=== PATIENT | female | born 1935 | race Caucasian/White ===

== ENCOUNTER 2016-10-07 13:38 | Inpatient (IN) ==
[2016-10-07] MEDS ORDERED: MORPHINE 2 MG/1 ML SYRINGE IV PRN (15:17)
[2016-10-07] MEDS ORDERED: ACETAMINOPHEN 325 MG TABLET PO PRN (15:17)
[2016-10-07 15:52] LABS: Basophils % 0.3 % (0.0-0.8); Eosinophils % 0.5 % (0.00-10.9); Immature Granulocytes % 0.5 %; Immature Granulocytes Absolute 0.04 #; Lymphocytes % 10.9 % (21.3-54.2); Mean Corpuscular HGB Conc 31.3 GM/DL (32-36); Mean Corpuscular Hemoglobin 26 PG (27-34); Mean Platelet Volume 10.9 FL (9.6-12.0); Monocytes # 0.8 10*3/uL (0.11-0.8); Monocytes % 9.2 % (1.7-12.7); Neutrophils # 6.9 10*3/uL (1.4-7.4); Neutrophils % 78.6 % (38.7-73.9); Platelet Count 417 T/CUMM (130-400); Red Blood Count 3.81 MC/CUMM (3.8-5.5); Red Cell Distribution Width 14.8 % (9.3-17.3); White Blood Count 8.7 T/CUMM (4-12)
[2016-10-07] MEDS: DEXTROSE 5% LACTATED RINGERS 1,000 ML IV SCH ×2 (15:53→22:45)
[2016-10-07] MEDS: ONDANSETRON 4 MG/2 ML VIAL IV PRN ×2 (15:57→20:28)
[2016-10-07 16:06] LABS: INR 1.2; PT Patient Result 12.9 SECS; Partial Thromboplastin Time 25.8 SECS (0-40)
[2016-10-07 16:19] LABS: Albumin 2.9 G/DL (3.4-5.0); Bilirubin,Total 0.9 MG/DL (0.2-1.0); Calcium 9.4 MG/DL (8.5-10.1); Osmolality,Calculated 280.8 MOS/KG (273-304); Potassium 4.7 MMOL/L (3.5-5.1); Total Protein 6.8 G/DL (6.4-8.3)
[2016-10-08 00:21] LABS: Apearance,Urine CLOUDY (Clear); Bacteria,Urine Occasional /HPF (Few); Bilirubin,Urine Negative (Negative); Blood, Urine Negative (Negative); Glucose,Urine (UA) Negative (Negative); Hyaline Casts,Urine 23 /LPF (0-3); Ketones,Urine Negative (Negative); Mucus,Urine Occasional /LPF (Occasional); Nitrite,Urine Negative (Negative); Protein,Urine 30 MG/DL; RBC,Urine 2 /HPF (0-4); Squamous Epithelial Cell,Urine Occasional /HPF (0-10); Urine Color Amber (Yellow); Urine Specific Gravity 1.017 (1.001-1.035); WBC,Urine 4 /HPF (0-6)
[2016-10-08] MEDS: ONDANSETRON 4 MG/2 ML VIAL IV PRN ×4 (04:00→20:16)
[2016-10-08] MEDS: DEXTROSE 5% LACTATED RINGERS 1,000 ML IV SCH ×5 (06:24→21:37)
[2016-10-08 06:54] LABS: Calcium 8.4 MG/DL (8.5-10.1); Osmolality,Calculated 286.5 MOS/KG (273-304); Potassium 3.8 MMOL/L (3.5-5.1)
[2016-10-08] MEDS: PANTOPRAZOLE 40 MG TABLET PO SCH (08:43)
--- NOTE | 2016-10-08 12:46 | General Surgery Progress Note ---
Assessment and Plan - Time spent with patient Time spent with patient: Less than 30 minutes (1) Intractable nausea and vomiting Status: Acute Assessment and plan: This is improved since admission with IV fluids and IV Zofran Current Visit: Yes (2) Dehydration Status: Acute Assessment and plan: This is likely secondary to volume depletion due to decreased intake and nausea and vomiting. We are correcting this with normal saline. Current Visit: Yes (3) Prerenal azotemia Status: Acute Assessment and plan: This is probably due to volume depletion. We are hydrating her. She needs an abdominal CT scan but with her prerenal azotemia we will hydrate her further today for ordering a CAT scan. Current Visit: Yes Subjective Patient reports: Present: feels better, nausea. Absent: still having pain, vomiting, fever Exam - Constitutional Vitals: Period Temp Pulse Resp BP Sys/Capellan Pulse Ox Last 24 Hr 97.6 F-98.5 F 72-85 16-20 112-144/57-66 92-96 General appearance: no acute distress - Eye Eye exam: Absent: scleral icterus - Respiratory Respiratory exam: Absent: accessory muscle use - GI/Abdominal GI/Abdominal exam: Present: soft. Absent: distended, tenderness, rebound Results - Labs CBC & BMP: 10/07/16 15:36 10/08/16 05:14 Lab Results: I have reviewed the past 24 hour labs Quality Measures - VTE Contraindication to Pharmacological VTE Prophylaxis: High Risk of Bleeding
[2016-10-08] MEDS ORDERED: PROMETHAZINE INJ 25 MG in SODIUM CHLORIDE 0.9% 50 ML IV ONE (22:20)
[2016-10-08] MEDS ORDERED: PROMETHAZINE 25 MG/1 ML VIAL IM PRN (22:22)
[2016-10-09] MEDS: ONDANSETRON 4 MG/2 ML VIAL IV PRN ×5 (01:59→21:48)
[2016-10-09] MEDS: DEXTROSE 5% LACTATED RINGERS 1,000 ML IV SCH ×5 (05:29→21:48)
[2016-10-09 05:53] LABS: Albumin 2.1 G/DL (3.4-5.0); Bilirubin,Total 1.6 MG/DL (0.2-1.0); Calcium 8.2 MG/DL (8.5-10.1); Osmolality,Calculated 280.5 MOS/KG (273-304); Potassium 3.4 MMOL/L (3.5-5.1); Total Protein 5.2 G/DL (6.4-8.3)
[2016-10-09] MEDS: LEVOTHYROXINE 75 MCG TABLET PO SCH (06:38)
--- NOTE | 2016-10-09 09:47 | Physician Query Form ---
CLICK EDIT DOCUMENT TO SELECT QUERY ANSWER --> OK --> SIGN Adriana Ivan RN, CCDS Certified Clinical Centrifugal Chiller Technician W) [phone] (f) [phone] [email or web address] PROVIDERS: Make your selection(s) from the choices in EACH section by typing an "x" and enter comments in the comment section. Please use your independent medical judgment in providing your response. This request does not imply that any particular answer is desired or expected. CLINICAL INDICATORS: (Providers should not edit this section) The patient was admitted with nausea/vomiting/dehydration and prerenal azotemia , Cr 1.90, GFR 26 on admission with return to Cr 0.9 and GFR 66 within 4 days , treated with IVF's. Clarify which of the following most accurately represents the patient's renal status: ( ) Acute kidney injury (non-traumatic) ( ) Acute renal failure ( ) Acute renal failure with underlying Chronic Kidney Disease (CKD) - please provide stage below ( ) Acute renal failure with pathological renal lesion ( ) Acute renal failure with necrosis ( ) tubular ( ) medullary ( ) cortical ( ) CKD - please provide stage below ( ) End Stage Renal Disease ( ) Acute interstitial nephritis ( ) Hepatorenal syndrome ( ) Other, please specify: ( ) Clinically unable to determine Chronic Kidney Disease Stages Source: National Kidney Disease Foundation ( ) Stage I (eGFR > or = 90) ( ) Stage II (eGFR 60 - 89) ( ) Stage III (eGFR 30 - 59) ( ) Stage IV (eGFR 15 - 29) ( ) Stage V (eGFR < 15 or dialysis) COMMENTS: PLEASE ALSO DOCUMENT RESPONSE IN PROGRESS NOTES AND/OR DISCHARGE SUMMARY Use of terms such as suspected, likely, or probable (associated with a specific diagnosis that is being evaluated, monitored, or treated as if it exists) are acceptable and can be restated in the discharge summary if not ruled out. MTDD
--- NOTE | 2016-10-09 13:04 | General Surgery Progress Note ---
Assessment and Plan (1) Intractable nausea and vomiting Status: Acute Assessment and plan: This is improved since admission with IV fluids and IV Zofran 10/09: She still has nausea and vomiting and I am treating this with IV fluids and Zofran. This should probably resulted in prerenal azotemia and dehydration which we have corrected. Current Visit: Yes (2) Dehydration Status: Acute Assessment and plan: This is likely secondary to volume depletion due to decreased intake and nausea and vomiting. We are correcting this with normal saline. Current Visit: Yes (3) Prerenal azotemia Status: Acute Assessment and plan: This is probably due to volume depletion. We are hydrating her. She needs an abdominal CT scan but with her prerenal azotemia we will hydrate her further today for ordering a CAT scan. Current Visit: Yes (4) Colon adenocarcinoma Status: Acute Assessment and plan: I have reviewed her CT scan that we obtained this morning. We do not have an official radiology reading. She has too numerous to count metastasis in her liver and elevated liver function tests and bilirubin. This appears to represent stage IV colon cancer. This does not look like obstruction on CT scan. We will consult oncology to see what course of treatment would be best to pursue at this time. I do not see an obstruction causing her nausea and vomiting and do not feel that we need immediate operative intervention. Current Visit: Yes Subjective Patient reports: Present: flatus, no bowel movement, nausea, vomiting. Absent: still having pain Exam - Constitutional Vitals: Period Temp Pulse Resp BP Sys/Capellan Pulse Ox Last 24 Hr 98.0 F-101.3 F 75-99 16-21 127-159/64-76 90-97 General appearance: no acute distress - Head Head exam: Present: normocephalic - Eye Eye exam: Absent: scleral icterus - Respiratory Respiratory exam: Absent: accessory muscle use - GI/Abdominal GI/Abdominal exam: Present: soft. Absent: distended, tenderness Results - Labs CBC & BMP: 10/07/16 15:36 10/09/16 05:00 Lab Results: I have reviewed the past 24 hour labs - Diagnostic Findings Procedure: CT Abdomen and Pelvis: image reviewed by me Quality Measures - VTE Contraindication to Pharmacological VTE Prophylaxis: High Risk of Bleeding
[2016-10-09] MEDS: NEBIVOLOL 5 MG TABLET PO SCH (13:20)
[2016-10-09] MEDS: PANTOPRAZOLE 40 MG TABLET PO SCH (13:20)
--- NOTE | 2016-10-09 13:21 | CT Report ---
CT abdomen pelvis w con Indication: Colon cancer Comparison: None Technique: Multiple axial tomographic images of the abdomen and pelvis were obtained after the administration of 100 cc Omnipaque 350 intravenous contrast. Findings: Multiple nodular densities within the lung bases suspicious for metastases. The largest is within the posterior medial right lower lobe which measures up to 2 cm. Heart base appears somewhat prominent. Innumerable hypodense liver lesions consistent with metastatic disease with peripheral enhancement. The largest is located within the right lobe and measures up to 10.3 cm. Gallbladder is nondistended. Pancreatic parenchyma grossly unremarkable. Spleen grossly unremarkable. Bilateral adrenal glands grossly unremarkable. Small hypodensities are demonstrated within the kidneys which are too small to characterize but may reflect cysts. No evidence of hydronephrosis. The urinary bladder is incompletely distended. Status post hysterectomy. No evidence of gastrointestinal obstruction. Moderate fecal material noted throughout the rectum and colon which may reflect constipation. There is thickening of the crowder of the terminal ileum, cecum, and proximal ascending colon. There is masslike density demonstrated within the right lower quadrant measuring up to 3.1 cm. There is loss of fat plane between this mass and the adjacent sigmoid colon, terminal ileum, and cecum. Prominent meseret hepatis node measuring up to 2.2 x 4.0 cm in largest axial dimensions. Multiple mildly prominent right lower quadrant mesenteric lymph nodes. Moderate atherosclerotic calcifications demonstrated. Degenerative change of the spine present. IMPRESSION: There is thickening of the crowder of the terminal ileum, cecum, and proximal ascending colon. There is masslike density demonstrated within the right lower quadrant measuring up to 3.1 cm consistent with malignancy. There is loss of fat plane between this mass and the adjacent sigmoid colon, terminal ileum, and cecum. There are multiple hepatic, pulmonary, and abdominal lymph node metastases. Questional constipation, cardiomegaly, status post hysterectomy, and other detailed findings as above. The CT exam was performed using one or more of the following dose reduction techniques: Automated exposure control, adjustment of the mA and/or kV according to patient size, or use of iterative reconstruction technique. PROCEDURE INTERPRETED AT [facility] DEPARTMENT OF RADIOLOGY Final Report Signed by: Dr Miguel Fabian
--- NOTE | 2016-10-09 15:26 | Oncology Consult Note ---
History of Present Illness History of present illness: Ms. Espinoza is a 81 year old female with Metastatic colon cancer. I discussed this patient's case with Dr. Bernadette Thacker earlier today. She was admitted with intractable nausea and vomiting and a diagnosis of colon cancer on C scope. Between the time of diagnosis by colonoscopy, which was done in [place], and this admission, the patient has had a deterioration in her condition consisting of nausea and vomiting and progressive weakness. She had a CT scan performed earlier today that demonstrates diffuse metastatic disease within the liver with an elevation of liver function tests and bilirubin. She does not have definite evidence of obstruction or impending obstruction on CT scan nor is it observed by Dr. Bernadette Thacker. It is not his opinion that she is necessarily a surgical candidate at this point. Lab work on October 07 included a CBC that was normal except for a hemoglobin of 10.0. The patient's white cell count was 8700. Her comprehensive metabolic profile on October 07 included an alkaline phosphatase of 314 and an AST of 364 but the total bilirubin was normal at 0.9 and renal function slightly impaired at that time with a creatinine of 1.9 that is now down to 1.1 as of October 09, 2016. I have personally reviewed the CT films of the patient's abdomen. She has innumerable metastases and extremely bulky disease taking up most of her liver parenchyma. I do not think she can handle Oxaliplatin or Camptosar. I will consider the addition of Avastin at some point, possibly. Also we may need additional tissue for testing for WESLEY mutation. - Medical History Cardio: History of: Hypertension HEENT: History of: Dental Problems (top) Endocrine: History of: Thyroid Disorder Gastrointestinal: History of: Gastrointestinal Cancer (colon) - Surgical History HEENT Surgeries: Surgical HX of: Eye Surgery (cataract) Orthopedic Surgeries: Surgical HX of;: Orthopedic Surgery (knee ) - Family History Family History: Reports;: Family Heart Disease (father), Family Hypertension ( Parents, sister) - Social History Smoking Status: Never smoker Frequency of Alcohol Use: None Type of Drug Use: None ROS Gen.: Until onset of present illness, her health has been fairly good. Endocrine: She has a history of hypothyroidism and has been on thyroid supplementation. Eyes: She has had bilateral cataract surgery. No history of chronic disease, infections or visual loss. ENT: No history of chronic infections, epistaxis, chronic sore throat Lungs: No history of asthma, emphysema, hemoptysis, chronic pleurisy or long- term or chronic infections Cardiovascular: She has a history of hypertension. No history of angina, coronary artery disease, congestive heart failure, cardiovascular surgery or DVT /VTE GI: She developed nausea and vomiting with onset of this present illness and has had esophageal reflux and heartburn. No prior history of upper or lower GI bleeding, melena, dysphagia, odynophagia, liver disease, gallbladder disease or pancreatic disease. : She was acutely dehydrated and had documented elevation of her urea nitrogen and creatinine on this admission but this is not a long-term issue. No history of kidney stones, chronic kidney infections or hematuria. Musculoskeletal: No history of chronic bone or joint pain or focal muscle atrophy or bone or joint deformity. Neurologic: No history of seizures, convulsions or paralysis. Psychiatric: No history of chronic psychiatric illness or psychiatric medications. Lymphatic: No history of significant or long-term lymphadenopathy Hematologic: No history of anemia, bleeding disorders or blood dyscrasias or long-term elevation or depression white cell count or petechiae. Skin: No history of chronic skin infections or rashes or significant skin lesions. Physical examination: General: The patient is both chronically and acutely ill appearing. Eyes: She has had bilateral cataract surgery. There is no conjunctival icterus. Lids are normal. ENT: She has an upper plate of dentures. Her oral mucosa is dry. Her trachea is midline. There are no neck masses. Hearing is normal. Pulmonary: Breath sounds are relatively normal without rubs, rales or rhonchi. There is symmetrical unlabored chest motion with respiration. Cardiovascular: Her heart rhythm is regular without murmur, gallop or rub. There is no jugular venous distention, clubbing, cyanosis or edema. Dorsal pedis pulses are normal. Abdomen: Her liver is palpable 5 cm below the right costal margin and is tender. She appears to have ascites or at least abdominal distention. Musculoskeletal: She has mild arthritic change in the hands without focal muscle atrophy or bone or joint deformity otherwise. Neurologic: Cranial nerves II through XII are intact. There are no focal neurologic deficits. Nodes: I palpate no cervical, supraclavicular or axillary adenopathy. Skin: Cursory examination is normal. Psychiatric: The patient is obviously very anxious and depressed at this point. However she is oriented to time, place, person and situation with what I would consider normal mood and affect. Impression: Stage IV adenocarcinoma the colon with extensive liver involvement. Acute renal failure secondary to intractable nausea and vomiting History of hypertensive cardiovascular disease History of hypothyroidism with the patient on supplemental thyroid Her renal function is improving. I am checking a CEA level and CA-19-9. I am going to give her information from Up-To-Date on metastatic adenocarcinoma colon and on treatment of it. If she decides to take chemotherapy, she will need a Mediport catheter. We also may need additional tissue for study for WESLEY mutations The extent of her cancer in her liver is more than I expected. The majority of her liver is occupied by metastatic disease. I have explained to her that this is palliative chemotherapy and she is going to think about it. Initially she said she did not want it but I do not think she fully understood her situation. This is very advanced disease and I am not certain that we can even get her through chemotherapy. Home Medications Medication Instructions Recorded Confirmed Type Levothyroxine Tab [Synthroid Tab] 75 mcg PO DAILY@0700 10/07/16 10/07/16 History Lisinopril/Hydrochlorothiazide 1 each PO DAILY 10/07/16 10/07/16 History [Lisinopril-Hctz 10-12.5 mg Tab] Nebivolol [Bystolic] 5 mg PO DAILY 10/07/16 10/07/16 History Ondansetron HCl 4 mg PO Q4H PRN 10/07/16 10/07/16 History Allergies Allergy/AdvReac Type Severity Reaction Status Date / Time No Known Allergies Allergy Verified 10/07/16 15:35 Medical,Surgical,& Family Hx - Medical History Cardio: History of: Hypertension HEENT: History of: Dental Problems (top) Endocrine: History of: Thyroid Disorder Gastrointestinal: History of: Gastrointestinal Cancer (colon) - Surgical History HEENT Surgeries: Surgical HX of: Eye Surgery (cataract) Orthopedic Surgeries: Surgical HX of;: Orthopedic Surgery (knee s) - Family History Family History: Reports;: Family Heart Disease (father), Family Hypertension ( Parents, sister) - Social History Smoking Status: Never smoker Frequency of Alcohol Use: None Type of Drug Use: None Exam - Constitutional Vitals: Period Temp Pulse Resp BP Sys/Capellan Pulse Ox Last 24 Hr 98.0 F-101.3 F 75-99 16-21 127-159/64-76 90-97 Results - Labs CBC & BMP: 10/07/16 15:36 10/09/16 05:00 Quality Measures - VTE Contraindication to Pharmacological VTE Prophylaxis: High Risk of Bleeding
[2016-10-09 19:03] LABS: Cancer Antigen 19-9 6287.6 U/ML (0-37); Carcinoembryonic Antigen 194.3 NG/ML (0.0-5.0)
[2016-10-10] MEDS: DEXTROSE 5% LACTATED RINGERS 1,000 ML IV SCH ×4 (01:35→16:24)
[2016-10-10] MEDS: ONDANSETRON 4 MG/2 ML VIAL IV PRN ×3 (04:32→16:32)
[2016-10-10] MEDS: LEVOTHYROXINE 75 MCG TABLET PO SCH (06:05)
--- NOTE | 2016-10-10 07:16 | Oncology Progress Note ---
Oncology Subjective PN Interval history: This lady, with advanced metastatic colorectal carcinoma, had lab work done yesterday, October 09, that included a CEA of 194.3 with a CA-19-9 of 6287.6. I have given her information from up-to-date on metastatic adenocarcinoma the colon as well as leucovorin and 5-FU. As mentioned by Dr. Fleming, the CA-19-9 is higher than the CEA. At this point in this patient's case, I would be treating her with leucovorin and 5-FU without additional chemotherapy drugs and this would be the combination I would be most likely use with either colon cancer or other GI cancer and it does not appear that this is pancreatic cancer from the patient's symptoms. Gemzar would be an alternative but I would want to repeat a biopsy of her liver before actually considering the use of it. Exam - Constitutional Vitals: Period Temp Pulse Resp BP Sys/Capellan Pulse Ox Last 24 Hr 98.1 F-100.2 F 81-96 16-21 127-150/62-71 93-96 Results - Labs CBC & BMP: 10/07/16 15:36 10/09/16 05:00 Quality Measures - VTE Contraindication to Pharmacological VTE Prophylaxis: High Risk of Bleeding
[2016-10-10] MEDS: NEBIVOLOL 5 MG TABLET PO SCH (08:37)
--- NOTE | 2016-10-10 08:37 | General Surgery Progress Note ---
Assessment and Plan (1) Intractable nausea and vomiting Status: Acute Assessment and plan: This is improved since admission with IV fluids and IV Zofran 10/09: She still has nausea and vomiting and I am treating this with IV fluids and Zofran. This should probably resulted in prerenal azotemia and dehydration which we have corrected. Current Visit: Yes (2) Dehydration Status: Acute Assessment and plan: This is likely secondary to volume depletion due to decreased intake and nausea and vomiting. We are correcting this with normal saline. Current Visit: Yes (3) Prerenal azotemia Status: Acute Assessment and plan: This is probably due to volume depletion. We are hydrating her. She needs an abdominal CT scan but with her prerenal azotemia we will hydrate her further today for ordering a CAT scan. Current Visit: Yes (4) Colon adenocarcinoma Status: Acute Assessment and plan: I have reviewed her CT scan that we obtained this morning. We do not have an official radiology reading. She has too numerous to count metastasis in her liver and elevated liver function tests and bilirubin. This appears to represent stage IV colon cancer. This does not look like obstruction on CT scan. We will consult oncology to see what course of treatment would be best to pursue at this time. I do not see an obstruction causing her nausea and vomiting and do not feel that we need immediate operative intervention. 10/10: I discussed her case with Dr. Ochoa. I do not feel that surgical intervention at this time would be beneficial for her considering the amount of metastatic disease that she has. I do not see evidence of obstruction. The remarkable thing is her very high CA-19-9 level. It is unclear to me if this is all a colon primary. She may benefit from a liver biopsy. I am going to transfer her care primarily to Dr. Ochoa. I do not think that there is a role for surgery at this point other than maybe placing a Mediport. This was discussed in detail with the patient and her family and they agree Current Visit: Yes Subjective Patient reports: Present: feels better, nausea. Absent: still having pain, vomiting Exam - Constitutional Vitals: Period Temp Pulse Resp BP Sys/Capellan Pulse Ox Last 24 Hr 98.1 F-102.2 F 81-96 16-21 127-150/62-71 92-96 General appearance: no acute distress - GI/Abdominal GI/Abdominal exam: Present: soft. Absent: distended, guarding, tenderness Results - Labs CBC & BMP: 10/07/16 15:36 10/09/16 05:00 Quality Measures - VTE Contraindication to Pharmacological VTE Prophylaxis: High Risk of Bleeding
[2016-10-10] MEDS: PANTOPRAZOLE 40 MG TABLET PO SCH (08:38)
[2016-10-10] MEDS ORDERED: LACTULOSE 20 GM/30 ML UDCUP PO PRN (12:07)
[2016-10-10] MEDS ORDERED: diphenhydrAMINE CAP 25 MG CAPSULE PO PRN (12:07)
[2016-10-10] MEDS ORDERED: ALPRAZolam 0.25 MG TABLET PO PRN (12:07)
[2016-10-10] MEDS ORDERED: ACETAMINOPHEN 325 MG TABLET PO PRN (12:07)
[2016-10-10] MEDS ORDERED: chlorproMAZINE INJ 50 MG in SODIUM CHLORIDE 0.9% 100 ML IV PRN (12:07)
[2016-10-10] MEDS ORDERED: ALUMINUM/MAGNES/SIMETH MAX STR 30 ML UDCUP PO PRN (12:07)
[2016-10-10] MEDS ORDERED: BENZTROPINE 2 MG/2 ML AMP IV PRN (12:07)
[2016-10-10] MEDS ORDERED: traMADol 50 MG TABLET PO PRN (12:07)
[2016-10-10] MEDS ORDERED: chlorproMAZINE 25 MG TABLET PO PRN (12:07)
[2016-10-10] MEDS ORDERED: MYLANTA/LIDO VISC 2:1 300 ML BOTTLE SWISH/SWAL PRN (12:07)
[2016-10-10] MEDS ORDERED: LOPERAMIDE 2 MG CAPSULE PO PRN ×2 (12:07)
[2016-10-10] MEDS ORDERED: chlorproMAZINE INJ 25 MG in SODIUM CHLORIDE 0.9% 100 ML IV PRN (12:07)
[2016-10-10] MEDS ORDERED: TEMAZEPAM 7.5 MG CAPSULE PO PRN (12:07)
[2016-10-10] MEDS ORDERED: guaiFENesin 200 MG/10 ML UDCUP PO PRN (12:07)
[2016-10-10] MEDS ORDERED: MYLANTA/LIDO VISC 2:1 300 ML BOTTLE SWISH/SPIT PRN (12:07)
--- NOTE | 2016-10-10 15:58 | Post Interventional Procedure ---
Pre-op diagnosis: stage IV colon CA Post-op diagnosis: same Procedure: PICC placement Contrast: none Flouroscopy: 1.3 min Radiologist: Valerio Olmos Anesthesia: local Specimens: none sent Estimated blood loss: none Complications: none Condition: stable Description/Findings: 5 Fr dual lumen picc placement done and ready to use Assessment and Plan - Time spent with patient Time spent with patient: Less than 30 minutes
--- NOTE | 2016-10-10 16:08 | Interventional Radiology Rpt ---
IR PICC line insertion, US guide vascular access IR PICC Placement Peripherally-inserted central catheter (PICC) placement using ultrasound and fluoroscopic guidance Ultrasound of the left upper extremity Clinical Information: Stage IV colon cancer. PICC line is requested for chemotherapy and rehydration Physician: Dr. Olmos Procedure: The patient was advised of the benefits, risks, and alternatives of the procedure and informed consent was obtained. A time out was performed with verification of the patient's name, MRN, site of procedure, and type of procedure to be performed. The patient was positioned in the supine position on the angiographic table. The site was prepped and draped in the usual sterile fashion. Additionally, maximal sterile barrier technique was employed for the procedure. A curing pickling packer radiograph reveals no relevant abnormality. Ultrasound examination of the left arm demonstrates patent and compressible brachial and basilic veins. The left arm was prepped and draped in the usual sterile fashion. The left basilic vein was again identified. Using ultrasound guidance, a 21 gauge needle was used to access the vein. A permanent ultrasound recording of vascular access was obtained for the patient's record. A 0.018" cope wire was then advanced into the vein. The needle was exchanged for a 5 Gabonese peel-away sheath. A 5 Gabonese double lumen Bard Solo PICC catheter was measured and trimmed to the 40 to cm claudia. The PICC line was advanced through the sheath and into the central circulation. The catheter tip was positioned at the cavo-atrial junction. The peel-away sheath was then removed. At the conclusion of the procedure, the catheter was secured in place using a Stat-Lock device. A sterile dressing was applied. The lumens aspirate and flush freely. The catheter is ready for immediate use. The patient tolerated the procedure well and was returned to the PRU in stable condition. EBL: < 5 mL. Complications: None. Fluoroscopy time: 1.3 Total number of images for this study: 4 Conclusion: Successful placement of a 5 Gabonese double lumen Bard Solo power injectable PICC via the left basilic vein. The catheter is ready for immediate use. PROCEDURE INTERPRETED AT [facility] DEPARTMENT OF RADIOLOGY Final Report Signed by: Valerio Olmos
[2016-10-10] MEDS: DEXAMETHASONE 10 MG/1 ML VIAL IV SCH (16:24)
[2016-10-11] MEDS: DEXTROSE 5% LACTATED RINGERS 1,000 ML IV SCH ×3 (00:20→18:17)
[2016-10-11] MEDS: ONDANSETRON 4 MG/2 ML VIAL IV PRN ×3 (01:16→17:38)
[2016-10-11 05:33] LABS: Basophils % 0.2 % (0.0-0.8); Hematocrit 26.5 VOL% (35.7-47.0); Hemoglobin 8.4 GM/DL (12.0-16.0); Immature Granulocytes % 0.6 %; Immature Granulocytes Absolute 0.04 #; Lymphocytes # 0.5 10*3/uL (1.4-4.0); Mean Corpuscular HGB Conc 31.7 GM/DL (32-36); Mean Corpuscular Hemoglobin 27 PG (27-34); Mean Corpuscular Volume 85.2 FL (87-102); Mean Platelet Volume 11.3 FL (9.6-12.0); Monocytes # 0.2 10*3/uL (0.11-0.8); Monocytes % 3.6 % (1.7-12.7); Neutrophils # 5.7 10*3/uL (1.4-7.4); Neutrophils % 88.6 % (38.7-73.9); Platelet Count 270 T/CUMM (130-400); Red Blood Count 3.11 MC/CUMM (3.8-5.5); Red Cell Distribution Width 14.9 % (9.3-17.3); White Blood Count 6.4 T/CUMM (4-12)
[2016-10-11] MEDS: LEVOTHYROXINE 75 MCG TABLET PO SCH (07:08)
[2016-10-11 07:17] LABS: Bilirubin,Total 1.1 MG/DL (0.2-1.0); Calcium 8.4 MG/DL (8.5-10.1); Osmolality,Calculated 284.3 MOS/KG (273-304); Potassium 3.3 MMOL/L (3.5-5.1)
[2016-10-11] MEDS: NEBIVOLOL 5 MG TABLET PO SCH (08:20)
[2016-10-11] MEDS: PANTOPRAZOLE 40 MG TABLET PO SCH (08:20)
[2016-10-11] MEDS: DEXAMETHASONE 10 MG/1 ML VIAL IV SCH (08:21)
--- NOTE | 2016-10-11 10:41 | Oncology Progress Note ---
Assessment and Plan (1) Intractable nausea and vomiting Status: Acute Assessment and plan: Improved with current regimen - continue with IVF, decadron, and zofran - CT abdomen with no signs of obstruction and positive for constipation - advised patient to take laxatives and if able to have a bowel movement will advance diet as tolerated to clears - per patient had a colonoscopy at OSH with a significant colonic mass with possible obstruction. will have to obtain records Current Visit: Yes (2) Colon adenocarcinoma Status: Acute Assessment and plan: - per patient documented by OSH via colonoscopy with significant liver burden - plan for initiation of chemotherapy in near future once patient more stable Current Visit: Yes (3) Prerenal azotemia Status: Acute Assessment and plan: - improved with IVF. continue with fluids as patient with continued nausea and no PO intake Current Visit: Yes Oncology Subjective PN Interval history: 81 year old female with PMHx of HTN, and hypothyroidism admitted for intractable nausea, vomiting, and abdominal pain. Patient found to have extensive liver metastasis and per patient with a colonoscopy at OSH with an obstructive colon mass. Per patient her nausea is starting to become better controlled. She states she has had poor PO intake for the last 2 weeks as well as constipation. She denies abdominal distention. She has had intermittent fevers since admit with no source and afebrile in last 24 hours. No SOB. Exam - Constitutional Vitals: Period Temp Pulse Resp BP Sys/Capellan Pulse Ox Last 24 Hr 96 F-99.2 F 66-97 18-18 115-167/54-72 92-96 General appearance: no acute distress - Eye Eye Exam: Present: EOMI Pupils: Present: PERRL - Respiratory Respiratory exam: Present: CTAB - Cardiovascular Cardiovascular exam: Present: RRR - GI/Abdominal GI/Abdominal exam: Present: firm, mass, tenderness, soft. Absent: ascites, distended - Extremities Exam Extremities exam: Absent: edema - Neurological Exam Neurological exam: Present: alert, oriented X3 - Psychiatric Psychiatric exam: Present: normal affect - Skin Skin exam: Present: warm Results - Labs CBC & BMP: 10/11/16 04:00 10/11/16 04:00 Quality Measures - VTE Contraindication to Pharmacological VTE Prophylaxis: High Risk of Bleeding
[2016-10-11] MEDS: PROMETHAZINE INJ 25 MG in SODIUM CHLORIDE 0.9% 50 ML IV PRN ×2 (10:45→20:30)
[2016-10-11] MEDS: MAGNESIUM HYDROXIDE SUSP 30 ML UDCUP PO PRN (17:38)
[2016-10-12] MEDS: DEXTROSE 5% LACTATED RINGERS 1,000 ML IV SCH ×3 (02:52→22:55)
[2016-10-12] MEDS: PROMETHAZINE INJ 25 MG in SODIUM CHLORIDE 0.9% 50 ML IV PRN ×3 (02:55→22:56)
[2016-10-12 04:56] LABS: Hematocrit 27.3 VOL% (35.7-47.0); Hemoglobin 8.7 GM/DL (12.0-16.0); Immature Granulocytes % 0.7 %; Immature Granulocytes Absolute 0.08 #; Lymphocytes # 0.7 10*3/uL (1.4-4.0); Lymphocytes % 5.8 % (21.3-54.2); Mean Corpuscular HGB Conc 31.9 GM/DL (32-36); Mean Corpuscular Hemoglobin 27 PG (27-34); Mean Corpuscular Volume 84.3 FL (87-102); Monocytes # 0.8 10*3/uL (0.11-0.8); Monocytes % 6.8 % (1.7-12.7); Neutrophils # 10.1 10*3/uL (1.4-7.4); Neutrophils % 86.7 % (38.7-73.9); Platelet Count 324 T/CUMM (130-400); Red Blood Count 3.24 MC/CUMM (3.8-5.5); White Blood Count 11.7 T/CUMM (4-12)
[2016-10-12 05:35] LABS: Albumin 1.9 G/DL (3.4-5.0); Bilirubin,Total 0.9 MG/DL (0.2-1.0); Calcium 8.2 MG/DL (8.5-10.1); Total Protein 4.9 G/DL (6.4-8.3)
[2016-10-12 05:36] LABS: Osmolality,Calculated 285.1 MOS/KG (273-304); Potassium 3.6 MMOL/L (3.5-5.1)
[2016-10-12] MEDS: DEXAMETHASONE 10 MG/1 ML VIAL IV SCH (08:53)
[2016-10-12] MEDS: PANTOPRAZOLE 40 MG TABLET PO SCH (08:53)
[2016-10-12] MEDS: NEBIVOLOL 5 MG TABLET PO SCH (08:53)
[2016-10-12] MEDS: LEVOTHYROXINE 75 MCG TABLET PO SCH (08:53)
[2016-10-12] MEDS: MAGNESIUM HYDROXIDE SUSP 30 ML UDCUP PO PRN (08:54)
--- NOTE | 2016-10-12 09:44 | Oncology Progress Note ---
Assessment and Plan (1) Intractable nausea and vomiting Status: Acute Assessment and plan: Improved with current regimen - continue with IVF, decadron, and zofran - CT abdomen with no signs of obstruction but positive for constipation and large tumor burden in liver - 3 BMs yesterday with MoM and feels better today - will attempt advance diet to clears today as tolerated - per patient had a colonoscopy at OSH with a significant colonic mass. Current Visit: Yes (2) Colon adenocarcinoma Status: Acute Assessment and plan: - per patient documented by OSH via colonoscopy with significant liver burden - plan for initiation of chemotherapy in near future once patient more stable Current Visit: Yes (3) Prerenal azotemia Status: Acute Assessment and plan: resolved with IVF. continue with fluids as patient with continued nausea and poor PO intake Current Visit: Yes Oncology Subjective PN Interval history: 81 year old female admitted with intractable nausea and vomiting found to have large metastatic disease burden in her liver and per patient with a colonic mass seen at OSH on colonoscopy. Yesterday patient had 3 bowel movements with MoM and feels better today. Nausea improved. Patient states feels up to trying a diet. No fevers. No new pains. No SOB. No blood in stool. Exam - Constitutional Vitals: Period Temp Pulse Resp BP Sys/Capellan Pulse Ox Last 24 Hr 96.1 F-97.8 F 68-83 18-18 114-152/58-67 92-96 General appearance: no acute distress - Eye Eye Exam: Present: EOMI Pupils: Present: PERRL - Respiratory Respiratory exam: Present: CTAB - Cardiovascular Cardiovascular exam: Present: RRR - GI/Abdominal GI/Abdominal exam: Present: ascites, distended, tenderness (mild epigastric and RUQ pain), soft - Extremities Exam Extremities exam: Absent: edema - Neurological Exam Neurological exam: Present: alert, oriented X3 - Psychiatric Psychiatric exam: Present: normal affect - Skin Skin exam: Present: warm Results - Labs CBC & BMP: 10/12/16 04:00 10/12/16 04:00 Quality Measures - VTE Contraindication to Pharmacological VTE Prophylaxis: High Risk of Bleeding
[2016-10-13 06:32] LABS: Basophils % 0.2 % (0.0-0.8); Eosinophils # 0.1 10*3/uL (0.0-0.87); Eosinophils % 0.6 % (0.00-10.9); Hemoglobin 9.8 GM/DL (12.0-16.0); Immature Granulocytes % 0.9 %; Immature Granulocytes Absolute 0.09 #; Lymphocytes # 0.8 10*3/uL (1.4-4.0); Lymphocytes % 7.8 % (21.3-54.2); Mean Corpuscular HGB Conc 31.6 GM/DL (32-36); Mean Corpuscular Hemoglobin 26 PG (27-34); Mean Corpuscular Volume 83.3 FL (87-102); Mean Platelet Volume 11.1 FL (9.6-12.0); Monocytes # 0.9 10*3/uL (0.11-0.8); Monocytes % 8.5 % (1.7-12.7); Neutrophils # 8.3 10*3/uL (1.4-7.4); Platelet Count 242 T/CUMM (130-400); Red Blood Count 3.72 MC/CUMM (3.8-5.5); Red Cell Distribution Width 15.3 % (9.3-17.3); White Blood Count 10.1 T/CUMM (4-12)
[2016-10-13] MEDS ORDERED: DEXAMETHASONE INJ 20 MG in SODIUM CHLORIDE 0.9% 50 ML IV ONE (06:55)
[2016-10-13] MEDS: LEVOTHYROXINE 75 MCG TABLET PO SCH (07:03)
[2016-10-13 07:05] LABS: Bilirubin,Total 1.1 MG/DL (0.2-1.0); Calcium 8.3 MG/DL (8.5-10.1); Osmolality,Calculated 283.3 MOS/KG (273-304); Total Protein 5.5 G/DL (6.4-8.3)
[2016-10-13 07:57] LABS: Band Neutrophils 1 % (0-10); Lymphocytes 14 % (20-55); Segmented Neutrophils 77 % (50-85); Total Cells Counted 100
[2016-10-13 07:58] LABS: Hypochromasia 1+; Ovalocytes Slight; Platelet Estimate Adequate
[2016-10-13] MEDS: DEXTROSE 5% LACTATED RINGERS 1,000 ML IV SCH (08:12)
--- NOTE | 2016-10-13 08:15 | Oncology Progress Note ---
Oncology Subjective PN Interval history: (1) Intractable nausea and vomiting Status: Acute Assessment and plan: Improved with current regimen - continue with IVF, decadron, and zofran - CT abdomen with no signs of obstruction but positive for constipation and large tumor burden in liver - 3 BMs yesterday with MoM and feels better today - will attempt advance diet to clears today as tolerated -Her nausea and vomiting has improved. However, she is developing ascites and she has significant hepatomegaly due to metastatic disease to her liver which is impressive. Current Visit: Yes (2) Colon adenocarcinoma Status: Acute Assessment and plan: -I am proceeding with chemotherapy today. I plan to use leucovorin and 5-FU. The patient was having severe nausea and vomiting when I initially plan to her this chemotherapy. I made copies of information on colon cancer and chemotherapy from up-to-date and 1 of her relatives to get home with them. Obviously this is disruptive of care and irritating to me because the patient had a lot of questions that I explained again but I did not have time to do it to the extent that I would like to. We are going to copy off information from up-to-date again but we are proceeding with leucovorin and 5-FU. Current Visit: Yes (3) Prerenal azotemia Status: Acute Assessment and plan: Lab work today includes a serum creatinine of 1.1. Have actually been down to 0.9 yesterday. Her electrolytes are satisfactory. Her total bilirubin is 1.0 which is surprising with the extent of tumor that she has in her liver. Her hemoglobin is 9.8 today with a white cell count 10,100 and a platelet count of 242,000. Exam - Constitutional Vitals: Period Temp Pulse Resp BP Sys/Capellan Pulse Ox Last 24 Hr 97.5 F-99.2 F 72-108 18-20 141-152/65-71 92-95 Results - Labs CBC & BMP: 10/13/16 06:19 10/13/16 06:19 Quality Measures - VTE Contraindication to Pharmacological VTE Prophylaxis: High Risk of Bleeding
[2016-10-13] MEDS ORDERED: FLUOROURACIL IV ONE (09:00)
[2016-10-13] MEDS ORDERED: DEXTROSE 5% IV ONE (09:00)
[2016-10-13] MEDS ORDERED: LEUCOVORIN IV ONE (09:00)
[2016-10-13] MEDS: PROMETHAZINE INJ 25 MG in SODIUM CHLORIDE 0.9% 50 ML IV PRN (09:18)
[2016-10-13] MEDS: NEBIVOLOL 5 MG TABLET PO SCH (09:19)
[2016-10-13] MEDS: PANTOPRAZOLE 40 MG TABLET PO SCH (09:19)
[2016-10-13] MEDS: DEXAMETHASONE 10 MG/1 ML VIAL IV SCH (09:23)
[2016-10-13] MEDS: GRANISETRON 1 MG/1 ML VIAL IV SCH (10:31)
[2016-10-13] MEDS: FLUOROURACIL 2,000 MG in SODIUM CHLORIDE 0.9% 1,000 ML IV SCH (16:25)
[2016-10-14 05:29] LABS: Basophils % 0.1 % (0.0-0.8); Hematocrit 27.4 VOL% (35.7-47.0); Hemoglobin 8.7 GM/DL (12.0-16.0); Immature Granulocytes % 0.7 %; Immature Granulocytes Absolute 0.06 #; Lymphocytes # 0.7 10*3/uL (1.4-4.0); Lymphocytes % 8.8 % (21.3-54.2); Mean Corpuscular HGB Conc 31.8 GM/DL (32-36); Mean Corpuscular Hemoglobin 27 PG (27-34); Mean Corpuscular Volume 83.8 FL (87-102); Mean Platelet Volume 10.4 FL (9.6-12.0); Monocytes # 0.5 10*3/uL (0.11-0.8); Monocytes % 5.8 % (1.7-12.7); Neutrophils # 7.1 10*3/uL (1.4-7.4); Neutrophils % 84.6 % (38.7-73.9); Platelet Count 236 T/CUMM (130-400); Red Blood Count 3.27 MC/CUMM (3.8-5.5); Red Cell Distribution Width 15.5 % (9.3-17.3); White Blood Count 8.4 T/CUMM (4-12)
[2016-10-14 06:03] LABS: Albumin 1.9 G/DL (3.4-5.0); Bilirubin,Total 0.8 MG/DL (0.2-1.0); Osmolality,Calculated 284.3 MOS/KG (273-304); Potassium 3.9 MMOL/L (3.5-5.1); Total Protein 4.9 G/DL (6.4-8.3)
[2016-10-14] MEDS: LEVOTHYROXINE 75 MCG TABLET PO SCH (06:42)
--- NOTE | 2016-10-14 07:51 | Oncology Progress Note ---
Oncology Subjective PN Interval history: This lady will be starting day #2 of 5-FU infusion today. This is her first course of palliative chemotherapy for metastatic colorectal carcinoma to the liver. She has tolerated the chemotherapy well so far. In fact she tells me she feels better today than yesterday. I doubt that this is actually tumor response to chemotherapy this point but it is encouraging. We are advancing her diet slowly. She is oriented and alert. Her respirations are unlabored. Her lungs are clear. Her abdomen is protuberant and distended with evidence of ascites but she is not particularly tender. Her liver is massively enlarged. Her hemoglobin today is 8.7. Her white cell count is 8400 with a platelet count of 236,000. Her serum creatinine is normal at 0.8. Her alkaline phosphatase is 413 with an AST of 214. Her electrolytes are satisfactory. She is on parenteral narcotics for pain as needed. We are continuing chemotherapy and monitoring for toxicity. Exam - Constitutional Vitals: Period Temp Pulse Resp BP Sys/Capellan Pulse Ox Last 24 Hr 96.2 F-100.4 F 61-93 18-24 115-153/52-76 92-96 Results - Labs CBC & BMP: 10/14/16 05:01 10/14/16 05:01 Quality Measures - VTE Contraindication to Pharmacological VTE Prophylaxis: High Risk of Bleeding
[2016-10-14] MEDS ORDERED: MORPHINE 2 MG/1 ML SYRINGE IV PRN (08:52)
[2016-10-14] MEDS: PANTOPRAZOLE 40 MG TABLET PO SCH (09:21)
[2016-10-14] MEDS: NEBIVOLOL 5 MG TABLET PO SCH (09:21)
[2016-10-14] MEDS: GRANISETRON 1 MG/1 ML VIAL IV SCH (09:22)
[2016-10-14] MEDS: DEXAMETHASONE 10 MG/1 ML VIAL IV SCH (09:25)
[2016-10-14] MEDS: FLUOROURACIL 2,000 MG in SODIUM CHLORIDE 0.9% 1,000 ML IV SCH (16:33)
[2016-10-15 05:44] LABS: Hematocrit 28.3 VOL% (35.7-47.0); Hemoglobin 8.9 GM/DL (12.0-16.0); Immature Granulocytes % 0.7 %; Immature Granulocytes Absolute 0.07 #; Lymphocytes # 0.7 10*3/uL (1.4-4.0); Lymphocytes % 7.3 % (21.3-54.2); Mean Corpuscular HGB Conc 31.4 GM/DL (32-36); Mean Corpuscular Hemoglobin 26 PG (27-34); Mean Corpuscular Volume 83.5 FL (87-102); Mean Platelet Volume 10.9 FL (9.6-12.0); Monocytes # 0.2 10*3/uL (0.11-0.8); Monocytes % 2.3 % (1.7-12.7); Neutrophils % 89.7 % (38.7-73.9); Platelet Count 265 T/CUMM (130-400); Red Blood Count 3.39 MC/CUMM (3.8-5.5); Red Cell Distribution Width 15.5 % (9.3-17.3)
[2016-10-15 06:31] LABS: Albumin 1.9 G/DL (3.4-5.0); Bilirubin,Total 0.6 MG/DL (0.2-1.0); Calcium 7.7 MG/DL (8.5-10.1); Potassium 3.7 MMOL/L (3.5-5.1); Total Protein 4.8 G/DL (6.4-8.3)
[2016-10-15] MEDS: LEVOTHYROXINE 75 MCG TABLET PO SCH (06:47)
--- NOTE | 2016-10-15 07:10 | Oncology Progress Note ---
Oncology Subjective PN Interval history: Ms. Espinoza completes her first course of palliative chemotherapy today for metastatic colon cancer. Her condition is improving. She is no longer having abdominal pain or nausea. I plan to discharge her tomorrow and arrange further chemotherapy depending on how well she responds. However, she is doing well presently. She has had no nausea or vomiting today and no pain. Physical examination: General: She remains chronically ill-appearing ENT: Normal oral mucosa. Hearing normal. Neck: Trachea is midline. No masses. Lungs: Normal breath sounds without rubs, rales or rhonchi. Chest motion is symmetrical. Cardiovascular: Her heart rhythm is regular without murmur, gallop or rub. There is no jugular venous distention. Abdomen: Her abdomen remains protuberant and distended and she has a palpable mass in the upper abdomen. She has significant hepatomegaly. Neurologic: Cranial nerves II through XII are intact. The no focal neurologic deficits. Psychiatric: She is fully oriented and alert. She will finish chemotherapy later today and I plan to let her go home tomorrow if she remains stable. We will need to set up a Mediport catheter placement as an outpatient. Exam - Constitutional Vitals: Period Temp Pulse Resp BP Sys/Capellan Pulse Ox Last 24 Hr 96.7 F-97.8 F 66-77 18-24 127-161/60-84 93-96 Results - Labs CBC & BMP: 10/15/16 04:05 10/15/16 04:05 Quality Measures - VTE Contraindication to Pharmacological VTE Prophylaxis: High Risk of Bleeding
[2016-10-15] MEDS: DEXAMETHASONE 10 MG/1 ML VIAL IV SCH (09:22)
[2016-10-15] MEDS: GRANISETRON 1 MG/1 ML VIAL IV SCH (09:22)
[2016-10-15] MEDS: NEBIVOLOL 5 MG TABLET PO SCH (09:23)
[2016-10-15] MEDS: MAGNESIUM HYDROXIDE SUSP 30 ML UDCUP PO PRN (09:23)
[2016-10-15] MEDS: PANTOPRAZOLE 40 MG TABLET PO SCH (09:23)
[2016-10-16 05:44] LABS: Eosinophils % 0.1 % (0.00-10.9); Hematocrit 28.5 VOL% (35.7-47.0); Immature Granulocytes % 0.7 %; Immature Granulocytes Absolute 0.07 #; Lymphocytes # 0.8 10*3/uL (1.4-4.0); Lymphocytes % 8.2 % (21.3-54.2); Mean Corpuscular HGB Conc 31.6 GM/DL (32-36); Mean Corpuscular Hemoglobin 26 PG (27-34); Mean Corpuscular Volume 82.4 FL (87-102); Mean Platelet Volume 10.4 FL (9.6-12.0); Monocytes # 0.1 10*3/uL (0.11-0.8); Monocytes % 0.7 % (1.7-12.7); Neutrophils # 9.3 10*3/uL (1.4-7.4); Neutrophils % 90.3 % (38.7-73.9); Platelet Count 285 T/CUMM (130-400); Red Blood Count 3.46 MC/CUMM (3.8-5.5); Red Cell Distribution Width 15.7 % (9.3-17.3); White Blood Count 10.3 T/CUMM (4-12)
[2016-10-16 06:21] LABS: Albumin 1.9 G/DL (3.4-5.0); Bilirubin,Total 0.8 MG/DL (0.2-1.0); Potassium 3.4 MMOL/L (3.5-5.1); Total Protein 4.7 G/DL (6.4-8.3)
[2016-10-16] MEDS: LEVOTHYROXINE 75 MCG TABLET PO SCH (06:35)
[2016-10-16] MEDS: GRANISETRON 1 MG/1 ML VIAL IV SCH (08:36)
[2016-10-16] MEDS: DEXAMETHASONE 10 MG/1 ML VIAL IV SCH (08:36)
[2016-10-16] MEDS: NEBIVOLOL 5 MG TABLET PO SCH (08:37)
[2016-10-16] MEDS: PANTOPRAZOLE 40 MG TABLET PO SCH (08:37)
--- NOTE | 2016-10-16 08:51 | Oncology Progress Note ---
Oncology Subjective PN Interval history: Diagnoses: Metastatic adenocarcinoma of the colon with liver metastases Exam - Constitutional Vitals: Period Temp Pulse Resp BP Sys/Capellan Pulse Ox Last 24 Hr 97.1 F-97.8 F 71-77 18-18 138-180/60-74 91-96 Results - Labs CBC & BMP: 10/16/16 04:38 10/16/16 04:38 Quality Measures - VTE Contraindication to Pharmacological VTE Prophylaxis: High Risk of Bleeding
--- NOTE | 2016-10-16 09:01 | Discharge Summary ---
Hospital Course - Hospital Course Hospital Course: Diagnoses: Metastatic adenocarcinoma of the colon with liver metastases Anemia secondary to malignancy intractable nausea and vomiting with acute dehydration acute renal failure secondary to nausea and vomiting hypertensive cardiovascular disease hypothyroidism This patient was referred from [facility] with previously diagnosed colon cancer on fiberoptic colonoscopy performed by Dr. Marvel Arreola. On arrival here, the patient was acutely ill with intractable nausea and vomiting. A CT of her abdomen demonstrated extensive tumor involvement of the liver and she had a CEA level of 194.3 with a CA 19-9 6287.6 She received chemotherapy during this hospital stay, starting October 13, 2016 that included: Leucovorin 750 mg IV on day 1 5-FU 800 mg IV day 1 5-FU 2000 mg IV over 22 hours daily for 2 days. Her lab work today includes a white cell count 10,300 with a hemoglobin of 9.0 and a platelet count of 285,000. Her comprehensive metabolic profile is normal except for a serum potassium of 3.4. Her serum creatinine is normal at 0.7 today. Her LDH today is 2198 and she has an alkaline phosphatase of 476 with an ALT of 78 and an AST of 192. She is having surprisingly little nausea on and surprisingly little pain today. Her abdomen is distended and protuberant and I can easily palpate her significantly enlarged liver. We are going to try to set up a Mediport catheter placement for next week. I am going to schedule her for readmission on October 27, 2016 for her next course of chemotherapy and I will consider whether or not to add additional medications to the leucovorin and 5-FU at that time. She is given a prescription for Compazine 10 mg tablets with 30 tablets dispensed and 5 refills to take 1 every 6 hours as needed for nausea. Discharge Plan - Discharge Data Disposition: Disch To Home/Self Care Condition at Discharge: Guarded Discharge Diet: advance to your usual diet Activity: resume usual activities as tolerated Hygiene: no restrictions Weight Bearing at Discharge: weight bear as tolerated Driving: other Contact your physician if you experience:: fever over 101, Difficulty voiding, Redness or swelling, Nausea/Vomiting, Shortness of breath, Bleeding, pain uncontrolled by pain medications - Discharge Medications Continue Levothyroxine Tab [Synthroid Tab] 75 mcg PO DAILY@0700 Ondansetron HCl 4 mg PO Q4H PRN PRN Reason: Nausea Lisinopril/Hydrochlorothiazide [Lisinopril-Hctz 10-12.5 mg Tab] 1 each PO DAILY No Action Nebivolol [Bystolic] 5 mg PO DAILY - Follow Up or Referral - Forms/Instructions Additional Discharge Instructions: Return for readmission early on the morning of October 27, 2016. Use routine admission orders. Obtain the doses of the last chemotherapy that she received, which was the leucovorin and 5-FU and asked me about resuming them. Copy of this discharge summary to Dr. Fleming [address] Marvel Arreola. Exam - Constitutional Vitals: Period Temp Pulse Resp BP Sys/Capellan Pulse Ox Last 24 Hr 97.1 F-97.8 F 71-77 18-18 138-180/60-74 91-96 Discharge Results Procedures and tests throughout hospitalization: Pending Orders 10/17/16 04:00 Comp Blood Count Auto Diff IN AM Comprehensive Metabolic Panel IN AM LDH [Lactate Dehydrogenase] IN AM 10/18/16 04:00 Comp Blood Count Auto Diff IN AM Comprehensive Metabolic Panel IN AM LDH [Lactate Dehydrogenase] IN AM 10/19/16 04:00 Comp Blood Count Auto Diff IN AM Comprehensive Metabolic Panel IN AM LDH [Lactate Dehydrogenase] IN AM 10/20/16 04:00 Comp Blood Count Auto Diff IN AM Comprehensive Metabolic Panel IN AM LDH [Lactate Dehydrogenase] IN AM 10/21/16 04:00 Comp Blood Count Auto Diff IN AM Comprehensive Metabolic Panel IN AM Labs on day of discharge: Labs from last 24 hours 10/16/16 10/16/16 10/16/16 04:38 04:38 04:38 WBC 10.3 RBC 3.46 L Hgb 9.0 L Hct 28.5 L MCV 82.4 L MCH 26 L MCHC 31.6 L RDW 15.7 Plt Count 285 MPV 10.4 Neut % (Auto) 90.3 H Lymph % (Auto) 8.2 L Bullitt % (Auto) 0.7 L Eos % (Auto) 0.1 Baso % (Auto) 0.0 Neut # (Auto) 9.3 H Lymph # (Auto) 0.8 L Bullitt # (Auto) 0.1 L Eos # (Auto) 0.0 Baso # (Auto) 0.0 Immature Gran % 0.7 Nucleated RBC % 0.0 Immature Gran # 0.07 Nucleated RBCs # 0.00 Sodium 143 Potassium 3.4 L Chloride 107 Carbon Dioxide 23 Anion Gap 16.4 H BUN 22 H Creatinine 0.70 GFR Calculation 94 BUN/Creatinine Ratio 31.00 H Glucose 109 H Calculated Osmolality 288.0 Calcium 8.0 L Total Bilirubin 0.80 AST 192 H ALT 78 H Alkaline Phosphatase 476 H Lactate Dehydrogenase 2198 H Total Protein 4.7 L Albumin 1.9 L Globulin 2.8 Albumin/Globulin Ratio 0.6 L DS: Provider Date of admission: 10/07/16 13:53 Primary care physician: Valerio Wise Attending physician on admission: Yevgeniy Ochoa MD Consults: 10/07/16 15:47 Consult to Dietitian [CONS] Routine Reason for Dietitian: Dietary Consult 10/09/16 13:04 Consult to Physician [CONS] Routine Comment: Metastatic colon cancer Consulting Provider: Yevgeniy Ochoa When should Consulting Provider be notified: Now Discharging clinician: Yevgeniy Ochoa MD
[2016-10-16 12:22] VITALS: BP 142/66
== END 2016-10-16 14:30 | disposition home or self-care (01) | DRG 375 ==
LOC: N.3E 13:53 → N.4E 10-10 12:01
PROVIDERS: ADMIT Specialist; ATTEND Specialist

== ENCOUNTER 2016-10-27 07:04 | Inpatient (IN) ==
--- NOTE | 2016-10-27 08:07 | Oncology History&Physical ---
History of Present Illness Chief complaint: Metastatic adenocarcinoma of the colon History of present illness: Ms. Espinoza is a 81 year old female extensive liver metastases from adenocarcinoma colon. Diagnoses: Metastatic adenocarcinoma colon Neutropenia Anemia secondary to malignancy Hypokalemia intractable nausea and vomiting with acute dehydration acute renal failure secondary to nausea and vomiting hypertensive cardiovascular disease hypothyroidism Ms. Espinoza was supposed to come in today to begin chemotherapy for metastatic adenocarcinoma colon but she is going to need to be transfused and started on Neupogen and we may have to delay chemotherapy a week. We will give her information on Avastin and on oxalic saxman however. This patient was referred from [facility] with previously diagnosed colon cancer on fiberoptic colonoscopy performed by Dr. Marvel Arreola. On arrival here, the patient was acutely ill with intractable nausea and vomiting. A CT of her abdomen demonstrated extensive tumor involvement of the liver and she had a CEA level of 194.3 with a CA 19-9 6287.6 She received chemotherapy during this hospital stay, starting October 13, 2016 that included: Leucovorin 750 mg IV on day 1 5-FU 800 mg IV day 1 5-FU 2000 mg IV over 22 hours daily for 2 days. She was supposed to be admitted for chemotherapy but her white cell count is 1400 with an absolute neutrophil count of 200. I am starting her on Neupogen. She is also anemic with a hemoglobin of 7.9 and I will transfuse packed red cells. Her platelet count is normal. She has a low serum potassium of 3.2 and I am starting IV fluids containing potassium as an additive. Her liver enzymes including AST is elevated at 64 with a normal ALT of 21 and an alkaline phosphatase is elevated at 178. Her LDH is 780. Her serum albumin is 2.1 with a correspondingly low calcium of 7.9. - Medical History Cardio: History of: Hypertension HEENT: History of: Dental Problems (top) Endocrine: History of: Thyroid Disorder Gastrointestinal: History of: Gastrointestinal Cancer (colon) - Surgical History HEENT Surgeries: Surgical HX of: Eye Surgery (cataract) Orthopedic Surgeries: Surgical HX of;: Orthopedic Surgery (knee ) - Family History Family History: Reports;: Family Heart Disease (father), Family Hypertension ( Parents, sister) - Social History Smoking Status: Never smoker Frequency of Alcohol Use: None Type of Drug Use: None ROS Gen.: Until onset of present illness, her health has been fairly good. Endocrine: She has a history of hypothyroidism and has been on thyroid supplementation. Eyes: She has had bilateral cataract surgery. No history of chronic disease, infections or visual loss. ENT: No history of chronic infections, epistaxis, chronic sore throat Lungs: No history of asthma, emphysema, hemoptysis, chronic pleurisy or long- term or chronic infections Cardiovascular: She has a history of hypertension. No history of angina, coronary artery disease, congestive heart failure, cardiovascular surgery or DVT /VTE GI: She developed nausea and vomiting with onset of this present illness and has had esophageal reflux and heartburn. No prior history of upper or lower GI bleeding, melena, dysphagia, odynophagia, liver disease, gallbladder disease or pancreatic disease. : She was acutely dehydrated and had documented elevation of her urea nitrogen and creatinine on this admission but this is not a long-term issue. No history of kidney stones, chronic kidney infections or hematuria. Musculoskeletal: No history of chronic bone or joint pain or focal muscle atrophy or bone or joint deformity. Neurologic: No history of seizures, convulsions or paralysis. Psychiatric: No history of chronic psychiatric illness or psychiatric medications. Lymphatic: No history of significant or long-term lymphadenopathy Hematologic: No history of anemia, bleeding disorders or blood dyscrasias or long-term elevation or depression white cell count or petechiae. Skin: No history of chronic skin infections or rashes or significant skin lesions. Physical examination: General: The patient is chronically ill-appearing but does not appear any more critically ill than when she was discharged. Eyes: Normal lids and conjunctivae. ENT: Oral mucosa and pharynx are normal. Her hearing is normal. She has no neck masses and her trachea is midline. Pulmonary: Breath sounds are normal without rubs, rales or rhonchi. There is symmetrical unlabored chest motion with respiration. Cardiovascular: Her heart rhythm is regular without murmur, gallop or rub. There is no jugular venous distention, clubbing or cyanosis and only trace pedal edema. Dorsal pedis pulses are normal. No evidence of DVT. Abdomen: Her abdomen is protuberant and she does have ascites but there is less abdominal distention and there was only discharged. There is only mild to modest tenderness. Musculoskeletal: There is no focal muscle atrophy or bone or joint deformity. Neurologic: Cranial nerves II through XII are intact. There are no focal neurologic deficits. Psychiatric: She is oriented to time, place, person and situation. Nodes: There is no cervical, supraclavicular or axillary adenopathy. Skin: I find no significant skin rashes or lesions. Impression: The patient is currently anemic and neutropenic and I do not anticipate chemotherapy this week unless she improved markedly. Metastatic adenocarcinoma colon Neutropenia Anemia secondary to malignancy Hypokalemia intractable nausea and vomiting with acute dehydration acute renal failure secondary to nausea and vomiting hypertensive cardiovascular disease hypothyroidism Home Medications Medication Instructions Recorded Confirmed Type Levothyroxine Tab [Synthroid Tab] 75 mcg PO DAILY@0700 10/07/16 10/27/16 History Lisinopril/Hydrochlorothiazide 1 each PO DAILY 10/07/16 10/27/16 History [Lisinopril-Hctz 10-12.5 mg Tab] Nebivolol [Bystolic] 5 mg PO DAILY 10/07/16 10/27/16 History Prochlorperazine Tab [Compazine 10 mg PO Q6H PRN 10/24/16 10/27/16 History Tab] Allergies Allergy/AdvReac Type Severity Reaction Status Date / Time No Known Allergies Allergy Verified 10/24/16 08:09 Medical,Surgical,& Family Hx - Medical History Cardio: History of: Hypertension Neurology: History of: Migraine (PAST HX.) No history of: Seizures HEENT: History of: Eye Problem (READING GLASSES), Dental Problems (top) Endocrine: History of: Thyroid Disorder Respiratory: No history of: Respiratory Problems (FLU VAC-NO; PNEU VAC- NO.) Genitourinary: History of: Bladder Problem (URINARY INCONTINENCE.) Gastrointestinal: History of: GERD, Liver Problems (LIVER CA. DR LOPEZ.), Gastrointestinal Cancer (colon CA) Other: History of: Cancer (LIVER COLON CA) - Surgical History HEENT Surgeries: Surgical HX of: Eye Surgery (MICHAEL cataract), Tonsilectomy & Adenoidectomy Abdominal Surgeries: Surgical HX of: Colonoscopy, EGD Reproductive Surgeries: Surgical HX of;: Hysterectomy Orthopedic Surgeries: Surgical HX of;: Orthopedic Surgery (knee ) - Family History Family History: Reports;: Family Heart Disease (father), Family Hypertension ( Parents, sister) - Social History Smoking Status: Never smoker Results - Labs CBC & BMP: 10/27/16 07:50 10/27/16 07:50
[2016-10-27 08:11] LABS: Eosinophils # 0.1 10*3/uL (0.0-0.87); Eosinophils % 4.3 % (0.00-10.9); Hematocrit 25.1 VOL% (35.7-47.0); Hemoglobin 7.9 GM/DL (12.0-16.0); Immature Granulocytes % 1.4 %; Immature Granulocytes Absolute 0.02 #; Lymphocytes # 0.7 10*3/uL (1.4-4.0); Lymphocytes % 47.5 % (21.3-54.2); Mean Corpuscular HGB Conc 31.5 GM/DL (32-36); Mean Corpuscular Hemoglobin 27 PG (27-34); Mean Corpuscular Volume 85.1 FL (87-102); Mean Platelet Volume 9.6 FL (9.6-12.0); Monocytes # 0.4 10*3/uL (0.11-0.8); Monocytes % 30.9 % (1.7-12.7); NRBC # 0.02 10*3/uL; Neutrophils # 0.2 10*3/uL (1.4-7.4); Neutrophils % 15.9 % (38.7-73.9); Platelet Count 399 T/CUMM (130-400); Red Blood Count 2.95 MC/CUMM (3.8-5.5); Red Cell Distribution Width 18.3 % (9.3-17.3); White Blood Count 1.4 T/CUMM (4-12)
[2016-10-27 08:36] LABS: Band Neutrophils 2 % (0-10); Eosinophils 3 % (0-10); Hypochromasia 1+; Lymphocytes 48 % (20-55); Microcytosis Slight; Nucleated Red Blood Cells 1 (0-5); Ovalocytes Slight; Platelet Estimate Adequate; Segmented Neutrophils 13 % (50-85); Total Cells Counted 100
[2016-10-27] MEDS ORDERED: ONDANSETRON 4 MG/2 ML VIAL IV PRN (08:40)
[2016-10-27] MEDS ORDERED: MYLANTA/LIDO VISC 2:1 300 ML BOTTLE SWISH/SPIT PRN (08:40)
[2016-10-27] MEDS ORDERED: traMADol 50 MG TABLET PO PRN (08:40)
[2016-10-27] MEDS ORDERED: chlorproMAZINE 25 MG TABLET PO PRN (08:40)
[2016-10-27] MEDS ORDERED: LOPERAMIDE 2 MG CAPSULE PO PRN ×2 (08:40)
[2016-10-27] MEDS ORDERED: LACTULOSE 20 GM/30 ML UDCUP PO PRN (08:40)
[2016-10-27] MEDS ORDERED: MAGNESIUM HYDROXIDE SUSP 30 ML UDCUP PO PRN (08:40)
[2016-10-27] MEDS ORDERED: chlorproMAZINE INJ 25 MG in SODIUM CHLORIDE 0.9% 100 ML IV PRN (08:40)
[2016-10-27] MEDS ORDERED: TEMAZEPAM 7.5 MG CAPSULE PO PRN (08:40)
[2016-10-27] MEDS ORDERED: ACETAMINOPHEN 325 MG TABLET PO PRN (08:40)
[2016-10-27] MEDS ORDERED: ALUMINUM/MAGNES/SIMETH MAX STR 30 ML UDCUP PO PRN (08:40)
[2016-10-27] MEDS ORDERED: BENZTROPINE 2 MG/2 ML AMP IV PRN (08:40)
[2016-10-27] MEDS ORDERED: diphenhydrAMINE CAP 25 MG CAPSULE PO PRN (08:40)
[2016-10-27] MEDS ORDERED: guaiFENesin 200 MG/10 ML UDCUP PO PRN (08:40)
[2016-10-27] MEDS ORDERED: chlorproMAZINE INJ 50 MG in SODIUM CHLORIDE 0.9% 100 ML IV PRN (08:40)
[2016-10-27] MEDS ORDERED: MYLANTA/LIDO VISC 2:1 300 ML BOTTLE SWISH/SWAL PRN (08:40)
[2016-10-27 08:42] LABS: Magnesium 1.9 MG/DL (1.8-2.4); Uric Acid 2.9 MG/DL (2.6-6.0)
[2016-10-27] MEDS ORDERED: SODIUM CHLORIDE 0.9% 250 ML IV PRN (08:44)
[2016-10-27 08:46] LABS: Albumin 2.1 G/DL (3.4-5.0); Bilirubin,Total 1.4 MG/DL (0.2-1.0); Calcium 7.9 MG/DL (8.5-10.1); Osmolality,Calculated 275.7 MOS/KG (273-304); Potassium 3.2 MMOL/L (3.5-5.1); Total Protein 5.3 G/DL (6.4-8.3)
[2016-10-27] MEDS ORDERED: SODIUM CHLORIDE 0.9% 1,000 ML IV SCH (09:00)
[2016-10-27] MEDS: GRANISETRON 1 MG/1 ML VIAL IV SCH (10:33)
[2016-10-27] MEDS: FILGRASTIM-SNDZ 300 MCG/0.5 ML SYRINGE SUBCUT SCH (10:33)
[2016-10-27] MEDS: DEXT 5% NACL 0.45% KCL 20 MEQ 20 MEQ/1,000 ML BAG IV SCH (10:34)
[2016-10-27 11:08] LABS: Cancer Antigen 19-9 5887.8 U/ML (0-37); Carcinoembryonic Antigen 164.1 NG/ML (0.0-5.0)
[2016-10-27] MEDS: MEROPENEM 1,000 MG in SODIUM CHLORIDE 0.9% 100 ML IV SCH (21:15)
[2016-10-27] MEDS: PROMETHAZINE INJ 25 MG in SODIUM CHLORIDE 0.9% 50 ML IV PRN (23:26)
[2016-10-28 00:06] LABS: Apearance,Urine CLEAR (Clear); Bilirubin,Urine Negative (Negative); Blood, Urine Negative (Negative); Glucose,Urine (UA) Negative (Negative); Ketones,Urine Negative (Negative); Mucus,Urine Few /LPF (Occasional); Nitrite,Urine Negative (Negative); Protein,Urine 100 MG/DL; RBC,Urine 2 /HPF (0-4); Squamous Epithelial Cell,Urine Occasional /HPF (0-10); Urine Color Amber (Yellow); Urine Specific Gravity 1.021 (1.001-1.035); WBC,Urine 2 /HPF (0-6)
[2016-10-28] MEDS: DEXT 5% NACL 0.45% KCL 20 MEQ 20 MEQ/1,000 ML BAG IV SCH ×3 (02:28→20:41)
[2016-10-28] MEDS: ALPRAZolam 0.25 MG TABLET PO PRN ×2 (04:54→09:41)
[2016-10-28] MEDS: MEROPENEM 1,000 MG in SODIUM CHLORIDE 0.9% 100 ML IV SCH ×3 (04:54→20:43)
[2016-10-28 05:51] LABS: Basophils % 0.3 % (0.0-0.8); Eosinophils # 0.2 10*3/uL (0.0-0.87); Eosinophils % 5.4 % (0.00-10.9); Hematocrit 28.3 VOL% (35.7-47.0); Hemoglobin 9.1 GM/DL (12.0-16.0); Immature Granulocytes % 1.8 %; Immature Granulocytes Absolute 0.06 #; Lymphocytes # 1.3 10*3/uL (1.4-4.0); Lymphocytes % 38.6 % (21.3-54.2); Mean Corpuscular HGB Conc 32.2 GM/DL (32-36); Mean Corpuscular Hemoglobin 27 PG (27-34); Mean Platelet Volume 9.7 FL (9.6-12.0); Monocytes # 0.8 10*3/uL (0.11-0.8); Monocytes % 23.8 % (1.7-12.7); NRBC # 0.02 10*3/uL; Neutrophils % 30.1 % (38.7-73.9); Platelet Count 409 T/CUMM (130-400); Red Blood Count 3.41 MC/CUMM (3.8-5.5); Red Cell Distribution Width 19.2 % (9.3-17.3); White Blood Count 3.3 T/CUMM (4-12)
[2016-10-28 06:18] LABS: Band Neutrophils 10 % (0-10); Eosinophils 7 % (0-10); Lymphocytes 39 % (20-55); Nucleated Red Blood Cells 1 (0-5); Segmented Neutrophils 26 % (50-85); Total Cells Counted 100
[2016-10-28 06:19] LABS: Hypochromasia 1+; Microcytosis Slight; Ovalocytes Slight; Platelet Estimate Adequate
[2016-10-28 06:25] LABS: Albumin 1.8 G/DL (3.4-5.0); Bilirubin,Total 2.5 MG/DL (0.2-1.0); Calcium 7.8 MG/DL (8.5-10.1); Osmolality,Calculated 276.5 MOS/KG (273-304); Potassium 3.4 MMOL/L (3.5-5.1); Total Protein 4.8 G/DL (6.4-8.3)
[2016-10-28] MEDS: LEVOTHYROXINE 75 MCG TABLET PO SCH (06:43)
--- NOTE | 2016-10-28 08:34 | Oncology Progress Note ---
Oncology Subjective PN Interval history: Metastatic adenocarcinoma colon Ms. Espinoza was supposed to be admitted for chemotherapy but on admission she was found to be severely neutropenic as well as anemic. Tumor markers on this admission included a a CEA level of 164.1 with a CA-19-9 of 5887.8. At the time of her first admission, she had a CEA level 194.3 with a CA-19-9 of 6287.6. Total bilirubin has risen to 2.5 which surprises me. We will checking this sequentially. Neutropenia She is on Neupogen now and her white cell count is 3300 with an absolute neutrophil count of 1000. We will continue Neupogen. Anemia secondary to malignancy Her hemoglobin is up to 9.1 after transfusion. Hypokalemia Potassium 3.4 today. intractable nausea and vomiting with acute dehydration that has actually improved since her first admission. acute renal failure secondary to nausea and vomiting Serum creatinine 0.6. hypertensive cardiovascular disease Blood pressure 144/73 hypothyroidism Exam - Constitutional Vitals: Period Temp Pulse Resp BP Sys/Capellan Pulse Ox Last 24 Hr 96.2 F-101.1 F 59-101 16-24 123-161/55-73 89-95 Results - Labs CBC & BMP: 10/28/16 04:00 10/28/16 04:00
[2016-10-28] MEDS: NEBIVOLOL 5 MG TABLET PO SCH (09:41)
[2016-10-28] MEDS: GRANISETRON 1 MG/1 ML VIAL IV SCH (09:41)
[2016-10-28] MEDS: FILGRASTIM-SNDZ 300 MCG/0.5 ML SYRINGE SUBCUT SCH (09:44)
[2016-10-28] MEDS ORDERED: DOXEPIN 50 MG CAPSULE PO SCH (21:00)
[2016-10-28] MEDS: DOXEPIN 25 MG CAPSULE PO SCH (21:07)
[2016-10-29] MEDS: ALPRAZolam 0.25 MG TABLET PO PRN ×2 (02:05→06:42)
[2016-10-29] MEDS: MEROPENEM 1,000 MG in SODIUM CHLORIDE 0.9% 100 ML IV SCH ×3 (04:33→20:02)
[2016-10-29 05:36] LABS: Basophils % 0.3 % (0.0-0.8); Eosinophils # 0.5 10*3/uL (0.0-0.87); Eosinophils % 5.3 % (0.00-10.9); Hematocrit 28.9 VOL% (35.7-47.0); Hemoglobin 9.3 GM/DL (12.0-16.0); Immature Granulocytes % 6.3 %; Immature Granulocytes Absolute 0.55 #; Lymphocytes # 1.6 10*3/uL (1.4-4.0); Lymphocytes % 17.8 % (21.3-54.2); Mean Corpuscular HGB Conc 32.2 GM/DL (32-36); Mean Corpuscular Hemoglobin 27 PG (27-34); Mean Corpuscular Volume 84.3 FL (87-102); Mean Platelet Volume 9.9 FL (9.6-12.0); Monocytes # 0.9 10*3/uL (0.11-0.8); Monocytes % 10.2 % (1.7-12.7); NRBC # 0.03 10*3/uL; Neutrophils # 5.3 10*3/uL (1.4-7.4); Neutrophils % 60.1 % (38.7-73.9); Platelet Count 486 T/CUMM (130-400); Red Blood Count 3.43 MC/CUMM (3.8-5.5); Red Cell Distribution Width 19.8 % (9.3-17.3); White Blood Count 8.8 T/CUMM (4-12)
[2016-10-29 06:05] LABS: Band Neutrophils 15 % (0-10); Eosinophils 8 % (0-10); Lymphocytes 18 % (20-55); Metamyelocytes 1 %; Platelet Estimate Adequate; Segmented Neutrophils 50 % (50-85); Total Cells Counted 100
[2016-10-29 06:06] LABS: Giant Platelets Few; Hypochromasia 1+; Microcytosis Slight
[2016-10-29 06:14] LABS: Albumin 1.8 G/DL (3.4-5.0); Bilirubin,Total 1.4 MG/DL (0.2-1.0); Calcium 7.5 MG/DL (8.5-10.1); Osmolality,Calculated 273.7 MOS/KG (273-304); Potassium 3.6 MMOL/L (3.5-5.1); Total Protein 4.7 G/DL (6.4-8.3)
[2016-10-29] MEDS: LEVOTHYROXINE 75 MCG TABLET PO SCH (06:42)
[2016-10-29] MEDS: DEXT 5% NACL 0.45% KCL 20 MEQ 20 MEQ/1,000 ML BAG IV SCH ×3 (06:45→15:28)
--- NOTE | 2016-10-29 07:45 | Oncology Progress Note ---
Oncology Subjective PN Interval history: Metastatic adenocarcinoma colon Ms. Espinoza was supposed to be admitted for chemotherapy but on admission she was found to be severely neutropenic as well as anemic. Tumor markers on this admission included a a CEA level of 164.1 with a CA-19-9 of 5887.8. At the time of her first admission, she had a CEA level 194.3 with a CA-19-9 of 6287.6. Total bilirubin is back down to 1.4 today. My plan will be to proceed with abbreviated and reduced dose of leucovorin and 5 -FU tomorrow if all goes well. Neutropenia She is on Neupogen now and her white cell count is 8800 today. Discontinuing Neupogen and will consider chemotherapy tomorrow and possibly discharge soon. Anemia secondary to malignancy Her hemoglobin is up to 9.3. Platelet count 486, 000 Hypokalemia Potassium 3.4 today. intractable nausea and vomiting with acute dehydration that has actually improved since her first admission. She is currently having no nausea or vomiting. acute renal failure secondary to nausea and vomiting Serum creatinine 0.6 today. hypertensive cardiovascular disease Blood pressure 144/73. hypothyroidism Appears to be stable Exam - Constitutional Vitals: Period Temp Pulse Resp BP Sys/Capellan Pulse Ox Last 24 Hr 97.9 F-99.3 F 84-88 16-24 123-153/54-73 88-98 Results - Labs CBC & BMP: 10/29/16 04:39 10/29/16 04:39
[2016-10-29] MEDS: GRANISETRON 1 MG/1 ML VIAL IV SCH (09:36)
[2016-10-29] MEDS: NEBIVOLOL 5 MG TABLET PO SCH (09:38)
[2016-10-29] MEDS: MEGESTROL 400 MG/10 ML UDCUP PO SCH ×2 (09:38→20:05)
[2016-10-29] MEDS ORDERED: FUROSEMIDE 40 MG/4 ML VIAL IV ONE (14:40)
[2016-10-29] MEDS: DOXEPIN 25 MG CAPSULE PO SCH (20:05)
[2016-10-30 05:47] LABS: Basophils % 0.2 % (0.0-0.8); Eosinophils # 0.4 10*3/uL (0.0-0.87); Eosinophils % 3.2 % (0.00-10.9); Hematocrit 30.3 VOL% (35.7-47.0); Hemoglobin 9.6 GM/DL (12.0-16.0); Immature Granulocytes % 9.9 %; Immature Granulocytes Absolute 1.33 #; Lymphocytes # 1.9 10*3/uL (1.4-4.0); Lymphocytes % 14.4 % (21.3-54.2); Mean Corpuscular HGB Conc 31.7 GM/DL (32-36); Mean Corpuscular Hemoglobin 27 PG (27-34); Mean Corpuscular Volume 84.2 FL (87-102); Mean Platelet Volume 10.1 FL (9.6-12.0); Monocytes # 1.2 10*3/uL (0.11-0.8); Monocytes % 9.1 % (1.7-12.7); NRBC # 0.04 10*3/uL; Neutrophils # 8.5 10*3/uL (1.4-7.4); Neutrophils % 63.2 % (38.7-73.9); Platelet Count 527 T/CUMM (130-400); Red Cell Distribution Width 20.3 % (9.3-17.3); White Blood Count 13.5 T/CUMM (4-12)
[2016-10-30 06:18] LABS: Albumin 1.6 G/DL (3.4-5.0); Bilirubin,Total 1.5 MG/DL (0.2-1.0); Calcium 7.9 MG/DL (8.5-10.1); Osmolality,Calculated 273.7 MOS/KG (273-304); Potassium 3.7 MMOL/L (3.5-5.1); Total Protein 4.7 G/DL (6.4-8.3)
[2016-10-30 06:26] LABS: Band Neutrophils 9 % (0-10); Eosinophils 2 % (0-10); Hypochromasia 1+; Lymphocytes 12 % (20-55); Myelocytes 1 %; Nucleated Red Blood Cells 1 (0-5); Platelet Estimate Increased; Segmented Neutrophils 67 % (50-85); Total Cells Counted 100
[2016-10-30 06:27] LABS: Microcytosis Slight; Ovalocytes Slight
[2016-10-30] MEDS: MEROPENEM 1,000 MG in SODIUM CHLORIDE 0.9% 100 ML IV SCH ×3 (06:42→20:32)
[2016-10-30] MEDS: LEVOTHYROXINE 75 MCG TABLET PO SCH (06:48)
--- NOTE | 2016-10-30 08:10 | Oncology Progress Note ---
Oncology Subjective PN Interval history: Metastatic adenocarcinoma colon Ms. Espinoza was supposed to be admitted for chemotherapy but on admission she was found to be severely neutropenic as well as anemic. Tumor markers on this admission included a a CEA level of 164.1 with a CA-19-9 of 5887.8. At the time of her first admission, she had a CEA level 194.3 with a CA-19-9 of 6287.6. Total bilirubin is back down to 1.5 today. My plan will be to proceed chemotherapy today using leucovorin 750 mg and 5-FU 800 mg IV bolus without an infusion of 5-FU. Neutropenia Her white cell count is 13,500 today. Discontinuing Neupogen and will consider chemotherapy tomorrow and possibly discharge soon. Anemia secondary to malignancy Her hemoglobin is up to 9.6. Platelet count 527, 000 Hypokalemia Potassium 3.4 today. intractable nausea and vomiting with acute dehydration that has actually improved since her first admission. She is currently having no nausea or vomiting. acute renal failure secondary to nausea and vomiting Serum creatinine 0.6 today. hypertensive cardiovascular disease Blood pressure 144/73. hypothyroidism Appears to be stable If all goes well, we will plan to discharge her tomorrow and arrange for follow- up in approximately 2 weeks. Exam - Constitutional Vitals: Period Temp Pulse Resp BP Sys/Capellan Pulse Ox Last 24 Hr 97.1 F-98.4 F 88-105 18-26 108-146/60-69 92-96 Results - Labs CBC & BMP: 10/30/16 04:10 10/30/16 04:10
[2016-10-30] MEDS ORDERED: LEUCOVORIN IV ONE (08:31)
[2016-10-30] MEDS ORDERED: DEXTROSE 5% IV ONE (08:31)
[2016-10-30] MEDS ORDERED: FLUOROURACIL 800 MG in SYRINGE 1 EACH IV ONE (08:31)
[2016-10-30] MEDS: GRANISETRON 1 MG/1 ML VIAL IV SCH ×2 (09:41→11:18)
[2016-10-30] MEDS ORDERED: ALBUTEROL/IPRATROPIUM 3 ML NEB RESP TX PRN (10:52)
[2016-10-30] MEDS: MEGESTROL 400 MG/10 ML UDCUP PO SCH ×2 (11:19→20:31)
[2016-10-30] MEDS: NEBIVOLOL 5 MG TABLET PO SCH (11:19)
[2016-10-30] MEDS: PROMETHAZINE INJ 25 MG in SODIUM CHLORIDE 0.9% 50 ML IV PRN (14:18)
--- NOTE | 2016-10-30 14:53 | XRay Report ---
Portable chest Date: 10/30/2016 Clinical history: Congestion Comparison: None Technique: Portable AP sitting chest Findings: The heart is minimally enlarged with calcification in the aortic knob. Diffuse parenchymal findings especially at the lung bases with small pleural effusions and cardiac fat pads. Right subclavian venous access catheter with tip in SVC. Osteopenia with degenerative changes. Impression: Minimal cardiomegaly with findings which can be seen with mild CHF/pneumonitis with atelectasis at the lung bases and small pleural effusions. Small densities are noted and continued follow-up chest x-ray is recommended. Right subclavian venous access catheter. PROCEDURE INTERPRETED AT [facility] DEPARTMENT OF RADIOLOGY Final Report Signed by: Dr. Nancy Guidry
[2016-10-30] MEDS ORDERED: FUROSEMIDE 40 MG/4 ML VIAL IV ONE (16:36)
[2016-10-30] MEDS: DOXEPIN 25 MG CAPSULE PO SCH (20:31)
[2016-10-30] MEDS: DEXT 5% NACL 0.45% KCL 20 MEQ 20 MEQ/1,000 ML BAG IV SCH (20:36)
[2016-10-31] MEDS: MEROPENEM 1,000 MG in SODIUM CHLORIDE 0.9% 100 ML IV SCH (04:16)
[2016-10-31 04:36] LABS: Basophils # 0.1 10*3/uL (0.0-0.2); Basophils % 0.5 % (0.0-0.8); Eosinophils # 0.3 10*3/uL (0.0-0.87); Eosinophils % 2.5 % (0.00-10.9); Immature Granulocytes % 9.2 %; Immature Granulocytes Absolute 1.04 #; Lymphocytes # 1.5 10*3/uL (1.4-4.0); Lymphocytes % 13.6 % (21.3-54.2); Mean Corpuscular HGB Conc 32.1 GM/DL (32-36); Mean Corpuscular Hemoglobin 27 PG (27-34); Mean Corpuscular Volume 83.3 FL (87-102); Mean Platelet Volume 9.8 FL (9.6-12.0); Monocytes % 8.6 % (1.7-12.7); Neutrophils # 7.4 10*3/uL (1.4-7.4); Neutrophils % 65.6 % (38.7-73.9); Platelet Count 454 T/CUMM (130-400); Red Blood Count 3.36 MC/CUMM (3.8-5.5); Red Cell Distribution Width 20.5 % (9.3-17.3); White Blood Count 11.3 T/CUMM (4-12)
[2016-10-31 04:57] LABS: Albumin 1.6 G/DL (3.4-5.0); Bilirubin,Total 0.6 MG/DL (0.2-1.0); Calcium 7.8 MG/DL (8.5-10.1); Osmolality,Calculated 272.8 MOS/KG (273-304); Potassium 3.4 MMOL/L (3.5-5.1); Total Protein 4.3 G/DL (6.4-8.3)
[2016-10-31 05:16] LABS: Band Neutrophils 4 % (0-10); Hypochromasia 1+; Lymphocytes 12 % (20-55); Metamyelocytes 1 %; Promyelocytes 1 %; Segmented Neutrophils 75 % (50-85); Total Cells Counted 100
[2016-10-31 05:17] LABS: Microcytosis 1+; Ovalocytes Slight; Polychromasia Slight
[2016-10-31 05:18] LABS: Platelet Estimate Increased
[2016-10-31] MEDS: LEVOTHYROXINE 75 MCG TABLET PO SCH (06:50)
--- NOTE | 2016-10-31 06:53 | XRay Report ---
Exam: XR chest 1V portable Date: 10/31/2016 4:00 AM Indication: History of colon cancer follow-up Comparison: 10/30/2016 Technical: AP portable Findings: Cardiomegaly is present. Platelike atelectatic change in the right base. A right-sided subclavian port catheter is present with distal tip superior vena cava. No pneumothorax present. No significant effusions present. Mediastinum appears otherwise intact Impression: 1. Cardiomegaly with atelectatic change in the right base 2. Stable right subclavian port catheter PROCEDURE INTERPRETED AT [facility] DEPARTMENT OF RADIOLOGY Final Report Signed by: Dr. Enrique Fishman
[2016-10-31 07:47] VITALS: BP 161/72
--- NOTE | 2016-10-31 07:54 | Oncology Progress Note ---
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 Espinoza was supposed to be admitted for chemotherapy but on admission she was found to be severely neutropenic as well as anemic. Tumor markers on this admission included a a CEA level of 164.1 with a CA-19-9 of 5887.8. At the time of her first admission, she had a CEA level 194.3 with a CA-19-9 of 6287.6. Abnormalities on comprehensive metabolic profile on the day of discharge included a normal total bilirubin of 0.6 serum calcium of 7.5 with a correspondingly low serum albumin of 1.8. The bilirubin is 1.4. The LDH is 650 and alkaline phosphatase is 175 today. My plan was to proceed with course #2 of chemotherapy using the same doses as course #1. However, I reduced chemotherapy and gave it all on October 30 using leucovorin 750 mg and 5-FU 800 mg IV bolus without an infusion of 5-FU. Neutropenia White cell count was 1400 on admission with an absolute neutrophil count of 200. Her white cell count is 11,300 today. Discontinuing Neupogen and will consider chemotherapy tomorrow and possibly discharge soon. Anemia secondary to malignancy Admission hemoglobin was 7.9 and she was transfused. Her hemoglobin is up to 9.0. Platelet count 154,000 today. Platelet count was normal on admission and remains in normal Hypokalemia Potassium 3.4 today. intractable nausea and vomiting with acute dehydration that has actually improved since her first admission. She is currently having no nausea or vomiting. acute renal failure secondary to nausea and vomiting Serum creatinine 0.6 today. hypertensive cardiovascular disease Blood pressure 161/72. hypothyroidism Appears to be stable Chest x-ray today demonstrates cardiomegaly with multiple fibronodular changes throughout the lung alexis but the right costophrenic angle is sharp and the left one appears sharp as well. There is minimal atelectatic change in the right lung base. Her condition is stable today. I am going to discharge her today and have her return for readmission on November 11, 2016. 3 new medications that I am sending her home on include doxepin 50 mg at bedtime nightly, Megace 200 mg of suspension twice daily and Zofran 8 mg every 8 hours as needed for nausea. Exam - Constitutional Vitals: Period Temp Pulse Resp BP Sys/Capellan Pulse Ox Last 24 Hr 96.6 F-100.2 F 71-99 18-24 114-161/56-72 90-99 Results - Labs CBC & BMP: 10/31/16 04:00 10/31/16 04:00 Specialty Discharge - Follow Up or Referrals Follow up with: Yevgeniy Ochoa MD [Physician] - (Return to [facility] for admission on November 11, 2016 at 730AM.)
[2016-10-31] MEDS: NEBIVOLOL 5 MG TABLET PO SCH (08:20)
[2016-10-31] MEDS: MEGESTROL 400 MG/10 ML UDCUP PO SCH (08:20)
[2016-10-31] MEDS: GRANISETRON 1 MG/1 ML VIAL IV SCH ×2 (08:21)
--- NOTE | 2016-10-31 09:30 | Discharge Summary ---
Hospital Course - Hospital Course Hospital Course: Discharge diagnoses: Metastatic adenocarcinoma the colon with extensive liver involvement Neutropenia probably chemotherapy related Anemia secondary to malignancy Hypokalemia with serum potassium of 3.2 on admission Intractable nausea and vomiting, improved Severe anorexia secondary to malignancy and extensive liver involvement Acute renal failure resolved Hypertensive cardiovascular disease, controlled hypothyroidism, treated Metastatic adenocarcinoma colon Ms. Espinoza was supposed to be admitted for chemotherapy but on admission she was found to be severely neutropenic as well as anemic. Tumor markers on this admission included a a CEA level of 164.1 with a CA-19-9 of 5887.8. At the time of her first admission, she had a CEA level 194.3 with a CA-19-9 of 6287.6. Abnormalities on comprehensive metabolic profile on the day of discharge included a normal total bilirubin of 0.6 serum calcium of 7.5 with a correspondingly low serum albumin of 1.8. The bilirubin is 1.4. The LDH is 650 and alkaline phosphatase is 175 today. My plan was to proceed with course #2 of chemotherapy using the same doses as course #1. However, I reduced chemotherapy and gave it all on October 30 using leucovorin 750 mg and 5-FU 800 mg IV bolus without an infusion of 5-FU. Neutropenia White cell count was 1400 on admission with an absolute neutrophil count of 200. Her white cell count is 11,300 today. Discontinuing Neupogen and will consider chemotherapy tomorrow and possibly discharge soon. Anemia secondary to malignancy Admission hemoglobin was 7.9 and she was transfused. Her hemoglobin is up to 9.0. Platelet count 154,000 today. Platelet count was normal on admission and remains in normal Hypokalemia Potassium 3.4 today. intractable nausea and vomiting with acute dehydration that has actually improved since her first admission. She is currently having no nausea or vomiting. acute renal failure secondary to nausea and vomiting Serum creatinine 0.6 today. hypertensive cardiovascular disease Blood pressure 161/72. hypothyroidism Appears to be stable Chest x-ray today demonstrates cardiomegaly with multiple fibronodular changes throughout the lung alexis but the right costophrenic angle is sharp and the left one appears sharp as well. There is minimal atelectatic change in the right lung base. Her condition is stable today. I am going to discharge her today and have her return for readmission on November 11, 2016. 3 new medications that I am sending her home on include doxepin 50 mg at bedtime nightly, Megace 200 mg of suspension twice daily and Zofran 8 mg every 8 hours as needed for nausea. Specialty Discharge - Follow Up or Referrals Follow up with: Yevgeniy Ochoa MD [Physician] - (Return to [facility] for admission on November 11, 2016 at 730AM.) Discharge Plan - Discharge Data Disposition: Disch To Home/Self Care Condition at Discharge: Guarded Discharge Diet: advance to your usual diet Activity: resume usual activities as tolerated Hygiene: no restrictions Weight Bearing at Discharge: weight bear as tolerated Driving: other Contact your physician if you experience:: fever over 101, Difficulty voiding, Redness or swelling, Nausea/Vomiting, Shortness of breath, Bleeding, pain uncontrolled by pain medications - Discharge Medications New Megestrol Liquid [Megace Liquid] 200 mg PO BID #300 ml Doxepin [SINEquan] 50 mg PO BEDTIME #60 capsule Continue Nebivolol [Bystolic] 5 mg PO DAILY Levothyroxine Tab [Synthroid Tab] 75 mcg PO DAILY@0700 Prochlorperazine Tab [Compazine Tab] 10 mg PO Q6H PRN PRN Reason: Nausea Discontinued Lisinopril/Hydrochlorothiazide [Lisinopril-Hctz 10-12.5 mg Tab] 1 each PO DAILY - Follow Up or Referral Follow Up: Yevgeniy Ochoa MD [Physician] - (Return to [facility] for admission on November 11, 2016 at 730AM.) - Forms/Instructions Additional Discharge Instructions: Discharge today. Return November 11 with routine admission orders plus CA-19-9 and CEA level and chest x-ray PA and lateral. Asked me about chemotherapy at that time. Exam - Constitutional Vitals: Period Temp Pulse Resp BP Sys/Capellan Pulse Ox Last 24 Hr 96.6 F-100.2 F 71-99 18-24 114-161/56-72 90-99 Discharge Results Procedures and tests throughout hospitalization: Pending Orders 10/27/16 20:15 Blood Culture Stat 11/01/16 04:00 Comp Blood Count Auto Diff IN AM Comprehensive Metabolic Panel IN AM Lactate Dehydrogenase IN AM 11/02/16 04:00 Comp Blood Count Auto Diff IN AM Comprehensive Metabolic Panel IN AM Lactate Dehydrogenase IN AM Labs on day of discharge: Labs from last 24 hours 10/31/16 10/31/16 10/27/16 04:00 04:00 07:50 WBC 11.3 RBC 3.36 L Hgb 9.0 L Hct 28.0 L MCV 83.3 L MCH 27 MCHC 32.1 RDW 20.5 H Plt Count 454 H MPV 9.8 Neut % (Auto) 65.6 Lymph % (Auto) 13.6 L [place] % (Auto) 8.6 Eos % (Auto) 2.5 Baso % (Auto) 0.5 Neut # (Auto) 7.4 Lymph # (Auto) 1.5 [place] # (Auto) 1.0 H Eos # (Auto) 0.3 Baso # (Auto) 0.1 Total Counted 100 Immature Gran % 9.2 Nucleated RBC % 0.0 Immature Gran # 1.04 Segmented Neutrophils 75 Band Neutrophils 4 Lymphocytes 12 L Monocytes 6 Basophils 1.0 H Metamyelocytes 1 Promyelocytes 1 Nucleated RBCs # 0.00 Platelet Estimate Increased Polychromasia Slight Hypochromasia 1+ Microcytosis 1+ Ovalocytes Slight Morphology Comment Sodium 137 Potassium 3.4 L Chloride 98 Carbon Dioxide 33 H Anion Gap 9.4 BUN 12 Creatinine 0.60 GFR Calculation 94 BUN/Creatinine Ratio 20.00 Glucose 94 Calculated Osmolality 272.8 L Calcium 7.8 L Total Bilirubin 0.60 AST 58 H ALT 17 Alkaline Phosphatase 175 H Lactate Dehydrogenase 650 H Total Protein 4.3 L Albumin 1.6 L Globulin 2.7 Albumin/Globulin Ratio 0.5 L Crossmatch See Detail Preliminary micro results at discharge 10/27/16 20:15 Blood Culture - Preliminary Blood No growth at 3 days 10/27/16 20:15 Blood Culture - Preliminary Blood No growth at 3 days DS: Provider Date of admission: 10/27/16 07:04 Primary care physician: Valerio Wise Attending physician on admission: Yevgeniy Ochoa MD Consults: 10/27/16 08:33 Consult to Dietitian [CONS] Routine Reason for Dietitian: Diet Instruction Discharging clinician: Yevgeniy Ochoa MD
[2016-10-31] MEDS ORDERED: HEPARIN LOCK FLUSH 500 UNIT/5 ML SYRINGE IV PRN (10:30)
== END 2016-10-31 11:00 | disposition home health service, planned readmission (86) | DRG 809 ==
LOC: N.4E 07:04
PROVIDERS: ADMIT Specialist; ATTEND Specialist

== ENCOUNTER 2016-11-11 07:00 | Inpatient (IN) ==
--- NOTE | 2016-11-11 08:02 | Oncology History&Physical ---
History of Present Illness Chief complaint: Admission for chemotherapy, possibly outpatient History of present illness: Ms. Espinoza is a 81 year old female with adenocarcinoma the colon with very extensive liver metastases. Current active diagnoses: Metastatic adenocarcinoma colon Neutropenia Anemia secondary to malignancy Hypokalemia intractable nausea and vomiting with acute dehydration acute renal failure secondary to nausea and vomiting hypertensive cardiovascular disease hypothyroidism This patient was referred from [facility] with previously diagnosed colon cancer on fiberoptic colonoscopy performed by Dr. Marvel Arreola. On arrival here, the patient was acutely ill with intractable nausea and vomiting. A CT of her abdomen demonstrated extensive tumor involvement of the liver and she had a CEA level of 194.3 with a CA 19-9 6287.6 She received chemotherapy during her first hospital stay, starting October 13, 2016 that included: Leucovorin 750 mg IV on day 1 5-FU 800 mg IV day 1 5-FU 2000 mg IV over 22 hours daily for 2 days. She received course #2 of chemotherapy on October 30 and it only consisted of leucovorin 750 mg and 5-FU 800 mg IV bolus. The chemotherapy was shortened because of the patient's leukopenia and neutropenia on admission. She was treated with Neupogen while here but she only stayed overnight. Since her last admission, her nausea and vomiting have completely resolved. She has had no abdominal pains. She has had some GI bleeding per rectum. Her appetite is improved. She has remained weak but not dyspneic. - Medical History Cardio: History of: Hypertension HEENT: History of: Dental Problems (top) Endocrine: History of: Thyroid Disorder Gastrointestinal: History of: Gastrointestinal Cancer (colon) - Surgical History HEENT Surgeries: Surgical HX of: Eye Surgery (cataract) Orthopedic Surgeries: Surgical HX of;: Orthopedic Surgery (knee ) - Family History Family History: Reports;: Family Heart Disease (father), Family Hypertension ( Parents, sister) - Social History Smoking Status: Never smoker Frequency of Alcohol Use: None Type of Drug Use: None ROS Gen.: Until onset of present illness, her health has been fairly good. Endocrine: She has a history of hypothyroidism and has been on thyroid supplementation. Eyes: She has had bilateral cataract surgery. No history of chronic disease, infections or visual loss. ENT: No history of chronic infections, epistaxis, chronic sore throat Lungs: No history of asthma, emphysema, hemoptysis, chronic pleurisy or long- term or chronic infections Cardiovascular: She has a history of hypertension. No history of angina, coronary artery disease, congestive heart failure, cardiovascular surgery or DVT /VTE GI: She developed nausea and vomiting with onset of this present illness and has had esophageal reflux and heartburn. No prior history of upper or lower GI bleeding, melena, dysphagia, odynophagia, liver disease, gallbladder disease or pancreatic disease. : She was acutely dehydrated and had documented elevation of her urea nitrogen and creatinine on this admission but this is not a long-term issue. No history of kidney stones, chronic kidney infections or hematuria. Musculoskeletal: No history of chronic bone or joint pain or focal muscle atrophy or bone or joint deformity. Neurologic: No history of seizures, convulsions or paralysis. Psychiatric: No history of chronic psychiatric illness or psychiatric medications. Lymphatic: No history of significant or long-term lymphadenopathy Hematologic: No history of anemia, bleeding disorders or blood dyscrasias or long-term elevation or depression white cell count or petechiae. Skin: No history of chronic skin infections or rashes or significant skin lesions. Physical examination: General: The patient is chronically ill-appearing but does not appear any more critically ill than when she was discharged. In fact, her overall condition appears better. Eyes: Normal lids and conjunctivae. ENT: Oral mucosa and pharynx are normal. Her hearing is normal. She has no neck masses and her trachea is midline. Pulmonary: Breath sounds are normal without rubs, rales or rhonchi. There is symmetrical unlabored chest motion with respiration. Cardiovascular: Her heart rhythm is regular without murmur, gallop or rub. There is no jugular venous distention, clubbing or cyanosis and only trace pedal edema. Dorsal pedis pulses are normal. No evidence of DVT. Dorsal pedis pulses are normal bilaterally. Abdomen: Her abdomen is protuberant and she does have ascites but there is less abdominal distention and there was only discharged. She has no abdominal tenderness. His ascites has significantly improved since her last hospital stay. Musculoskeletal: She has generalized muscle weakness but there is no focal muscle atrophy or bone or joint deformity. Neurologic: Cranial nerves II through XII are intact. There are no focal neurologic deficits. Psychiatric: She is oriented to time, place, person and situation. Nodes: There is no cervical, supraclavicular or axillary adenopathy. Skin: I find no significant skin rashes or lesions. I am frankly surprised at the degree of improvement she has had with such low doses of palliative chemotherapy. I am hoping that this means we have a good prognosis in this very advanced colon cancer. Impression: Metastatic adenocarcinoma colon with liver metastases as the primary site of metastatic disease Neutropenia by history. Lab work pending today. Anemia secondary to malignancy Hypokalemia by history intractable nausea and vomiting with acute dehydration, now resolved. acute renal failure secondary to nausea and vomiting now resolved. hypertensive cardiovascular disease hypothyroidism Home Medications Medication Instructions Recorded Confirmed Type Levothyroxine Tab [Synthroid Tab] 75 mcg PO DAILY@0700 10/07/16 10/27/16 History Nebivolol [Bystolic] 5 mg PO DAILY 10/07/16 10/27/16 History Prochlorperazine Tab [Compazine 10 mg PO Q6H PRN 10/24/16 10/27/16 History Tab] Doxepin [SINEquan] 50 mg PO BEDTIME #60 capsule 10/31/16 Rx Megestrol Liquid [Megace Liquid] 200 mg PO BID #300 ml 10/31/16 Rx Ondansetron Tab [Zofran Tab] 4 mg PO Q6HR PRN 10/31/16 10/31/16 History Allergies Allergy/AdvReac Type Severity Reaction Status Date / Time No Known Allergies Allergy Verified 10/24/16 08:09 Medical,Surgical,& Family Hx - Medical History Cardio: History of: Hypertension Neurology: History of: Migraine (PAST HX.) No history of: Seizures HEENT: History of: Eye Problem (READING GLASSES), Dental Problems (top) Endocrine: History of: Thyroid Disorder Respiratory: No history of: Respiratory Problems (FLU VAC-NO; PNEU VAC- NO.) Genitourinary: History of: Bladder Problem (URINARY INCONTINENCE.) Gastrointestinal: History of: GERD, Liver Problems (LIVER CA. DR LOPEZ.), Gastrointestinal Cancer (colon CA) Other: History of: Cancer (LIVER COLON CA) - Surgical History HEENT Surgeries: Surgical HX of: Eye Surgery (MICHAEL cataract), Tonsilectomy & Adenoidectomy Abdominal Surgeries: Surgical HX of: Colonoscopy, EGD Reproductive Surgeries: Surgical HX of;: Hysterectomy Orthopedic Surgeries: Surgical HX of;: Orthopedic Surgery (knee ) - Family History Family History: Reports;: Family Heart Disease (father), Family Hypertension ( Parents, sister) - Social History Smoking Status: Never smoker
[2016-11-11 09:41] LABS: Magnesium 2.1 MG/DL (1.8-2.4); Uric Acid 4.3 MG/DL (2.6-6.0)
[2016-11-11 09:42] LABS: Basophils # 0.1 10*3/uL (0.0-0.2); Basophils % 0.6 % (0.0-0.8); Eosinophils % 0.1 % (0.00-10.9); Hematocrit 29.9 VOL% (35.7-47.0); Hemoglobin 9.9 GM/DL (12.0-16.0); Immature Granulocytes % 0.8 %; Immature Granulocytes Absolute 0.11 #; Lymphocytes # 1.8 10*3/uL (1.4-4.0); Lymphocytes % 13.2 % (21.3-54.2); Mean Corpuscular HGB Conc 33.1 GM/DL (32-36); Mean Corpuscular Hemoglobin 28 PG (27-34); Mean Corpuscular Volume 83.5 FL (87-102); Mean Platelet Volume 9.5 FL (9.6-12.0); Monocytes # 1.3 10*3/uL (0.11-0.8); Monocytes % 9.4 % (1.7-12.7); Neutrophils # 10.6 10*3/uL (1.4-7.4); Neutrophils % 75.9 % (38.7-73.9); Platelet Count 568 T/CUMM (130-400); Red Blood Count 3.58 MC/CUMM (3.8-5.5); Red Cell Distribution Width 22.9 % (9.3-17.3); White Blood Count 13.9 T/CUMM (4-12)
[2016-11-11 09:46] LABS: Albumin 2.3 G/DL (3.4-5.0); Bilirubin,Total 1.3 MG/DL (0.2-1.0); Calcium 8.6 MG/DL (8.5-10.1); Osmolality,Calculated 275.7 MOS/KG (273-304); Potassium 3.8 MMOL/L (3.5-5.1); Total Protein 6.3 G/DL (6.4-8.3)
--- NOTE | 2016-11-11 10:05 | XRay Report ---
Exam: XR chest 2V Indication: History of colon cancer Comparison study: 10/31/2016 Findings: Cardiac silhouette is mildly enlarged, similar to prior. Right chest Mediport is in similar position. Otherwise, the heart, mediastinum and bony structures are stable from prior. 2.6 cm soft tissue density in the right hilar region appears slightly more prominent on the current study and may represent a metastatic lesion. No other focal pulmonary lesions are definitely identified. There is no focal consolidation, pneumothorax or pleural effusion identified. Impression: Improved aeration within the lung bases. Stable position of the right-sided Mediport catheter. Right hilar soft tissue nodular density measuring 2.7 cm may represent a metastatic lesion in this patient with known widespread metastatic colorectal cancer. PROCEDURE INTERPRETED AT [facility] DEPARTMENT OF RADIOLOGY Final Report Signed by: Valerio Olmos
[2016-11-11 10:23] LABS: Carcinoembryonic Antigen 58.2 NG/ML (0.0-5.0)
[2016-11-11] MEDS ORDERED: LEUCOVORIN IV ONE (10:30)
[2016-11-11] MEDS ORDERED: FLUOROURACIL 800 MG in SYRINGE 1 EACH IV ONE (10:30)
[2016-11-11] MEDS ORDERED: FLUOROURACIL 2,000 MG in SODIUM CHLORIDE 0.9% 1,000 ML IV SCH (10:30)
[2016-11-11] MEDS ORDERED: DEXTROSE 5% IV ONE (10:30)
[2016-11-11] MEDS ORDERED: DEXAMETHASONE 4 MG/1 ML VIAL IV ONE (10:30)
[2016-11-11] MEDS: GRANISETRON 1 MG/1 ML VIAL IV SCH (11:09)
[2016-11-11 11:34] LABS: Cancer Antigen 19-9 2582.1 U/ML (0-37)
[2016-11-11] MEDS ORDERED: diphenhydrAMINE CAP 25 MG CAPSULE PO PRN (13:04)
[2016-11-11] MEDS ORDERED: chlorproMAZINE INJ 50 MG in SODIUM CHLORIDE 0.9% 100 ML IV PRN (13:04)
[2016-11-11] MEDS ORDERED: ONDANSETRON 4 MG/2 ML VIAL IV PRN (13:04)
[2016-11-11] MEDS ORDERED: TEMAZEPAM 7.5 MG CAPSULE PO PRN (13:04)
[2016-11-11] MEDS ORDERED: MYLANTA/LIDO VISC 2:1 300 ML BOTTLE SWISH/SWAL PRN (13:04)
[2016-11-11] MEDS ORDERED: ACETAMINOPHEN 325 MG TABLET PO PRN (13:04)
[2016-11-11] MEDS ORDERED: ALUMINUM/MAGNES/SIMETH MAX STR 30 ML UDCUP PO PRN (13:04)
[2016-11-11] MEDS ORDERED: LOPERAMIDE 2 MG CAPSULE PO PRN ×2 (13:04)
[2016-11-11] MEDS ORDERED: MAGNESIUM HYDROXIDE SUSP 30 ML UDCUP PO PRN (13:04)
[2016-11-11] MEDS ORDERED: chlorproMAZINE 25 MG TABLET PO PRN (13:04)
[2016-11-11] MEDS ORDERED: traMADol 50 MG TABLET PO PRN (13:04)
[2016-11-11] MEDS ORDERED: ALPRAZolam 0.25 MG TABLET PO PRN (13:04)
[2016-11-11] MEDS ORDERED: PROMETHAZINE INJ 25 MG in SODIUM CHLORIDE 0.9% 50 ML IV PRN (13:04)
[2016-11-11] MEDS ORDERED: MYLANTA/LIDO VISC 2:1 300 ML BOTTLE SWISH/SPIT PRN (13:04)
[2016-11-11] MEDS ORDERED: chlorproMAZINE INJ 25 MG in SODIUM CHLORIDE 0.9% 100 ML IV PRN (13:04)
[2016-11-11] MEDS ORDERED: BENZTROPINE 2 MG/2 ML AMP IV PRN (13:04)
[2016-11-11] MEDS ORDERED: LACTULOSE 20 GM/30 ML UDCUP PO PRN (13:04)
[2016-11-11] MEDS ORDERED: guaiFENesin 200 MG/10 ML UDCUP PO PRN (13:04)
[2016-11-11] MEDS ORDERED: PROCHLORPERAZINE 10 MG TABLET PO PRN (13:09)
[2016-11-11] MEDS ORDERED: ONDANSETRON 4 MG TABLET PO PRN (13:10)
[2016-11-12 05:34] LABS: Apearance,Urine CLEAR (Clear); Bilirubin,Urine Negative (Negative); Blood, Urine Negative (Negative); Glucose,Urine (UA) 150 mg/dL (Negative); Ketones,Urine Negative (Negative); Mucus,Urine Occasional /LPF (Occasional); Nitrite,Urine Negative (Negative); Protein,Urine Negative; RBC,Urine <1 /HPF (0-4); Squamous Epithelial Cell,Urine Occasional /HPF (0-10); Urine Color Yellow (Yellow); Urine Specific Gravity 1.008 (1.001-1.035); WBC,Urine <1 /HPF (0-6)
[2016-11-12] MEDS ORDERED: LEVOTHYROXINE 75 MCG TABLET PO SCH (07:00)
--- NOTE | 2016-11-12 08:10 | Oncology Progress Note ---
Oncology Subjective PN Interval history: Diagnoses: Metastatic adenocarcinoma colon Administration of chemotherapy and monitoring for toxicity History of neutropenia Anemia secondary to malignancy History of hypokalemia intractable nausea and vomiting with acute dehydration currently resolved acute renal failure secondary to nausea and vomiting currently resolved hypertensive cardiovascular disease hypothyroidism This 81-year-old lady was admitted for her third course of palliative chemotherapy for metastatic adenocarcinoma of the colon. It was initially diagnosed by Dr. Arreola in [place] by colonoscopy and originally the patient had been considered for surgical resection. However, she was found to have extensive liver involvement and was started on chemotherapy very cautiously using leucovorin and 5-FU initially. She had intractable nausea and vomiting initially and had a markedly enlarged liver with more tumor within the liver than actual normal liver parenchyma. She has had 2 prior courses of chemotherapy with the second 1 being a very abbreviated course of bolus leucovorin and 5-FU. However, on this admission she was much improved. She no longer had any nausea or vomiting. She no longer had any abdominal pain and only minimal discomfort. Lab work on this admission included a white cell count of 13,900 with a hemoglobin of 9.9 and a platelet count of 568,000. In addition, her CEA level was 58.2 with a CA-19-9 of 2582.1 from blood drawn November 11, 2016. Her alkaline phosphatase was 189 with an LDH of 829 and her AST was 75 with a normal ALT of 18. Her lab work prior to institution of chemotherapy included a CEA level of 194.3 with a CA-19-9 of 6287.6. She received chemotherapy course #3 during this hospital stay beginning yesterday, November 11 and it consisted of: Leucovorin 750 mg IV on day 1 5-FU 800 mg IV day 1 5-FU 2000 mg IV over 22 hours. I had initially planned to give the 5-FU by infusion for 44 hours but I have changed my mind because of the patient's previous toxicity. In addition, I had initially considered the addition of oxalic menominee or Camptosar and even possibly Avastin. However, she is not a candidate for Avastin because she still having GI bleeding. Her primary tumor in her colon has not been operated and I do not think she is a candidate for Avastin as long as this is the case. She is being discharged today to return November 25 for further chemotherapy. I will also consider whether or not to perform additional x-ray evaluation, such as CT scans of her abdomen and pelvis on return. However, that will be her with course of chemotherapy and I am not sure it is time to repeat x-rays yet. She appears to be responding to treatment and I am satisfied with this improvement so far. Exam - Constitutional Vitals: Period Temp Pulse Resp BP Sys/Capellan Pulse Ox Last 24 Hr 96.7 F-97.9 F 74-99 18-22 129-161/58-79 92-95 Results - Labs CBC & BMP: 11/11/16 09:34 11/11/16 08:54
--- NOTE | 2016-11-12 08:33 | Discharge Summary ---
Hospital Course - Hospital Course Hospital Course: Diagnoses: Metastatic adenocarcinoma colon Administration of chemotherapy and monitoring for toxicity History of neutropenia Anemia secondary to malignancy History of hypokalemia intractable nausea and vomiting with acute dehydration currently resolved acute renal failure secondary to nausea and vomiting currently resolved hypertensive cardiovascular disease hypothyroidism This 81-year-old lady was admitted for her third course of palliative chemotherapy for metastatic adenocarcinoma of the colon. It was initially diagnosed by Dr. Arreola in [place] by colonoscopy and originally the patient had been considered for surgical resection. However, she was found to have extensive liver involvement and was started on chemotherapy very cautiously using leucovorin and 5-FU initially. She had intractable nausea and vomiting initially and had a markedly enlarged liver with more tumor within the liver than actual normal liver parenchyma. She has had 2 prior courses of chemotherapy with the second 1 being a very abbreviated course of bolus leucovorin and 5-FU. However, on this admission she was much improved. She no longer had any nausea or vomiting. She no longer had any abdominal pain and only minimal discomfort. Lab work on this admission included a white cell count of 13,900 with a hemoglobin of 9.9 and a platelet count of 568,000. In addition, her CEA level was 58.2 with a CA-19-9 of 2582.1 from blood drawn November 11, 2016. Her alkaline phosphatase was 189 with an LDH of 829 and her AST was 75 with a normal ALT of 18. Her lab work prior to institution of chemotherapy included a CEA level of 194.3 with a CA-19-9 of 6287.6. She received chemotherapy course #3 during this hospital stay beginning yesterday, November 11 and it consisted of: Leucovorin 750 mg IV on day 1 5-FU 800 mg IV day 1 5-FU 2000 mg IV over 22 hours. I had initially planned to give the 5-FU by infusion for 44 hours but I have changed my mind because of the patient's previous toxicity. In addition, I had initially considered the addition of oxalic curyung or Camptosar and even possibly Avastin. However, she is not a candidate for Avastin because she still having GI bleeding. Her primary tumor in her colon has not been operated and I do not think she is a candidate for Avastin as long as this is the case. She is being discharged today to return November 25 for further chemotherapy. I will also consider whether or not to perform additional x-ray evaluation, such as CT scans of her abdomen and pelvis on return. However, that will be her with course of chemotherapy and I am not sure it is time to repeat x-rays yet. She appears to be responding to treatment and I am satisfied with this improvement so far. Discharge Plan - Discharge Data Disposition: Disch To Home/Self Care Condition at Discharge: Guarded Discharge Diet: advance to your usual diet Activity: resume usual activities as tolerated Hygiene: no restrictions Weight Bearing at Discharge: weight bear as tolerated Contact your physician if you experience:: fever over 101, Difficulty voiding, Redness or swelling, Nausea/Vomiting, Shortness of breath, Bleeding, pain uncontrolled by pain medications - Discharge Medications Continue Nebivolol [Bystolic] 5 mg PO DAILY Levothyroxine Tab [Synthroid Tab] 75 mcg PO DAILY@0700 Ondansetron Tab [Zofran Tab] 4 mg PO Q6HR PRN PRN Reason: Nausea Prochlorperazine Tab [Compazine Tab] 10 mg PO Q6H PRN PRN Reason: Nausea Doxepin [SINEquan] 50 mg PO BEDTIME PRN PRN Reason: Sleep - Follow Up or Referral - Forms/Instructions Additional Discharge Instructions: Discharge today after the first day infusion of 5-FU has completed. Get it in by approximately 6 PM. Return November 25, 2016. The patient needs to be on the floor by 7:30 AM and order the admission laboratory work stat, including CBC, CMP, LDH, CEA level and CA-19-9 +1 tube of blood for type and hold. Also add a chest x-ray PA and lateral to the orders but this can be done after I have assessed the patient that morning. Exam - Constitutional Vitals: Period Temp Pulse Resp BP Sys/Capellan Pulse Ox Last 24 Hr 96.7 F-97.8 F 74-84 18-22 138-162/67-79 92-95 Discharge Results Labs on day of discharge: Labs from last 24 hours 11/11/16 11/11/16 11/11/16 09:34 08:54 08:54 WBC 13.9 H RBC 3.58 L Hgb 9.9 L Hct 29.9 L MCV 83.5 L MCH 28 MCHC 33.1 RDW 22.9 H Plt Count 568 H MPV 9.5 L Neut % (Auto) 75.9 H Lymph % (Auto) 13.2 L Gibson % (Auto) 9.4 Eos % (Auto) 0.1 Baso % (Auto) 0.6 Neut # (Auto) 10.6 H Lymph # (Auto) 1.8 Gibson # (Auto) 1.3 H Eos # (Auto) 0.0 Baso # (Auto) 0.1 Immature Gran % 0.8 Nucleated RBC % 0.0 Immature Gran # 0.11 Nucleated RBCs # 0.00 Sodium Potassium Chloride Carbon Dioxide Anion Gap BUN Creatinine GFR Calculation BUN/Creatinine Ratio Glucose Calculated Osmolality Uric Acid 4.3 Calcium Magnesium 2.1 Total Bilirubin AST ALT Alkaline Phosphatase Lactate Dehydrogenase Total Protein Albumin Globulin Albumin/Globulin Ratio Carcinoembryonic Ag 58.2 H CA 19-9 Antigen 2582.1 H Urine Color Urine Appearance Urine pH Ur Specific [place] Urine Protein Urine Glucose (UA) Urine Ketones Urine Blood Urine Nitrate Urine Bilirubin Urine Urobilinogen Urine Leukocytes Urine RBC Urine WBC Ur Squamous Epith Cells Urine Mucus Ur Culture Indicated? 11/11/16 11/11/16 08:54 00:00 WBC RBC Hgb Hct MCV MCH MCHC RDW Plt Count MPV Neut % (Auto) Lymph % (Auto) Gibson % (Auto) Eos % (Auto) Baso % (Auto) Neut # (Auto) Lymph # (Auto) Gibson # (Auto) Eos # (Auto) Baso # (Auto) Immature Gran % Nucleated RBC % Immature Gran # Nucleated RBCs # Sodium 138 Potassium 3.8 Chloride 104 Carbon Dioxide 21 Anion Gap 16.8 H BUN 16 Creatinine 0.60 GFR Calculation 92 BUN/Creatinine Ratio 26.00 H Glucose 91 Calculated Osmolality 275.7 Uric Acid Calcium 8.6 Magnesium Total Bilirubin 1.30 H AST 75 H ALT 18 Alkaline Phosphatase 189 H Lactate Dehydrogenase 829 H Total Protein 6.3 L Albumin 2.3 L Globulin 4.0 H Albumin/Globulin Ratio 0.5 L Carcinoembryonic Ag CA 19-9 Antigen Urine Color Yellow Urine Appearance Clear Urine pH 6.0 Ur Specific [place] 1.008 Urine Protein Negative Urine Glucose (UA) 150 Urine Ketones Negative Urine Blood Negative Urine Nitrate Negative Urine Bilirubin Negative Urine Urobilinogen 4.0 H Urine Leukocytes Negative Urine RBC <1 Urine WBC <1 Ur Squamous Epith Cells Occasional Urine Mucus Occasional Ur Culture Indicated? Not indicated DS: Provider Date of admission: 11/11/16 07:28 Primary care physician: Valerio Wise Attending physician on admission: Yevgeniy Ochoa MD Discharging clinician: Yevgeniy Ochoa MD
[2016-11-12] MEDS ORDERED: NEBIVOLOL 5 MG TABLET PO SCH (09:00)
[2016-11-12] MEDS: GRANISETRON 1 MG/1 ML VIAL IV SCH (09:43)
[2016-11-12 11:59] VITALS: BP 143/65
[2016-11-12] MEDS ORDERED: HEPARIN LOCK FLUSH 500 UNIT/5 ML SYRINGE IV ONE (12:06)
== END 2016-11-12 12:23 | disposition home or self-care, planned readmission (81) | DRG 847 ==
LOC: N.4E 07:28
PROVIDERS: ADMIT Specialist; ATTEND Specialist

== ENCOUNTER 2016-11-25 07:00 | Inpatient (IN) ==
--- NOTE | 2016-11-25 08:01 | Oncology History&Physical ---
History of Present Illness History of present illness: Ms. Espinoza is a 81 year old female admitted for further palliative chemotherapy for metastatic colon cancer. She had a Mediport catheter inserted October 24, 2016. This 81-year-old lady is admitted for her 4th course of palliative chemotherapy for metastatic adenocarcinoma of the colon. It was initially diagnosed by Dr. Arreola in [place] by colonoscopy and originally the patient had been considered for surgical resection. However, she was found to have extensive liver involvement and was started on chemotherapy very cautiously using leucovorin and 5-FU initially. She had intractable nausea and vomiting initially and had a markedly enlarged liver with more tumor within the liver than actual normal liver parenchyma. In addition, her CEA level was 58.2 with a CA-19-9 of 2582.1 from blood drawn November 11, 2016. Her alkaline phosphatase was 189 with an LDH of 829 and her AST was 75 with a normal ALT of 18. Her lab work prior to institution of chemotherapy included a CEA level of 194.3 with a CA-19-9 of 6287.6. Lab work today includes a white cell count of 9800 with a hemoglobin of 10.7 and a platelet count of 400,000. The CMP includes a normal serum creatinine of 0.6 with a total bilirubin of 1.2 , AST of 61 and alkaline phosphatase of 183. Also an LDH of 640. Tumor markers are pending. These include CEA and CA-19-9 She received chemotherapy course #3 during this hospital stay beginning yesterday, November 11 and it consisted of: Leucovorin 750 mg IV on day 1 5-FU 800 mg IV day 1 5-FU 2000 mg IV over 22 hours. Medical History Cardio: History of: Hypertension HEENT: History of: Dental Problems (top) Endocrine: History of: Thyroid Disorder Gastrointestinal: History of: Gastrointestinal Cancer (colon) - Surgical History HEENT Surgeries: Surgical HX of: Eye Surgery (cataract) Orthopedic Surgeries: Surgical HX of;: Orthopedic Surgery (knee s) - Family History Family History: Reports;: Family Heart Disease (father), Family Hypertension ( Parents, sister) - Social History Smoking Status: Never smoker Frequency of Alcohol Use: None Type of Drug Use: None ROS Gen.: Until onset of present illness, her health has been fairly good. Endocrine: She has a history of hypothyroidism and has been on thyroid supplementation. Eyes: She has had bilateral cataract surgery. No history of chronic disease, infections or visual loss. ENT: No history of chronic infections, epistaxis, chronic sore throat Lungs: No history of asthma, emphysema, hemoptysis, chronic pleurisy or long- term or chronic infections Cardiovascular: She has a history of hypertension. No history of angina, coronary artery disease, congestive heart failure, cardiovascular surgery or DVT /VTE GI: She developed nausea and vomiting with onset of this present illness and has had esophageal reflux and heartburn. No prior history of upper or lower GI bleeding, melena, dysphagia, odynophagia, liver disease, gallbladder disease or pancreatic disease. : She was acutely dehydrated and had documented elevation of her urea nitrogen and creatinine on this admission but this is not a long-term issue. No history of kidney stones, chronic kidney infections or hematuria. Musculoskeletal: No history of chronic bone or joint pain or focal muscle atrophy or bone or joint deformity. Neurologic: No history of seizures, convulsions or paralysis. Psychiatric: No history of chronic psychiatric illness or psychiatric medications. Lymphatic: No history of significant or long-term lymphadenopathy Hematologic: No history of anemia, bleeding disorders or blood dyscrasias or long-term elevation or depression white cell count or petechiae. Skin: No history of chronic skin infections or rashes or significant skin lesions. Physical examination: General: The patient appears acutely and chronically ill. Eyes: She has had cataract surgery. Lids and conjunctive are normal. ENT: Her oral mucosa and pharynx are somewhat dry. Her hearing is normal. Her voice is clear. Her trachea is midline. Thyroid is normal. Lungs: Her chest moves symmetrically without abnormalities. Breath sounds are relatively normal throughout without rubs, rales or rhonchi. Cardiovascular: Her heart rhythm is regular without murmur, gallop or rub. There is no jugular venous distention, clubbing or cyanosis. She has trace edema at the ankles. Abdomen: There are no abdominal masses, organomegaly, distention, tenderness or ascites. Musculoskeletal: She has generalized muscle weakness without focal muscle atrophy or bone or joint deformity. Neurologic: Cranial nerves II through XII intact. There are no focal neurologic deficits. Nodes: I find no submandibular, cervical, supraclavicular or axillary adenopathy. Skin: I find no significant skin lesions. Impression: Metastatic adenocarcinoma colon Administration of chemotherapy and monitoring for toxicity History of neutropenia Anemia secondary to malignancy History of hypokalemia intractable nausea and vomiting with acute dehydration currently resolved acute renal failure secondary to nausea and vomiting currently resolved hypertensive cardiovascular disease hypothyroidism I am going to hydrate her today and check a CT of her abdomen and pelvis before continuing chemotherapy. Home Medications Medication Instructions Recorded Confirmed Type Levothyroxine Tab [Synthroid Tab] 75 mcg PO DAILY@0700 10/07/16 11/25/16 History Nebivolol [Bystolic] 5 mg PO DAILY W/SUPPER 10/07/16 11/25/16 History Prochlorperazine Tab [Compazine 10 mg PO Q6H PRN 10/24/16 11/25/16 History Tab] Ondansetron Tab [Zofran Tab] 4 mg PO Q6HR PRN 10/31/16 11/25/16 History Doxepin [SINEquan] 50 mg PO BEDTIME PRN 11/11/16 11/25/16 History Allergies Allergy/AdvReac Type Severity Reaction Status Date / Time No Known Allergies Allergy Verified 10/24/16 08:09 Medical,Surgical,& Family Hx - Medical History Cardio: History of: Hypertension Neurology: History of: Migraine (PAST HX.) No history of: Seizures HEENT: History of: Eye Problem (READING GLASSES), Dental Problems (top) Endocrine: History of: Thyroid Disorder Respiratory: No history of: Respiratory Problems (FLU VAC-NO; PNEU VAC- NO.) Genitourinary: History of: Bladder Problem (URINARY INCONTINENCE.) Gastrointestinal: History of: GERD, Liver Problems (LIVER CA. DR LOPEZ.), Gastrointestinal Cancer (colon CA) Other: History of: Cancer (LIVER COLON CA) - Surgical History HEENT Surgeries: Surgical HX of: Eye Surgery (MICHAEL cataract), Tonsilectomy & Adenoidectomy Abdominal Surgeries: Surgical HX of: Colonoscopy, EGD Reproductive Surgeries: Surgical HX of;: Hysterectomy Orthopedic Surgeries: Surgical HX of;: Orthopedic Surgery (knee 1950's) - Family History Family History: Reports;: Family Heart Disease (father), Family Hypertension ( Parents, sister) - Social History Smoking Status: Never smoker Results - Labs CBC & BMP: 11/25/16 07:50 11/25/16 07:50
[2016-11-25 08:11] LABS: Basophils # 0.1 10*3/uL (0.0-0.2); Basophils % 0.5 % (0.0-0.8); Eosinophils # 0.5 10*3/uL (0.0-0.87); Hematocrit 32.6 VOL% (35.7-47.0); Hemoglobin 10.7 GM/DL (12.0-16.0); Immature Granulocytes % 0.6 %; Immature Granulocytes Absolute 0.06 #; Lymphocytes # 1.3 10*3/uL (1.4-4.0); Lymphocytes % 13.2 % (21.3-54.2); Mean Corpuscular HGB Conc 32.8 GM/DL (32-36); Mean Corpuscular Hemoglobin 29 PG (27-34); Mean Corpuscular Volume 86.9 FL (87-102); Mean Platelet Volume 9.7 FL (9.6-12.0); Monocytes # 1.1 10*3/uL (0.11-0.8); Monocytes % 10.7 % (1.7-12.7); Neutrophils # 6.9 10*3/uL (1.4-7.4); Platelet Count 400 T/CUMM (130-400); Red Blood Count 3.75 MC/CUMM (3.8-5.5); Red Cell Distribution Width 24.3 % (9.3-17.3); White Blood Count 9.8 T/CUMM (4-12)
[2016-11-25 08:35] LABS: Hypochromasia 1+
[2016-11-25 08:36] LABS: Microcytosis 1+; Platelet Estimate Increased
--- NOTE | 2016-11-25 08:38 | XRay Report ---
XR chest 2V Indication: Colon cancer Comparison: 11 November 2016 Findings: The heart and mediastinum are stable in size and configuration. Right hilar density is stable in appearance. Right subclavian port catheter is unchanged in position. The pulmonary vascularity is normal in caliber. No lung infiltrates, effusions, pneumothorax or other abnormality is demonstrated. Impression: No significant change. PROCEDURE INTERPRETED AT [facility] [place] DEPARTMENT OF RADIOLOGY Final Report Signed by: Dr. Tone Mc
[2016-11-25 08:41] LABS: Albumin 2.5 G/DL (3.4-5.0); Bilirubin,Total 1.2 MG/DL (0.2-1.0); Calcium 8.7 MG/DL (8.5-10.1); Magnesium 2.1 MG/DL (1.8-2.4); Osmolality,Calculated 270.1 MOS/KG (273-304); Potassium 3.6 MMOL/L (3.5-5.1); Total Protein 6.8 G/DL (6.4-8.3); Uric Acid 3.1 MG/DL (2.6-6.0)
[2016-11-25] MEDS ORDERED: PROCHLORPERAZINE 10 MG TABLET PO PRN (08:58)
[2016-11-25] MEDS ORDERED: ONDANSETRON 4 MG TABLET PO PRN (08:58)
[2016-11-25] MEDS ORDERED: DOXEPIN 25 MG CAPSULE PO PRN (08:58)
[2016-11-25] MEDS: DEXT 5% NACL 0.45% KCL 20 MEQ 20 MEQ/1,000 ML BAG IV SCH ×2 (09:08→17:23)
[2016-11-25] MEDS ORDERED: ONDANSETRON 4 MG/2 ML VIAL ONE (09:13)
[2016-11-25] MEDS ORDERED: chlorproMAZINE INJ 25 MG in SODIUM CHLORIDE 0.9% 100 ML IV PRN (09:30)
[2016-11-25] MEDS ORDERED: MAGNESIUM HYDROXIDE SUSP 30 ML UDCUP PO PRN (09:30)
[2016-11-25] MEDS ORDERED: TEMAZEPAM 7.5 MG CAPSULE PO PRN (09:30)
[2016-11-25] MEDS ORDERED: traMADol 50 MG TABLET PO PRN (09:30)
[2016-11-25] MEDS ORDERED: ALUMINUM/MAGNES/SIMETH MAX STR 30 ML UDCUP PO PRN (09:30)
[2016-11-25] MEDS ORDERED: ONDANSETRON 4 MG/2 ML VIAL IV PRN (09:30)
[2016-11-25] MEDS ORDERED: PROMETHAZINE INJ 25 MG in SODIUM CHLORIDE 0.9% 50 ML IV PRN (09:30)
[2016-11-25] MEDS ORDERED: LOPERAMIDE 2 MG CAPSULE PO PRN ×2 (09:30)
[2016-11-25] MEDS ORDERED: MYLANTA/LIDO VISC 2:1 300 ML BOTTLE SWISH/SWAL PRN (09:30)
[2016-11-25] MEDS ORDERED: chlorproMAZINE INJ 50 MG in SODIUM CHLORIDE 0.9% 100 ML IV PRN (09:30)
[2016-11-25] MEDS ORDERED: ALPRAZolam 0.25 MG TABLET PO PRN (09:30)
[2016-11-25] MEDS ORDERED: diphenhydrAMINE CAP 25 MG CAPSULE PO PRN (09:30)
[2016-11-25] MEDS ORDERED: guaiFENesin 200 MG/10 ML UDCUP PO PRN (09:30)
[2016-11-25] MEDS ORDERED: ACETAMINOPHEN 325 MG TABLET PO PRN (09:30)
[2016-11-25] MEDS ORDERED: chlorproMAZINE 25 MG TABLET PO PRN (09:30)
[2016-11-25] MEDS ORDERED: LACTULOSE 20 GM/30 ML UDCUP PO PRN (09:30)
[2016-11-25] MEDS ORDERED: BENZTROPINE 2 MG/2 ML AMP IV PRN (09:30)
[2016-11-25] MEDS ORDERED: MYLANTA/LIDO VISC 2:1 300 ML BOTTLE SWISH/SPIT PRN (09:30)
[2016-11-25] MEDS: NEBIVOLOL 5 MG TABLET PO SCH (17:21)
[2016-11-25 19:46] LABS: Apearance,Urine Slightly Hazy (Clear); Bacteria,Urine Many /HPF (Few); Bilirubin,Urine Negative (Negative); Blood, Urine Negative (Negative); Glucose,Urine (UA) Negative (Negative); Ketones,Urine Negative (Negative); Mucus,Urine Occasional /LPF (Occasional); Nitrite,Urine Positive (Negative); Protein,Urine 30 MG/DL; RBC,Urine 1 /HPF (0-4); Squamous Epithelial Cell,Urine Occasional /HPF (0-10); Urine Color Amber (Yellow); Urine Specific Gravity 1.016 (1.001-1.035); WBC,Urine 144 /HPF (0-6)
[2016-11-26] MEDS: DEXT 5% NACL 0.45% KCL 20 MEQ 20 MEQ/1,000 ML BAG IV SCH ×3 (01:20→18:00)
[2016-11-26] MEDS: LEVOTHYROXINE 75 MCG TABLET PO SCH (06:57)
--- NOTE | 2016-11-26 08:04 | Oncology Progress Note ---
Oncology Subjective PN Interval history: Ms. Espinoza was adenocarcinoma the colon with liver metastases. She has had 3 previous courses of chemotherapy using leucovorin and 5-FU but she has not had oxalic kaw or Camptosar. On this admission she has had a little bit of worsening of her condition with loss of appetite and increasing malaise and weakness. I am reassessing her condition before continuing chemotherapy because I anticipate adding additional chemotherapy drugs. I could not initially had chemotherapy drugs and actually had to reduce her leucovorin and 5 -FU dose because she had severe leukopenia. Lab work on this admission includes a normal CBC except for hemoglobin of 10.7. The CEA level on this admission is 48.5 a CA-19-9 of 2763.0 Her CEA level was 58.2 with a CA-19-9 of 2582.1 from blood drawn November 11, 2016. Her alkaline phosphatase was 189 with an LDH of 829 and her AST was 75 with a normal ALT of 18. Her lab work prior to institution of chemotherapy included a CEA level of 194.3 with a CA-19-9 of 6287.6. The comprehensive metabolic profile includes an alkaline phosphatase of 183 with an LDH of 640. I am ordering chemotherapy to start today and it will include leucovorin 800 mg and 5-FU 800 mg IV today followed by 5-FU 1500 mg IV over 22 hours daily for 2 days. She will also receive oxaliplatinum 150 mg IV today only. I have calculated the doses and actually reduced them. I have also ordered premedications including Benadryl, dexamethasone and Kytril. I have reviewed the CT scan films. She continues to have disseminated liver involvement although there has been some reduction in the Tumor bulk. Exam - Constitutional Vitals: Period Temp Pulse Resp BP Sys/Capellan Pulse Ox Last 24 Hr 96.4 F-98.4 F 80-99 18-20 135-186/70-78 93-97 Results - Labs CBC & BMP: 11/25/16 07:50 11/25/16 07:50
--- NOTE | 2016-11-26 08:32 | CT Report ---
CT chest abdomen pelvis w con Indication: Breast Cancer, metastatic disease Comparison: CT abdomen pelvis 09 October 2016 Technique: Axial CT imaging of the chest, abdomen and pelvis is performed with intravenous and oral contrast. Contrast dose is 100 cc of Omnipaque 350. Findings: CT chest: Cardiac size is enlarged. Mediastinum appears within normal limits. The pulmonary vessels appear slightly increased with increased interstitial pulmonary densities Small amount of compressive airspace density seen in the right posterior lower lobe. No distinctive pulmonary nodule or mass is identified. No other evidence of lung parenchymal abnormality is seen. No pneumothorax or effusion is present. No chest wall abnormalities are identified. There is sclerosis in the anterior margin of the T5 vertebra. No other distinct osseous lesions are identified. CT abdomen: The liver has numerous metastatic lesions, these are smaller in size when compared to previous exam with the rim of enhancement appearing slightly thicker. The largest is estimated 9 cm in size and previously measured up to 10 cm in size. There is less overall mass effect caused by the liver when compared to previous. Spleen, pancreas, adrenal glands and kidneys are normal in size and enhancement. No evidence of focal lesion is demonstrated in the solid organs. The bowel caliber is normal and no wall thickening or adjacent inflammatory change is seen. No evidence of free fluid or free air is present. Few lymph nodes are present in the right lower quadrant mesentery, smaller in size when compared to previous. The cecal mass and adjacent soft tissue density also is smaller compared to previous exam. CT pelvis: There is some wall thickening of the sigmoid colon adjacent to the cecal mass and soft tissue density similar to previous. Small amount of free pelvic fluid is seen. Few diverticula are present with some adjacent stranding in the lower pelvis. Small pocket of fluid density is seen just superior to the bladder, maximum size is estimated 1.6 cm. Bladder appear within normal limits. The pelvic organs show no evidence of abnormality. Impression: Prominent vascularity and interstitial pulmonary density with cardiomegaly could indicate cardiac decompensation. Decrease in the size of the cecal mass, adjacent lymph nodes and hepatic metastatic lesions compared to previous study. There is wall thickening with diverticula and adjacent stranding involving a segment in the sigmoid colon. There is small pocket of fluid density near the sigmoid colon that measures up to 1.6 cm in size could represent diverticular abscess although malignant process at this location cannot be excluded. Sclerotic density anterior margin of T5 vertebra could represent metastatic disease. Bone scan may be useful to further evaluate this area. PROCEDURE INTERPRETED AT [facility] DEPARTMENT OF RADIOLOGY Final Report Signed by: Dr. Tone Mc
[2016-11-26] MEDS ORDERED: diphenhydrAMINE 50 MG/1 ML VIAL IV ONE (08:45)
[2016-11-26] MEDS ORDERED: OXALIPLATIN 150 MG in DEXTROSE 5% 250 ML IV ONE (08:46)
[2016-11-26] MEDS ORDERED: LEUCOVORIN INJ 800 MG in DEXTROSE 5% 250 ML IV ONE (08:47)
[2016-11-26] MEDS ORDERED: FLUOROURACIL 800 MG in SYRINGE 1 EACH IV ONE (09:30)
[2016-11-26] MEDS: DEXAMETHASONE 4 MG/1 ML VIAL IV SCH (09:51)
[2016-11-26] MEDS: GRANISETRON 1 MG/1 ML VIAL IV SCH (09:51)
[2016-11-26] MEDS: FLUOROURACIL 1,500 MG in SODIUM CHLORIDE 0.9% 1,000 ML IV SCH (14:02)
--- NOTE | 2016-11-26 15:26 | General Surgery Consult Note ---
Assessment and Plan - Time spent with patient Time spent with patient: Greater than 30 minutes (1) Colon adenocarcinoma Status: Acute Assessment and plan: I reviewed the CT scan images and I see the findings in the sigmoid colon which have some thickening of the sigmoid colon which could represent tumor or old diverticular disease. She does not clinically appear to have active diverticulitis. She has a normal white blood cell count and no fever and no tenderness in her left lower quadrant. She has not had abdominal pain. I would manage this conservatively and do not feel that we need to do any other interventions or invasive diagnostics such as colonoscopy at this time. I will be available if needed Current Visit: No History of Present Illness Chief complaint: Metastatic cancer History of present illness: Ms. 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 She was admitted for chemotherapy and was noted to have thickening of her sigmoid colon on CT scan. The patient denies any abdominal pain at this time. She specifically denies any left lower quadrant abdominal pain and has not had any problems with bowel movements. She has not had abdominal distention. She feels that her bowel movements are normal. She is not having fever or chills. She is not having diarrhea. Home Medications Medication Instructions Recorded Confirmed Type Levothyroxine Tab [Synthroid Tab] 75 mcg PO DAILY@0700 10/07/16 11/25/16 History Nebivolol [Bystolic] 5 mg PO DAILY W/SUPPER 10/07/16 11/25/16 History Prochlorperazine Tab [Compazine 10 mg PO Q6H PRN 10/24/16 11/25/16 History Tab] Ondansetron Tab [Zofran Tab] 4 mg PO Q6HR PRN 10/31/16 11/25/16 History Doxepin [SINEquan] 50 mg PO BEDTIME PRN 11/11/16 11/25/16 History Allergies Allergy/AdvReac Type Severity Reaction Status Date / Time No Known Allergies Allergy Verified 10/24/16 08:09 Medical,Surgical,& Family Hx - Medical History Cardio: History of: Hypertension Neurology: History of: Migraine (PAST HX.) No history of: Seizures HEENT: History of: Eye Problem (READING GLASSES), Dental Problems (top) Endocrine: History of: Dyslipidemia, Thyroid Disorder Respiratory: No history of: Respiratory Problems (FLU VAC-NO; PNEU VAC- NO.) Genitourinary: History of: Bladder Problem (URINARY INCONTINENCE.) Gastrointestinal: History of: GERD, Liver Problems (LIVER CA. DR LOPEZ.), Gastrointestinal Cancer (colon CA) Other: History of: Cancer (LIVER COLON CA) - Surgical History HEENT Surgeries: Surgical HX of: Eye Surgery (MICHAEL cataract), Tonsilectomy & Adenoidectomy Abdominal Surgeries: Surgical HX of: Colonoscopy, EGD Reproductive Surgeries: Surgical HX of;: Gynecologic Surgery, Hysterectomy Orthopedic Surgeries: Surgical HX of;: Orthopedic Surgery (knee 1950's) - Family History Family History: Reports;: Family Heart Disease (father), Family Hypertension ( Parents, sister) - Social History Smoking Status: Never smoker - Constitutional Constitutional: Present: anorexia, weight loss. Absent: chills, fever(s) - Cardiovascular Cardiovascular: Absent: chest pain at rest, chest pain with activity, dyspnea, dyspnea on exertion, syncope - Respiratory Respiratory: Absent: cough, dyspnea, hemoptysis, dyspnea on exertion - Gastrointestinal Gastrointestinal: Absent: abdominal pain, bloating, cramping, hematemesis, hematochezia, nausea, vomiting, jaundice - Genitourinary Genitourinary: Absent: dysuria, hematuria - Musculoskeletal Musculoskeletal: Absent: back pain - Neurological Neurological: Absent: focal weakness, syncope - Endocrine Endocrine: Present: polyuria Hematologic/Lymphatic: Absent: easy bleeding, easy bruising Exam - Constitutional Vitals: Period Temp Pulse Resp BP Sys/Capellan Pulse Ox Last 24 Hr 96.4 F-98.4 F 72-99 20-20 135-186/66-78 93-98 General appearance: no acute distress - Head Head exam: Present: normocephalic - Eye Eye exam: Absent: scleral icterus - ENT Mouth exam: Present: normal voice - Neck Neck exam: Present: trachea midline - Respiratory Respiratory exam: Present: clear to auscultation bilaterally. Absent: accessory muscle use - Cardiovascular Cardiovascular exam: Present: RRR - GI/Abdominal GI/Abdominal exam: Present: normal bowel sounds, soft. Absent: distended, guarding, mass, Guthrie's sign, tenderness, rebound - Extremities Exam Extremities exam: Absent: edema - Neurological Exam Neurological exam: Present: alert, oriented X3. Absent: motor sensory deficit Speech: Present: normal - Skin Skin exam: Present: normal color Results - Labs CBC & BMP: 11/25/16 07:50 11/25/16 07:50 Lab Results: I have reviewed the past 24 hour labs - Diagnostic Findings Procedure: CT Abdomen and Pelvis: image reviewed by me, report reviewed by me
[2016-11-26] MEDS: NEBIVOLOL 5 MG TABLET PO SCH (18:03)
[2016-11-27] MEDS: DEXT 5% NACL 0.45% KCL 20 MEQ 20 MEQ/1,000 ML BAG IV SCH ×3 (03:28→18:52)
[2016-11-27] MEDS: LEVOTHYROXINE 75 MCG TABLET PO SCH (06:32)
--- NOTE | 2016-11-27 07:46 | Oncology Progress Note ---
Oncology Subjective PN Interval history: Ms. Espinoza is continuing palliative chemotherapy for metastatic adenocarcinoma the colon. I have discussed her case with Dr. Fleming 3. I consulted him because he seen her in the past and also consulted him because of a question of a diverticular abscess. I wanted him to be aware of this finding on CT. He expressed the feeling that this was not an abscess but that we would continue to follow it. She is continuing palliative chemotherapy. This is her first dose of oxaliplatin although it is her fourth dose of leucovorin and 5-FU. I am going to recheck lab work in the morning because she may be through with chemotherapy and may be able to go home tomorrow. She is oriented and alert and in no acute distress. She seems to be more comfortable today than yesterday. She has had no abdominal pain. She has had no fever. She has had no mouth or throat irritation. On physical examination she is oriented and alert. Her oral mucosa is normal. Her trachea is midline and she has no neck masses. Her respirations are normal and unlabored. Cranial nerves II through XII are intact and there are no focal neurologic deficits. Her abdomen is not distended. We are continuing chemotherapy and monitoring for toxicity. Exam - Constitutional Vitals: Period Temp Pulse Resp BP Sys/Capellan Pulse Ox Last 24 Hr 96.1 F-97.8 F 62-82 18-20 127-181/66-77 91-98 Results - Labs CBC & BMP: 11/25/16 07:50 11/25/16 07:50
[2016-11-27] MEDS: DEXAMETHASONE 4 MG/1 ML VIAL IV SCH (09:13)
[2016-11-27] MEDS: LEVOFLOXACIN 750 MG TABLET PO SCH (09:13)
[2016-11-27] MEDS: GRANISETRON 1 MG/1 ML VIAL IV SCH (09:13)
[2016-11-27] MEDS: FLUOROURACIL 1,500 MG in SODIUM CHLORIDE 0.9% 1,000 ML IV SCH (13:16)
[2016-11-27] MEDS: NEBIVOLOL 5 MG TABLET PO SCH (16:04)
[2016-11-28] MEDS: DEXT 5% NACL 0.45% KCL 20 MEQ 20 MEQ/1,000 ML BAG IV SCH ×2 (04:37→08:35)
[2016-11-28 05:47] LABS: Basophils % 0.1 % (0.0-0.8); Hemoglobin 8.9 GM/DL (12.0-16.0); Immature Granulocytes % 0.6 %; Immature Granulocytes Absolute 0.06 #; Lymphocytes % 10.1 % (21.3-54.2); Mean Corpuscular HGB Conc 31.8 GM/DL (32-36); Mean Corpuscular Hemoglobin 28 PG (27-34); Mean Corpuscular Volume 87.8 FL (87-102); Monocytes # 0.5 10*3/uL (0.11-0.8); Monocytes % 5.1 % (1.7-12.7); Neutrophils # 8.3 10*3/uL (1.4-7.4); Neutrophils % 84.1 % (38.7-73.9); Platelet Count 397 T/CUMM (130-400); Red Blood Count 3.19 MC/CUMM (3.8-5.5); Red Cell Distribution Width 23.9 % (9.3-17.3); White Blood Count 9.9 T/CUMM (4-12)
[2016-11-28 06:18] LABS: Hypochromasia Slight; Microcytosis Slight
[2016-11-28 06:23] LABS: Albumin 2.2 G/DL (3.4-5.0); Bilirubin,Total 0.6 MG/DL (0.2-1.0); Calcium 8.5 MG/DL (8.5-10.1); Osmolality,Calculated 279.5 MOS/KG (273-304); Potassium 3.7 MMOL/L (3.5-5.1); Total Protein 5.8 G/DL (6.4-8.3)
[2016-11-28] MEDS: LEVOTHYROXINE 75 MCG TABLET PO SCH (06:29)
[2016-11-28] MEDS: LEVOFLOXACIN 750 MG TABLET PO SCH (08:03)
[2016-11-28] MEDS: GRANISETRON 1 MG/1 ML VIAL IV SCH (08:04)
[2016-11-28] MEDS: DEXAMETHASONE 4 MG/1 ML VIAL IV SCH (08:06)
--- NOTE | 2016-11-28 08:26 | Oncology Progress Note ---
Oncology Subjective PN Interval history: Diagnoses: Metastatic adenocarcinoma colon Administration of chemotherapy and monitoring for toxicity this was course #4 and it was a first time she received oxaliplatin History of neutropenia Anemia secondary to malignancy History of hypokalemia intractable nausea and vomiting with acute dehydration currently resolved acute renal failure secondary to nausea and vomiting currently resolved hypertensive cardiovascular disease hypothyroidism Ms. Espinoza was admitted at this time for her fourth course of palliative chemotherapy for adenocarcinoma the colon with extensive liver involvement. This is the first time that she is received oxaliplatin. It had not been given up until now because the patient had had significant leukopenia and thrombocytopenia just from using leucovorin and 5-FU alone. Lab work on this admission includes a normal CBC except for hemoglobin of 10.7. The comprehensive metabolic profile includes an alkaline phosphatase of 183 with an LDH of 640. The CEA level on this admission is 48.5 a CA-19-9 of 2763.0 Her CEA level was 58.2 with a CA-19-9 of 2582.1 from blood drawn November 11, 2016. Her alkaline phosphatase was 189 with an LDH of 829 and her AST was 75 with a normal ALT of 18. Her lab work prior to institution of chemotherapy included a CEA level of 194.3 with a CA-19-9 of 6287.6. I ordered chemotherapy to start November 26 to include leucovorin 800 mg and 5-FU 800 mg IV oxaliplatinum 150 mg IV D#1 followed by 5-FU 1500 mg IV over 22 hours daily for 2 days. I calculated the doses and actually reduced them. I also ordered premedications including Benadryl, dexamethasone and Kytril. I reviewed the CT scan films. She continues to have disseminated liver involvement although there has been some reduction in the Tumor bulk. Exam Lab work today includes a white cell count of 9900 with a hemoglobin of 8.9 and a platelet count of 397,000. The comprehensive metabolic profile done today demonstrate slight improvement in liver enzymes with the alkaline phosphatase being down to 159. Tumor markers on this admission included a CEA level 48.5 with a CA-19-9 of 2763.0 on November 25. Exam - Constitutional Vitals: Period Temp Pulse Resp BP Sys/Capellan Pulse Ox Last 24 Hr 96.4 F-98 F 71-82 20-20 132-184/60-80 91-96 Results - Labs CBC & BMP: 11/28/16 04:50 11/28/16 04:50
--- NOTE | 2016-11-28 09:24 | Discharge Summary ---
Hospital Course - Hospital Course Hospital Course: Diagnoses: Metastatic adenocarcinoma colon Administration of chemotherapy and monitoring for toxicity this was course #4 and it was a first time she received oxaliplatin History of neutropenia Anemia secondary to malignancy Klebsiella oxytoca urinary tract infection. Patient discharged on Levaquin 750 mg p.o. daily for 7 more days History of hypokalemia intractable nausea and vomiting with acute dehydration currently resolved acute renal failure secondary to nausea and vomiting currently resolved hypertensive cardiovascular disease hypothyroidism Ms. Espinoza was admitted at this time for her fourth course of palliative chemotherapy for adenocarcinoma the colon with extensive liver involvement. This is the first time that she is received oxaliplatin. It had not been given up until now because the patient had had significant leukopenia and thrombocytopenia just from using leucovorin and 5-FU alone. Lab work on this admission includes a normal CBC except for hemoglobin of 10.7. The comprehensive metabolic profile includes an alkaline phosphatase of 183 with an LDH of 640. The CEA level on this admission is 48.5 a CA-19-9 of 2763.0 Her CEA level was 58.2 with a CA-19-9 of 2582.1 from blood drawn November 11, 2016. Her alkaline phosphatase was 189 with an LDH of 829 and her AST was 75 with a normal ALT of 18. Her lab work prior to institution of chemotherapy included a CEA level of 194.3 with a CA-19-9 of 6287.6. I ordered chemotherapy to start November 26 to include leucovorin 800 mg and 5-FU 800 mg IV oxaliplatinum 150 mg IV D#1 followed by 5-FU 1500 mg IV over 22 hours daily for 2 days. I calculated the doses and actually reduced them. I also ordered premedications including Benadryl, dexamethasone and Kytril. I reviewed the CT scan films. She continues to have disseminated liver involvement although there has been some reduction in the Tumor bulk. Lab work today includes a white cell count of 9900 with a hemoglobin of 8.9 and a platelet count of 397,000. The comprehensive metabolic profile done today demonstrate slight improvement in liver enzymes with the alkaline phosphatase being down to 159. Tumor markers on this admission included a CEA level 48.5 with a CA-19-9 of 2763.0 on November 25. Specialty Discharge - Follow Up or Referrals Follow up with: Yevgeniy Ochoa MD [Physician] - (Return to [facility] for admission on December 09 at 730AM.) Discharge Plan - Discharge Data Disposition: Disch To Home/Self Care Condition at Discharge: Guarded Discharge Diet: advance to your usual diet Activity: resume usual activities as tolerated Hygiene: no restrictions Weight Bearing at Discharge: weight bear as tolerated Driving: other Contact your physician if you experience:: fever over 101, Difficulty voiding, Redness or swelling, Nausea/Vomiting, Shortness of breath, Bleeding, pain uncontrolled by pain medications - Discharge Medications New Levofloxacin Tab [Levaquin Tab] 750 mg PO DAILY #7 tablet Continue Nebivolol [Bystolic] 5 mg PO DAILY W/SUPPER Levothyroxine Tab [Synthroid Tab] 75 mcg PO DAILY@0700 Ondansetron Tab [Zofran Tab] 4 mg PO Q6HR PRN PRN Reason: Nausea Prochlorperazine Tab [Compazine Tab] 10 mg PO Q6H PRN PRN Reason: Nausea Doxepin [SINEquan] 50 mg PO BEDTIME PRN PRN Reason: Sleep - Follow Up or Referral Follow Up: Yevgeniy Ochoa MD [Physician] - (Return to [facility] for admission on December 09 at 730AM.) - Forms/Instructions Instructions: Urinary Tract Infection in Women (DC) Additional Discharge Instructions: Return December 09, 2016. Draws of CBC, CMP, LDH, CEA, CA-19-9 and obtain chest x-ray PA and lateral. If the patient's CBC is satisfactory, admit her that they and we will plan to continue the same chemotherapy that she received on this admission. Exam - Constitutional Vitals: Period Temp Pulse Resp BP Sys/Capellan Pulse Ox Last 24 Hr 96.4 F-98 F 71-82 20-20 132-184/60-80 91-96 Discharge Results Labs on day of discharge: Labs from last 24 hours 11/28/16 11/28/16 04:50 04:50 WBC 9.9 RBC 3.19 L Hgb 8.9 L Hct 28.0 L MCV 87.8 MCH 28 MCHC 31.8 L RDW 23.9 H Plt Count 397 MPV 10.0 Neut % (Auto) 84.1 H Lymph % (Auto) 10.1 L Ector % (Auto) 5.1 Eos % (Auto) 0.0 Baso % (Auto) 0.1 Neut # (Auto) 8.3 H Lymph # (Auto) 1.0 L Ector # (Auto) 0.5 Eos # (Auto) 0.0 Baso # (Auto) 0.0 Immature Gran % 0.6 Nucleated RBC % 0.0 Immature Gran # 0.06 Nucleated RBCs # 0.00 Immature Plt Fraction 0.0 Hypochromasia Slight Microcytosis Slight Sodium 139 Potassium 3.7 Chloride 106 Carbon Dioxide 23 Anion Gap 13.7 BUN 17 Creatinine 0.60 GFR Calculation 90 BUN/Creatinine Ratio 28.00 H Glucose 115 H Calculated Osmolality 279.5 Calcium 8.5 Total Bilirubin 0.60 AST 45 H ALT 18 Alkaline Phosphatase 159 H Total Protein 5.8 L Albumin 2.2 L Globulin 3.6 H Albumin/Globulin Ratio 0.6 L DS: Provider Date of admission: 11/25/16 07:16 Primary care physician: Valerio Wise Attending physician on admission: Yevgeniy Ochoa MD Consults: 11/26/16 08:58 Consult to Physician [CONS] Routine Comment: Patient known to you.See at your convenience. Consulting Provider: Gerber Fleming III. Consulting Provider Notified: Yes When should Consulting Provider be notified: Now Consult to Specialist Group: Surgery When should Consulting Provider be notified: Now Person Notified: SUE Date Notified: 11/26/16 Time Notified: 09:04 Discharging clinician: Yevgeniy Ochoa MD
[2016-11-28] MEDS ORDERED: HEPARIN LOCK FLUSH 500 UNIT/5 ML SYRINGE IV PRN (11:36)
[2016-11-28 12:21] VITALS: BP 172/72
== END 2016-11-28 12:30 | disposition home health service, planned readmission (86) | DRG 847 ==
LOC: N.4E 07:16
PROVIDERS: ADMIT Specialist; ATTEND Specialist

== ENCOUNTER 2016-12-09 07:00 | Inpatient (IN) ==
--- NOTE | 2016-12-09 08:42 | Oncology History&Physical ---
History of Present Illness Chief complaint: Metastatic adenocarcinoma colon receiving chemotherapy History of present illness: This 81-year-old lady is admitted for her 5th course of palliative chemotherapy for metastatic adenocarcinoma of the colon. It was initially diagnosed by Dr. Arreola in [place] by colonoscopy and originally the patient had been considered for surgical resection. However, she was found to have extensive liver involvement and was started on chemotherapy very cautiously using leucovorin and 5-FU initially. She had intractable nausea and vomiting initially and had a markedly enlarged liver with more tumor within the liver than actual normal liver parenchyma. She tolerated course #4 of chemotherapy surprisingly well with no nausea or vomiting, constipation or diarrhea and no upper or lower GI bleeding or stomatitis. However, couple of days ago she began having lower abdominal cramping pain with no other signs or symptoms including no GI blood loss, constipation or diarrhea. In addition, her CEA level was 58.2 with a CA-19-9 of 2582.1 from blood drawn November 11, 2016. Her alkaline phosphatase was 189 with an LDH of 829 and her AST was 75 with a normal ALT of 18. Her lab work prior to institution of chemotherapy included a CEA level of 194.3 with a CA-19-9 of 6287.6. Lab work today is acceptable. We will proceed with course #5 of chemotherapy this week. The CMP includes She received chemotherapy course #4 during this hospital stay beginning yesterday, November 11 and it consisted of: leucovorin 800 mg and 5-FU 800 mg IV oxaliplatinum 150 mg IV D#1 followed by 5-FU 1500 mg IV over 22 hours daily for 2 days. I calculated the doses and actually reduced them. Medical History Cardio: History of: Hypertension HEENT: History of: Dental Problems (top) Endocrine: History of: Thyroid Disorder Gastrointestinal: History of: Gastrointestinal Cancer (colon) - Surgical History HEENT Surgeries: Surgical HX of: Eye Surgery (cataract) Orthopedic Surgeries: Surgical HX of;: Orthopedic Surgery (knee s) - Family History Family History: Reports;: Family Heart Disease (father), Family Hypertension ( Parents, sister) - Social History Smoking Status: Never smoker Frequency of Alcohol Use: None Type of Drug Use: None ROS Gen.: Until onset of present illness, her health has been fairly good. Endocrine: She has a history of hypothyroidism and has been on thyroid supplementation. Eyes: She has had bilateral cataract surgery. No history of chronic disease, infections or visual loss. ENT: No history of chronic infections, epistaxis, chronic sore throat Lungs: No history of asthma, emphysema, hemoptysis, chronic pleurisy or long- term or chronic infections Cardiovascular: She has a history of hypertension. No history of angina, coronary artery disease, congestive heart failure, cardiovascular surgery or DVT /VTE GI: She developed nausea and vomiting with onset of this present illness and has had esophageal reflux and heartburn. No prior history of upper or lower GI bleeding, melena, dysphagia, odynophagia, liver disease, gallbladder disease or pancreatic disease. : She was acutely dehydrated and had documented elevation of her urea nitrogen and creatinine on this admission but this is not a long-term issue. No history of kidney stones, chronic kidney infections or hematuria. Musculoskeletal: No history of chronic bone or joint pain or focal muscle atrophy or bone or joint deformity. Neurologic: No history of seizures, convulsions or paralysis. Psychiatric: No history of chronic psychiatric illness or psychiatric medications. Lymphatic: No history of significant or long-term lymphadenopathy Hematologic: No history of anemia, bleeding disorders or blood dyscrasias or long-term elevation or depression white cell count or petechiae. Skin: No history of chronic skin infections or rashes or significant skin lesions. Physical examination: General: The patient appears acutely and chronically ill. Eyes: She has had cataract surgery. Lids and conjunctive are normal. ENT: Her oral mucosa and pharynx are somewhat dry. Her hearing is normal. Her voice is clear. Her trachea is midline. Thyroid is normal. Lungs: Her chest moves symmetrically without abnormalities. Breath sounds are relatively normal throughout without rubs, rales or rhonchi. Cardiovascular: Her heart rhythm is regular without murmur, gallop or rub. There is no jugular venous distention, clubbing or cyanosis. She has trace edema at the ankles. Abdomen: There are no abdominal masses, organomegaly, distention, tenderness or ascites. Musculoskeletal: She has generalized muscle weakness without focal muscle atrophy or bone or joint deformity. Neurologic: Cranial nerves II through XII intact. There are no focal neurologic deficits. Nodes: I find no submandibular, cervical, supraclavicular or axillary adenopathy. Skin: I find no significant skin lesions. Impression: Metastatic adenocarcinoma colon Administration of chemotherapy and monitoring for toxicity History of neutropenia Anemia secondary to malignancy History of hypokalemia intractable nausea and vomiting with acute dehydration currently resolved acute renal failure secondary to nausea and vomiting currently resolved hypertensive cardiovascular disease hypothyroidism Home Medications Medication Instructions Recorded Confirmed Type Levothyroxine Tab [Synthroid Tab] 75 mcg PO DAILY@0700 10/07/16 12/09/16 History Nebivolol [Bystolic] 5 mg PO DAILY W/SUPPER 10/07/16 12/09/16 History Prochlorperazine Tab [Compazine 10 mg PO Q6H PRN 10/24/16 12/09/16 History Tab] Ondansetron Tab [Zofran Tab] 4 mg PO Q6HR PRN 10/31/16 12/09/16 History Doxepin [SINEquan] 50 mg PO BEDTIME PRN 11/11/16 12/09/16 History Allergies Allergy/AdvReac Type Severity Reaction Status Date / Time No Known Allergies Allergy Verified 10/24/16 08:09 Medical,Surgical,& Family Hx - Medical History Cardio: History of: Hypertension Neurology: History of: Migraine (PAST HX.) No history of: Seizures HEENT: History of: Eye Problem (READING GLASSES), Dental Problems (top) Endocrine: History of: Dyslipidemia, Thyroid Disorder Respiratory: No history of: Respiratory Problems (FLU VAC-NO; PNEU VAC- NO.) Genitourinary: History of: Bladder Problem (URINARY INCONTINENCE.) Gastrointestinal: History of: GERD, Liver Problems (LIVER CA. DR LOPEZ.), Gastrointestinal Cancer (colon CA) Other: History of: Cancer (LIVER COLON CA) - Surgical History HEENT Surgeries: Surgical HX of: Eye Surgery (MICHAEL cataract), Tonsilectomy & Adenoidectomy Abdominal Surgeries: Surgical HX of: Colonoscopy, EGD Reproductive Surgeries: Surgical HX of;: Gynecologic Surgery, Hysterectomy Orthopedic Surgeries: Surgical HX of;: Orthopedic Surgery (knee 1950's) - Family History Family History: Reports;: Family Heart Disease (father), Family Hypertension ( Parents, sister) - Social History Smoking Status: Never smoker Results - Labs CBC & BMP: 12/09/16 08:20 12/09/16 08:20
[2016-12-09] MEDS ORDERED: BENZTROPINE 2 MG/2 ML AMP IV PRN (08:49)
[2016-12-09] MEDS ORDERED: MAGNESIUM HYDROXIDE SUSP 30 ML UDCUP PO PRN (08:49)
[2016-12-09] MEDS ORDERED: ACETAMINOPHEN 325 MG TABLET PO PRN (08:49)
[2016-12-09] MEDS ORDERED: diphenhydrAMINE CAP 25 MG CAPSULE PO PRN (08:49)
[2016-12-09] MEDS ORDERED: chlorproMAZINE 25 MG TABLET PO PRN (08:49)
[2016-12-09] MEDS ORDERED: LACTULOSE 20 GM/30 ML UDCUP PO PRN (08:49)
[2016-12-09] MEDS ORDERED: TEMAZEPAM 7.5 MG CAPSULE PO PRN (08:49)
[2016-12-09] MEDS ORDERED: ALUMINUM/MAGNES/SIMETH MAX STR 30 ML UDCUP PO PRN (08:49)
[2016-12-09] MEDS ORDERED: ALPRAZolam 0.25 MG TABLET PO PRN (08:49)
[2016-12-09] MEDS ORDERED: traMADol 50 MG TABLET PO PRN (08:49)
[2016-12-09] MEDS ORDERED: LOPERAMIDE 2 MG CAPSULE PO PRN ×2 (08:49)
[2016-12-09] MEDS ORDERED: chlorproMAZINE INJ 50 MG in SODIUM CHLORIDE 0.9% 100 ML IV PRN (08:49)
[2016-12-09] MEDS ORDERED: PROMETHAZINE INJ 25 MG in SODIUM CHLORIDE 0.9% 50 ML IV PRN (08:49)
[2016-12-09] MEDS ORDERED: MYLANTA/LIDO VISC 2:1 300 ML BOTTLE SWISH/SWAL PRN (08:49)
[2016-12-09] MEDS ORDERED: ONDANSETRON 4 MG/2 ML VIAL IV PRN (08:49)
[2016-12-09] MEDS ORDERED: guaiFENesin 200 MG/10 ML UDCUP PO PRN (08:49)
[2016-12-09] MEDS ORDERED: chlorproMAZINE INJ 25 MG in SODIUM CHLORIDE 0.9% 100 ML IV PRN (08:49)
[2016-12-09] MEDS ORDERED: MYLANTA/LIDO VISC 2:1 300 ML BOTTLE SWISH/SPIT PRN (08:49)
[2016-12-09 09:01] LABS: Basophils % 0.3 % (0.0-0.8); Eosinophils # 0.1 10*3/uL (0.0-0.87); Eosinophils % 1.4 % (0.00-10.9); Hematocrit 30.7 VOL% (35.7-47.0); Hemoglobin 9.9 GM/DL (12.0-16.0); Immature Granulocytes % 0.5 %; Immature Granulocytes Absolute 0.03 #; Lymphocytes # 0.8 10*3/uL (1.4-4.0); Lymphocytes % 14.7 % (21.3-54.2); Mean Corpuscular HGB Conc 32.2 GM/DL (32-36); Mean Corpuscular Hemoglobin 29 PG (27-34); Mean Corpuscular Volume 89.5 FL (87-102); Mean Platelet Volume 9.6 FL (9.6-12.0); Monocytes # 0.8 10*3/uL (0.11-0.8); Monocytes % 13.3 % (1.7-12.7); Neutrophils % 69.8 % (38.7-73.9); Platelet Count 308 T/CUMM (130-400); Red Blood Count 3.43 MC/CUMM (3.8-5.5); Red Cell Distribution Width 23.2 % (9.3-17.3); White Blood Count 5.7 T/CUMM (4-12)
[2016-12-09 09:20] LABS: Hypochromasia 1+; Microcytosis 1+; Ovalocytes Slight
[2016-12-09 09:21] LABS: Platelet Estimate Normal
[2016-12-09 09:30] LABS: Albumin 2.6 G/DL (3.4-5.0); Bilirubin,Total 1.4 MG/DL (0.2-1.0); Calcium 9.1 MG/DL (8.5-10.1); Potassium 3.3 MMOL/L (3.5-5.1); Total Protein 6.4 G/DL (6.4-8.3); Uric Acid 3.4 MG/DL (2.6-6.0)
[2016-12-09] MEDS ORDERED: OXALIPLATIN 150 MG in DEXTROSE 5% 250 ML IV ONE (10:30)
[2016-12-09] MEDS ORDERED: FLUOROURACIL 800 MG in SYRINGE 1 EACH IV ONE (10:30)
[2016-12-09] MEDS ORDERED: LEUCOVORIN INJ 700 MG, LEUCOVORIN INJ 100 MG in DEXTROSE 5% 250 ML IV ONE (10:30)
[2016-12-09] MEDS: DEXAMETHASONE 4 MG/1 ML VIAL IV SCH (10:34)
[2016-12-09] MEDS: GRANISETRON 1 MG/1 ML VIAL IV SCH (10:34)
[2016-12-09] MEDS: FLUOROURACIL 1,500 MG in SODIUM CHLORIDE 0.9% 1,000 ML IV SCH (14:36)
--- NOTE | 2016-12-09 16:35 | General Surgery Consult Note ---
Assessment and Plan - Time spent with patient Time spent with patient: Less than 30 minutes (1) Abdominal pain Status: Acute Assessment and plan: The etiology of her pain is unclear but I feel a mass-effect in this location. This could be progression of disease or adenopathy or possibly an incarcerated hernia which I think is less likely. I think this would best be evaluated the CT scan. Current Visit: Yes Qualifiers: Abdominal location: left lower quadrant Qualified Code(s): R10.32 - Left lower quadrant pain History of Present Illness Chief complaint: Abdominal pain History of present illness: Ms. Espinoza is a 81 year old female With metastatic colon cancer who for about 3 days has had pain intermittently in her left lower quadrant and left groin. She has not had any increased nausea or vomiting and states that she had a normal bowel movement this morning. She does not know of aggravating or alleviating factors. She is currently receiving chemotherapy for metastatic colon cancer. Home Medications Medication Instructions Recorded Confirmed Type Levothyroxine Tab [Synthroid Tab] 75 mcg PO DAILY@0700 10/07/16 12/09/16 History Nebivolol [Bystolic] 5 mg PO DAILY W/SUPPER 10/07/16 12/09/16 History Prochlorperazine Tab [Compazine 10 mg PO Q6H PRN 10/24/16 12/09/16 History Tab] Ondansetron Tab [Zofran Tab] 4 mg PO Q6HR PRN 10/31/16 12/09/16 History Doxepin [SINEquan] 50 mg PO BEDTIME PRN 11/11/16 12/09/16 History Allergies Allergy/AdvReac Type Severity Reaction Status Date / Time No Known Allergies Allergy Verified 10/24/16 08:09 Medical,Surgical,& Family Hx - Medical History Cardio: History of: Hypertension Neurology: History of: Migraine (PAST HX.) No history of: Seizures HEENT: History of: Eye Problem (READING GLASSES), Dental Problems (top) Endocrine: History of: Dyslipidemia, Thyroid Disorder Respiratory: No history of: Respiratory Problems (FLU VAC-NO; PNEU VAC- NO.) Genitourinary: History of: Bladder Problem (URINARY INCONTINENCE.) Gastrointestinal: History of: GERD, Liver Problems (LIVER CA. DR LOPEZ.), Gastrointestinal Cancer (colon CA) Other: History of: Cancer (LIVER COLON CA) - Surgical History HEENT Surgeries: Surgical HX of: Eye Surgery (MICHAEL cataract), Tonsilectomy & Adenoidectomy Abdominal Surgeries: Surgical HX of: Colonoscopy, EGD Reproductive Surgeries: Surgical HX of;: Gynecologic Surgery, Hysterectomy Orthopedic Surgeries: Surgical HX of;: Orthopedic Surgery (knee 1950's) - Family History Family History: Reports;: Family Heart Disease (father), Family Hypertension ( Parents, sister) - Social History Smoking Status: Never smoker - Constitutional Constitutional: Present: anorexia. Absent: chills, fever(s) - EENT Nose, mouth and throat: Absent: dysphagia - Cardiovascular Cardiovascular: Absent: chest pain at rest - Gastrointestinal Gastrointestinal: Present: abdominal pain, nausea. Absent: bloating, change in bowel habits, hematemesis, hematochezia, vomiting, jaundice - Genitourinary Genitourinary: Absent: hematuria - Musculoskeletal Musculoskeletal: Absent: back pain - Neurological Neurological: Absent: focal weakness Hematologic/Lymphatic: Absent: easy bleeding, easy bruising Exam - Constitutional Vitals: Period Temp Pulse Resp BP Sys/Capellan Pulse Ox Last 24 Hr 96.2 F-96.8 F 70-77 18-18 119-158/59-73 94-95 General appearance: no acute distress - Head Head exam: Present: normocephalic - Eye Eye exam: Absent: scleral icterus - ENT Mouth exam: Present: normal voice - Neck Neck exam: Present: trachea midline - Respiratory Respiratory exam: Present: clear to auscultation bilaterally. Absent: accessory muscle use - Cardiovascular Cardiovascular exam: Present: RRR - GI/Abdominal GI/Abdominal exam: Present: mass (At left groin), tenderness, soft. Absent: distended, guarding, rebound - Neurological Exam Neurological exam: Present: alert, oriented X3. Absent: motor sensory deficit Speech: Present: normal - Skin Skin exam: Present: normal color Results - Labs CBC & BMP: 12/09/16 08:20 12/09/16 08:20 Lab Results: I have reviewed the past 24 hour labs
--- NOTE | 2016-12-09 18:33 | CT Report ---
CT abdomen pelvis w con Indication: Left lower quadrant abdominal mass. Comparison: CT of the abdomen and pelvis October 09, 2016. Technique: CT of the abdomen and pelvis was performed following administration of intravenous contrast. The CT examination was performed using one or more of the following dose reduction techniques: Automatic exposure control, adjustment of the mA and kV according to patient size, or iterative reconstruction techniques. Findings: Lower chest: Mild cardiomegaly is stable. Coronary artery calcifications involving the left coronary circulation appear unchanged. Mild dependent atelectatic changes are noted within the lower lobes. Liver: There has been some interval improvement in the appearance of the multiple peripherally enhancing hypoattenuating lesions of the liver since the comparison study. The largest lesion now lies within the dome of the right hepatic lobe and measures 8.1 cm oblique AP dimension and 7.3 cm in oblique transverse dimension. Lesions throughout the medial segment left hepatic lobe and lateral segment of the left hepatic lobe demonstrate the most improvement. An additional large lesion within the posterior segment of the right hepatic lobe remains image #32. This particular lesion measures 7.6 cm in oblique AP dimension and 8.4 cm oblique transverse dimension. Gallbladder: Gallbladder demonstrates no significant abnormality. Spleen: Spleen demonstrates no significant abnormality. Pancreas: Pancreas demonstrates no significant abnormality. Adrenal glands: The adrenal glands demonstrate no significant abnormalities. Kidneys: Kidneys demonstrate no significant abnormality. Aorta: Aorta is stable compared to previous study. Inferior vena cava: Inferior vena cava is normal in appearance. Lymph nodes: No adenopathy is noted within the abdomen or pelvis. Stomach and bowel: The appearance of the stomach and duodenum is unremarkable. Small bowel loops demonstrate no evidence of acute pathology. The sigmoid colon demonstrates numerous diverticula. There appears to be segmental wall thickening involving the length of the colon estimated 20 cm. Small amount of fluid additionally is present posterior to the sigmoid colon. Nodular focus of soft tissue attenuation along the right lateral margin of the distal sigmoid colon image #112 measures approximately 1.8 x 1.8 cm. This abuts the ileocecal valve. When compared to the previous study, size has somewhat decreased and the central region of hypoattenuation has decreased. Intrapelvic contents: Uterus appears surgically absent. Bladder wall thickening is present and in the region of suggested inflammatory change of the distal sigmoid colon, there is contact made with the superior bladder. Mural thickening and intramural fluid is present suggesting intramural abscess of the superior urinary bladder. This is best demonstrated image #69. Osseous structures: Osseous structures demonstrate moderately advanced facet arthropathy in the bilateral facets of the lower lumbar spine. No acute osseous pathology is present. No specific evidence of osseous metastatic disease is demonstrated. Soft tissues and musculature: Soft tissues and musculature of the body wall demonstrate no acute findings. Impression: 1. A moderate length of the sigmoid colon demonstrates presence of multiple diverticula, segmental wall thickening, periserosal fat stranding, and small amount of posterior fluid along the mid sigmoid colon. Differential considerations include acute diverticulitis, colitis, and inflammatory neoplasm. 2. Intramural abscess formation versus extension of process within the sigmoid colon with invasion of the superior bladder wall is present as detailed. Correlation with urinalysis and culture are recommended. 3. Nodular focus of soft tissue attenuation abutting the ileocecal valve and right lateral margin of the distal sigmoid colon has decreased in size as well as demonstrates decrease in the overall amount of central low attenuation. This could reflect interval improvement of periserosal abscess or response to therapy in the setting of neoplasm. 4. Not mentioned above multiple ileocolic lymph nodes previously enlarged are now decreased in size and number. 5. Interval improvement in the appearance of the liver parenchyma with decreased size of multiple peripherally enhancing centrally hypoattenuating lesions. Differential considerations include improving abscesses as well as response to therapy an improving metastatic disease. 6. No specific evidence of left lower quadrant mass. 12/09/2016 6:13 PM PROCEDURE INTERPRETED AT [facility], [place] DEPARTMENT OF RADIOLOGY Final Report Signed by: Dr. Emeka Ivan
--- NOTE | 2016-12-10 08:38 | Oncology Progress Note ---
Oncology Subjective PN Interval history: We are continuing palliative chemotherapy for metastatic adenocarcinoma colon. She received oxaliplatin and the bolus 5-FU, 800 mg IV yesterday and is now on a 44 hour infusion of 5-FU. I discussed her case with Dr. Fleming 3 yesterday and agreed with him that we should recheck the patient's CT of the abdomen and pelvis. That has been done and there is evidence of inflammation or possibly even abscess in the pelvic region, possibly due to diverticulitis or some other form of abscess and also remotely possibly due to metastatic colon cancer. The actual report reads: Impression: 1. A moderate length of the sigmoid colon demonstrates presence of multiple diverticula, segmental wall thickening, periserosal fat stranding, and small amount of posterior fluid along the mid sigmoid colon. Differential considerations include acute diverticulitis, colitis, and inflammatory neoplasm. 2. Intramural abscess formation versus extension of process within the sigmoid colon with invasion of the superior bladder wall is present as detailed. Correlation with urinalysis and culture are recommended. 3. Nodular focus of soft tissue attenuation abutting the ileocecal valve and right lateral margin of the distal sigmoid colon has decreased in size as well as demonstrates decrease in the overall amount of central low attenuation. This could reflect interval improvement of periserosal abscess or response to therapy in the setting of neoplasm. 4. Not mentioned above multiple ileocolic lymph nodes previously enlarged are now decreased in size and number. 5. Interval improvement in the appearance of the liver parenchyma with decreased size of multiple peripherally enhancing centrally hypoattenuating lesions. Differential considerations include improving abscesses as well as response to therapy an improving metastatic disease. 6. No specific evidence of left lower quadrant mass. I am ordering a urinalysis and culture today. I am starting her on Flagyl and Levaquin today. She feels better. She is having less lower abdominal pain. She is having no constipation or diarrhea, nausea or vomiting and no mouth or throat irritation. On physical examination she is fully oriented and alert and in no acute distress. We will finish up chemotherapy while starting IV antibiotics. Exam - Constitutional Vitals: Period Temp Pulse Resp BP Sys/Capellan Pulse Ox Last 24 Hr 96.2 F-97.8 F 67-87 16-20 129-158/57-73 94-96 Results - Labs CBC & BMP: 12/09/16 08:20 12/09/16 08:20
[2016-12-10] MEDS: GRANISETRON 1 MG/1 ML VIAL IV SCH (09:46)
[2016-12-10] MEDS: DEXAMETHASONE 4 MG/1 ML VIAL IV SCH (09:48)
[2016-12-10] MEDS: LEVOFLOXACIN INJ 750 MG in PREMIX 1 EACH IV SCH (11:15)
[2016-12-10] MEDS: metroNIDAZOLE INJ 500 MG in PREMIX 1 EACH IV SCH ×2 (14:09→21:10)
--- NOTE | 2016-12-10 14:41 | General Surgery Progress Note ---
Assessment and Plan (1) Abdominal pain Status: Acute Assessment and plan: The etiology of her pain is unclear but I feel a mass-effect in this location. This could be progression of disease or adenopathy or possibly an incarcerated hernia which I think is less likely. I think this would best be evaluated the CT scan. 12/10: I reviewed her CT scan and this shows some thickening around her sigmoid colon and bladder. The etiology of this is unclear. She has an normal white count but this could be affected by her chemotherapy. The patient reports that she has no pain currently and feels much better. Dr. Ochoa is started her on Levaquin and Flagyl. I think that this is a good choice. I agree with medical management at this point. Current Visit: Yes Qualifiers: Abdominal location: left lower quadrant Qualified Code(s): R10.32 - Left lower quadrant pain Subjective Patient reports: Present: feels better. Absent: still having pain, nausea, vomiting Exam - Constitutional Vitals: Period Temp Pulse Resp BP Sys/Capellan Pulse Ox Last 24 Hr 96.3 F-97.8 F 67-87 16-20 129-158/57-73 94-97 General appearance: no acute distress - Head Head exam: Present: normocephalic - ENT Mouth exam: Present: normal voice - Respiratory Respiratory exam: Absent: accessory muscle use - GI/Abdominal GI/Abdominal exam: Present: soft. Absent: distended, tenderness, rebound Results - Labs CBC & BMP: 12/09/16 08:20 12/09/16 08:20 Lab Results: I have reviewed the past 24 hour labs
[2016-12-10] MEDS: FLUOROURACIL 1,500 MG in SODIUM CHLORIDE 0.9% 1,000 ML IV SCH (14:49)
[2016-12-10 20:08] LABS: Apearance,Urine CLEAR (Clear); Bilirubin,Urine Negative (Negative); Blood, Urine Negative (Negative); Glucose,Urine (UA) 50 mg/dL (Negative); Hyaline Casts,Urine 1 /LPF (0-3); Ketones,Urine Negative (Negative); Mucus,Urine Few /LPF (Occasional); Nitrite,Urine Negative (Negative); Protein,Urine 100 MG/DL; RBC,Urine 5 /HPF (0-4); Squamous Epithelial Cell,Urine Occasional /HPF (0-10); Urine Color Amber (Yellow); Urine Specific Gravity 1.035 (1.001-1.035); WBC,Urine 4 /HPF (0-6)
[2016-12-10] MEDS ORDERED: DOXEPIN 25 MG CAPSULE PO PRN (20:20)
[2016-12-11] MEDS: metroNIDAZOLE INJ 500 MG in PREMIX 1 EACH IV SCH ×4 (02:43→20:11)
[2016-12-11] MEDS: LEVOTHYROXINE 75 MCG TABLET PO SCH (06:24)
--- NOTE | 2016-12-11 09:01 | Oncology Progress Note ---
Oncology Subjective PN Interval history: Metastatic colon cancer: We will complete his course of chemotherapy today but I plan to keep the patient overnight to continue antibiotics and I will plan to discharge her tomorrow. Diverticulitis:Her lower abdominal pain is improving. This is presumed to be diverticulitis. My plan will be to discharge her on Flagyl and Levaquin by mouth. Anemia of chronic disease: I will recheck a CBC tomorrow before discharge. She is fully oriented and alert. She says that she is having little or no abdominal pain at this point. Respirations are unlabored. She is in good spirits. She has not finished chemotherapy today and will finish it later this afternoon or early evening which is the reason why I am planning discharge for tomorrow. Findings from the patient's CAT scan done earlier in this hospital stay include: 1. A moderate length of the sigmoid colon demonstrates presence of multiple diverticula, segmental wall thickening, periserosal fat stranding, and small amount of posterior fluid along the mid sigmoid colon. Differential considerations include acute diverticulitis, colitis, and inflammatory neoplasm. 2. Intramural abscess formation versus extension of process within the sigmoid colon with invasion of the superior bladder wall is present as detailed. Correlation with urinalysis and culture are recommended. 3. Nodular focus of soft tissue attenuation abutting the ileocecal valve and right lateral margin of the distal sigmoid colon has decreased in size as well as demonstrates decrease in the overall amount of central low attenuation. This could reflect interval improvement of periserosal abscess or response to therapy in the setting of neoplasm. 4. Not mentioned above multiple ileocolic lymph nodes previously enlarged are now decreased in size and number. 5. Interval improvement in the appearance of the liver parenchyma with decreased size of multiple peripherally enhancing centrally hypoattenuating lesions. Differential considerations include improving abscesses as well as response to therapy an improving metastatic disease. 6. No specific evidence of left lower quadrant mass. I will consider the addition of Avastin to her current chemotherapy next time if she does not have new problems or complaints that make me hesitant to prescribe it. Exam - Constitutional Vitals: Period Temp Pulse Resp BP Sys/Capellan Pulse Ox Last 24 Hr 96.6 F-97.6 F 65-89 16-20 136-185/64-76 96-98 Results - Labs CBC & BMP: 12/09/16 08:20 12/09/16 08:20
[2016-12-11] MEDS: NEBIVOLOL 5 MG TABLET PO SCH (09:54)
[2016-12-11] MEDS: LEVOFLOXACIN INJ 750 MG in PREMIX 1 EACH IV SCH (11:19)
--- NOTE | 2016-12-11 17:35 | General Surgery Progress Note ---
Assessment and Plan (1) Abdominal pain Status: Acute Assessment and plan: The etiology of her pain is unclear but I feel a mass-effect in this location. This could be progression of disease or adenopathy or possibly an incarcerated hernia which I think is less likely. I think this would best be evaluated the CT scan. 12/10: I reviewed her CT scan and this shows some thickening around her sigmoid colon and bladder. The etiology of this is unclear. She has an normal white count but this could be affected by her chemotherapy. The patient reports that she has no pain currently and feels much better. Dr. Ocoha is started her on Levaquin and Flagyl. I think that this is a good choice. I agree with medical management at this point. 12/11: She feels much better and denies any pain or abdominal symptoms at this point. She is eating a regular diet and tolerating it well. I think from my standpoint it whenever you feel that she is ready she can be discharged home on p.o. antibiotics. Current Visit: Yes Qualifiers: Abdominal location: left lower quadrant Qualified Code(s): R10.32 - Left lower quadrant pain Subjective Patient reports: Present: feels better, tolerating a regular diet. Absent: still having pain, nausea, vomiting Exam - Constitutional Vitals: Period Temp Pulse Resp BP Sys/Capellan Pulse Ox Last 24 Hr 97.0 F-98.3 F 63-89 16-20 150-185/64-76 95-98 General appearance: no acute distress - Respiratory Respiratory exam: Absent: accessory muscle use - GI/Abdominal GI/Abdominal exam: Present: soft. Absent: distended, tenderness, rebound Results - Labs CBC & BMP: 12/09/16 08:20 12/09/16 08:20
[2016-12-11] MEDS: SODIUM CHLORIDE 0.9% 1,000 ML IV SCH (20:11)
[2016-12-12] MEDS: metroNIDAZOLE INJ 500 MG in PREMIX 1 EACH IV SCH ×2 (01:48→07:59)
[2016-12-12 04:03] LABS: Basophils % 0.3 % (0.0-0.8); Eosinophils # 0.1 10*3/uL (0.0-0.87); Eosinophils % 1.3 % (0.00-10.9); Hematocrit 27.5 VOL% (35.7-47.0); Hemoglobin 9.2 GM/DL (12.0-16.0); Immature Granulocytes % 0.5 %; Immature Granulocytes Absolute 0.02 #; Lymphocytes # 1.2 10*3/uL (1.4-4.0); Lymphocytes % 31.1 % (21.3-54.2); Mean Corpuscular HGB Conc 33.5 GM/DL (32-36); Mean Corpuscular Hemoglobin 30 PG (27-34); Mean Corpuscular Volume 89.6 FL (87-102); Mean Platelet Volume 9.3 FL (9.6-12.0); Monocytes # 0.1 10*3/uL (0.11-0.8); Monocytes % 2.1 % (1.7-12.7); Neutrophils # 2.4 10*3/uL (1.4-7.4); Neutrophils % 64.7 % (38.7-73.9); Platelet Count 330 T/CUMM (130-400); Red Blood Count 3.07 MC/CUMM (3.8-5.5); Red Cell Distribution Width 22.6 % (9.3-17.3); White Blood Count 3.7 T/CUMM (4-12)
[2016-12-12 04:35] LABS: Albumin 2.4 G/DL (3.4-5.0); Bilirubin,Total 1.3 MG/DL (0.2-1.0); Calcium 8.4 MG/DL (8.5-10.1); Osmolality,Calculated 278.4 MOS/KG (273-304); Total Protein 5.2 G/DL (6.4-8.3)
[2016-12-12 06:06] LABS: Hypochromasia 1+; Ovalocytes 1+; Platelet Estimate Increased
[2016-12-12] MEDS: LEVOTHYROXINE 75 MCG TABLET PO SCH (06:56)
[2016-12-12] MEDS: NEBIVOLOL 5 MG TABLET PO SCH (09:12)
[2016-12-12] MEDS: LEVOFLOXACIN INJ 750 MG in PREMIX 1 EACH IV SCH (09:17)
--- NOTE | 2016-12-12 09:24 | Oncology Progress Note ---
Exam - Constitutional Vitals: Period Temp Pulse Resp BP Sys/Capellan Pulse Ox Last 24 Hr 96.7 F-98.3 F 63-85 18-20 151-179/67-82 95-97 Results - Labs CBC & BMP: 12/12/16 03:30 12/12/16 03:30
--- NOTE | 2016-12-12 10:12 | Discharge Summary ---
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 Espinoza was admitted with the intention of continuing palliative chemotherapy for metastatic adenocarcinoma of the colon with liver metastases. On admission, she complained of left lower quadrant abdominal pain. She underwent a repeat CT scan of the abdomen and pelvis with contrast during this hospital stay and it appears that she has diverticulitis or a diverticular abscess in the left pelvis. She has been on IV Flagyl and Levaquin and the abdominal discomfort cleared overnight. My plan is to discharge her home the same doses of these medications, Flagyl 500 mg p.o. 4 times daily and Levaquin 750 mg p.o. daily and she will take both of these medication for an additional 7 days. I have also given her prescription for Diflucan 100 mg daily for 5 days and she is to get it filled if she develops any signs or symptoms of a yeast infection. She received chemotherapy course #5 during this hospital stay beginning December and it consisted of: leucovorin 800 mg and 5-FU 800 mg IV oxaliplatinum 150 mg IV D#1 followed by 5-FU 1500 mg IV over 22 hours daily for 2 days. I calculated the doses and actually reduced them. I will consider whether or not to increase the dose later. I certainly do not think you should do it presently because of her infection. Lab work on admission included a white cell count of 5700 with an absolute neutrophil count of 4000. Her absolute neutrophil count today is 2400. Her platelet count today is 330,000 and her hemoglobin is 9.2. I note that her potassium is 3.0 today. Her renal failure has resolved. Her serum creatinine today 0.5. CT of the abdomen and pelvis performed during this hospitalization was performed on December 09, 2016. The impression was as follows: Impression: 1. A moderate length of the sigmoid colon demonstrates presence of multiple diverticula, segmental wall thickening, periserosal fat stranding, and small amount of posterior fluid along the mid sigmoid colon. Differential considerations include acute diverticulitis, colitis, and inflammatory neoplasm. 2. Intramural abscess formation versus extension of process within the sigmoid colon with invasion of the superior bladder wall is present as detailed. Correlation with urinalysis and culture are recommended. 3. Nodular focus of soft tissue attenuation abutting the ileocecal valve and right lateral margin of the distal sigmoid colon has decreased in size as well as demonstrates decrease in the overall amount of central low attenuation. This could reflect interval improvement of periserosal abscess or response to therapy in the setting of neoplasm. 4. Not mentioned above multiple ileocolic lymph nodes previously enlarged are now decreased in size and number. 5. Interval improvement in the appearance of the liver parenchyma with decreased size of multiple peripherally enhancing centrally hypoattenuating lesions. Differential considerations include improving abscesses as well as response to therapy an improving metastatic disease. 6. No specific evidence of left lower quadrant mass. 12/09/2016 6:13 PM PROCEDURE INTERPRETED AT [facility] DEPARTMENT OF RADIOLOGY Final Report Signed by: Dr. Emeka Ivan I will schedule her for readmission for December 23, 2016. - Time spent with patient Time with patient DS: Greater than 30 minutes Discharge Plan - Discharge Data Disposition: Disch To Home/Self Care Condition at Discharge: Guarded Discharge Diet: advance to your usual diet Activity: resume usual activities as tolerated Hygiene: no restrictions Weight Bearing at Discharge: weight bear as tolerated Driving: other Contact your physician if you experience:: fever over 101, Difficulty voiding, Redness or swelling, Nausea/Vomiting, Shortness of breath, Bleeding, pain uncontrolled by pain medications - Discharge Medications New Levofloxacin Tab [Levaquin Tab] 750 mg PO DAILY #7 tablet metroNIDAZOLE TAB [Flagyl Cap/Tab] 500 mg PO QID #28 tablet Potassium Chloride Cap/Tab [K Dur] 20 meq PO DAILY #30 tablet Continue Nebivolol [Bystolic] 5 mg PO DAILY W/SUPPER Levothyroxine Tab [Synthroid Tab] 75 mcg PO DAILY@0700 Ondansetron Tab [Zofran Tab] 4 mg PO Q6HR PRN PRN Reason: Nausea Prochlorperazine Tab [Compazine Tab] 10 mg PO Q6H PRN PRN Reason: Nausea Doxepin [SINEquan] 50 mg PO BEDTIME PRN PRN Reason: Sleep - Follow Up or Referral - Forms/Instructions Additional Discharge Instructions: Schedule readmission for December 23, 2016 with routine admission orders. The patient needs to be in her room and the lab work needs to be completed by 0730. In addition to routine admission lab work , chest x-ray PA and lateral, CEA level and urinalysis. Exam - Constitutional Vitals: Period Temp Pulse Resp BP Sys/Capellan Pulse Ox Last 24 Hr 96.7 F-98.3 F 63-85 18-20 151-179/67-82 95-97 Discharge Results Labs on day of discharge: Labs from last 24 hours 12/12/16 12/12/16 03:30 03:30 WBC 3.7 L D RBC 3.07 L Hgb 9.2 L Hct 27.5 L MCV 89.6 MCH 30 MCHC 33.5 RDW 22.6 H Plt Count 330 MPV 9.3 L Neut % (Auto) 64.7 Lymph % (Auto) 31.1 [place] % (Auto) 2.1 Eos % (Auto) 1.3 Baso % (Auto) 0.3 Neut # (Auto) 2.4 Lymph # (Auto) 1.2 L [place] # (Auto) 0.1 L Eos # (Auto) 0.1 Baso # (Auto) 0.0 Immature Gran % 0.5 Nucleated RBC % 0.0 Immature Gran # 0.02 Nucleated RBCs # 0.00 Platelet Estimate Increased Immature Plt Fraction 0.0 Hypochromasia 1+ Ovalocytes 1+ Sodium 140 Potassium 3.0 L Chloride 107 Carbon Dioxide 25 Anion Gap 11.0 BUN 14 Creatinine 0.50 L GFR Calculation 93 BUN/Creatinine Ratio 28.00 H Glucose 85 Calculated Osmolality 278.4 Calcium 8.4 L Total Bilirubin 1.30 H AST 29 ALT 15 Alkaline Phosphatase 117 Total Protein 5.2 L Albumin 2.4 L Globulin 2.8 Albumin/Globulin Ratio 0.8 L DS: Provider Date of admission: 12/09/16 07:23 Primary care physician: Valerio Wise Attending physician on admission: Yevgeniy Ochoa MD Consults: 12/09/16 09:02 Consult to Physician [CONS] Routine Comment: known to you--lower abdominal pain. Consulting Provider: Gerber Fleming III. Consulting Provider Notified: Yes When should Consulting Provider be notified: Now Consult to Specialist Group: Surgery When should Consulting Provider be notified: Now Person Notified: SUE Date Notified: 12/09/16 Time Notified: 09:23 Discharging clinician: Yevgeniy Ochoa MD
[2016-12-12] MEDS ORDERED: HEPARIN LOCK FLUSH 500 UNIT/5 ML SYRINGE IV ONE (11:13)
[2016-12-12 11:50] VITALS: BP 186/81
[2016-12-12] MEDS: SODIUM CHLORIDE 0.9% 1,000 ML IV SCH (12:02)
== END 2016-12-12 11:40 | disposition home health service, planned readmission (86) | DRG 392 ==
LOC: N.4E 07:23
PROVIDERS: ADMIT Specialist; ATTEND Specialist

== ENCOUNTER 2016-12-23 06:00 | Inpatient (IN) ==
[2016-12-23] MEDS ORDERED: ONDANSETRON 4 MG/2 ML VIAL IV PRN (06:38)
[2016-12-23] MEDS ORDERED: traMADol 50 MG TABLET PO PRN (06:38)
[2016-12-23] MEDS ORDERED: ALPRAZolam 0.25 MG TABLET PO PRN (06:38)
[2016-12-23] MEDS ORDERED: guaiFENesin 200 MG/10 ML UDCUP PO PRN (06:38)
[2016-12-23] MEDS ORDERED: chlorproMAZINE 25 MG TABLET PO PRN (06:38)
[2016-12-23] MEDS ORDERED: MYLANTA/LIDO VISC 2:1 300 ML BOTTLE SWISH/SWAL PRN (06:38)
[2016-12-23] MEDS ORDERED: PROMETHAZINE INJ 25 MG in SODIUM CHLORIDE 0.9% 50 ML IV PRN (06:38)
[2016-12-23] MEDS ORDERED: diphenhydrAMINE CAP 25 MG CAPSULE PO PRN (06:38)
[2016-12-23] MEDS ORDERED: ACETAMINOPHEN 325 MG TABLET PO PRN (06:38)
[2016-12-23] MEDS ORDERED: LACTULOSE 20 GM/30 ML UDCUP PO PRN (06:38)
[2016-12-23] MEDS ORDERED: BENZTROPINE 2 MG/2 ML AMP IV PRN (06:38)
[2016-12-23] MEDS ORDERED: TEMAZEPAM 7.5 MG CAPSULE PO PRN (06:38)
[2016-12-23] MEDS ORDERED: MYLANTA/LIDO VISC 2:1 300 ML BOTTLE SWISH/SPIT PRN (06:38)
[2016-12-23] MEDS ORDERED: MAGNESIUM HYDROXIDE SUSP 30 ML UDCUP PO PRN (06:38)
[2016-12-23] MEDS ORDERED: chlorproMAZINE INJ 50 MG in SODIUM CHLORIDE 0.9% 100 ML IV PRN (06:38)
[2016-12-23] MEDS ORDERED: chlorproMAZINE INJ 25 MG in SODIUM CHLORIDE 0.9% 100 ML IV PRN (06:38)
[2016-12-23] MEDS ORDERED: LOPERAMIDE 2 MG CAPSULE PO PRN ×2 (06:38)
[2016-12-23 07:04] LABS: Basophils % 0.2 % (0.0-0.8); Eosinophils # 0.1 10*3/uL (0.0-0.87); Eosinophils % 1.5 % (0.00-10.9); Hematocrit 29.9 VOL% (35.7-47.0); Hemoglobin 9.6 GM/DL (12.0-16.0); Immature Granulocytes % 0.5 %; Immature Granulocytes Absolute 0.02 #; Lymphocytes # 1.1 10*3/uL (1.4-4.0); Lymphocytes % 27.7 % (21.3-54.2); Mean Corpuscular HGB Conc 32.1 GM/DL (32-36); Mean Corpuscular Hemoglobin 30 PG (27-34); Mean Corpuscular Volume 92.9 FL (87-102); Mean Platelet Volume 9.9 FL (9.6-12.0); Monocytes # 0.8 10*3/uL (0.11-0.8); Monocytes % 20.1 % (1.7-12.7); Neutrophils # 2.1 10*3/uL (1.4-7.4); Platelet Count 292 T/CUMM (130-400); Red Blood Count 3.22 MC/CUMM (3.8-5.5); Red Cell Distribution Width 22.2 % (9.3-17.3); White Blood Count 4.1 T/CUMM (4-12)
--- NOTE | 2016-12-23 07:17 | Oncology History&Physical ---
History of Present Illness Chief complaint: Admission for palliative chemotherapy and monitoring for toxicity History of present illness: Ms. Espinoza is a 81 year old female with metastatic adenocarcinoma the colon with liver metastases. This 81-year-old lady is admitted for her 6th course of palliative chemotherapy for metastatic adenocarcinoma of the colon. It was initially diagnosed by Dr. Arreola in [place] by colonoscopy and originally the patient had been considered for surgical resection. However, she was found to have extensive liver involvement and was started on chemotherapy very cautiously using leucovorin and 5-FU initially. She had intractable nausea and vomiting initially and had a markedly enlarged liver with more tumor within the liver than actual normal liver parenchyma. She tolerated course #4 of chemotherapy surprisingly well with no nausea or vomiting, constipation or diarrhea and no upper or lower GI bleeding or stomatitis. However, couple of days ago she began having lower abdominal cramping pain with no other signs or symptoms including no GI blood loss, constipation or diarrhea. In addition, her CEA level was 58.2 with a CA-19-9 of 2582.1 from blood drawn November 11, 2016. Her alkaline phosphatase was 189 with an LDH of 829 and her AST was 75 with a normal ALT of 18. Her lab work prior to institution of chemotherapy included a CEA level of 194.3 with a CA-19-9 of 6287.6. Lab work today is acceptable. We will proceed with course #6 of chemotherapy this week. During her last hospital stay, she was treated for diverticulitis using Flagyl and Levaquin and her abdominal pain and discomfort resolved. Also,CT of the abdomen and pelvis was performed on December 09, 2016. The impression was as follows: Impression: 1. A moderate length of the sigmoid colon demonstrates presence of multiple diverticula, segmental wall thickening, periserosal fat stranding, and small amount of posterior fluid along the mid sigmoid colon. Differential considerations include acute diverticulitis, colitis, and inflammatory neoplasm. 2. Intramural abscess formation versus extension of process within the sigmoid colon with invasion of the superior bladder wall is present as detailed. Correlation with urinalysis and culture are recommended. 3. Nodular focus of soft tissue attenuation abutting the ileocecal valve and right lateral margin of the distal sigmoid colon has decreased in size as well as demonstrates decrease in the overall amount of central low attenuation. This could reflect interval improvement of periserosal abscess or response to therapy in the setting of neoplasm. 4. Not mentioned above multiple ileocolic lymph nodes previously enlarged are now decreased in size and number. 5. Interval improvement in the appearance of the liver parenchyma with decreased size of multiple peripherally enhancing centrally hypoattenuating lesions. Differential considerations include improving abscesses as well as response to therapy an improving metastatic disease. 6. No specific evidence of left lower quadrant mass. 12/09/2016 6:13 PM PROCEDURE INTERPRETED AT [facility] DEPARTMENT OF RADIOLOGY Final Report Signed by: Dr. Emeka Ivan I have ordered a CA-19-9 as well as a CEA level for this admission. Her last CA-19-9 was done November 25, 2016 and it was 2763.0. On that same date she had a CEA level of 48.5. She received chemotherapy course #5 during the week of and it consisted of: leucovorin 800 mg and 5-FU 800 mg IV oxaliplatinum 150 mg IV D#1 followed by 5-FU 1500 mg IV over 22 hours daily for 2 days. I calculated the doses and actually reduced them. Medical History Cardio: History of: Hypertension HEENT: History of: Dental Problems (top) Endocrine: History of: Thyroid Disorder Gastrointestinal: History of: Gastrointestinal Cancer (colon) - Surgical History HEENT Surgeries: Surgical HX of: Eye Surgery (cataract) Orthopedic Surgeries: Surgical HX of;: Orthopedic Surgery (knee ) - Family History Family History: Reports;: Family Heart Disease (father), Family Hypertension ( Parents, sister) - Social History Smoking Status: Never smoker Frequency of Alcohol Use: None Type of Drug Use: None ROS Gen.: Until onset of present illness, her health has been fairly good. Endocrine: She has a history of hypothyroidism and has been on thyroid supplementation. Eyes: She has had bilateral cataract surgery. No history of chronic disease, infections or visual loss. ENT: No history of chronic infections, epistaxis, chronic sore throat Lungs: No history of asthma, emphysema, hemoptysis, chronic pleurisy or long- term or chronic infections Cardiovascular: She has a history of hypertension. No history of angina, coronary artery disease, congestive heart failure, cardiovascular surgery or DVT /VTE GI: She developed nausea and vomiting with onset of this present illness and has had esophageal reflux and heartburn. In addition, she developed evidence of diverticulitis after her admission of December 09 and was placed on Flagyl and Levaquin. She did not tolerate it well when she started by mouth and she could not finish it but her abdominal pain cleared. No prior history of upper or lower GI bleeding, melena, dysphagia, odynophagia, liver disease, gallbladder disease or pancreatic disease. : She was acutely dehydrated and had documented elevation of her urea nitrogen and creatinine on this admission but this is not a long-term issue. No history of kidney stones, chronic kidney infections or hematuria. Musculoskeletal: No history of chronic bone or joint pain or focal muscle atrophy or bone or joint deformity. Neurologic: No history of seizures, convulsions or paralysis. Psychiatric: No history of chronic psychiatric illness or psychiatric medications. Lymphatic: No history of significant or long-term lymphadenopathy Hematologic: No history of anemia, bleeding disorders or blood dyscrasias or long-term elevation or depression white cell count or petechiae. Skin: No history of chronic skin infections or rashes or significant skin lesions. Physical examination: General: She appears chronically ill and somewhat depressed and weak today. This may be due in part of the fact that she has hypokalemia and hypomagnesemia presently. Eyes: Normal lids and conjunctivae. ENT: Her oral mucosa is normal. Her trachea is midline. Her hearing is normal. She has no neck masses. Lungs: Breath sounds are normal without rubs, rales or rhonchi. There is symmetrical unlabored chest motion with respiration. Cardiovascular: Her heart rhythm is regular without murmur, gallop or rub. There is no jugular venous distention, clubbing, cyanosis or edema. Abdomen: Her abdomen is slightly protuberant but she has no abdominal masses, tenderness or ascites and bowel sounds are normal. Musculoskeletal: There is no focal muscle atrophy or bone or joint deformity. Neurologic: Cranial nerves II through XII are intact. There are no focal neurologic deficits. Nodes: There is no cervical, supraclavicular, axillary or submandibular adenopathy. Skin: No significant rashes or lesions. Psychiatric: She is oriented to time, place, person and situation with normal mood and affect. Lab work on this admission includes a white cell count of 4100 with a hemoglobin of 9.6 and a platelet count of 292,000. The patient has a low potassium of 2.7 with a low serum magnesium of 1.7 we are addressing these 2 problems and proceeding with chemotherapy. Impression: Administration of chemotherapy and monitoring of toxicity: Metastatic stage IV adenocarcinoma the colon: Recent episode of diverticulitis, now improved: Hypokalemia: Hypomagnesemia: Anemia that is multifactorial including GI blood loss, chronic disease and chemotherapy: Depression: Home Medications Medication Instructions Recorded Confirmed Type Levothyroxine Tab [Synthroid Tab] 75 mcg PO DAILY@0700 10/07/16 12/23/16 History Nebivolol [Bystolic] 5 mg PO DAILY W/SUPPER 10/07/16 12/23/16 History Prochlorperazine Tab [Compazine 10 mg PO Q6H PRN 10/24/16 12/23/16 History Tab] Ondansetron Tab [Zofran Tab] 4 mg PO Q6HR PRN 10/31/16 12/23/16 History Doxepin [SINEquan] 50 mg PO BEDTIME PRN 11/11/16 12/23/16 History Potassium Chloride Cap/Tab [K Dur] 20 meq PO DAILY 12/23/16 12/23/16 History Allergies Allergy/AdvReac Type Severity Reaction Status Date / Time No Known Allergies Allergy Verified 10/24/16 08:09 Medical,Surgical,& Family Hx - Medical History Cardio: History of: Hypertension Neurology: History of: Migraine (PAST HX.) No history of: Seizures HEENT: History of: Eye Problem (READING GLASSES), Dental Problems (top) Endocrine: History of: Dyslipidemia, Thyroid Disorder Respiratory: No history of: Respiratory Problems (FLU VAC-NO; PNEU VAC- NO.) Genitourinary: History of: Bladder Problem (URINARY INCONTINENCE.) Gastrointestinal: History of: GERD, Liver Problems (LIVER CA. DR LOPEZ.), Gastrointestinal Cancer (colon CA) Other: History of: Cancer (LIVER COLON CA) - Surgical History HEENT Surgeries: Surgical HX of: Eye Surgery (MICHAEL cataract), Tonsilectomy & Adenoidectomy Abdominal Surgeries: Surgical HX of: Colonoscopy, EGD Reproductive Surgeries: Surgical HX of;: Gynecologic Surgery, Hysterectomy Orthopedic Surgeries: Surgical HX of;: Orthopedic Surgery (knee s) - Family History Family History: Reports;: Family Heart Disease (father), Family Hypertension ( Parents, sister) - Social History Smoking Status: Never smoker Exam - Constitutional Vitals: Period Temp Pulse Resp BP Sys/Capellan Pulse Ox Last 24 Hr 97 F 68 18 141/64 96 Results - Labs CBC & BMP: 12/23/16 06:30 12/23/16 06:30
[2016-12-23 07:36] LABS: Albumin 2.8 G/DL (3.4-5.0); Bilirubin,Total 1.3 MG/DL (0.2-1.0); Calcium 8.5 MG/DL (8.5-10.1); Magnesium 1.7 MG/DL (1.8-2.4); Osmolality,Calculated 276.5 MOS/KG (273-304); Potassium 2.7 MMOL/L (3.5-5.1); Uric Acid 2.9 MG/DL (2.6-6.0)
[2016-12-23 07:52] LABS: Band Neutrophils 2 % (0-10); Eosinophils 1 % (0-10); Hypochromasia 1+; Lymphocytes 22 % (20-55); Microcytosis 1+; Segmented Neutrophils 60 % (50-85); Total Cells Counted 100
[2016-12-23 07:53] LABS: Ovalocytes Slight; Platelet Estimate Normal
[2016-12-23] MEDS ORDERED: POTASSIUM CHLORIDE 20 MEQ TABLET PO ONE (08:10)
[2016-12-23] MEDS ORDERED: PROCHLORPERAZINE 10 MG TABLET PO PRN (08:23)
[2016-12-23] MEDS ORDERED: ONDANSETRON 4 MG TABLET PO PRN (08:23)
[2016-12-23] MEDS ORDERED: DOXEPIN 25 MG CAPSULE PO PRN (08:23)
--- NOTE | 2016-12-23 08:30 | XRay Report ---
Portable chest. Indication: Metastatic adenocarcinoma of the colon. Comparison: November 25, 2016. The heart is upper limits of normal in size with left ventricular hypertrophy. The pulmonary vasculature is normal. The lung alexis are free of infiltrate. There is mild scarring at the right lower lung field. Chemo-Port is in satisfactory position. No pneumothorax. No pleural effusion. Stable osseous structures with degenerative changes in the spinal column. Impression: No acute abnormal normality. PROCEDURE INTERPRETED AT [facility] DEPARTMENT OF RADIOLOGY Final Report Signed by: Dr. Janae Ashton
[2016-12-23] MEDS: DEXAMETHASONE 4 MG/1 ML VIAL IV SCH (08:56)
[2016-12-23] MEDS: GRANISETRON 1 MG/1 ML VIAL IV SCH (08:59)
[2016-12-23] MEDS: MEGESTROL 400 MG/10 ML UDCUP PO SCH ×2 (09:00→20:57)
[2016-12-23] MEDS: MAGNESIUM CHLORIDE 64 MG TABLET PO SCH ×2 (09:01→20:57)
[2016-12-23] MEDS ORDERED: OXALIPLATIN 150 MG in DEXTROSE 5% 250 ML IV ONE (10:00)
[2016-12-23] MEDS ORDERED: FLUOROURACIL 800 MG in SYRINGE 1 EACH IV ONE (10:00)
[2016-12-23] MEDS ORDERED: LEUCOVORIN INJ 700 MG, LEUCOVORIN INJ 100 MG in DEXTROSE 5% 250 ML IV ONE (10:00)
[2016-12-23] MEDS: POTASSIUM CHLORIDE 20 MEQ TABLET PO SCH ×2 (10:09→20:57)
[2016-12-23 11:40] LABS: Carcinoembryonic Antigen 11.9 NG/ML (0.0-5.0)
[2016-12-23] MEDS: FLUOROURACIL 1,500 MG in SODIUM CHLORIDE 0.9% 1,000 ML IV SCH (12:32)
[2016-12-23 12:50] LABS: Cancer Antigen 19-9 315.2 U/ML (0-37)
[2016-12-23] MEDS: NEBIVOLOL 5 MG TABLET PO SCH (17:41)
[2016-12-23 18:00] LABS: Apearance,Urine CLEAR (Clear); Bilirubin,Urine Negative (Negative); Blood, Urine Negative (Negative); Glucose,Urine (UA) 150 mg/dL (Negative); Ketones,Urine Negative (Negative); Mucus,Urine Occasional /LPF (Occasional); Nitrite,Urine Negative (Negative); Protein,Urine 30 MG/DL; RBC,Urine 1 /HPF (0-4); Squamous Epithelial Cell,Urine Occasional /HPF (0-10); Urine Color Amber (Yellow); Urine Specific Gravity 1.023 (1.001-1.035); WBC,Urine 4 /HPF (0-6)
[2016-12-24] MEDS: LEVOTHYROXINE 75 MCG TABLET PO SCH (06:54)
--- NOTE | 2016-12-24 08:41 | Oncology Progress Note ---
Oncology Subjective PN Interval history: Administration of chemotherapy and monitoring of toxicity: Today is #2 of course #6 of chemotherapy. She is tolerating it well so far. She has had no nausea or vomiting and a actually feels better today than on admission. Continuing infusion chemotherapy consisting of:eucovorin 800 mg and 5-FU 800 mg IV oxaliplatinum 150 mg IV D#1 followed by 5-FU 1500 mg IV over 22 hours daily for 2 days. Metastatic stage IV adenocarcinoma the colon: Recent episode of diverticulitis, now improved: She is asymptomatic from the standpoint of any evidence of diverticulitis. Hypokalemia: She was hypokalemic on admission. We will recheck serum potassium tomorrow. We have increased her supplemental oral potassium. Hypomagnesemia: She was hypomagnesemic on admission. We will check serum magnesium tomorrow. She is continuing supplemental magnesium. Anemia that is multifactorial including GI blood loss, chronic disease and chemotherapy: We will recheck a CBC in the morning. Exam - Constitutional Vitals: Period Temp Pulse Resp BP Sys/Capellan Pulse Ox Last 24 Hr 97 F-98.1 F 69-114 18-20 137-159/66-75 93-99 Results - Labs CBC & BMP: 12/23/16 06:30 12/23/16 06:30
[2016-12-24] MEDS: POTASSIUM CHLORIDE 20 MEQ TABLET PO SCH ×2 (08:48→20:28)
[2016-12-24] MEDS: MAGNESIUM CHLORIDE 64 MG TABLET PO SCH ×2 (08:48→20:31)
[2016-12-24] MEDS: MEGESTROL 400 MG/10 ML UDCUP PO SCH ×2 (08:48→20:31)
[2016-12-24] MEDS: GRANISETRON 1 MG/1 ML VIAL IV SCH (08:49)
[2016-12-24] MEDS: DEXAMETHASONE 4 MG/1 ML VIAL IV SCH (08:49)
[2016-12-24] MEDS: FLUOROURACIL 1,500 MG in SODIUM CHLORIDE 0.9% 1,000 ML IV SCH (12:10)
[2016-12-24] MEDS: NEBIVOLOL 5 MG TABLET PO SCH (17:12)
[2016-12-24] MEDS: ALUMINUM/MAGNES/SIMETH MAX STR 30 ML UDCUP PO PRN (20:31)
[2016-12-25 04:27] LABS: Basophils % 0.2 % (0.0-0.8); Hematocrit 25.8 VOL% (35.7-47.0); Hemoglobin 8.4 GM/DL (12.0-16.0); Immature Granulocytes % 0.6 %; Immature Granulocytes Absolute 0.03 #; Lymphocytes # 0.6 10*3/uL (1.4-4.0); Lymphocytes % 12.6 % (21.3-54.2); Mean Corpuscular HGB Conc 32.6 GM/DL (32-36); Mean Corpuscular Hemoglobin 31 PG (27-34); Mean Corpuscular Volume 94.5 FL (87-102); Mean Platelet Volume 9.6 FL (9.6-12.0); Monocytes # 0.5 10*3/uL (0.11-0.8); Monocytes % 10.3 % (1.7-12.7); Neutrophils # 3.8 10*3/uL (1.4-7.4); Neutrophils % 76.3 % (38.7-73.9); Platelet Count 238 T/CUMM (130-400); Red Blood Count 2.73 MC/CUMM (3.8-5.5); Red Cell Distribution Width 22.2 % (9.3-17.3); White Blood Count 4.9 T/CUMM (4-12)
[2016-12-25 04:48] LABS: Hypochromasia 1+; Ovalocytes Slight
[2016-12-25 04:50] LABS: Giant Platelets Few
[2016-12-25 04:51] LABS: Microcytosis 1+; Platelet Estimate Adequate
[2016-12-25 04:58] LABS: Albumin 2.5 G/DL (3.4-5.0); Bilirubin,Total 0.6 MG/DL (0.2-1.0); Calcium 7.8 MG/DL (8.5-10.1); Osmolality,Calculated 284.1 MOS/KG (273-304); Potassium 3.4 MMOL/L (3.5-5.1); Total Protein 5.2 G/DL (6.4-8.3)
[2016-12-25] MEDS: LEVOTHYROXINE 75 MCG TABLET PO SCH (06:53)
--- NOTE | 2016-12-25 08:11 | Oncology Progress Note ---
Oncology Subjective PN Interval history: Administration of chemotherapy and monitoring of toxicity: Metastatic stage IV adenocarcinoma the colon: Recent episode of diverticulitis, now improved: Hypokalemia: Hypomagnesemia: Anemia that is multifactorial including GI blood loss, chronic disease and chemotherapy: Depression: Ms. Espinoza completes chemotherapy today. Her white cell count today is 4900 with a hemoglobin of 8.4 and a platelet count of 238,000. Tumor markers done on December 23, 2016 include a CEA level of 11.9 and a CA-19-9 of 315.2. Her CA-19-9 was 2763 on November 25. It had originally been 6287.6 on October 09, 2016. Her CEA level was originally 194.3. On November 25 it was 48.5. She received chemotherapy course #6 beginning December 23, 2016. It consisted of: leucovorin 800 mg and 5-FU 800 mg IV oxaliplatinum 150 mg IV D#1 followed by 5-FU 1500 mg IV over 22 hours daily for 2 days. During this hospital stay the patient was also placed on supplemental magnesium and in addition her potassium supplement was increased to twice daily. She has had some nausea with her potassium tablets and I have instructed her to take them with food. I plan to readmit her on January 20, 2017. This is an extra weeks break to give her a chance to recover. I am actually considering adding Avastin to her current chemotherapy. She has had a dramatic drop in her CEA level and CA-19-9 and I consider this a good response to treatment. Exam - Constitutional Vitals: Period Temp Pulse Resp BP Sys/Capellan Pulse Ox Last 24 Hr 97.1 F-97.8 F 72-86 18-20 139-184/64-75 95-97 Results - Labs CBC & BMP: 12/25/16 04:00 12/25/16 04:00
[2016-12-25 08:42] VITALS: BP 170/71
--- NOTE | 2016-12-25 09:11 | Discharge Summary ---
Hospital Course - Hospital Course Hospital Course: Diagnoses: Administration of chemotherapy and monitoring of toxicity: Metastatic stage IV adenocarcinoma the colon: Recent episode of diverticulitis, now improved: Hypokalemia: Hypomagnesemia: Anemia that is multifactorial including GI blood loss, chronic disease and chemotherapy: Depression: Ms. Espinoza completes chemotherapy today. Her white cell count today is 4900 with a hemoglobin of 8.4 and a platelet count of 238,000. Tumor markers done on December 23, 2016 include a CEA level of 11.9 and a CA-19-9 of 315.2. Her CA-19-9 was 2763 on November 25. It had originally been 6287.6 on October 09, 2016. Her CEA level was originally 194.3. On November 25 it was 48.5. She received chemotherapy course #6 beginning December 23, 2016. It consisted of: leucovorin 800 mg and 5-FU 800 mg IV oxaliplatinum 150 mg IV D#1 followed by 5-FU 1500 mg IV over 22 hours daily for 2 days. During this hospital stay the patient was also placed on supplemental magnesium and in addition her potassium supplement was increased to twice daily. She has had some nausea with her potassium tablets and I have instructed her to take them with food. I plan to readmit her on January 20, 2017. This is an extra weeks break to give her a chance to recover. I am actually considering adding Avastin to her current chemotherapy. She has had a dramatic drop in her CEA level and CA-19-9 and I consider this a good response to treatment. - Time spent with patient Time with patient DS: Greater than 30 minutes Discharge Plan - Discharge Data Disposition: Disch To Home/Self Care Condition at Discharge: Guarded Discharge Diet: advance to your usual diet Activity: resume usual activities as tolerated Hygiene: no restrictions Weight Bearing at Discharge: weight bear as tolerated Driving: other Contact your physician if you experience:: fever over 101, Difficulty voiding, Redness or swelling, Nausea/Vomiting, Shortness of breath, Bleeding, pain uncontrolled by pain medications - Discharge Medications Continue Nebivolol [Bystolic] 5 mg PO DAILY W/SUPPER Levothyroxine Tab [Synthroid Tab] 75 mcg PO DAILY@0700 Ondansetron Tab [Zofran Tab] 4 mg PO Q6HR PRN PRN Reason: Nausea Prochlorperazine Tab [Compazine Tab] 10 mg PO Q6H PRN PRN Reason: Nausea Doxepin [SINEquan] 50 mg PO BEDTIME PRN PRN Reason: Sleep Changed Potassium Chloride Cap/Tab [K Dur] 20 meq PO BID W/MEALS #60 - Follow Up or Referral - Forms/Instructions Additional Discharge Instructions: Discharge today. Return January 20, 2017 and check CBC. Admit if it is acceptable. Usual routine admission orders plus CEA level plus CA-19-9 and chest x-ray PA and lateral and asked me about chemotherapy. Exam - Constitutional Vitals: Period Temp Pulse Resp BP Sys/Capellan Pulse Ox Last 24 Hr 97.1 F-97.8 F 71-86 18-20 139-184/64-75 95-97 Discharge Results Procedures and tests throughout hospitalization: Pending Orders 12/23/16 17:45 Urine Culture Routine Labs on day of discharge: Labs from last 24 hours 12/25/16 12/25/16 04:00 04:00 WBC 4.9 RBC 2.73 L Hgb 8.4 L Hct 25.8 L MCV 94.5 MCH 31 MCHC 32.6 RDW 22.2 H Plt Count 238 MPV 9.6 Neut % (Auto) 76.3 H Lymph % (Auto) 12.6 L Bonner % (Auto) 10.3 Eos % (Auto) 0.0 Baso % (Auto) 0.2 Neut # (Auto) 3.8 Lymph # (Auto) 0.6 L Bonner # (Auto) 0.5 Eos # (Auto) 0.0 Baso # (Auto) 0.0 Immature Gran % 0.6 Nucleated RBC % 0.0 Immature Gran # 0.03 Nucleated RBCs # 0.00 Platelet Estimate Adequate Giant Platelets Few Immature Plt Fraction 0.0 Hypochromasia 1+ Microcytosis 1+ Ovalocytes Slight Sodium 142 Potassium 3.4 L Chloride 109 H Carbon Dioxide 24 Anion Gap 12.4 BUN 13 Creatinine 0.50 L GFR Calculation 94 BUN/Creatinine Ratio 26.00 H Glucose 132 H Calculated Osmolality 284.1 Calcium 7.8 L Total Bilirubin 0.60 AST 28 ALT 15 Alkaline Phosphatase 99 Total Protein 5.2 L Albumin 2.5 L Globulin 2.7 Albumin/Globulin Ratio 0.9 L Preliminary micro results at discharge 12/23/16 17:45 Urine Culture - Preliminary Urine,Clean Catch No Growth at 12 hours. DS: Provider Date of admission: 12/23/16 06:00 Primary care physician: Valerio Wise Attending physician on admission: Yevgeniy Ochoa MD Discharging clinician: Yevgeniy Ochoa MD
[2016-12-25] MEDS: MEGESTROL 400 MG/10 ML UDCUP PO SCH (09:43)
[2016-12-25] MEDS: POTASSIUM CHLORIDE 20 MEQ TABLET PO SCH (09:43)
[2016-12-25] MEDS: MAGNESIUM CHLORIDE 64 MG TABLET PO SCH (09:43)
[2016-12-25] MEDS: DEXAMETHASONE 4 MG/1 ML VIAL IV SCH (09:43)
[2016-12-25] MEDS: GRANISETRON 1 MG/1 ML VIAL IV SCH (09:44)
[2016-12-25] MEDS ORDERED: HEPARIN LOCK FLUSH 500 UNIT/5 ML SYRINGE IV ONE (11:13)
[2016-12-25] MEDS: ALUMINUM/MAGNES/SIMETH MAX STR 30 ML UDCUP PO PRN (11:30)
[2016-12-25] MEDS ORDERED: HEPARIN LOCK FLUSH 500 UNIT/5 ML SYRINGE IV PRN (11:33)
== END 2016-12-25 11:54 | disposition home health service, planned readmission (86) | DRG 847 ==
LOC: N.4E 06:00
PROVIDERS: ADMIT Specialist; ATTEND Specialist

== ENCOUNTER 2017-01-20 06:55 | Inpatient (IN) ==
[2017-01-20 07:56] LABS: Basophils % 0.6 % (0.0-0.8); Eosinophils # 0.1 10*3/uL (0.0-0.87); Eosinophils % 2.1 % (0.00-10.9); Hematocrit 32.8 VOL% (35.7-47.0); Hemoglobin 10.7 GM/DL (12.0-16.0); Immature Granulocytes % 0.7 %; Immature Granulocytes Absolute 0.05 #; Lymphocytes # 1.6 10*3/uL (1.4-4.0); Lymphocytes % 23.9 % (21.3-54.2); Mean Corpuscular HGB Conc 32.6 GM/DL (32-36); Mean Corpuscular Hemoglobin 33 PG (27-34); Mean Corpuscular Volume 101.9 FL (87-102); Mean Platelet Volume 10.9 FL (9.6-12.0); Monocytes # 0.7 10*3/uL (0.11-0.8); Monocytes % 10.3 % (1.7-12.7); Neutrophils # 4.2 10*3/uL (1.4-7.4); Neutrophils % 62.4 % (38.7-73.9); Platelet Count 233 T/CUMM (130-400); Red Blood Count 3.22 MC/CUMM (3.8-5.5); Red Cell Distribution Width 17.5 % (9.3-17.3); White Blood Count 6.7 T/CUMM (4-12)
--- NOTE | 2017-01-20 07:58 | Oncology History&Physical ---
History of Present Illness Chief complaint: Admission for chemotherapy and monitoring for toxicity. Metastatic colon c History of present illness: History of present illness: Ms. Espinoza is a 81 year old female with metastatic adenocarcinoma the colon with liver metastases. She has had a one-month break since her last course of chemotherapy. In that time, her appetite is improved and her strength is improved. She has had no nausea to speak, no vomiting, hematemesis, melena, hematochezia or other new problems or complaints. This 81-year-old lady is admitted for her 7th course of palliative chemotherapy for metastatic adenocarcinoma of the colon. It was initially diagnosed by Dr. Arreola in [place] by colonoscopy and originally the patient had been considered for surgical resection. However, she was found to have extensive liver involvement and was started on chemotherapy very cautiously using leucovorin and 5-FU initially. She had intractable nausea and vomiting initially and had a markedly enlarged liver with more tumor within the liver than actual normal liver parenchyma. She tolerated course #4 of chemotherapy surprisingly well with no nausea or vomiting, constipation or diarrhea and no upper or lower GI bleeding or stomatitis. However, couple of days ago she began having lower abdominal cramping pain with no other signs or symptoms including no GI blood loss, constipation or diarrhea. In addition, her CEA level was 58.2 with a CA-19-9 of 2582.1 from blood drawn November 11, 2016. Her alkaline phosphatase was 189 with an LDH of 829 and her AST was 75 with a normal ALT of 18. Her lab work prior to institution of chemotherapy included a CEA level of 194.3 with a CA-19-9 of 6287.6. Lab work today is acceptable. We will proceed with course #7 of chemotherapy this week. And will probably include Avastin with his treatment for the first time. During her last hospital stay, she was treated for diverticulitis using Flagyl and Levaquin and her abdominal pain and discomfort resolved. Also,CT of the abdomen and pelvis was performed on December 09, 2016. The impression was as follows: Impression: 1. A moderate length of the sigmoid colon demonstrates presence of multiple diverticula, segmental wall thickening, periserosal fat stranding, and small amount of posterior fluid along the mid sigmoid colon. Differential considerations include acute diverticulitis, colitis, and inflammatory neoplasm. 2. Intramural abscess formation versus extension of process within the sigmoid colon with invasion of the superior bladder wall is present as detailed. Correlation with urinalysis and culture are recommended. 3. Nodular focus of soft tissue attenuation abutting the ileocecal valve and right lateral margin of the distal sigmoid colon has decreased in size as well as demonstrates decrease in the overall amount of central low attenuation. This could reflect interval improvement of periserosal abscess or response to therapy in the setting of neoplasm. 4. Not mentioned above multiple ileocolic lymph nodes previously enlarged are now decreased in size and number. 5. Interval improvement in the appearance of the liver parenchyma with decreased size of multiple peripherally enhancing centrally hypoattenuating lesions. Differential considerations include improving abscesses as well as response to therapy an improving metastatic disease. 6. No specific evidence of left lower quadrant mass. 12/09/2016 6:13 PM PROCEDURE INTERPRETED AT [facility] DEPARTMENT OF RADIOLOGY Final Report Signed by: Dr. Emeka Ivan I have ordered a CA-19-9 as well as a CEA level for this admission. Her last CA-19-9 was done November 25, 2016 and it was 2763.0. On that same date she had a CEA level of 48.5. She received chemotherapy course #5 during the week of and it consisted of: leucovorin 800 mg and 5-FU 800 mg IV oxaliplatinum 150 mg IV D#1 followed by 5-FU 1500 mg IV over 22 hours daily for 2 days. I calculated the doses and actually reduced them. Medical History Cardio: History of: Hypertension HEENT: History of: Dental Problems (top) Endocrine: History of: Thyroid Disorder Gastrointestinal: History of: Gastrointestinal Cancer (colon) - Surgical History HEENT Surgeries: Surgical HX of: Eye Surgery (cataract) Orthopedic Surgeries: Surgical HX of;: Orthopedic Surgery (knee s) - Family History Family History: Reports;: Family Heart Disease (father), Family Hypertension ( Parents, sister) - Social History Smoking Status: Never smoker Frequency of Alcohol Use: None Type of Drug Use: None ROS Gen.: Until onset of present illness, her health has been fairly good. Endocrine: She has a history of hypothyroidism and has been on thyroid supplementation. Eyes: She has had bilateral cataract surgery. No history of chronic disease, infections or visual loss. ENT: No history of chronic infections, epistaxis, chronic sore throat Lungs: No history of asthma, emphysema, hemoptysis, chronic pleurisy or long- term or chronic infections Cardiovascular: She has a history of hypertension. No history of angina, coronary artery disease, congestive heart failure, cardiovascular surgery or DVT /VTE GI: She developed nausea and vomiting with onset of this present illness and has had esophageal reflux and heartburn. In addition, she developed evidence of diverticulitis after her admission of December 09 and was placed on Flagyl and Levaquin. She did not tolerate it well when she started by mouth and she could not finish it but her abdominal pain cleared. No prior history of upper or lower GI bleeding, melena, dysphagia, odynophagia, liver disease, gallbladder disease or pancreatic disease. : She was acutely dehydrated and had documented elevation of her urea nitrogen and creatinine on this admission but this is not a long-term issue. No history of kidney stones, chronic kidney infections or hematuria. Musculoskeletal: No history of chronic bone or joint pain or focal muscle atrophy or bone or joint deformity. Neurologic: No history of seizures, convulsions or paralysis. Psychiatric: No history of chronic psychiatric illness or psychiatric medications. Lymphatic: No history of significant or long-term lymphadenopathy Hematologic: No history of anemia, bleeding disorders or blood dyscrasias or long-term elevation or depression white cell count or petechiae. Skin: No history of chronic skin infections or rashes or significant skin lesions. Physical examination: General: She appears her stated age. She appears somewhat chronically ill but in no acute distress. Eyes: Lids and conjunctive are normal. ENT: Her oral mucosa and pharynx are normal. Her hearing is normal. Neck:Her trachea is midline and she has no neck masses. Lungs: Breath sounds are normal without rubs, rales or rhonchi. There is symmetrical unlabored chest motion with respiration. Cardiovascular: Her heart rhythm is regular without murmur, gallop or rub. There is no jugular venous distention, clubbing, cyanosis or edema. Abdomen: She has no abdominal masses, organomegaly, distention, tenderness or ascites. Musculoskeletal: There is no focal muscle atrophy or bone or joint deformity. Neurologic: Cranial nerves II through XII are intact. The no focal neurologic deficits. Psychiatric: She is oriented to time, place, person and situation with normal mood and affect. Skin: I see no significant skin lesions. Breasts: Normal by inspection and palpation. Diagnoses: Administration of chemotherapy and monitoring of toxicity: Metastatic stage IV adenocarcinoma the colon: Recent episode of diverticulitis, now improved: Hypokalemia: Hypomagnesemia: Anemia that is multifactorial including GI blood loss, chronic disease and chemotherapy: Depression: course #7 of chemotherapy will begin today. It will consist of: leucovorin 800 mg and 5-FU 800 mg IV day #1 oxaliplatinum 150 mg IV D#1 5-FU 1500 mg IV over 22 hours daily for 2 days. After we have all of her lab work back, I am going to consider whether or not to add Avastin at the end of the chemotherapy. Home Medications Medication Instructions Recorded Confirmed Type Levothyroxine Tab [Synthroid Tab] 75 mcg PO DAILY@0700 10/07/16 01/20/17 History Nebivolol [Bystolic] 5 mg PO DAILY W/SUPPER 10/07/16 01/20/17 History Prochlorperazine Tab [Compazine 10 mg PO Q6H PRN 10/24/16 01/20/17 History Tab] Ondansetron Tab [Zofran Tab] 4 mg PO Q6HR PRN 10/31/16 01/20/17 History Doxepin [SINEquan] 50 mg PO BEDTIME PRN 11/11/16 01/20/17 History Magnesium Chloride [Slow Mag] 64 mg PO BID #60 tablet 12/25/16 01/20/17 Rx Potassium Chloride Cap/Tab [K Dur] 20 meq PO BID W/MEALS #60 12/25/16 01/20/17 Rx Megestrol Liquid [Megace Liquid] 200 mg PO BID 01/20/17 01/20/17 History Allergies Allergy/AdvReac Type Severity Reaction Status Date / Time No Known Allergies Allergy Verified 10/24/16 08:09 Medical,Surgical,& Family Hx - Medical History Cardio: History of: Hypertension Neurology: History of: Migraine (PAST HX.) No history of: Seizures HEENT: History of: Eye Problem (READING GLASSES), Dental Problems (top) Endocrine: History of: Dyslipidemia, Thyroid Disorder Respiratory: No history of: Respiratory Problems (FLU VAC-NO; PNEU VAC- NO.) Genitourinary: History of: Bladder Problem (URINARY INCONTINENCE.) Gastrointestinal: History of: GERD, Liver Problems (LIVER CA. DR LOPEZ.), Gastrointestinal Cancer (colon CA) Other: History of: Cancer (LIVER COLON CA) - Surgical History HEENT Surgeries: Surgical HX of: Eye Surgery (MICHAEL cataract), Tonsilectomy & Adenoidectomy Abdominal Surgeries: Surgical HX of: Colonoscopy, EGD Reproductive Surgeries: Surgical HX of;: Gynecologic Surgery, Hysterectomy Orthopedic Surgeries: Surgical HX of;: Orthopedic Surgery (knee s) - Family History Family History: Reports;: Family Heart Disease (father), Family Hypertension ( Parents, sister) - Social History Smoking Status: Never smoker Exam - Constitutional Vitals: Period Temp Pulse Resp BP Sys/Capellan Pulse Ox Last 24 Hr 97.8 F 71 20 141/64 98 Results - Labs CBC & BMP: 01/20/17 07:35 01/20/17 07:35
[2017-01-20 08:34] LABS: Albumin 3.1 G/DL (3.4-5.0); Bilirubin,Total 0.6 MG/DL (0.2-1.0); Calcium 9.2 MG/DL (8.5-10.1); Osmolality,Calculated 277.5 MOS/KG (273-304); Potassium 3.7 MMOL/L (3.5-5.1); Total Protein 6.9 G/DL (6.4-8.3); Uric Acid 4.1 MG/DL (2.6-6.0)
[2017-01-20] MEDS ORDERED: PROCHLORPERAZINE 10 MG TABLET PO PRN (08:46)
[2017-01-20] MEDS ORDERED: ONDANSETRON 4 MG TABLET PO PRN (08:46)
[2017-01-20] MEDS ORDERED: DOXEPIN 25 MG CAPSULE PO PRN (08:46)
[2017-01-20] MEDS ORDERED: chlorproMAZINE INJ 25 MG in SODIUM CHLORIDE 0.9% 100 ML IV PRN (08:48)
[2017-01-20] MEDS ORDERED: PROMETHAZINE INJ 25 MG in SODIUM CHLORIDE 0.9% 50 ML IV PRN (08:48)
[2017-01-20] MEDS ORDERED: chlorproMAZINE INJ 50 MG in SODIUM CHLORIDE 0.9% 100 ML IV PRN (08:48)
[2017-01-20] MEDS ORDERED: MYLANTA/LIDO VISC 2:1 300 ML BOTTLE SWISH/SWAL PRN (08:48)
[2017-01-20] MEDS ORDERED: BENZTROPINE 2 MG/2 ML AMP IV PRN (08:48)
[2017-01-20] MEDS ORDERED: chlorproMAZINE 25 MG TABLET PO PRN (08:48)
[2017-01-20] MEDS ORDERED: ACETAMINOPHEN 325 MG TABLET PO PRN (08:48)
[2017-01-20] MEDS ORDERED: MAGNESIUM HYDROXIDE SUSP 30 ML UDCUP PO PRN (08:48)
[2017-01-20] MEDS ORDERED: ALUMINUM/MAGNES/SIMETH MAX STR 30 ML UDCUP PO PRN (08:48)
[2017-01-20] MEDS ORDERED: traMADol 50 MG TABLET PO PRN (08:48)
[2017-01-20] MEDS ORDERED: guaiFENesin 200 MG/10 ML UDCUP PO PRN (08:48)
[2017-01-20] MEDS ORDERED: TEMAZEPAM 7.5 MG CAPSULE PO PRN (08:48)
[2017-01-20] MEDS ORDERED: MYLANTA/LIDO VISC 2:1 300 ML BOTTLE SWISH/SPIT PRN (08:48)
[2017-01-20] MEDS ORDERED: ONDANSETRON 4 MG/2 ML VIAL IV PRN (08:48)
[2017-01-20] MEDS ORDERED: LOPERAMIDE 2 MG CAPSULE PO PRN ×2 (08:48)
[2017-01-20] MEDS ORDERED: LACTULOSE 20 GM/30 ML UDCUP PO PRN (08:48)
[2017-01-20] MEDS ORDERED: ALPRAZolam 0.25 MG TABLET PO PRN (08:48)
[2017-01-20] MEDS ORDERED: diphenhydrAMINE CAP 25 MG CAPSULE PO PRN (08:48)
[2017-01-20] MEDS: MEGESTROL 400 MG/10 ML UDCUP PO SCH ×2 (09:03→20:46)
[2017-01-20] MEDS: MAGNESIUM CHLORIDE 64 MG TABLET PO SCH ×2 (09:03→20:46)
[2017-01-20] MEDS ORDERED: LEUCOVORIN INJ 700 MG, LEUCOVORIN INJ 100 MG in DEXTROSE 5% 250 ML IV ONE (09:30)
[2017-01-20] MEDS ORDERED: FLUOROURACIL 800 MG in SYRINGE 1 EACH IV ONE (09:30)
[2017-01-20] MEDS ORDERED: OXALIPLATIN 150 MG in DEXTROSE 5% 250 ML IV ONE (09:30)
--- NOTE | 2017-01-20 09:47 | XRay Report ---
Chest, 2 views History is colon cancer Comparison 12/23/2016 The heart is mildly enlarged. MediPort catheter is present. Hilar contours unchanged No acute infiltrate or pneumothorax seen Impression: Stable appearance of the chest PROCEDURE INTERPRETED AT [facility] DEPARTMENT OF RADIOLOGY Final Report Signed by: Dr. Zaida Ashton
[2017-01-20] MEDS: GRANISETRON 1 MG/1 ML VIAL IV SCH (09:48)
[2017-01-20] MEDS: DEXAMETHASONE 4 MG/1 ML VIAL IV SCH (09:50)
[2017-01-20] MEDS: FLUOROURACIL 1,500 MG in SODIUM CHLORIDE 0.9% 1,000 ML IV SCH (12:56)
[2017-01-20 15:43] LABS: Apearance,Urine CLEAR (Clear); Bacteria,Urine Occasional /HPF (Few); Bilirubin,Urine Negative (Negative); Blood, Urine Negative (Negative); Glucose,Urine (UA) 50 mg/dL (Negative); Ketones,Urine Negative (Negative); Mucus,Urine Occasional /LPF (Occasional); Nitrite,Urine Negative (Negative); Protein,Urine Negative; RBC,Urine 3 /HPF (0-4); Squamous Epithelial Cell,Urine Occasional /HPF (0-10); Urine Color Yellow (Yellow); Urine Specific Gravity 1.008 (1.001-1.035); Urine Urobilinogen < 2.0 EU/DL (0.2-1.0); WBC,Urine 1 /HPF (0-6)
[2017-01-20] MEDS: POTASSIUM CHLORIDE 20 MEQ TABLET PO SCH (16:48)
[2017-01-20] MEDS: NEBIVOLOL 5 MG TABLET PO SCH (16:48)
[2017-01-21] MEDS: LEVOTHYROXINE 75 MCG TABLET PO SCH (07:07)
--- NOTE | 2017-01-21 07:59 | Oncology Progress Note ---
Oncology Subjective PN Interval history: Administration of chemotherapy and monitoring of toxicity: Continue current chemotherapy and in addition we are going to add Avastin at the end of chemotherapy on this visit. I have checked urinalysis to monitor for toxicity from Avastin in the urine is negative for protein. She has tolerated this combination of chemotherapy well so far without nausea or vomiting. Her appetite remains fair on chemotherapy. Metastatic stage IV adenocarcinoma the colon: The cancer is clearly responding to chemotherapy. The CEA level on this admission was 4.2 with a CA-19-9 of 59.8 , both of which have dropped significantly. Recent episode of diverticulitis, now improved: No abdominal pain on admission. Hypokalemia: Serum potassium 3.7 on admission. Hypomagnesemia: Serum magnesium 2.1 on admission. Anemia that is multifactorial including GI blood loss, chronic disease and chemotherapy: Hemoglobin 10.7 on admission Depression: Her depression seems to be improving. On physical examination today, she is relatively well-developed, well-nourished and in no acute distress. Eyes: Normal lids and conjunctivae. ENT: Normal oral mucosa. Her trachea is midline and she has no neck masses. Lungs: Breath sounds are normal without rubs, rales or rhonchi. There is symmetrical chest motion with respiration. Cardiovascular: Her heart rhythm is regular without murmur, gallop or rub. There is no jugular venous distention, clubbing or cyanosis. Abdomen: No ascites, masses, distention or tenderness. Neurologic: Cranial nerves II through XII are intact. Exam - Constitutional Vitals: Period Temp Pulse Resp BP Sys/Capellan Pulse Ox Last 24 Hr 97.1 F-97.8 F 65-86 18-20 127-156/63-75 96-98 Results - Labs CBC & BMP: 01/20/17 07:35 01/20/17 07:35
[2017-01-21] MEDS: MEGESTROL 400 MG/10 ML UDCUP PO SCH ×2 (08:42→20:21)
[2017-01-21] MEDS: MAGNESIUM CHLORIDE 64 MG TABLET PO SCH ×2 (08:43→20:21)
[2017-01-21] MEDS: POTASSIUM CHLORIDE 20 MEQ TABLET PO SCH ×2 (08:43→17:35)
[2017-01-21] MEDS: DEXAMETHASONE 4 MG/1 ML VIAL IV SCH (08:43)
[2017-01-21] MEDS: GRANISETRON 1 MG/1 ML VIAL IV SCH (08:43)
[2017-01-21] MEDS: FLUOROURACIL 1,500 MG in SODIUM CHLORIDE 0.9% 1,000 ML IV SCH (11:22)
[2017-01-21] MEDS: NEBIVOLOL 5 MG TABLET PO SCH (17:35)
[2017-01-22] MEDS: LEVOTHYROXINE 75 MCG TABLET PO SCH (06:54)
[2017-01-22] MEDS ORDERED: BEVACIZUMAB IV ONE (08:00)
[2017-01-22] MEDS ORDERED: SODIUM CHLORIDE 0.9% IV ONE (08:00)
[2017-01-22] MEDS: DEXAMETHASONE 4 MG/1 ML VIAL IV SCH (08:28)
[2017-01-22] MEDS: POTASSIUM CHLORIDE 20 MEQ TABLET PO SCH (08:29)
[2017-01-22] MEDS: GRANISETRON 1 MG/1 ML VIAL IV SCH (08:29)
[2017-01-22] MEDS: MEGESTROL 400 MG/10 ML UDCUP PO SCH (08:29)
[2017-01-22] MEDS: MAGNESIUM CHLORIDE 64 MG TABLET PO SCH (08:29)
--- NOTE | 2017-01-22 09:05 | Discharge Summary ---
Hospital Course - Hospital Course Hospital Course: Diagnoses: Administration of chemotherapy and monitoring of toxicity: This patient was admitted with her seventh course of palliative chemotherapy for metastatic adenocarcinoma of the colon with liver metastases. She is clearly responding to chemotherapy. Continue current chemotherapy and in addition we are going to add Avastin at the end of chemotherapy on this visit. I have checked urinalysis to monitor for toxicity from Avastin in the urine is negative for protein. She has tolerated this combination of chemotherapy well so far without nausea or vomiting. Her appetite remains fair on chemotherapy. Course #7 of chemotherapy was started on this admission, on January 20, and it consisted of: leucovorin 800 mg and 5-FU 800 mg IV day #1 oxaliplatinum 150 mg IV D#1 5-FU 1500 mg IV over 22 hours daily for 2 days. Avastin 400 mg at the end of chemotherapy. This is the first time she has received yet and the dose may need to be adjusted. It is usually given at 5-10 mg/kg. Metastatic stage IV adenocarcinoma the colon: The cancer is clearly responding to chemotherapy. The CEA level on this admission was 4.2 with a CA-19-9 of 59.8 , both of which have dropped significantly. Recent episode of diverticulitis, now improved: No abdominal pain on admission. Hypokalemia: Serum potassium 3.7 on admission. Hypomagnesemia: Serum magnesium 2.1 on admission. Anemia that is multifactorial including GI blood loss, chronic disease and chemotherapy: Hemoglobin 10.7 on admission Depression: Her depression seems to be improving. - Time spent with patient Time with patient DS: Greater than 30 minutes Discharge Plan - Discharge Data Disposition: Disch To Home/Self Care Condition at Discharge: Guarded Discharge Diet: advance to your usual diet Activity: resume usual activities as tolerated Hygiene: no restrictions Weight Bearing at Discharge: weight bear as tolerated Driving: other Contact your physician if you experience:: fever over 101, Difficulty voiding, Redness or swelling, Nausea/Vomiting, Shortness of breath, Bleeding, pain uncontrolled by pain medications - Discharge Medications Continue Nebivolol [Bystolic] 5 mg PO DAILY W/SUPPER Levothyroxine Tab [Synthroid Tab] 75 mcg PO DAILY@0700 Ondansetron Tab [Zofran Tab] 4 mg PO Q6HR PRN PRN Reason: Nausea Megestrol Liquid [Megace Liquid] 200 mg PO BID Prochlorperazine Tab [Compazine Tab] 10 mg PO Q6H PRN PRN Reason: Nausea Doxepin [SINEquan] 50 mg PO BEDTIME PRN PRN Reason: Sleep Potassium Chloride Cap/Tab [K Dur] 20 meq PO BID W/MEALS #60 Magnesium Chloride [Slow Mag] 64 mg PO BID #60 tablet - Follow Up or Referral - Forms/Instructions Additional Discharge Instructions: Discharge after Avastin is completed. Return February 03 and check CBC. Admit with routine admission orders if the CBC is acceptable and proceed with the same chemotherapy as this admission. CEA and CA-19-[address] of the chest, abdomen and pelvis with contrast the day after admission. CT of the chest, abdomen and pelvis Exam - Constitutional Vitals: Period Temp Pulse Resp BP Sys/Capellan Pulse Ox Last 24 Hr 96.8 F-98.3 F 64-74 16-22 130-182/50-76 93-98 DS: Provider Date of admission: 01/20/17 06:55 Primary care physician: Valerio Wise Attending physician on admission: Yevgeniy Ochoa MD Discharging clinician: Yevgeniy Ochoa MD
[2017-01-22] MEDS ORDERED: HEPARIN LOCK FLUSH 500 UNIT/5 ML SYRINGE IV ONE (11:37)
[2017-01-22 12:26] VITALS: BP 149/71
== END 2017-01-22 12:25 | disposition home health service, planned readmission (86) | DRG 847 ==
LOC: N.4E 06:55
PROVIDERS: ADMIT Specialist; ATTEND Specialist

== ENCOUNTER 2017-02-03 06:49 | Inpatient (IN) ==
--- NOTE | 2017-02-03 07:50 | Oncology History&Physical ---
History of Present Illness Chief complaint: Metastatic colon cancer admitted for chemotherapy and monitoring for toxici History of present illness: Ms. Espinoza is a 81 year old female with metastatic adenocarcinoma colon with liver metastases. She has had a 2 week break since her last course of chemotherapy. In that time , her appetite is improved and her strength is improved. She has had no nausea to speak, no vomiting, hematemesis, melena, hematochezia or other new problems or complaints. This 81-year-old lady is admitted for her 7th course of palliative chemotherapy for metastatic adenocarcinoma of the colon. It was initially diagnosed by Dr. Arreola in [place] by colonoscopy and originally the patient had been considered for surgical resection. However, she was found to have extensive liver involvement and was started on chemotherapy very cautiously using leucovorin and 5-FU initially. She had intractable nausea and vomiting initially and had a markedly enlarged liver with more tumor within the liver than actual normal liver parenchyma. She tolerated chemotherapy surprisingly well with no nausea or vomiting, constipation or diarrhea and no upper or lower GI bleeding or stomatitis. However, couple of days ago she began having lower abdominal cramping pain with no other signs or symptoms including no GI blood loss, constipation or diarrhea. Her lab work prior to institution of chemotherapy included a CEA level of 194.3 with a CA-19-9 of 6287.6. Chemotherapy for this admission is coming back very slowly. Lab work today is acceptable. We will proceed with course #8 of chemotherapy this week. And will probably include Avastin with his treatment for the first time. She has been treated for diverticulitis using Flagyl and Levaquin during previous hospital stays and her abdominal pain and discomfort resolved. We are proceeding with another CT of the abdomen and pelvis with his course of chemotherapy. Her last previous CT of the abdomen and pelvis was performed on December 09, 2016. The impression was as follows: Impression: 1. A moderate length of the sigmoid colon demonstrates presence of multiple diverticula, segmental wall thickening, periserosal fat stranding, and small amount of posterior fluid along the mid sigmoid colon. Differential considerations include acute diverticulitis, colitis, and inflammatory neoplasm. 2. Intramural abscess formation versus extension of process within the sigmoid colon with invasion of the superior bladder wall is present as detailed. Correlation with urinalysis and culture are recommended. 3. Nodular focus of soft tissue attenuation abutting the ileocecal valve and right lateral margin of the distal sigmoid colon has decreased in size as well as demonstrates decrease in the overall amount of central low attenuation. This could reflect interval improvement of periserosal abscess or response to therapy in the setting of neoplasm. 4. Not mentioned above multiple ileocolic lymph nodes previously enlarged are now decreased in size and number. 5. Interval improvement in the appearance of the liver parenchyma with decreased size of multiple peripherally enhancing centrally hypoattenuating lesions. Differential considerations include improving abscesses as well as response to therapy an improving metastatic disease. 6. No specific evidence of left lower quadrant mass. 12/09/2016 6:13 PM PROCEDURE INTERPRETED AT [facility] DEPARTMENT OF RADIOLOGY Final Report Signed by: Dr. Emeka Ivan Medical History Cardio: History of: Hypertension HEENT: History of: Dental Problems (top) Endocrine: History of: Thyroid Disorder Gastrointestinal: History of: Gastrointestinal Cancer (colon) - Surgical History HEENT Surgeries: Surgical HX of: Eye Surgery (cataract) Orthopedic Surgeries: Surgical HX of;: Orthopedic Surgery (knee ) - Family History Family History: Reports;: Family Heart Disease (father), Family Hypertension ( Parents, sister) - Social History Smoking Status: Never smoker Frequency of Alcohol Use: None Type of Drug Use: None Review of Systems: ROS Gen.: Until onset of present illness, her health has been fairly good. Endocrine: She has a history of hypothyroidism and has been on thyroid supplementation. Eyes: She has had bilateral cataract surgery. No history of chronic disease, infections or visual loss. ENT: No history of chronic infections, epistaxis, chronic sore throat Lungs: No history of asthma, emphysema, hemoptysis, chronic pleurisy or long- term or chronic infections Cardiovascular: She has a history of hypertension. No history of angina, coronary artery disease, congestive heart failure, cardiovascular surgery or DVT /VTE GI: She developed nausea and vomiting with onset of this present illness and has had esophageal reflux and heartburn. In addition, she developed evidence of diverticulitis after her admission of December 09 and was placed on Flagyl and Levaquin. She did not tolerate it well when she started by mouth and she could not finish it but her abdominal pain cleared. No prior history of upper or lower GI bleeding, melena, dysphagia, odynophagia, liver disease, gallbladder disease or pancreatic disease. : She was acutely dehydrated and had documented elevation of her urea nitrogen and creatinine on this admission but this is not a long-term issue. No history of kidney stones, chronic kidney infections or hematuria. Musculoskeletal: No history of chronic bone or joint pain or focal muscle atrophy or bone or joint deformity. Neurologic: No history of seizures, convulsions or paralysis. Psychiatric: No history of chronic psychiatric illness or psychiatric medications. Lymphatic: No history of significant or long-term lymphadenopathy Hematologic: No history of anemia, bleeding disorders or blood dyscrasias or long-term elevation or depression white cell count or petechiae. Skin: No history of chronic skin infections or rashes or significant skin lesions. Physical examination: General: She appears her stated age. She appears somewhat chronically ill but in no acute distress. Eyes: Lids and conjunctive are normal. ENT: Her oral mucosa and pharynx are normal. Her hearing is normal. Neck:Her trachea is midline and she has no neck masses. Lungs: Breath sounds are normal without rubs, rales or rhonchi. There is symmetrical unlabored chest motion with respiration. Cardiovascular: Her heart rhythm is regular without murmur, gallop or rub. There is no jugular venous distention, clubbing, cyanosis or edema. Abdomen: She has no abdominal masses, organomegaly, distention, tenderness or ascites. Musculoskeletal: There is no focal muscle atrophy or bone or joint deformity. Neurologic: Cranial nerves II through XII are intact. The no focal neurologic deficits. Psychiatric: She is oriented to time, place, person and situation with normal mood and affect. Skin: I see no significant skin lesions. Breasts: Normal by inspection and palpation. Diagnoses: Administration of chemotherapy and monitoring of toxicity: Metastatic stage IV adenocarcinoma the colon: Recent episode of diverticulitis, now improved: Hypokalemia: Hypomagnesemia: Anemia that is multifactorial including GI blood loss, chronic disease and chemotherapy: Depression: course #8 of chemotherapy will begin today. It will consist of: leucovorin 800 mg and 5-FU 800 mg IV day #1 oxaliplatinum 150 mg IV D#1 5-FU 1500 mg IV over 22 hours daily for 2 days. Home Medications Medication Instructions Recorded Confirmed Type Levothyroxine Tab [Synthroid Tab] 75 mcg PO DAILY@0700 10/07/16 01/20/17 History Nebivolol [Bystolic] 5 mg PO DAILY W/SUPPER 10/07/16 01/20/17 History Prochlorperazine Tab [Compazine 10 mg PO Q6H PRN 10/24/16 01/20/17 History Tab] Ondansetron Tab [Zofran Tab] 4 mg PO Q6HR PRN 10/31/16 01/20/17 History Doxepin [SINEquan] 50 mg PO BEDTIME PRN 11/11/16 01/20/17 History Magnesium Chloride [Slow Mag] 64 mg PO BID #60 tablet 12/25/16 01/20/17 Rx Potassium Chloride Cap/Tab [K Dur] 20 meq PO BID W/MEALS #60 12/25/16 01/20/17 Rx Megestrol Liquid [Megace Liquid] 200 mg PO BID 01/20/17 01/20/17 History Allergies Allergy/AdvReac Type Severity Reaction Status Date / Time No Known Allergies Allergy Verified 10/24/16 08:09 Medical,Surgical,& Family Hx - Medical History Cardio: History of: Hypertension Neurology: History of: Migraine (PAST HX.) No history of: Seizures HEENT: History of: Eye Problem (READING GLASSES), Dental Problems (top) Endocrine: History of: Dyslipidemia, Thyroid Disorder Respiratory: No history of: Respiratory Problems (FLU VAC-NO; PNEU VAC- NO.) Genitourinary: History of: Bladder Problem (URINARY INCONTINENCE.) Gastrointestinal: History of: GERD, Liver Problems (LIVER CA. DR LOPEZ.), Gastrointestinal Cancer (colon CA) Other: History of: Cancer (LIVER COLON CA) - Surgical History HEENT Surgeries: Surgical HX of: Eye Surgery (MICHAEL cataract), Tonsilectomy & Adenoidectomy Abdominal Surgeries: Surgical HX of: Colonoscopy, EGD Reproductive Surgeries: Surgical HX of;: Gynecologic Surgery, Hysterectomy Orthopedic Surgeries: Surgical HX of;: Orthopedic Surgery (knee ) - Family History Family History: Reports;: Family Heart Disease (father), Family Hypertension ( Parents, sister) - Social History Smoking Status: Never smoker Results - Labs CBC & BMP: 02/03/17 07:36
[2017-02-03 08:29] LABS: Eosinophils # 0.1 10*3/uL (0.0-0.87); Hematocrit 31.6 VOL% (35.7-47.0); Hemoglobin 10.4 GM/DL (12.0-16.0); Immature Granulocytes % 0.3 %; Immature Granulocytes Absolute 0.01 #; Lymphocytes % 30.1 % (21.3-54.2); Mean Corpuscular HGB Conc 32.9 GM/DL (32-36); Mean Corpuscular Hemoglobin 33 PG (27-34); Mean Corpuscular Volume 100.3 FL (87-102); Mean Platelet Volume 10.5 FL (9.6-12.0); Monocytes # 0.4 10*3/uL (0.11-0.8); Neutrophils # 1.9 10*3/uL (1.4-7.4); Neutrophils % 55.6 % (38.7-73.9); Platelet Count 215 T/CUMM (130-400); Red Blood Count 3.15 MC/CUMM (3.8-5.5); Red Cell Distribution Width 15.5 % (9.3-17.3); White Blood Count 3.4 T/CUMM (4-12)
[2017-02-03] MEDS ORDERED: LACTULOSE 20 GM/30 ML UDCUP PO PRN (09:14)
[2017-02-03] MEDS ORDERED: chlorproMAZINE INJ 50 MG in SODIUM CHLORIDE 0.9% 100 ML IV PRN (09:14)
[2017-02-03] MEDS ORDERED: LOPERAMIDE 2 MG CAPSULE PO PRN ×2 (09:14)
[2017-02-03] MEDS ORDERED: ALPRAZolam 0.25 MG TABLET PO PRN (09:14)
[2017-02-03] MEDS ORDERED: PROMETHAZINE INJ 25 MG in SODIUM CHLORIDE 0.9% 50 ML IV PRN (09:14)
[2017-02-03] MEDS ORDERED: ONDANSETRON 4 MG/2 ML VIAL IV PRN (09:14)
[2017-02-03] MEDS ORDERED: TEMAZEPAM 7.5 MG CAPSULE PO PRN (09:14)
[2017-02-03] MEDS ORDERED: MYLANTA/LIDO VISC 2:1 300 ML BOTTLE SWISH/SPIT PRN (09:14)
[2017-02-03] MEDS ORDERED: MYLANTA/LIDO VISC 2:1 300 ML BOTTLE SWISH/SWAL PRN (09:14)
[2017-02-03] MEDS ORDERED: guaiFENesin 200 MG/10 ML UDCUP PO PRN (09:14)
[2017-02-03] MEDS ORDERED: ACETAMINOPHEN 325 MG TABLET PO PRN (09:14)
[2017-02-03] MEDS ORDERED: diphenhydrAMINE CAP 25 MG CAPSULE PO PRN (09:14)
[2017-02-03] MEDS ORDERED: traMADol 50 MG TABLET PO PRN (09:14)
[2017-02-03] MEDS ORDERED: chlorproMAZINE 25 MG TABLET PO PRN (09:14)
[2017-02-03] MEDS ORDERED: BENZTROPINE 2 MG/2 ML AMP IV PRN (09:14)
[2017-02-03] MEDS ORDERED: ALUMINUM/MAGNES/SIMETH MAX STR 30 ML UDCUP PO PRN (09:14)
[2017-02-03] MEDS ORDERED: MAGNESIUM HYDROXIDE SUSP 30 ML UDCUP PO PRN (09:14)
[2017-02-03] MEDS ORDERED: chlorproMAZINE INJ 25 MG in SODIUM CHLORIDE 0.9% 100 ML IV PRN (09:14)
[2017-02-03] MEDS ORDERED: PROCHLORPERAZINE 10 MG TABLET PO PRN (09:16)
[2017-02-03] MEDS ORDERED: ONDANSETRON 4 MG TABLET PO PRN (09:16)
[2017-02-03] MEDS ORDERED: DOXEPIN 25 MG CAPSULE PO PRN (09:16)
[2017-02-03 09:43] LABS: Albumin 3.2 G/DL (3.4-5.0); Bilirubin,Total 0.6 MG/DL (0.2-1.0); Calcium 8.9 MG/DL (8.5-10.1); Osmolality,Calculated 284.1 MOS/KG (273-304); Potassium 3.7 MMOL/L (3.5-5.1); Total Protein 6.6 G/DL (6.4-8.3)
[2017-02-03 09:52] LABS: Magnesium 1.6 MG/DL (1.8-2.4); Uric Acid 3.5 MG/DL (2.6-6.0)
[2017-02-03] MEDS ORDERED: OXALIPLATIN 150 MG in DEXTROSE 5% 250 ML IV ONE (11:00)
[2017-02-03] MEDS ORDERED: LEUCOVORIN INJ 700 MG, LEUCOVORIN INJ 100 MG in DEXTROSE 5% 250 ML IV ONE (11:00)
[2017-02-03] MEDS ORDERED: FLUOROURACIL 800 MG in SYRINGE 1 EACH IV ONE (11:00)
[2017-02-03] MEDS: GRANISETRON 1 MG/1 ML VIAL IV SCH (11:17)
[2017-02-03] MEDS: DEXAMETHASONE 4 MG/1 ML VIAL IV SCH (11:18)
[2017-02-03] MEDS: FLUOROURACIL 1,500 MG in SODIUM CHLORIDE 0.9% 1,000 ML IV SCH (14:21)
--- NOTE | 2017-02-03 14:28 | CT Report ---
CT chest abdomen pelvis w con Indication: Colon cancer, hepatic metastatic disease Comparison: CT 09 December 2016 and 26 November 2016 Technique: Axial CT imaging of the chest, abdomen and pelvis is performed with intravenous and oral contrast. Contrast dose is 100 cc of Omnipaque 350. Findings: CT chest: Heart, mediastinum are within normal limits. The great vessels show no evidence of abnormality. Small hiatal hernia is present. No evidence of lung parenchymal abnormality is seen. No pneumothorax or effusion is present. No chest wall abnormalities are identified. CT abdomen: The liver has some multiple hepatic lesions smaller in size when compared to previous study with largest is estimated at 5.7 cm. Spleen, pancreas, adrenal glands and kidneys are normal in size and enhancement. No evidence of focal lesion is demonstrated in the solid organs. The bowel caliber is normal and no wall thickening or adjacent inflammatory change is seen. No evidence of free fluid or free air is present. CT pelvis: Sigmoid colon thickening and irregularity is less prominent compared to previous exam. Adjacent smaller soft tissue density extending to the terminal ileum is present, less pronounced than distinct when compared to previous study. Remaining pelvic bowel and bladder appear within normal limits. The pelvic organs show no evidence of abnormality. Impression: Decreased size of the metastatic disease in the colon and decreased thickening and irregularity of the sigmoid colon when compared to previous study. No other significant changes. PROCEDURE INTERPRETED AT [facility] DEPARTMENT OF RADIOLOGY Final Report Signed by: Dr. Tone Mc
[2017-02-03] MEDS: POTASSIUM CHLORIDE 20 MEQ TABLET PO SCH (16:53)
[2017-02-03] MEDS: NEBIVOLOL 5 MG TABLET PO SCH (16:53)
[2017-02-03 18:40] LABS: Apearance,Urine CLEAR (Clear); Bilirubin,Urine Negative (Negative); Blood, Urine Negative (Negative); Glucose,Urine (UA) 150 mg/dL (Negative); Ketones,Urine Negative (Negative); Mucus,Urine Occasional /LPF (Occasional); Nitrite,Urine Negative (Negative); Protein,Urine Negative; RBC,Urine 1 /HPF (0-4); Squamous Epithelial Cell,Urine Occasional /HPF (0-10); Urine Color Yellow (Yellow); Urine Specific Gravity 1.048 (1.001-1.035); Urine Urobilinogen < 2.0 EU/DL (0.2-1.0); WBC,Urine 1 /HPF (0-6)
[2017-02-03] MEDS: MAGNESIUM CHLORIDE 64 MG TABLET PO SCH (20:33)
[2017-02-03] MEDS: MEGESTROL 400 MG/10 ML UDCUP PO SCH (20:34)
--- NOTE | 2017-02-04 08:04 | Oncology Progress Note ---
Oncology Subjective PN Interval history: Ms. Espinoza is receiving palliative chemotherapy for metastatic adenocarcinoma of the colon. She is tolerating chemotherapy well. She has had no nausea or vomiting. She has had no stomatitis. She has had no dyspnea or chest pain. She has had no dysphagia or odynophagia. She had a CT of the chest, abdomen and pelvis yesterday. The tumor in her liver has improved markedly. The interpretation was as follows: Ordering Physician: Yevgeniy Ochoa MD Date of Service: 02/03/17 Procedure(s): CT chest abdomen pelvis w con Accession Number(s): [id number] cc: Yevgeniy Ochoa MD CT chest abdomen pelvis w con Indication: Colon cancer, hepatic metastatic disease Comparison: CT 09 December 2016 and 26 November 2016 Technique: Axial CT imaging of the chest, abdomen and pelvis is performed with intravenous and oral contrast. Contrast dose is 100 cc of Omnipaque 350. Findings: CT chest: Heart, mediastinum are within normal limits. The great vessels show no evidence of abnormality. Small hiatal hernia is present. No evidence of lung parenchymal abnormality is seen. No pneumothorax or effusion is present. No chest wall abnormalities are identified. CT abdomen: The liver has some multiple hepatic lesions smaller in size when compared to previous study with largest is estimated at 5.7 cm. Spleen, pancreas, adrenal glands and kidneys are normal in size and enhancement. No evidence of focal lesion is demonstrated in the solid organs. The bowel caliber is normal and no wall thickening or adjacent inflammatory change is seen. No evidence of free fluid or free air is present. CT pelvis: Sigmoid colon thickening and irregularity is less prominent compared to previous exam. Adjacent smaller soft tissue density extending to the terminal ileum is present, less pronounced than distinct when compared to previous study. Remaining pelvic bowel and bladder appear within normal limits. The pelvic organs show no evidence of abnormality. Impression: Decreased size of the metastatic disease in the colon and decreased thickening and irregularity of the sigmoid colon when compared to previous study. No other significant changes. PROCEDURE INTERPRETED AT [facility] DEPARTMENT OF RADIOLOGY Final Report Signed by: Dr. Tone Mc Dictated By: Thee Mc MD 02/03/17 1414 Signed By: Thee Mc M.D. 02/03/17 1038 Technologist: LU */* We are continuing this course of chemotherapy and it should be completed tomorrow. I am going to consider GI consult at the time of her next admission in order to obtain additional tissue for WESLEY and BRAF mutation testing. She is fully oriented and alert and in no acute distress and tolerating chemotherapy well. Exam - Constitutional Vitals: Period Temp Pulse Resp BP Sys/Capellan Pulse Ox Last 24 Hr 96.3 F-97.5 F 69-79 16-20 112-169/62-74 96-98 Results - Labs CBC & BMP: 02/03/17 07:36 02/03/17 09:00
[2017-02-04] MEDS: MEGESTROL 400 MG/10 ML UDCUP PO SCH ×2 (09:15→20:46)
[2017-02-04] MEDS: POTASSIUM CHLORIDE 20 MEQ TABLET PO SCH ×2 (09:15→17:24)
[2017-02-04] MEDS: GRANISETRON 1 MG/1 ML VIAL IV SCH (09:15)
[2017-02-04] MEDS: MAGNESIUM CHLORIDE 64 MG TABLET PO SCH ×2 (09:16→20:46)
[2017-02-04] MEDS: LEVOTHYROXINE 75 MCG TABLET PO SCH (09:16)
[2017-02-04] MEDS: DEXAMETHASONE 4 MG/1 ML VIAL IV SCH (09:16)
[2017-02-04] MEDS: FLUOROURACIL 1,500 MG in SODIUM CHLORIDE 0.9% 1,000 ML IV SCH (13:37)
[2017-02-04] MEDS: NEBIVOLOL 5 MG TABLET PO SCH (17:24)
[2017-02-05] MEDS: LEVOTHYROXINE 75 MCG TABLET PO SCH (06:56)
--- NOTE | 2017-02-05 07:48 | Oncology Progress Note ---
Oncology Subjective PN Interval history: Diagnoses: Administration of chemotherapy and monitoring of toxicity: Course #8 of chemotherapy was started on this admission, on February 03, and it consisted of: leucovorin 800 mg and 5-FU 800 mg IV day #1 oxaliplatinum 150 mg IV D#1 5-FU 1500 mg IV over 22 hours daily for 2 days. Avastin 400 mg at the end of chemotherapy. Metastatic stage IV adenocarcinoma the colon: That on CAT scan is clearly responding to chemotherapy with reduction in mass of the metastatic disease to the liver. CEA level 3.0 on admission CA-19-9 39.8 on admission, down from 59.8 on January 20, 2017. Recent episode of diverticulitis, resolved: Hypokalemia: Potassium 3.7 on admission Hypomagnesemia: Magnesium 1.6 on admission Anemia that is multifactorial including GI blood loss, chronic disease and chemotherapy: The hemoglobin was 10.4 on this admission Depression: Exam - Constitutional Vitals: Period Temp Pulse Resp BP Sys/Capellan Pulse Ox Last 24 Hr 97.1 F-97.7 F 72-83 18-18 176-189/73-81 94-97 Results - Labs CBC & BMP: 02/03/17 07:36 02/03/17 09:00
[2017-02-05] MEDS ORDERED: SODIUM CHLORIDE 0.9% IV ONE (08:17)
[2017-02-05] MEDS ORDERED: BEVACIZUMAB IV ONE (08:17)
--- NOTE | 2017-02-05 08:21 | Discharge Summary ---
Hospital Course - Hospital Course Hospital Course: This 81-year-old lady was admitted for her eighth course of infusion chemotherapy using oxaliplatin, leucovorin, 5-FU and more recently Avastin. This was her eighth course of chemotherapy and her second course that included Avastin. Her performance status has consistently improved. Diagnoses: Administration of chemotherapy and monitoring of toxicity: She tolerated chemotherapy extremely well. This was course #8 of chemotherapy and it was started on this admission, on February 03, and it consisted of: leucovorin 800 mg and 5-FU 800 mg IV day #1 oxaliplatinum 150 mg IV D#1 5-FU 1500 mg IV over 22 hours daily for 2 days. Avastin 400 mg at the end of chemotherapy. Metastatic stage IV adenocarcinoma the colon: That on CAT scan is clearly responding to chemotherapy with reduction in mass of the metastatic disease to the liver. CEA level 3.0 on admission CA-19-9 39.8 on admission, down from 59.8 on January 20, 2017. Recent episode of diverticulitis, resolved: Hypokalemia: Potassium 3.7 on admission Hypomagnesemia: Magnesium 1.6 on admission Anemia that is multifactorial including GI blood loss, chronic disease and chemotherapy: The hemoglobin was 10.4 on this admission Depression: - Time spent with patient Time with patient DS: Greater than 30 minutes Time spent discussing smoking cessation with patient: more than 10 minutes Discharge Plan - Discharge Data Disposition: Disch To Home/Self Care Condition at Discharge: Guarded Discharge Diet: advance to your usual diet Activity: resume usual activities as tolerated Hygiene: no restrictions Weight Bearing at Discharge: weight bear as tolerated Driving: other Contact your physician if you experience:: fever over 101, Difficulty voiding, Redness or swelling, Nausea/Vomiting, Shortness of breath, Bleeding, pain uncontrolled by pain medications - Discharge Medications Continue Nebivolol [Bystolic] 5 mg PO DAILY W/SUPPER Levothyroxine Tab [Synthroid Tab] 75 mcg PO DAILY@0700 Ondansetron Tab [Zofran Tab] 4 mg PO Q6HR PRN PRN Reason: Nausea Megestrol Liquid [Megace Liquid] 200 mg PO BID Prochlorperazine Tab [Compazine Tab] 10 mg PO Q6H PRN PRN Reason: Nausea Doxepin [SINEquan] 50 mg PO BEDTIME PRN PRN Reason: Sleep Potassium Chloride Cap/Tab [K Dur] 20 meq PO BID W/MEALS #60 Magnesium Chloride [Slow Mag] 64 mg PO BID #60 tablet - Follow Up or Referral - Forms/Instructions Additional Discharge Instructions: Discharge today after Avastin is completed. Return at 7 AM on February 16, 2017. Order a stat CBC and if it is acceptable, admit the patient with routine admission orders plus chest x-ray plus urinalysis and be prepared to repeat the same chemotherapy that was given this admission, including Avastin. Also schedule colonoscopy at the time of the next admission. Exam - Constitutional Vitals: Period Temp Pulse Resp BP Sys/Capellan Pulse Ox Last 24 Hr 97.1 F-97.7 F 72-83 18-18 176-189/73-81 94-97 DS: Provider Date of admission: 02/03/17 09:45 Primary care physician: Valerio Wise Attending physician on admission: Yevgeniy Ochoa MD Discharging clinician: Yevgeniy Ochoa MD
[2017-02-05] MEDS: POTASSIUM CHLORIDE 20 MEQ TABLET PO SCH (09:16)
[2017-02-05] MEDS: DEXAMETHASONE 4 MG/1 ML VIAL IV SCH (09:16)
[2017-02-05] MEDS: MAGNESIUM CHLORIDE 64 MG TABLET PO SCH (09:16)
[2017-02-05] MEDS: GRANISETRON 1 MG/1 ML VIAL IV SCH (09:16)
[2017-02-05] MEDS: MEGESTROL 400 MG/10 ML UDCUP PO SCH (09:16)
[2017-02-05 10:29] VITALS: BP 181/79
[2017-02-05] MEDS ORDERED: HEPARIN LOCK FLUSH 500 UNIT/5 ML SYRINGE IV ONE (13:29)
[2017-02-05] MEDS ORDERED: HEPARIN LOCK FLUSH 500 UNIT/5 ML SYRINGE IV PRN (13:50)
== END 2017-02-05 14:23 | disposition home health service, planned readmission (86) | DRG 847 ==
LOC: N.4EOUT 06:49 → N.4E 07:09
PROVIDERS: ADMIT Specialist; ATTEND Specialist

== ENCOUNTER 2017-02-16 06:44 | Inpatient (IN) ==
--- NOTE | 2017-02-16 07:59 | Oncology History&Physical ---
History of Present Illness History of present illness: Ms. Espinoza is a 81 year old female admitted for her ninth course of chemotherapy for metastatic adenocarcinoma colon with liver metastases. This will be course #9 of chemotherapy: leucovorin 800 mg and 5-FU 800 mg IV day #1 oxaliplatinum 150 mg IV D#1 5-FU 1500 mg IV over 22 hours daily for 2 days. Avastin 400 mg at the end of chemotherapy. She was initially diagnosed as having adenocarcinoma of the colon with liver metastases in [facility] and was referred here for consideration for surgical resection but in the process of staging her, she was found to have liver metastases. In fact, she had extensive liver metastases with massive hepatomegaly. Her initial tumor markers, which were done shortly after diagnosis, included a CEA level of 58.2 with a CA-19-9 of 2582 on November 11, 2016. Since her last hospitalization she has gained weight. Her appetite has been good. She has had no nausea, vomiting, hematemesis, melena or hematochezia. I am consulting gastroenterology to perform a colonoscopy on this admission to reevaluate the tumor primary. She had a CT of her chest, abdomen and pelvis at the time of her last admission that demonstrated definite tumor shrinkage. Current diagnoses include: Her last previous CT of the abdomen and pelvis was performed on December 09, 2016. The impression was as follows: Impression: 1. A moderate length of the sigmoid colon demonstrates presence of multiple diverticula, segmental wall thickening, periserosal fat stranding, and small amount of posterior fluid along the mid sigmoid colon. Differential considerations include acute diverticulitis, colitis, and inflammatory neoplasm. 2. Intramural abscess formation versus extension of process within the sigmoid colon with invasion of the superior bladder wall is present as detailed. Correlation with urinalysis and culture are recommended. 3. Nodular focus of soft tissue attenuation abutting the ileocecal valve and right lateral margin of the distal sigmoid colon has decreased in size as well as demonstrates decrease in the overall amount of central low attenuation. This could reflect interval improvement of periserosal abscess or response to therapy in the setting of neoplasm. 4. Not mentioned above multiple ileocolic lymph nodes previously enlarged are now decreased in size and number. 5. Interval improvement in the appearance of the liver parenchyma with decreased size of multiple peripherally enhancing centrally hypoattenuating lesions. Differential considerations include improving abscesses as well as response to therapy an improving metastatic disease. 6. No specific evidence of left lower quadrant mass. 12/09/2016 6:13 PM PROCEDURE INTERPRETED AT [facility] DEPARTMENT OF RADIOLOGY Final Report Signed by: Dr. Emeka Ivan Medical History Cardio: History of: Hypertension HEENT: History of: Dental Problems (top) Endocrine: History of: Thyroid Disorder Gastrointestinal: History of: Gastrointestinal Cancer (colon) - Surgical History HEENT Surgeries: Surgical HX of: Eye Surgery (cataract) Orthopedic Surgeries: Surgical HX of;: Orthopedic Surgery (knee ) - Family History Family History: Reports;: Family Heart Disease (father), Family Hypertension ( Parents, sister) - Social History Smoking Status: Never smoker Frequency of Alcohol Use: None Type of Drug Use: None Review of Systems: ROS Gen.: Until onset of present illness, her health has been fairly good. Endocrine: She has a history of hypothyroidism and has been on thyroid supplementation. Eyes: She has had bilateral cataract surgery. No history of chronic disease, infections or visual loss. ENT: No history of chronic infections, epistaxis, chronic sore throat Lungs: No history of asthma, emphysema, hemoptysis, chronic pleurisy or long- term or chronic infections Cardiovascular: She has a history of hypertension. No history of angina, coronary artery disease, congestive heart failure, cardiovascular surgery or DVT /VTE GI: She developed nausea and vomiting with onset of this present illness and has had esophageal reflux and heartburn. In addition, she developed evidence of diverticulitis after her admission of December 09 and was placed on Flagyl and Levaquin. She did not tolerate it well when she started by mouth and she could not finish it but her abdominal pain cleared. No prior history of upper or lower GI bleeding, melena, dysphagia, odynophagia, liver disease, gallbladder disease or pancreatic disease. : She was acutely dehydrated and had documented elevation of her urea nitrogen and creatinine on this admission but this is not a long-term issue. No history of kidney stones, chronic kidney infections or hematuria. Musculoskeletal: No history of chronic bone or joint pain or focal muscle atrophy or bone or joint deformity. Neurologic: No history of seizures, convulsions or paralysis. Psychiatric: No history of chronic psychiatric illness or psychiatric medications. Lymphatic: No history of significant or long-term lymphadenopathy Hematologic: No history of anemia, bleeding disorders or blood dyscrasias or long-term elevation or depression white cell count or petechiae. Skin: No history of chronic skin infections or rashes or significant skin lesions. Physical examination: General: The patient is relatively well-developed well-nourished and in no acute distress. Eyes: Normal lids and conjunctivae. ENT: She has a full upper plate of dentures. Her oral mucosa and pharynx are normal. Her trachea is midline and she has no neck masses. Her hearing is normal. Lungs: Breath sounds are normal without rubs, rales or rhonchi. There is symmetrical unlabored chest motion with respiration. Cardiovascular: Her heart rhythm is regular without murmur, gallop or rub. There is no jugular venous distention, clubbing, cyanosis or edema. Abdomen: There is no ascites. She has no abdominal masses or organomegaly. There is no tenderness. Bowel sounds are normal. Musculoskeletal: There is no focal muscle atrophy or bone or joint deformity. Her joints appear normal for her age with mild degenerative disease in the hands. Neurologic: Cranial nerves II through XII are intact. There are no focal neurologic deficits. Nodes: There is no submandibular, cervical, supraclavicular or axillary adenopathy. Skin: Cursory examination does not demonstrate any significant skin lesions or rashes. Impression: Administration of chemotherapy and monitoring of toxicity: We will plan to proceed with course #9 of chemotherapy beginning today. She is hypertensive and Avastin can cause hypertension so I am going to monitor her blood pressure before actually administering Avastin which is given at the end of the chemotherapy course. leucovorin 800 mg and 5-FU 800 mg IV day #1 oxaliplatinum 150 mg IV D#1 5-FU 1500 mg IV over 22 hours daily for 2 days. Avastin 400 mg at the end of chemotherapy. Metastatic stage IV adenocarcinoma the colon: Recent episode of diverticulitis, resolved: She actually has had no evidence of diverticulitis for the last 2-3 months. Hypokalemia: Hypomagnesemia: Anemia that is multifactorial including GI blood loss, chronic disease and chemotherapy: Home Medications Medication Instructions Recorded Confirmed Type Levothyroxine Tab [Synthroid Tab] 75 mcg PO DAILY@0700 10/07/16 02/03/17 History Nebivolol [Bystolic] 5 mg PO DAILY W/SUPPER 10/07/16 02/03/17 History Prochlorperazine Tab [Compazine 10 mg PO Q6H PRN 10/24/16 02/03/17 History Tab] Ondansetron Tab [Zofran Tab] 4 mg PO Q6HR PRN 10/31/16 02/03/17 History Doxepin [SINEquan] 50 mg PO BEDTIME PRN 11/11/16 02/03/17 History Magnesium Chloride [Slow Mag] 64 mg PO BID #60 tablet 12/25/16 02/03/17 Rx Potassium Chloride Cap/Tab [K Dur] 20 meq PO BID W/MEALS #60 12/25/16 02/03/17 Rx Megestrol Liquid [Megace Liquid] 200 mg PO BID 01/20/17 02/03/17 History Allergies Allergy/AdvReac Type Severity Reaction Status Date / Time No Known Allergies Allergy Verified 10/24/16 08:09 Medical,Surgical,& Family Hx - Medical History Cardio: History of: Hypertension Neurology: History of: Migraine (PAST HX.) No history of: Seizures HEENT: History of: Eye Problem (READING GLASSES), Dental Problems (top) Endocrine: History of: Dyslipidemia, Thyroid Disorder Respiratory: No history of: Respiratory Problems (FLU VAC-NO; PNEU VAC- NO.) Genitourinary: History of: Bladder Problem (URINARY INCONTINENCE.) Gastrointestinal: History of: GERD, Liver Problems (LIVER CA. DR LOPEZ.), Gastrointestinal Cancer (colon CA) Other: History of: Cancer (LIVER COLON CA) - Surgical History HEENT Surgeries: Surgical HX of: Eye Surgery (MICHAEL cataract), Tonsilectomy & Adenoidectomy Abdominal Surgeries: Surgical HX of: Colonoscopy, EGD Reproductive Surgeries: Surgical HX of;: Gynecologic Surgery, Hysterectomy Orthopedic Surgeries: Surgical HX of;: Orthopedic Surgery (knee s) - Family History Family History: Reports;: Family Heart Disease (father), Family Hypertension ( Parents, sister) - Social History Smoking Status: Never smoker
[2017-02-16 08:39] LABS: Basophils % 0.3 % (0.0-0.8); Eosinophils % 1.1 % (0.00-10.9); Hematocrit 27.6 VOL% (35.7-47.0); Hemoglobin 9.4 GM/DL (12.0-16.0); Immature Granulocytes % 0.3 %; Immature Granulocytes Absolute 0.01 #; Lymphocytes # 1.1 10*3/uL (1.4-4.0); Lymphocytes % 29.8 % (21.3-54.2); Mean Corpuscular HGB Conc 34.1 GM/DL (32-36); Mean Corpuscular Hemoglobin 33 PG (27-34); Mean Corpuscular Volume 96.5 FL (87-102); Mean Platelet Volume 10.9 FL (9.6-12.0); Monocytes # 0.6 10*3/uL (0.11-0.8); Monocytes % 15.4 % (1.7-12.7); Neutrophils # 1.9 10*3/uL (1.4-7.4); Neutrophils % 53.1 % (38.7-73.9); Platelet Count 130 T/CUMM (130-400); Red Blood Count 2.86 MC/CUMM (3.8-5.5); White Blood Count 3.6 T/CUMM (4-12)
[2017-02-16] MEDS ORDERED: INFLUENZA VIRUS VACCINE 0.5 ML SYRINGE IM ONE (09:14)
[2017-02-16 09:19] LABS: Albumin 2.9 G/DL (3.4-5.0); Bilirubin,Total 0.5 MG/DL (0.2-1.0); Calcium 8.3 MG/DL (8.5-10.1); Osmolality,Calculated 282.3 MOS/KG (273-304); Potassium 2.7 MMOL/L (3.5-5.1); Total Protein 5.7 G/DL (6.4-8.3)
[2017-02-16] MEDS ORDERED: ALUMINUM/MAGNES/SIMETH MAX STR 30 ML UDCUP PO PRN (09:19)
[2017-02-16] MEDS ORDERED: traMADol 50 MG TABLET PO PRN (09:19)
[2017-02-16] MEDS ORDERED: LOPERAMIDE 2 MG CAPSULE PO PRN ×2 (09:19)
[2017-02-16] MEDS ORDERED: chlorproMAZINE INJ 25 MG in SODIUM CHLORIDE 0.9% 100 ML IV PRN (09:19)
[2017-02-16] MEDS ORDERED: MAGNESIUM HYDROXIDE SUSP 30 ML UDCUP PO PRN (09:19)
[2017-02-16] MEDS ORDERED: ONDANSETRON 4 MG/2 ML VIAL IV PRN (09:19)
[2017-02-16] MEDS ORDERED: ALPRAZolam 0.25 MG TABLET PO PRN (09:19)
[2017-02-16] MEDS ORDERED: TEMAZEPAM 7.5 MG CAPSULE PO PRN (09:19)
[2017-02-16] MEDS ORDERED: PROMETHAZINE INJ 25 MG in SODIUM CHLORIDE 0.9% 50 ML IV PRN (09:19)
[2017-02-16] MEDS ORDERED: diphenhydrAMINE CAP 25 MG CAPSULE PO PRN (09:19)
[2017-02-16] MEDS ORDERED: MYLANTA/LIDO VISC 2:1 300 ML BOTTLE SWISH/SPIT PRN (09:19)
[2017-02-16] MEDS ORDERED: guaiFENesin 200 MG/10 ML UDCUP PO PRN (09:19)
[2017-02-16] MEDS ORDERED: chlorproMAZINE 25 MG TABLET PO PRN (09:19)
[2017-02-16] MEDS ORDERED: MYLANTA/LIDO VISC 2:1 300 ML BOTTLE SWISH/SWAL PRN (09:19)
[2017-02-16] MEDS ORDERED: LACTULOSE 20 GM/30 ML UDCUP PO PRN (09:19)
[2017-02-16] MEDS ORDERED: BENZTROPINE 2 MG/2 ML AMP IV PRN (09:19)
[2017-02-16] MEDS ORDERED: chlorproMAZINE INJ 50 MG in SODIUM CHLORIDE 0.9% 100 ML IV PRN (09:19)
[2017-02-16] MEDS ORDERED: ACETAMINOPHEN 325 MG TABLET PO PRN (09:19)
[2017-02-16] MEDS ORDERED: OXALIPLATIN 150 MG in DEXTROSE 5% 250 ML IV ONE (09:30)
[2017-02-16] MEDS ORDERED: LEUCOVORIN INJ 700 MG, LEUCOVORIN INJ 100 MG in DEXTROSE 5% 250 ML IV ONE (09:30)
[2017-02-16] MEDS ORDERED: FLUOROURACIL 800 MG in SYRINGE 1 EACH IV ONE (09:30)
[2017-02-16] MEDS: GRANISETRON 1 MG/1 ML VIAL IV SCH (09:47)
[2017-02-16] MEDS: DEXAMETHASONE 4 MG/1 ML VIAL IV SCH (09:47)
[2017-02-16] MEDS: FLUOROURACIL 1,500 MG in SODIUM CHLORIDE 0.9% 1,000 ML IV SCH (12:45)
--- NOTE | 2017-02-16 13:35 | XRay Report ---
XR chest 2V Indication: Colon cancer. Chest 2 views: Comparison 01/20/2017. Mediport catheter is stable. Heart size remains normal. Mediastinal contours unremarkable. Lungs and pleural spaces remain clear. Impression: No acute cardiopulmonary disease when compared to 01/20/2017. PROCEDURE INTERPRETED AT [facility] DEPARTMENT OF RADIOLOGY Final Report Signed by: Yevgeniy Youssef M.D.
[2017-02-16] MEDS ORDERED: PROCHLORPERAZINE 10 MG TABLET PO PRN (14:13)
[2017-02-16] MEDS ORDERED: DOXEPIN 25 MG CAPSULE PO PRN (14:13)
[2017-02-16] MEDS ORDERED: ONDANSETRON 4 MG TABLET PO PRN (14:13)
--- NOTE | 2017-02-16 14:32 | Gastrointestinal Consult Note ---
Assessment and Plan (1) Adenocarcinoma of sigmoid colon Status: Acute Assessment and plan: By report to this patient had a near obstructing lesion in her sigmoid that does not appear to have progressed since September 2016 (5 months ago), Dr. Lopez would like to visualize the colon again to see if there is been progression of the disease versus improvement to the point where full colonoscopy can be achieved. In case additional biopsies were required for tissue I will go ahead and remove some more tissue in case additional tumor markers required. Risks and benefits were reviewed with the patient the former including but not limited to the following: Bleeding, infection, perforation, cardiac and pulmonary compromise. Further recommendations post colonoscopy tomorrow. Current Visit: Yes (2) Periumbilical pain Status: Acute Assessment and plan: This patient may have some static disease in the abdomen versus colonic irritation caused by diarrhea or fibrosis. Further recommendations post evaluation with colonoscopy tomorrow. Current Visit: Yes (3) Posthemorrhagic anemia Status: Acute Assessment and plan: Patient's hematocrit is down 27% this may be a combination of posthemorrhagic anemia with possibly anemic caused by the underlying chemotherapy. We will continue to observe. If she drops below 24% would consider transfusion of 2 units packed red blood cells. Current Visit: Yes History of Present Illness Chief complaint: Evaluate for progression versus regression of colon cancer since 09/2016 History of present illness: Ms. Espinoza is a 81 year old female who has a history of nausea which resulted in Dr. Valerio Wise (the patient's primary care provider) performing CT scanning which then resulted in her being referred to Dr. Marvel Arreola in [facility] who performed colonoscopy. It sounds like he was able to get up into the colon approximately 2 feet before he found a circumferential mass that basically blocked the further passage of the colonoscope more proximally. CEA level was documented elevated at 58.2 with a CA 19-9 of 2582 back in November [address] Lopez's consult. Biopsies were obtained that confirmed colon cancer. Because of the extensive liver metastases patient really was not a candidate for an immediate surgery. She does not complain of any abdominal pain although there is some on physical examination. She goes to the bathroom approximately 1-4 times per day and does not state that she is having any diarrhea/constipation. She does have some pain on physical palpation of the bilateral lower quadrants on exam. She is not having nausea vomiting, she does not state that she has lost any significant weight. She has now been through 9 courses of chemotherapy including leucovorin/5-FU oxaliplatin and and Avastin. Dr. Lopez would like a repeat colonoscopy at this point to see if there is been regression of the tumor and to visualize the more proximal colon that was not seen on her last colonoscopy. Home Medications Medication Instructions Recorded Confirmed Type Levothyroxine Tab [Synthroid Tab] 75 mcg PO DAILY@0700 10/07/16 02/16/17 History Nebivolol [Bystolic] 5 mg PO DAILY W/SUPPER 10/07/16 02/16/17 History Prochlorperazine Tab [Compazine 10 mg PO Q6H PRN 10/24/16 02/16/17 History Tab] Ondansetron Tab [Zofran Tab] 4 mg PO Q6HR PRN 10/31/16 02/16/17 History Doxepin [SINEquan] 50 mg PO BEDTIME PRN 11/11/16 02/16/17 History Magnesium Chloride [Slow Mag] 64 mg PO BID #60 tablet 12/25/16 02/16/17 Rx Potassium Chloride Cap/Tab [K Dur] 20 meq PO BID W/MEALS #60 12/25/16 02/16/17 Rx Megestrol Liquid [Megace Liquid] 200 mg PO BID 01/20/17 02/16/17 History Allergies Allergy/AdvReac Type Severity Reaction Status Date / Time No Known Allergies Allergy Verified 10/24/16 08:09 Medical,Surgical,& Family Hx - Medical History Cardio: History of: Hypertension Neurology: History of: Migraine (PAST HX.) No history of: Seizures HEENT: History of: Eye Problem (READING GLASSES), Dental Problems (top) Endocrine: History of: Dyslipidemia, Thyroid Disorder Respiratory: No history of: Respiratory Problems (FLU VAC-NO; PNEU VAC- NO.) Genitourinary: History of: Bladder Problem (URINARY INCONTINENCE.) Gastrointestinal: History of: GERD, Liver Problems (LIVER CA. DR LOPEZ.), Gastrointestinal Cancer (colon CA) Other: History of: Cancer (LIVER COLON CA) - Surgical History HEENT Surgeries: Surgical HX of: Eye Surgery (MICHAEL cataract), Tonsilectomy & Adenoidectomy Abdominal Surgeries: Surgical HX of: Colonoscopy, EGD Reproductive Surgeries: Surgical HX of;: Gynecologic Surgery, Hysterectomy Orthopedic Surgeries: Surgical HX of;: Orthopedic Surgery (knee 1950's) - Family History Family History: Reports;: Family Heart Disease (father), Family Hypertension ( Parents, sister) - Social History Smoking Status: Never smoker Review of systems: Constitutional: Denies fever, chills, nausea, and vomiting Eyes: Denies dry eyes, and scleral icterus HENT: She does have some occasional headaches Cardiovascular: Denies acute chest pain and claudication Respiratory: Denies shortness of breath, wheezing, and difficulty breathing, denies cough Gastrointestinal: As noted in the HPI Genitourinary: Denies dysuria and hematuria Neurologic: Denies vision loss, and loss of sensation Musculoskeletal: Complains of some joint swelling, joint stiffness, and muscular weakness Psychiatric: Mild depression without cristal symptoms Heme-Lymph: Denies easy bruising, lymph node enlargement or tenderness, night sweats, excessive bleeding Allergies-immunologic: Denies pruritus and rhinorrhea Exam - Constitutional Vitals: Period Temp Pulse Resp BP Sys/Capellan Pulse Ox Last 24 Hr 97.1 F-97.5 F 73-76 18-20 180-209/80-97 97-98 General appearance: no acute distress Exam: Constitutional: Well-developed, well-nourished, alert, and in no acute distress Head and face: Head: Normocephalic atraumatic Eyes: Conjunctiva without injection, no gross scleral icterus, pupils equal and round bilaterally Ears: Intact to conversation in both ears Nose: External appearance is normal, nares patent Mouth: Oral mucous membranes moist without erythema dentition noted to be without erosion in the lower arch, her upper arch is edentulous Neck: Normal appearance, no masses or tenderness, trachea midline Thyroid: Gland midline and appropriate size for age Respiratory: Normal respiratory effort, clear to auscultation without wheezes, rhonchi or rales Cardiovascular: Regular rate and rhythm, normal S1, S2, the exam is without rubs, murmurs or gallops. Gastrointestinal: Nontender to palpation, normal active bowel sounds, tone normal without rigidity or guarding, no masses present, no hepatomegaly, no spleen tip felt. No rectal exam obtained. Lymphatic: Neck without adenopathy, axilla without lymphadenopathy present Musculoskeletal: Right and left lower extremities without evidence of edema Skin and subcutaneous tissue: No rashes or ulcerations noted, normal skin turgor, digits and nails without clubbing/cyanosis/deformities. Neurologic: The patient is grossly oriented to person place and time, cranial nerves show tongue movements are normal with normal tongue extrusion midline, light touch sensation is intact. Psychiatric: No hallucinations or delusions are present, does not appear depressed Results - Labs CBC & BMP: 02/16/17 08:08 02/16/17 08:05
[2017-02-16] MEDS: BISACODYL 5 MG TABLET PO SCH ×3 (15:32→22:34)
[2017-02-16 16:24] LABS: Apearance,Urine CLEAR (Clear); Bacteria,Urine Occasional /HPF (Few); Bilirubin,Urine Negative (Negative); Blood, Urine Negative (Negative); Glucose,Urine (UA) 50 mg/dL (Negative); Ketones,Urine Negative (Negative); Nitrite,Urine Negative (Negative); Protein,Urine 30 MG/DL; RBC,Urine 1 /HPF (0-4); Urine Color Straw (Yellow); Urine Specific Gravity 1.005 (1.001-1.035); Urine Urobilinogen < 2.0 EU/DL (0.2-1.0); WBC,Urine 1 /HPF (0-6)
[2017-02-16] MEDS ORDERED: POTASSIUM CHLORIDE 20 MEQ TABLET PO SCH (17:00)
[2017-02-16] MEDS ORDERED: POLYETHYLENE GLYCOL POWDER 255 GM BOTTLE PO ONE (17:00)
[2017-02-16] MEDS ORDERED: NEBIVOLOL 5 MG TABLET PO SCH (17:00)
[2017-02-16] MEDS: MEGESTROL 400 MG/10 ML UDCUP PO SCH (20:33)
[2017-02-16] MEDS ORDERED: MAGNESIUM CHLORIDE 64 MG TABLET PO SCH (21:00)
[2017-02-16] MEDS ORDERED: MAGNESIUM CITRATE 300 ML BOTTLE PO ONE (23:46)
[2017-02-17] MEDS: BISACODYL 5 MG TABLET PO SCH (06:44)
[2017-02-17] MEDS: LEVOTHYROXINE 75 MCG TABLET PO SCH (06:44)
[2017-02-17] MEDS ORDERED: MAGNESIUM SULF RIDER 2 GM in PREMIX 1 EACH IV PRN (07:49)
--- NOTE | 2017-02-17 07:52 | Oncology Progress Note ---
Oncology Subjective PN Interval history: Administration of chemotherapy and monitoring of toxicity: We will plan to proceed with course #9 of chemotherapy beginning today. She is hypertensive and Avastin can cause hypertension so I am going to monitor her blood pressure before actually administering Avastin which is given at the end of the chemotherapy course. leucovorin 800 mg and 5-FU 800 mg IV day #1 oxaliplatinum 150 mg IV D#1 5-FU 1500 mg IV over 22 hours daily for 2 days. Avastin 400 mg at the end of chemotherapy. Metastatic stage IV adenocarcinoma the colon: She is scheduled for C scope today to reassess her tumor primary. Recent episode of diverticulitis, resolved: She actually has had no evidence of diverticulitis for the last 2-3 months. Hypokalemia: Hypokalemic on admission. Potassium was 2.7 on admission. Potassium level ordered today is still pending. Adjusting potassium intake. We will increase potassium dose to 40 mEq of potassium chloride twice daily. Repeating serum potassium in the morning. Checking CMP today as well. Hypertension: Blood pressure elevated. We may not give Avastin this time. I will review her blood pressure medications and adjust the dose as necessary. I am increasing the Bystolic to 10 mg p.o. daily. Hypomagnesemia: Magnesium 1.7 on admission. I am doubling her Slow-Mag dose. Repeating magnesium level in the morning Anemia that is multifactorial including GI blood loss, chronic disease and chemotherapy: Exam - Constitutional Vitals: Period Temp Pulse Resp BP Sys/Capellan Pulse Ox Last 24 Hr 97.1 F-98.2 F 71-82 16-20 180-209/74-97 95-98 Results - Labs CBC & BMP: 02/17/17 07:32 02/16/17 08:05
[2017-02-17] MEDS ORDERED: POTASSIUM CHLORIDE 20 MEQ TABLET PO SCH (08:00)
[2017-02-17 08:14] LABS: Hematocrit 30.2 VOL% (35.7-47.0); Hemoglobin 10.2 GM/DL (12.0-16.0); Immature Granulocytes % 0.3 %; Immature Granulocytes Absolute 0.01 #; Lymphocytes # 0.7 10*3/uL (1.4-4.0); Lymphocytes % 17.9 % (21.3-54.2); Mean Corpuscular HGB Conc 33.8 GM/DL (32-36); Mean Corpuscular Hemoglobin 33 PG (27-34); Mean Corpuscular Volume 96.8 FL (87-102); Mean Platelet Volume 10.9 FL (9.6-12.0); Monocytes # 0.4 10*3/uL (0.11-0.8); Monocytes % 10.6 % (1.7-12.7); Neutrophils # 2.6 10*3/uL (1.4-7.4); Neutrophils % 71.2 % (38.7-73.9); Platelet Count 169 T/CUMM (130-400); Red Blood Count 3.12 MC/CUMM (3.8-5.5); Red Cell Distribution Width 14.9 % (9.3-17.3); White Blood Count 3.7 T/CUMM (4-12)
[2017-02-17] MEDS: POTASSIUM CHLORIDE RIDER 10 MEQ in PREMIX 1 EACH IV SCH ×4 (08:18→11:29)
[2017-02-17 08:37] LABS: Bilirubin,Total 0.6 MG/DL (0.2-1.0); Calcium 8.4 MG/DL (8.5-10.1); Osmolality,Calculated 280.3 MOS/KG (273-304); Potassium 2.6 MMOL/L (3.5-5.1); Total Protein 6.1 G/DL (6.4-8.3)
[2017-02-17] MEDS: GRANISETRON 1 MG/1 ML VIAL IV SCH (09:11)
[2017-02-17] MEDS: DEXAMETHASONE 4 MG/1 ML VIAL IV SCH (09:15)
[2017-02-17] MEDS: NEBIVOLOL 10 MG TABLET PO SCH (09:45)
[2017-02-17] MEDS: FLUOROURACIL 1,500 MG in SODIUM CHLORIDE 0.9% 1,000 ML IV SCH (11:31)
[2017-02-17] MEDS: MEGESTROL 400 MG/10 ML UDCUP PO SCH ×2 (12:33→20:52)
[2017-02-17] MEDS: POTASSIUM CHLORIDE 20 MEQ TABLET PO SCH ×2 (12:33→20:52)
[2017-02-17] MEDS ORDERED: MAGNESIUM CITRATE 300 ML BOTTLE PO ONE (18:00)
--- NOTE | 2017-02-17 18:25 | Gastrointestinal Progress Note ---
Assessment and Plan (1) Adenocarcinoma of sigmoid colon Status: Acute Assessment and plan: By report to this patient had a near obstructing lesion in her sigmoid that does not appear to have progressed since September 2016 (5 months ago), Dr. Ochoa would like to visualize the colon again to see if there is been progression of the disease versus improvement to the point where full colonoscopy can be achieved. In case additional biopsies were required for tissue I will go ahead and remove some more tissue in case additional tumor markers required. Risks and benefits were reviewed with the patient the former including but not limited to the following: Bleeding, infection, perforation, cardiac and pulmonary compromise. Further recommendations post colonoscopy tomorrow. 02/17/17--The patient was not able to undergo colonoscopy this morning as her potassium was noted to be 2.6. This has since corrected and is now at 3.2 as of our last check. We should be checking another potassium early tomorrow morning in order to establish this is in the normal range prior to proceeding with the endoscopic evaluation of her colon. Will obtain further tissue for Dr. Ochoa to utilize if he decides on further tumor markers. Current Visit: Yes (2) Periumbilical pain Status: Acute Assessment and plan: This patient may have some static disease in the abdomen versus colonic irritation caused by diarrhea or fibrosis. Further recommendations post evaluation with colonoscopy tomorrow. 02/17/17--this appears to be doing better now that her stool has completely passed. Current Visit: Yes (3) Posthemorrhagic anemia Status: Acute Assessment and plan: Patient's hematocrit is down 27% this may be a combination of posthemorrhagic anemia with possibly anemic caused by the underlying chemotherapy. We will continue to observe. If she drops below 24% would consider transfusion of 2 units packed red blood cells. 02/17/17--The patient's hematocrit is actually increased from 27-->30% likely with hemoconcentration due to the bowel prep. We will continue to follow as the patient completes her chemotherapy and gets her colonoscopy tomorrow. This should occur sometime between 7:00 and 9:00 in the morning. Current Visit: Yes Gastroenterology - PN: Subj Interval history: Unfortunately, the patient's low potassium did not allow us to perform her colonoscopy this morning. She has responded quite nicely to the potassium riders given as well as oral potassium and I expect that she will be in the normal range tomorrow for this colonoscopy. She should certainly be adequately cleaned out now that she has had another dose of magnesium citrate this evening on top of the clear liquids that she had today. She is hungry and in good spirits. Exam (Progress Note) - Constitutional Vitals: Period Temp Pulse Resp BP Sys/Capellan Pulse Ox Last 24 Hr 96.1 F-98.7 F 71-82 16-20 162-200/74-87 96-97 General appearance: no acute distress - Head Head exam: Present: normocephalic - Eye Eye exam: Present: EOMI Pupils: Present: TAQUERIA - Respiratory Respiratory exam: Present: clear to auscultation bilaterally. Absent: rhonchi, stridor, wheezes - Cardiovascular Cardiovascular exam: Present: regular rate and rhythm - GI/Abdominal GI/Abdominal exam: Present: normal bowel sounds, soft. Absent: distended, guarding, tenderness, rebound - Extremities Exam Extremities exam: Present: edema (Trace) - Neurological Exam Neurological exam: Present: alert, oriented X3 - Psychiatric Psychiatric exam: Present: normal affect, normal mood - Skin Skin exam: Present: warm Results - Labs CBC & BMP: 02/17/17 07:32 02/17/17 13:05
[2017-02-18] MEDS: LEVOTHYROXINE 75 MCG TABLET PO SCH (06:10)
[2017-02-18 06:51] LABS: Hematocrit 28.3 VOL% (35.7-47.0); Hemoglobin 9.3 GM/DL (12.0-16.0); Lymphocytes # 0.6 10*3/uL (1.4-4.0); Lymphocytes % 21.1 % (21.3-54.2); Mean Corpuscular HGB Conc 32.9 GM/DL (32-36); Mean Corpuscular Hemoglobin 32 PG (27-34); Mean Corpuscular Volume 96.9 FL (87-102); Mean Platelet Volume 11.3 FL (9.6-12.0); Monocytes # 0.4 10*3/uL (0.11-0.8); Neutrophils # 1.9 10*3/uL (1.4-7.4); Neutrophils % 65.9 % (38.7-73.9); Platelet Count 162 T/CUMM (130-400); Red Blood Count 2.92 MC/CUMM (3.8-5.5); White Blood Count 2.8 T/CUMM (4-12)
[2017-02-18 07:16] LABS: Calcium 7.8 MG/DL (8.5-10.1); Magnesium 2.7 MG/DL (1.8-2.4); Osmolality,Calculated 286.8 MOS/KG (273-304); Potassium 3.8 MMOL/L (3.5-5.1)
[2017-02-18 07:35] LABS: Albumin 2.8 G/DL (3.4-5.0); Bilirubin,Total 0.7 MG/DL (0.2-1.0); Osmolality,Calculated 285.8 MOS/KG (273-304); Potassium 3.8 MMOL/L (3.5-5.1); Total Protein 5.8 G/DL (6.4-8.3)
--- NOTE | 2017-02-18 07:45 | Oncology Progress Note ---
Oncology Subjective PN Interval history: Diagnoses: Administration of chemotherapy and monitoring of toxicity: This patient received her ninth course of the following chemotherapy: leucovorin 800 mg and 5-FU 800 mg IV day #1 oxaliplatinum 150 mg IV D#1 5-FU 1500 mg IV over 22 hours daily for 2 days. Avastin was held because of the patient's hypertension. Metastatic stage IV adenocarcinoma the colon: She is undergoing colonoscopy prior to discharge. Recent episode of diverticulitis, resolved: She actually has had no evidence of diverticulitis for the last 2-3 months. Hypokalemia: Improved with treatment Hypomagnesemia: Improved with treatment Anemia that is multifactorial including GI blood loss, chronic disease and chemotherapy: Hemoglobin 9.3 today. During this hospital stay the patient underwent colonoscopy by Dr. Rboins. His findings were as follows: FINDINGS: The musoca appeared normal in the following regions: descending colon, splenic flexure, transverse colon, hepatic flexure, and ascending colon . Position within the cecum was confirmed by ileocecal valve, appendiceal oriface, and the convergence of folds (crows foot). No colitis, mass or AVM was noted throughout the colon. The patient had 3 small polyps noted in the cecal area all removed by snare polypectomy as well as an appendiceal polypoid lesion removed by snare these range in size between 8 and 10 mm. There was a diverticular narrowing although it is possible this may be residual cancer area post chemotherapy with no gross evidence of cancer remaining, a single polyp was removed from this area it ranged between 28-33 cm, and biopsies were obtained of the tissue wall as well as the polyp here. There was a larger polypoid lesion at 18 cm it was removed with snare polypectomy, this area was marked with tattoo. It was within 5 cm of the strictured area. Heavy left- sided diverticulosis in the descending and sigmoid regions noted. Intubation of the TI was achieved x 5 cm with normal appearence IMPRESSION: I could not determine an area of classic cancer involvement. There was a large polyp noted 18 cm that was removed by snare polypectomy and the area between 28 and 33 cm was biopsied as this was thought site of the presumed cancer. Biopsies were also taken of polyps noted in the appendix cecal region. The patient has had an excellent response to chemotherapy. Any evidence of a primary tumor no longer exist with the exception of the fact that the patient has a large polyp that has been sent for evaluation by pathology. The patient will complete chemotherapy today and will be discharged. I am scheduling her to return for readmission on March 03 and we will continue chemotherapy at that time. This is been an excellent response to chemotherapy so far. Exam - Constitutional Vitals: Period Temp Pulse Resp BP Sys/Capellan Pulse Ox Last 24 Hr 96.1 F-98.8 F 57-80 16-20 162-199/75-93 96-98 Results - Labs CBC & BMP: 02/18/17 04:36 02/18/17 04:37
[2017-02-18] MEDS ORDERED: LIDOCAINE 1% 5 ML VIAL ONE (07:53)
[2017-02-18] MEDS ORDERED: PROPOFOL 200 MG/20 ML VIAL IV ONE (07:53)
--- NOTE | 2017-02-18 08:45 | Operative Note ---
Date of procedure: 02/18/17 Pre-op diagnosis: Prior history of colon cancer thought to be sigmoid, post chemo Post-op diagnosis: other (I could not determine an area of classic cancer involvement. There was a large polyp noted 18 cm that was removed by snare polypectomy and the area between 28 and 33 cm was biopsied as this was thought site of the presumed cancer. Biopsies were also taken of polyps noted in the appendix cecal region.) Procedure: PROCEDURE: Colonoscopy with cold biopsy for pathology, hot snare polypectomy and Kalani ink tattooing of large polyp site. REFERRING PHYSICIAN: Dr. Yevgeniy Ochoa MD INDICATIONS: This is a patient who has a history of colon cancer discovered by Dr. Arreola in September 2016 now here for evaluation postchemotherapy by Dr. Ochoa. The prior H&P was reviewed and interrim changes are as noted: No change from GI consultation 2 days ago ENDOSCOPIST: Roland Robins MD ENDOSCOPE: [employer] Video 100 System colonoscope COLON PREPARATION: 238 gm of PEG containing laxative and 1.9 liters of gatoraid/sports drink and dulcolax 15 mg q8 hours x 3 ASA CLASS: 4 EXAM: CV: regular rate and rhythm Respiratory: Clear without wheezes Abdominal: active bowel sounds Rectal: Good tone, no fissures or fistulas MEDICATION: Per nursing anesthesia protocol, see their notes PROCEDURE: After discussion of the potential risks and benefits of colonoscopy, the informed consent was obtained, from patient or health care surrogate. The patient was then placed in the left lateral decubitus position where sedation was achieved as noted above. Rectal examination was followed by insertion of the colonoscope. The colonoscope was passed under direct visualization to the cecum. Advancement was facilitated by insertion/withdrawl techniques, abdominal pressure and patient positioning. Once the cecal pole was reached, slow withdrawal was performed with the findings as noted below. The patient tolerated the procedure well and without complication. QUALITY OF PREP: Excellent WITHDRAWL TIME: 10 minutes 13 seconds BIOPSIES: Appendix/cecal polyps 3, IC valve polyp 1, sigmoid stricture biopsies with polyp 1, 18 cm polyp in the rectosigmoid PHOTOGRAPHS: Obtained FINDINGS: The musoca appeared normal in the following regions: descending colon, splenic flexure, transverse colon, hepatic flexure, and ascending colon . Position within the cecum was confirmed by ileocecal valve, appendiceal oriface, and the convergence of folds (crows foot). No colitis, mass or AVM was noted throughout the colon. The patient had 3 small polyps noted in the cecal area all removed by snare polypectomy as well as an appendiceal polypoid lesion removed by snare these range in size between 8 and 10 mm. There was a diverticular narrowing although it is possible this may be residual cancer area post chemotherapy with no gross evidence of cancer remaining, a single polyp was removed from this area it ranged between 28-33 cm, and biopsies were obtained of the tissue wall as well as the polyp here. There was a larger polypoid lesion at 18 cm it was removed with snare polypectomy, this area was marked with tattoo. It was within 5 cm of the strictured area. Heavy left- sided diverticulosis in the descending and sigmoid regions noted. Intubation of the TI was achieved x 5 cm with normal appearence IMPRESSION: I could not determine an area of classic cancer involvement. There was a large polyp noted 18 cm that was removed by snare polypectomy and the area between 28 and 33 cm was biopsied as this was thought site of the presumed cancer. Biopsies were also taken of polyps noted in the appendix cecal region. RECOMMENDATIONS: High fiber diet Consider PET scanning if this is not already been done Repeat colonosocopy will be in 1-5 years depending on pathology the polyps removed. Citrucel 1 tablespoon in 12 oz juice BID: 1 bottle: :11 Follow up by phone for biopsy results in 1-2 weeks by phone Roland Robins MD COPY TO: Dr. Yevgeniy Ochoa MD Anesthesia: MAC Surgeon / Physician: Roland Robins Estimated blood loss: minimal Specimens: other (Cecum/IC valve polyps, larger polyp in the rectosigmoid region at 18 cm, area of possible cancer involvement at 28-33 cm) Condition: stable Disposition: post procedure unit ([facility]) Results - Labs CBC & BMP: 02/18/17 04:36 02/18/17 04:37 Discharge Plan - Discharge Medications Continue Nebivolol [Bystolic] 5 mg PO DAILY W/SUPPER Levothyroxine Tab [Synthroid Tab] 75 mcg PO DAILY@0700 Ondansetron Tab [Zofran Tab] 4 mg PO Q6HR PRN PRN Reason: Nausea Megestrol Liquid [Megace Liquid] 200 mg PO BID Prochlorperazine Tab [Compazine Tab] 10 mg PO Q6H PRN PRN Reason: Nausea Doxepin [SINEquan] 50 mg PO BEDTIME PRN PRN Reason: Sleep Potassium Chloride Cap/Tab [K Dur] 20 meq PO BID W/MEALS #60 Magnesium Chloride [Slow Mag] 64 mg PO BID #60 tablet - Follow Up or Referral - Forms/Instructions
--- NOTE | 2017-02-18 08:49 | Gastrointestinal Progress Note ---
Assessment and Plan (1) Adenocarcinoma of sigmoid colon Status: Acute Assessment and plan: By report to this patient had a near obstructing lesion in her sigmoid that does not appear to have progressed since September 2016 (5 months ago), Dr. Ochoa would like to visualize the colon again to see if there is been progression of the disease versus improvement to the point where full colonoscopy can be achieved. In case additional biopsies were required for tissue I will go ahead and remove some more tissue in case additional tumor markers required. Risks and benefits were reviewed with the patient the former including but not limited to the following: Bleeding, infection, perforation, cardiac and pulmonary compromise. Further recommendations post colonoscopy tomorrow. 02/17/17--The patient was not able to undergo colonoscopy this morning as her potassium was noted to be 2.6. This has since corrected and is now at 3.2 as of our last check. We should be checking another potassium early tomorrow morning in order to establish this is in the normal range prior to proceeding with the endoscopic evaluation of her colon. Will obtain further tissue for Dr. Ochoa to utilize if he decides on further tumor markers. 02/18/17--Colonoscopy results are as follows: I could not determine an area of classic cancer involvement. There was a large polyp noted 18 cm that was removed by snare polypectomy and the area between 28 and 33 cm was biopsied as this was thought site of the presumed cancer. It did not appear to be classic cancer at this time. See photos. Biopsies were also taken of polyps noted in the appendix cecal region. Current Visit: Yes (2) Periumbilical pain Status: Acute Assessment and plan: This patient may have some static disease in the abdomen versus colonic irritation caused by diarrhea or fibrosis. Further recommendations post evaluation with colonoscopy tomorrow. 02/17/17--this appears to be doing better now that her stool has completely passed. 02/18/17--Doing better, prior to the colonoscopy Current Visit: Yes (3) Posthemorrhagic anemia Status: Acute Assessment and plan: Patient's hematocrit is down 27% this may be a combination of posthemorrhagic anemia with possibly anemic caused by the underlying chemotherapy. We will continue to observe. If she drops below 24% would consider transfusion of 2 units packed red blood cells. 02/17/17--The patient's hematocrit is actually increased from 27-->30% likely with hemoconcentration due to the bowel prep. We will continue to follow as the patient completes her chemotherapy and gets her colonoscopy tomorrow. This should occur sometime between 7:00 and 9:00 in the morning. 02/18/17--Patient's hematocrit is stable, potassium replaced to 3.8. No bleeding site identified on colonoscopy until biopsies taken. Current Visit: Yes Gastroenterology - PN: Subj Interval history: See above patient doing fine Exam (Progress Note) - Constitutional Vitals: Period Temp Pulse Resp BP Sys/Capellan Pulse Ox Last 24 Hr 96.1 F-98.8 F 57-80 16-20 140-199/64-93 96-99 General appearance: mild distress - Head Head exam: Present: normocephalic - Eye Eye exam: Present: EOMI Pupils: Present: TAQUERIA - Respiratory Respiratory exam: Present: clear to auscultation bilaterally - Cardiovascular Cardiovascular exam: Present: regular rate and rhythm - GI/Abdominal GI/Abdominal exam: Present: normal bowel sounds, soft. Absent: distended, tenderness, rebound - Neurological Exam Neurological exam: Present: alert, oriented X3 - Psychiatric Psychiatric exam: Present: normal affect, normal mood - Skin Skin exam: Present: warm Results - Labs CBC & BMP: 02/18/17 04:36 02/18/17 04:37
--- NOTE | 2017-02-18 08:51 | Anesthesia Post-Op ---
Anesthesia Post OP - Post Ansesthetic Evaluation Patient seen in post op: Yes Resp: within normal limits CV: within normal limits Mental: within normal limits Temp: within normal limits [id number]: within normal limits Nausea and Vomiting: within normal limits Pain: within normal limits
--- NOTE | 2017-02-18 08:57 | Discharge Summary ---
Hospital Course - Hospital Course Hospital Course: Diagnoses: Administration of chemotherapy and monitoring of toxicity: This patient received her ninth course of the following chemotherapy: leucovorin 800 mg and 5-FU 800 mg IV day #1 oxaliplatinum 150 mg IV D#1 5-FU 1500 mg IV over 22 hours daily for 2 days. Avastin was held because of the patient's hypertension. Metastatic stage IV adenocarcinoma the colon: She is undergoing colonoscopy prior to discharge. Recent episode of diverticulitis, resolved: She actually has had no evidence of diverticulitis for the last 2-3 months. Hypokalemia: Improved with treatment Hypomagnesemia: Improved with treatment Anemia that is multifactorial including GI blood loss, chronic disease and chemotherapy: Hemoglobin 9.3 today. During this hospital stay the patient underwent colonoscopy by Dr. Robins. His findings were as follows: FINDINGS: The musoca appeared normal in the following regions: descending colon, splenic flexure, transverse colon, hepatic flexure, and ascending colon . Position within the cecum was confirmed by ileocecal valve, appendiceal oriface, and the convergence of folds (crows foot). No colitis, mass or AVM was noted throughout the colon. The patient had 3 small polyps noted in the cecal area all removed by snare polypectomy as well as an appendiceal polypoid lesion removed by snare these range in size between 8 and 10 mm. There was a diverticular narrowing although it is possible this may be residual cancer area post chemotherapy with no gross evidence of cancer remaining, a single polyp was removed from this area it ranged between 28-33 cm, and biopsies were obtained of the tissue wall as well as the polyp here. There was a larger polypoid lesion at 18 cm it was removed with snare polypectomy, this area was marked with tattoo. It was within 5 cm of the strictured area. Heavy left- sided diverticulosis in the descending and sigmoid regions noted. Intubation of the TI was achieved x 5 cm with normal appearence IMPRESSION: I could not determine an area of classic cancer involvement. There was a large polyp noted 18 cm that was removed by snare polypectomy and the area between 28 and 33 cm was biopsied as this was thought site of the presumed cancer. Biopsies were also taken of polyps noted in the appendix cecal region. The patient has had an excellent response to chemotherapy. Any evidence of a primary tumor no longer exist with the exception of the fact that the patient has a large polyp that has been sent for evaluation by pathology. The patient will complete chemotherapy today and will be discharged. I am scheduling her to return for readmission on March 03 and we will continue chemotherapy at that time. This is been an excellent response to chemotherapy so far. Discharge Plan - Discharge Data Disposition: Disch To Home/Self Care Condition at Discharge: Guarded Discharge Diet: advance to your usual diet Activity: resume usual activities as tolerated Hygiene: no restrictions Weight Bearing at Discharge: weight bear as tolerated Driving: other Contact your physician if you experience:: fever over 101, Difficulty voiding, Redness or swelling, Nausea/Vomiting, Shortness of breath, Bleeding, pain uncontrolled by pain medications - Discharge Medications Continue Nebivolol [Bystolic] 5 mg PO DAILY W/SUPPER Levothyroxine Tab [Synthroid Tab] 75 mcg PO DAILY@0700 Ondansetron Tab [Zofran Tab] 4 mg PO Q6HR PRN PRN Reason: Nausea Megestrol Liquid [Megace Liquid] 200 mg PO BID Prochlorperazine Tab [Compazine Tab] 10 mg PO Q6H PRN PRN Reason: Nausea Doxepin [SINEquan] 50 mg PO BEDTIME PRN PRN Reason: Sleep Magnesium Chloride [Slow Mag] 128 mg PO BID #60 tablet Changed Potassium Chloride Cap/Tab [K Dur] 20 meq PO BID W/MEALS #120 tablet - Follow Up or Referral - Forms/Instructions Additional Discharge Instructions: Instruct the patient to increase the Slow- Mag dose to 2 tablets of 62 milligrams p.o. twice daily and increase the potassium chloride tablets 20 mEq to 2 tablets twice daily. Return March 03. Check CBC and if it is acceptable admit the patient for chemotherapy using routine orders plus CEA plus CA-19-9 and chest x-ray PA and lateral. Plan to repeat the same chemotherapy but asked me about Avastin. Exam - Constitutional Vitals: Period Temp Pulse Resp BP Sys/Capellan Pulse Ox Last 24 Hr 96.1 F-98.8 F 57-80 16-20 140-199/64-090 96-99 Discharge Results Procedures and tests throughout hospitalization: Pending Orders 02/19/17 04:00 Comp Blood Count Auto Diff IN AM Comprehensive Metabolic Panel IN AM 02/20/17 04:00 Comp Blood Count Auto Diff IN AM Comprehensive Metabolic Panel IN AM 02/21/17 04:00 Comp Blood Count Auto Diff IN AM Comprehensive Metabolic Panel IN AM 02/22/17 04:00 Comp Blood Count Auto Diff IN AM Comprehensive Metabolic Panel IN AM 02/23/17 04:00 Comp Blood Count Auto Diff IN AM Comprehensive Metabolic Panel IN AM Labs on day of discharge: Labs from last 24 hours 02/18/17 02/18/17 02/18/17 04:37 04:36 04:36 WBC RBC Hgb Hct MCV MCH MCHC RDW Plt Count MPV Neut % (Auto) Lymph % (Auto) Slope % (Auto) Eos % (Auto) Baso % (Auto) Neut # (Auto) Lymph # (Auto) Slope # (Auto) Eos # (Auto) Baso # (Auto) Immature Gran % Nucleated RBC % Immature Gran # Nucleated RBCs # Immature Plt Fraction Sodium 144 144 Potassium 3.8 3.8 Chloride 111 H 111 H Carbon Dioxide 23 23 Anion Gap 13.8 13.8 BUN 13 11 Creatinine 0.50 L 0.50 L GFR Calculation 95 95 BUN/Creatinine Ratio 26.00 H 22.00 H Glucose 109 H 108 H Calculated Osmolality 286.8 285.8 Calcium 7.8 L 8.0 L Magnesium 2.7 H 2.7 H Total Bilirubin 0.70 AST 37 ALT 32 Alkaline Phosphatase 86 Total Protein 5.8 L Albumin 2.8 L Globulin 3.0 Albumin/Globulin Ratio 0.9 L 02/18/17 02/17/17 04:36 13:05 WBC 2.8 L RBC 2.92 L Hgb 9.3 L Hct 28.3 L MCV 96.9 MCH 32 MCHC 32.9 RDW 15.0 Plt Count 162 MPV 11.3 Neut % (Auto) 65.9 Lymph % (Auto) 21.1 L Slope % (Auto) 13.0 H Eos % (Auto) 0.0 Baso % (Auto) 0.0 Neut # (Auto) 1.9 Lymph # (Auto) 0.6 L Slope # (Auto) 0.4 Eos # (Auto) 0.0 Baso # (Auto) 0.0 Immature Gran % 0.0 Nucleated RBC % 0.0 Immature Gran # 0.00 Nucleated RBCs # 0.00 Immature Plt Fraction 0.0 Sodium Potassium 3.2 L Chloride Carbon Dioxide Anion Gap BUN Creatinine GFR Calculation BUN/Creatinine Ratio Glucose Calculated Osmolality Calcium Magnesium Total Bilirubin AST ALT Alkaline Phosphatase Total Protein Albumin Globulin Albumin/Globulin Ratio DS: Provider Date of admission: 02/16/17 06:44 Primary care physician: Valerio Wise Attending physician on admission: Yevgeniy Ochoa MD Consults: 02/16/17 09:00 Consult to Physician [CONS] Routine Comment: Consulting Provider: Roland Robins Consulting Provider Notified: Yes When should Consulting Provider be notified: Now Consult to Specialist Group: Gastroenterology When should Consulting Provider be notified: Now Person Notified: BILLY Date Notified: 02/16/17 Time Notified: 09:05 Discharging clinician: Yevgeniy Ochoa MD
[2017-02-18] MEDS: DEXAMETHASONE 4 MG/1 ML VIAL IV SCH (10:04)
[2017-02-18] MEDS: GRANISETRON 1 MG/1 ML VIAL IV SCH (10:04)
[2017-02-18] MEDS: MEGESTROL 400 MG/10 ML UDCUP PO SCH (10:05)
[2017-02-18] MEDS: POTASSIUM CHLORIDE 20 MEQ TABLET PO SCH (10:05)
[2017-02-18] MEDS: NEBIVOLOL 10 MG TABLET PO SCH (10:05)
[2017-02-18 11:31] VITALS: BP 163/90
[2017-02-18] MEDS ORDERED: HEPARIN LOCK FLUSH 500 UNIT/5 ML SYRINGE IV ONE (14:31)
--- NOTE | 2017-02-19 19:17 | Pathology Report from [facility] ---
[facility] ACCESSION # : [id number] PATIENT NAME : Elsa Arambula ORDERING DR : Roland Robins MD CLINICAL HX: HX colon CA POST-OP DX: Same SPECIMEN INFO: #1 Sigmoid colon polyp 18 cm #2 Ascending colon polyp #3 Appendix BX/cecum colon polyp #4 Sigmoid @ 34 cm GROSS DESCRIPTION: #1 Received in formalin labeled with the patients name ELSA ARAMBULA and #1 consists of a pink-chi polypoid mass measuring 1.5 x 1.4 x 1.2 cm. Sectioned and submitted in cassette #1.#2 Received in formalin labeled with the patients name ELSA ARAMBULA and #2 consists of a 0.5 x 0.4 cm aggregate of chi tissue. Submitted in cassette #2.#3 Received in formalin labeled with the patients name ELSA ARAMBULA and #3 consists of a 1.8 x 1.1 cm aggregate of pink-chi tissue. Submitted in cassette #3.#4 Received in formalin labeled with the patients name ELSA ARAMBULA and #4 consists of a 0.6 x 0.4 cm aggregate of chi tissue. Submitted in cassette #4. DIAGNOSIS FOR ELSA ARAMBULA: #1 SIGMOID COLON POLYP @ 18 CM, POLYPECTOMY: Tubulovillous adenoma.#2 ASCENDING COLON POLYP, BIOPSY: Tubular adenoma.#3 APPENDIX & CECAL POLYP, BIOPSIES: Fragments of tubular adenoma, hyperplastic and benign colonic mucosa.#4 SIGMOID COLON @ 34 CM, BIOPSY: Fragments of benign colonic mucosa. COLLECTED DATE: 02/18/2017 [facility] REPORT DATE: 02/19/2017 ELECTRONICALLY SIGNED BY: Xochitl Amaya M.D. 02/19/2017 - 12:51:48 [facility] CENTERMargot
== END 2017-02-18 15:40 | disposition home health service, planned readmission (86) | DRG 847 ==
LOC: N.4E 06:44
PROVIDERS: ADMIT Specialist; ATTEND Specialist

== ENCOUNTER 2017-03-03 07:20 | Inpatient (IN) ==
[2017-03-03] MEDS ORDERED: guaiFENesin 200 MG/10 ML UDCUP PO PRN (08:21)
[2017-03-03] MEDS ORDERED: chlorproMAZINE 25 MG TABLET PO PRN (08:21)
[2017-03-03] MEDS ORDERED: ALPRAZolam 0.25 MG TABLET PO PRN (08:21)
[2017-03-03] MEDS ORDERED: MAGNESIUM HYDROXIDE SUSP 30 ML UDCUP PO PRN (08:21)
[2017-03-03] MEDS ORDERED: ACETAMINOPHEN 325 MG TABLET PO PRN (08:21)
[2017-03-03] MEDS ORDERED: LOPERAMIDE 2 MG CAPSULE PO PRN ×2 (08:21)
[2017-03-03] MEDS ORDERED: diphenhydrAMINE CAP 25 MG CAPSULE PO PRN (08:21)
[2017-03-03] MEDS ORDERED: LACTULOSE 20 GM/30 ML UDCUP PO PRN (08:21)
[2017-03-03] MEDS ORDERED: MYLANTA/LIDO VISC 2:1 300 ML BOTTLE SWISH/SWAL PRN (08:21)
[2017-03-03] MEDS ORDERED: MYLANTA/LIDO VISC 2:1 300 ML BOTTLE SWISH/SPIT PRN (08:21)
[2017-03-03] MEDS ORDERED: PROMETHAZINE INJ 25 MG in SODIUM CHLORIDE 0.9% 50 ML IV PRN (08:21)
[2017-03-03] MEDS ORDERED: BENZTROPINE 2 MG/2 ML AMP IV PRN (08:21)
[2017-03-03] MEDS ORDERED: TEMAZEPAM 7.5 MG CAPSULE PO PRN (08:21)
[2017-03-03] MEDS ORDERED: chlorproMAZINE INJ 25 MG in SODIUM CHLORIDE 0.9% 100 ML IV PRN (08:21)
[2017-03-03] MEDS ORDERED: chlorproMAZINE INJ 50 MG in SODIUM CHLORIDE 0.9% 100 ML IV PRN (08:21)
[2017-03-03] MEDS ORDERED: traMADol 50 MG TABLET PO PRN (08:21)
[2017-03-03] MEDS ORDERED: INFLUENZA VIRUS VACCINE 0.5 ML SYRINGE IM ONE (08:31)
[2017-03-03 08:51] LABS: Basophils % 0.6 % (0.0-0.8); Eosinophils % 1.1 % (0.00-10.9); Hematocrit 35.4 VOL% (35.7-47.0); Hemoglobin 11.6 GM/DL (12.0-16.0); Immature Granulocytes % 0.6 %; Immature Granulocytes Absolute 0.02 #; Lymphocytes # 1.2 10*3/uL (1.4-4.0); Lymphocytes % 35.5 % (21.3-54.2); Mean Corpuscular HGB Conc 32.8 GM/DL (32-36); Mean Corpuscular Hemoglobin 31 PG (27-34); Mean Corpuscular Volume 95.9 FL (87-102); Mean Platelet Volume 10.8 FL (9.6-12.0); Monocytes # 0.7 10*3/uL (0.11-0.8); Monocytes % 19.5 % (1.7-12.7); Neutrophils # 1.5 10*3/uL (1.4-7.4); Neutrophils % 42.7 % (38.7-73.9); Platelet Count 255 T/CUMM (130-400); Red Blood Count 3.69 MC/CUMM (3.8-5.5); Red Cell Distribution Width 15.5 % (9.3-17.3); White Blood Count 3.5 T/CUMM (4-12)
[2017-03-03] MEDS ORDERED: ONDANSETRON 4 MG TABLET PO PRN (09:09)
[2017-03-03] MEDS ORDERED: tiZANidine 4 MG TABLET PO PRN (09:09)
[2017-03-03 09:11] LABS: Giant Platelets Few; Hypochromasia 1+; Lymphocytes 32 % (20-55); Ovalocytes Slight; Platelet Estimate Adequate; Segmented Neutrophils 47 % (50-85); Total Cells Counted 100
[2017-03-03 09:27] LABS: Albumin 3.3 G/DL (3.4-5.0); Bilirubin,Total 0.8 MG/DL (0.2-1.0); Calcium 9.6 MG/DL (8.5-10.1); Magnesium 1.4 MG/DL (1.8-2.4); Osmolality,Calculated 274.7 MOS/KG (273-304); Potassium 3.9 MMOL/L (3.5-5.1); Total Protein 6.5 G/DL (6.4-8.3); Uric Acid 3.4 MG/DL (2.6-6.0)
[2017-03-03] MEDS: HYDROmorphone 2 MG/1 ML VIAL IV PRN ×3 (09:56→20:33)
[2017-03-03] MEDS: MAGNESIUM CHLORIDE 64 MG TABLET PO SCH ×2 (11:13→20:33)
[2017-03-03] MEDS: DEXT 5% NACL 0.45% KCL 20 MEQ 20 MEQ/1,000 ML BAG IV SCH ×2 (11:13→20:32)
[2017-03-03] MEDS: levETIRAcetam 500 MG TABLET PO SCH ×2 (11:13→20:33)
[2017-03-03] MEDS: ONDANSETRON 4 MG/2 ML VIAL IV PRN (11:27)
[2017-03-03 16:12] LABS: Apearance,Urine CLEAR (Clear); Bilirubin,Urine Negative (Negative); Blood, Urine Negative (Negative); Glucose,Urine (UA) 150 mg/dL (Negative); Ketones,Urine 5 mg/dL (Negative); Mucus,Urine Occasional /LPF (Occasional); Nitrite,Urine Negative (Negative); Protein,Urine Negative; RBC,Urine 1 /HPF (0-4); Urine Color Yellow (Yellow); WBC,Urine 2 /HPF (0-6)
[2017-03-03] MEDS: POTASSIUM CHLORIDE 20 MEQ TABLET PO SCH (17:27)
[2017-03-03] MEDS: NEBIVOLOL 5 MG TABLET PO SCH (17:28)
[2017-03-03] MEDS ORDERED: ceFAZolin 2,000 MG in PREMIX 1 EACH IV ONE (17:35)
[2017-03-03] MEDS: ALUMINUM/MAGNES/SIMETH MAX STR 30 ML UDCUP PO PRN (20:40)
[2017-03-04] MEDS: DEXT 5% NACL 0.45% KCL 20 MEQ 20 MEQ/1,000 ML BAG IV SCH (04:41)
[2017-03-04 05:34] LABS: Basophils % 0.2 % (0.0-0.8); Hematocrit 34.2 VOL% (35.7-47.0); Hemoglobin 11.1 GM/DL (12.0-16.0); Immature Granulocytes % 0.6 %; Lymphocytes % 29.3 % (21.3-54.2); Mean Corpuscular HGB Conc 32.5 GM/DL (32-36); Mean Corpuscular Hemoglobin 32 PG (27-34); Mean Corpuscular Volume 98.8 FL (87-102); Mean Platelet Volume 10.9 FL (9.6-12.0); Neutrophils % 49.9 % (38.7-73.9); Platelet Count 264 T/CUMM (130-400); Red Blood Count 3.46 MC/CUMM (3.8-5.5); Red Cell Distribution Width 15.6 % (9.3-17.3); White Blood Count 5.2 T/CUMM (4-12)
[2017-03-04 05:35] LABS: Eosinophils # 0.1 10*3/uL (0.0-0.87); Immature Granulocytes Absolute 0.03 #; Lymphocytes # 1.5 10*3/uL (1.4-4.0); Neutrophils # 2.6 10*3/uL (1.4-7.4)
[2017-03-04 06:08] LABS: Eosinophils 3 % (0-10); Lymphocytes 28 % (20-55); Platelet Estimate Adequate; Segmented Neutrophils 50 % (50-85); Total Cells Counted 100
[2017-03-04 06:09] LABS: Giant Platelets Few; Hypochromasia 1+; Ovalocytes Slight
[2017-03-04] MEDS: LEVOTHYROXINE 75 MCG TABLET PO SCH (06:56)
[2017-03-04] MEDS: HYDROmorphone 2 MG/1 ML VIAL IV PRN ×2 (09:11→20:56)
[2017-03-04] MEDS ORDERED: LACTATED RINGERS 1,000 ML IV SCH (09:30)
[2017-03-04] MEDS: POTASSIUM CHLORIDE 20 MEQ TABLET PO SCH ×2 (09:45→17:45)
[2017-03-04] MEDS: MAGNESIUM CHLORIDE 64 MG TABLET PO SCH ×2 (09:45→20:52)
[2017-03-04] MEDS: levETIRAcetam 500 MG TABLET PO SCH ×2 (09:45→20:53)
[2017-03-04] MEDS ORDERED: ceFAZolin 2,000 MG in PREMIX 1 EACH IV ONE (10:00)
[2017-03-04] MEDS ORDERED: ROPIVACAINE 0.5% 30 ML VIAL ONE (11:26)
[2017-03-04] MEDS ORDERED: TISSUE ADHESIVE 1 EACH APPLICATOR TOP ONE (11:26)
[2017-03-04] MEDS ORDERED: PROPOFOL 200 MG/20 ML VIAL IV ONE (13:22)
[2017-03-04] MEDS ORDERED: MIDAZOLAM 2 MG/2 ML VIAL ONE (13:22)
[2017-03-04] MEDS ORDERED: fentaNYL 100 MCG/2 ML VIAL ONE (13:23)
[2017-03-04] MEDS: NEBIVOLOL 5 MG TABLET PO SCH (17:45)
[2017-03-05] MEDS: DEXT 5% NACL 0.45% KCL 20 MEQ 20 MEQ/1,000 ML BAG IV SCH ×6 (01:56→21:35)
[2017-03-05] MEDS: LEVOTHYROXINE 75 MCG TABLET PO SCH (07:06)
[2017-03-05] MEDS: POTASSIUM CHLORIDE 20 MEQ TABLET PO SCH ×2 (07:06→17:10)
[2017-03-05] MEDS: MAGNESIUM CHLORIDE 64 MG TABLET PO SCH ×2 (10:26→20:49)
[2017-03-05] MEDS: levETIRAcetam 500 MG TABLET PO SCH ×2 (10:27→20:49)
[2017-03-05] MEDS ORDERED: DEXAMETHASONE 4 MG/1 ML VIAL IV ONE (10:30)
[2017-03-05] MEDS ORDERED: LEUCOVORIN INJ 700 MG, LEUCOVORIN INJ 100 MG in DEXTROSE 5% 250 ML IV ONE (10:30)
[2017-03-05] MEDS ORDERED: ATROPINE 1 MG/1 ML VIAL IV ONE (10:30)
[2017-03-05] MEDS ORDERED: IRINOTECAN IV ONE (10:30)
[2017-03-05] MEDS ORDERED: FLUOROURACIL 800 MG in SYRINGE 1 EACH IV ONE (10:30)
[2017-03-05] MEDS ORDERED: ZOLEDRONIC ACID 4 MG in PREMIX 1 EACH IV ONE (10:30)
[2017-03-05] MEDS ORDERED: DEXTROSE 5% IV ONE (10:30)
[2017-03-05] MEDS: GRANISETRON 1 MG/1 ML VIAL IV SCH (11:07)
[2017-03-05] MEDS: FLUOROURACIL 1,500 MG in SODIUM CHLORIDE 0.9% 1,000 ML IV SCH (17:07)
[2017-03-05] MEDS: NEBIVOLOL 5 MG TABLET PO SCH (17:10)
[2017-03-06] MEDS: LEVOTHYROXINE 75 MCG TABLET PO SCH (06:20)
[2017-03-06] MEDS: DEXT 5% NACL 0.45% KCL 20 MEQ 20 MEQ/1,000 ML BAG IV SCH ×2 (09:06→18:35)
[2017-03-06] MEDS: POTASSIUM CHLORIDE 20 MEQ TABLET PO SCH ×2 (09:12→17:38)
[2017-03-06] MEDS: levETIRAcetam 500 MG TABLET PO SCH ×2 (09:12→20:27)
[2017-03-06] MEDS: MAGNESIUM CHLORIDE 64 MG TABLET PO SCH ×2 (09:12→20:27)
[2017-03-06] MEDS: GRANISETRON 1 MG/1 ML VIAL IV SCH (09:12)
[2017-03-06] MEDS: FLUOROURACIL 1,500 MG in SODIUM CHLORIDE 0.9% 1,000 ML IV SCH (15:43)
[2017-03-06] MEDS: NEBIVOLOL 5 MG TABLET PO SCH (17:38)
[2017-03-06] MEDS: ONDANSETRON 4 MG/2 ML VIAL IV PRN (17:38)
[2017-03-07] MEDS: DEXT 5% NACL 0.45% KCL 20 MEQ 20 MEQ/1,000 ML BAG IV SCH ×2 (04:32→15:40)
[2017-03-07] MEDS: levETIRAcetam 500 MG TABLET PO SCH ×2 (09:03→20:34)
[2017-03-07] MEDS: GRANISETRON 1 MG/1 ML VIAL IV SCH (09:03)
[2017-03-07] MEDS: MAGNESIUM CHLORIDE 64 MG TABLET PO SCH ×2 (09:03→20:34)
[2017-03-07] MEDS: POTASSIUM CHLORIDE 20 MEQ TABLET PO SCH ×2 (09:04→17:09)
[2017-03-07] MEDS: LEVOTHYROXINE 75 MCG TABLET PO SCH (09:04)
[2017-03-07] MEDS: NEBIVOLOL 5 MG TABLET PO SCH (17:08)
[2017-03-07] MEDS: ALUMINUM/MAGNES/SIMETH MAX STR 30 ML UDCUP PO PRN (20:37)
[2017-03-08 05:21] LABS: Eosinophils # 0.1 10*3/uL (0.0-0.87); Eosinophils % 2.9 % (0.00-10.9); Hematocrit 28.8 VOL% (35.7-47.0); Hemoglobin 9.2 GM/DL (12.0-16.0); Immature Granulocytes % 0.3 %; Immature Granulocytes Absolute 0.01 #; Lymphocytes % 33.6 % (21.3-54.2); Mean Corpuscular HGB Conc 31.9 GM/DL (32-36); Mean Corpuscular Hemoglobin 32 PG (27-34); Mean Corpuscular Volume 99.3 FL (87-102); Mean Platelet Volume 10.8 FL (9.6-12.0); Monocytes # 0.1 10*3/uL (0.11-0.8); Monocytes % 2.6 % (1.7-12.7); Neutrophils # 1.8 10*3/uL (1.4-7.4); Neutrophils % 59.6 % (38.7-73.9); Platelet Count 205 T/CUMM (130-400); Red Cell Distribution Width 15.5 % (9.3-17.3); White Blood Count 3.1 T/CUMM (4-12)
[2017-03-08] MEDS: LEVOTHYROXINE 75 MCG TABLET PO SCH (08:30)
[2017-03-08] MEDS: MAGNESIUM CHLORIDE 64 MG TABLET PO SCH ×2 (08:30→20:30)
[2017-03-08] MEDS: POTASSIUM CHLORIDE 20 MEQ TABLET PO SCH ×2 (08:31→17:39)
[2017-03-08] MEDS: levETIRAcetam 500 MG TABLET PO SCH ×2 (08:31→20:30)
[2017-03-08] MEDS: GRANISETRON 1 MG/1 ML VIAL IV SCH (08:31)
[2017-03-08] MEDS: DEXT 5% NACL 0.45% KCL 20 MEQ 20 MEQ/1,000 ML BAG IV SCH (09:49)
[2017-03-08] MEDS: NEBIVOLOL 5 MG TABLET PO SCH (17:39)
[2017-03-09] MEDS: DEXT 5% NACL 0.45% KCL 20 MEQ 20 MEQ/1,000 ML BAG IV SCH (06:29)
[2017-03-09] MEDS: LEVOTHYROXINE 75 MCG TABLET PO SCH (06:29)
[2017-03-09 09:22] LABS: Albumin 2.4 G/DL (3.4-5.0); Bilirubin,Total 0.6 MG/DL (0.2-1.0); Calcium 7.2 MG/DL (8.5-10.1); Osmolality,Calculated 273.5 MOS/KG (273-304); Potassium 4.1 MMOL/L (3.5-5.1); Total Protein 5.3 G/DL (6.4-8.3)
[2017-03-09 09:36] LABS: Basophils % 0.6 % (0.0-0.8); Eosinophils # 0.1 10*3/uL (0.0-0.87); Eosinophils % 4.2 % (0.00-10.9); Hematocrit 28.4 VOL% (35.7-47.0); Hemoglobin 9.2 GM/DL (12.0-16.0); Immature Granulocytes % 0.3 %; Immature Granulocytes Absolute 0.01 #; Lymphocytes % 29.4 % (21.3-54.2); Mean Corpuscular HGB Conc 32.4 GM/DL (32-36); Mean Corpuscular Hemoglobin 32 PG (27-34); Mean Corpuscular Volume 98.3 FL (87-102); Mean Platelet Volume 10.5 FL (9.6-12.0); Monocytes % 1.2 % (1.7-12.7); Neutrophils # 2.1 10*3/uL (1.4-7.4); Neutrophils % 64.3 % (38.7-73.9); Platelet Count 186 T/CUMM (130-400); Red Blood Count 2.89 MC/CUMM (3.8-5.5); Red Cell Distribution Width 15.1 % (9.3-17.3); White Blood Count 3.3 T/CUMM (4-12)
[2017-03-09] MEDS: POTASSIUM CHLORIDE 20 MEQ TABLET PO SCH (09:41)
[2017-03-09] MEDS: MAGNESIUM CHLORIDE 64 MG TABLET PO SCH (09:41)
[2017-03-09] MEDS: levETIRAcetam 500 MG TABLET PO SCH (09:41)
[2017-03-09 12:35] VITALS: BP 196/88
[2017-03-09] MEDS ORDERED: HEPARIN LOCK FLUSH 500 UNIT/5 ML SYRINGE IV ONE (12:45)
== END 2017-03-09 13:30 | disposition home health service, planned readmission (86) | DRG 478 ==
LOC: N.4EOUT 07:20 → N.4E 07:39
PROVIDERS: ADMIT Specialist; ATTEND Specialist

== ENCOUNTER 2017-03-31 07:09 | Inpatient (IN) ==
[2017-03-31] MEDS ORDERED: chlorproMAZINE INJ 25 MG in SODIUM CHLORIDE 0.9% 100 ML IV PRN (07:40)
[2017-03-31] MEDS ORDERED: LOPERAMIDE 2 MG CAPSULE PO PRN ×2 (07:40)
[2017-03-31] MEDS ORDERED: ACETAMINOPHEN 325 MG TABLET PO PRN (07:40)
[2017-03-31] MEDS ORDERED: PROMETHAZINE INJ 25 MG in SODIUM CHLORIDE 0.9% 50 ML IV PRN (07:40)
[2017-03-31] MEDS ORDERED: ONDANSETRON 4 MG/2 ML VIAL IV PRN (07:40)
[2017-03-31] MEDS ORDERED: LACTULOSE 20 GM/30 ML UDCUP PO PRN (07:40)
[2017-03-31] MEDS ORDERED: MYLANTA/LIDO VISC 2:1 300 ML BOTTLE SWISH/SWAL PRN (07:40)
[2017-03-31] MEDS ORDERED: MYLANTA/LIDO VISC 2:1 300 ML BOTTLE SWISH/SPIT PRN (07:40)
[2017-03-31] MEDS ORDERED: traMADol 50 MG TABLET PO PRN (07:40)
[2017-03-31] MEDS ORDERED: ALPRAZolam 0.25 MG TABLET PO PRN (07:40)
[2017-03-31] MEDS ORDERED: chlorproMAZINE 25 MG TABLET PO PRN (07:40)
[2017-03-31] MEDS ORDERED: BENZTROPINE 2 MG/2 ML AMP IV PRN (07:40)
[2017-03-31] MEDS ORDERED: guaiFENesin 200 MG/10 ML UDCUP PO PRN (07:40)
[2017-03-31] MEDS ORDERED: TEMAZEPAM 7.5 MG CAPSULE PO PRN (07:40)
[2017-03-31] MEDS ORDERED: diphenhydrAMINE CAP 25 MG CAPSULE PO PRN (07:40)
[2017-03-31] MEDS ORDERED: ALUMINUM/MAGNES/SIMETH MAX STR 30 ML UDCUP PO PRN (07:40)
[2017-03-31] MEDS ORDERED: MAGNESIUM HYDROXIDE SUSP 30 ML UDCUP PO PRN (07:40)
[2017-03-31] MEDS ORDERED: chlorproMAZINE INJ 50 MG in SODIUM CHLORIDE 0.9% 100 ML IV PRN (07:40)
[2017-03-31 08:27] LABS: Basophils % 0.6 % (0.0-0.8); Eosinophils # 0.1 10*3/uL (0.0-0.87); Eosinophils % 2.2 % (0.00-10.9); Hematocrit 33.9 VOL% (35.7-47.0); Hemoglobin 10.7 GM/DL (12.0-16.0); Immature Granulocytes % 0.9 %; Immature Granulocytes Absolute 0.06 #; Lymphocytes # 1.6 10*3/uL (1.4-4.0); Lymphocytes % 24.1 % (21.3-54.2); Mean Corpuscular HGB Conc 31.6 GM/DL (32-36); Mean Corpuscular Hemoglobin 32 PG (27-34); Mean Corpuscular Volume 101.5 FL (87-102); Mean Platelet Volume 11.9 FL (9.6-12.0); Monocytes # 0.8 10*3/uL (0.11-0.8); Monocytes % 12.5 % (1.7-12.7); Neutrophils # 3.9 10*3/uL (1.4-7.4); Neutrophils % 59.7 % (38.7-73.9); Platelet Count 244 T/CUMM (130-400); Red Blood Count 3.34 MC/CUMM (3.8-5.5); Red Cell Distribution Width 15.6 % (9.3-17.3); White Blood Count 6.5 T/CUMM (4-12)
[2017-03-31 08:54] LABS: Albumin 3.5 G/DL (3.4-5.0); Bilirubin,Total 0.5 MG/DL (0.2-1.0); Calcium 8.9 MG/DL (8.5-10.1)
[2017-03-31 08:55] LABS: Osmolality,Calculated 282.1 MOS/KG (273-304); Uric Acid 3.6 MG/DL (2.6-6.0)
[2017-03-31] MEDS ORDERED: tiZANidine 4 MG TABLET PO PRN (09:05)
[2017-03-31] MEDS ORDERED: ONDANSETRON 4 MG TABLET PO PRN (09:05)
[2017-03-31] MEDS: DEXT 5% NACL 0.45% KCL 20 MEQ 20 MEQ/1,000 ML BAG IV SCH (10:12)
[2017-03-31] MEDS: MAGNESIUM CHLORIDE 64 MG TABLET PO SCH ×2 (10:16→21:49)
[2017-03-31] MEDS: levETIRAcetam 500 MG TABLET PO SCH ×2 (10:16→21:50)
[2017-03-31] MEDS ORDERED: BISACODYL 5 MG TABLET PO ONE (11:10)
[2017-03-31 11:17] LABS: Cancer Antigen 19-9 26.8 U/ML (0-37); Carcinoembryonic Antigen 3.2 NG/ML (0.0-5.0)
[2017-03-31 13:31] LABS: Apearance,Urine CLEAR (Clear); Bilirubin,Urine Negative (Negative); Blood, Urine Negative (Negative); Glucose,Urine (UA) Negative (Negative); Ketones,Urine Negative (Negative); Mucus,Urine Occasional /LPF (Occasional); Nitrite,Urine Negative (Negative); Protein,Urine Negative; RBC,Urine <1 /HPF (0-4); Squamous Epithelial Cell,Urine Occasional /HPF (0-10); Urine Color Straw (Yellow); Urine Specific Gravity 1.051 (1.001-1.035); Urine Urobilinogen < 2.0 EU/DL (0.2-1.0); WBC,Urine <1 /HPF (0-6)
[2017-03-31] MEDS: POTASSIUM CHLORIDE 20 MEQ TABLET PO SCH (17:21)
[2017-03-31] MEDS: NEBIVOLOL 5 MG TABLET PO SCH (17:21)
[2017-04-01] MEDS: DEXT 5% NACL 0.45% KCL 20 MEQ 20 MEQ/1,000 ML BAG IV SCH (06:22)
[2017-04-01] MEDS: LEVOTHYROXINE 75 MCG TABLET PO SCH (06:23)
[2017-04-01] MEDS ORDERED: LEUCOVORIN INJ 800 MG in DEXTROSE 5% 250 ML IV ONE (08:00)
[2017-04-01] MEDS ORDERED: FLUOROURACIL 800 MG in SYRINGE 1 EACH IV ONE (08:00)
[2017-04-01] MEDS ORDERED: DEXTROSE 5% IV ONE (08:00)
[2017-04-01] MEDS ORDERED: IRINOTECAN IV ONE (08:00)
[2017-04-01] MEDS: POTASSIUM CHLORIDE 20 MEQ TABLET PO SCH ×2 (08:16→16:59)
[2017-04-01] MEDS: levETIRAcetam 500 MG TABLET PO SCH ×2 (08:16→21:37)
[2017-04-01] MEDS: MAGNESIUM CHLORIDE 64 MG TABLET PO SCH ×2 (08:16→21:37)
[2017-04-01] MEDS: GRANISETRON 1 MG/1 ML VIAL IV SCH (08:17)
[2017-04-01] MEDS: DEXAMETHASONE 4 MG/1 ML VIAL IV SCH (08:18)
[2017-04-01] MEDS: FLUOROURACIL 1,500 MG in SODIUM CHLORIDE 0.9% 1,000 ML IV SCH (10:50)
[2017-04-01] MEDS: NEBIVOLOL 5 MG TABLET PO SCH (16:59)
[2017-04-02 05:54] LABS: Basophils % 0.1 % (0.0-0.8); Hematocrit 29.6 VOL% (35.7-47.0); Hemoglobin 9.6 GM/DL (12.0-16.0); Immature Granulocytes % 0.7 %; Immature Granulocytes Absolute 0.05 #; Lymphocytes # 0.8 10*3/uL (1.4-4.0); Lymphocytes % 10.3 % (21.3-54.2); Mean Corpuscular HGB Conc 32.4 GM/DL (32-36); Mean Corpuscular Hemoglobin 33 PG (27-34); Mean Corpuscular Volume 100.3 FL (87-102); Mean Platelet Volume 12.1 FL (9.6-12.0); Monocytes # 0.6 10*3/uL (0.11-0.8); Monocytes % 7.7 % (1.7-12.7); Neutrophils # 5.9 10*3/uL (1.4-7.4); Neutrophils % 81.2 % (38.7-73.9); Platelet Count 187 T/CUMM (130-400); Red Blood Count 2.95 MC/CUMM (3.8-5.5); Red Cell Distribution Width 14.7 % (9.3-17.3); White Blood Count 7.3 T/CUMM (4-12)
[2017-04-02] MEDS: LEVOTHYROXINE 75 MCG TABLET PO SCH (07:05)
[2017-04-02] MEDS: POTASSIUM CHLORIDE 20 MEQ TABLET PO SCH ×2 (09:28→16:20)
[2017-04-02] MEDS: GRANISETRON 1 MG/1 ML VIAL IV SCH (09:29)
[2017-04-02] MEDS: MAGNESIUM CHLORIDE 64 MG TABLET PO SCH ×2 (09:29→21:08)
[2017-04-02] MEDS: levETIRAcetam 500 MG TABLET PO SCH ×2 (09:29→21:08)
[2017-04-02] MEDS: FLUOROURACIL 1,500 MG in SODIUM CHLORIDE 0.9% 1,000 ML IV SCH (09:30)
[2017-04-02] MEDS: DEXAMETHASONE 4 MG/1 ML VIAL IV SCH (09:30)
[2017-04-02] MEDS: NEBIVOLOL 5 MG TABLET PO SCH (16:20)
[2017-04-03] MEDS: LEVOTHYROXINE 75 MCG TABLET PO SCH (06:02)
[2017-04-03] MEDS: GRANISETRON 1 MG/1 ML VIAL IV SCH (08:45)
[2017-04-03] MEDS: POTASSIUM CHLORIDE 20 MEQ TABLET PO SCH (08:46)
[2017-04-03] MEDS: levETIRAcetam 500 MG TABLET PO SCH (08:46)
[2017-04-03] MEDS: MAGNESIUM CHLORIDE 64 MG TABLET PO SCH (08:46)
[2017-04-03] MEDS ORDERED: HEPARIN LOCK FLUSH 500 UNIT/5 ML SYRINGE IV ONE (10:09)
[2017-04-03] MEDS: DEXAMETHASONE 4 MG/1 ML VIAL IV SCH (10:14)
[2017-04-03] MEDS ORDERED: INFLUENZA VIRUS VACCINE 0.5 ML SYRINGE IM ONE (10:15)
[2017-04-03 13:17] VITALS: BP 134/63
== END 2017-04-03 11:45 | disposition home health service, planned readmission (86) | DRG 847 ==
LOC: N.4E → OBSVTOIN 07:09
PROVIDERS: ADMIT Specialist; ATTEND Specialist

== ENCOUNTER 2017-04-14 07:05 | Inpatient (IN) ==
[2017-04-14 08:15] LABS: Basophils % 0.6 % (0.0-0.8); Eosinophils # 0.1 10*3/uL (0.0-0.87); Eosinophils % 4.1 % (0.00-10.9); Hematocrit 31.3 VOL% (35.7-47.0); Hemoglobin 9.7 GM/DL (12.0-16.0); Immature Granulocytes % 0.3 %; Immature Granulocytes Absolute 0.01 #; Lymphocytes # 1.1 10*3/uL (1.4-4.0); Lymphocytes % 31.5 % (21.3-54.2); Mean Corpuscular Hemoglobin 32 PG (27-34); Mean Corpuscular Volume 102.3 FL (87-102); Mean Platelet Volume 10.9 FL (9.6-12.0); Monocytes # 0.4 10*3/uL (0.11-0.8); Monocytes % 11.2 % (1.7-12.7); Neutrophils # 1.8 10*3/uL (1.4-7.4); Neutrophils % 52.3 % (38.7-73.9); Platelet Count 167 T/CUMM (130-400); Red Blood Count 3.06 MC/CUMM (3.8-5.5); Red Cell Distribution Width 14.9 % (9.3-17.3); White Blood Count 3.4 T/CUMM (4-12)
[2017-04-14 09:31] LABS: Albumin 3.1 G/DL (3.4-5.0); Bilirubin,Total 0.4 MG/DL (0.2-1.0); Calcium 8.9 MG/DL (8.5-10.1); Osmolality,Calculated 281.3 MOS/KG (273-304); Potassium 4.1 MMOL/L (3.5-5.1); Total Protein 6.7 G/DL (6.4-8.3); Uric Acid 3.6 MG/DL (2.6-6.0)
[2017-04-14] MEDS ORDERED: ACETAMINOPHEN 325 MG TABLET PO PRN (09:35)
[2017-04-14] MEDS ORDERED: MYLANTA/LIDO VISC 2:1 300 ML BOTTLE SWISH/SWAL PRN (09:35)
[2017-04-14] MEDS ORDERED: MAGNESIUM HYDROXIDE SUSP 30 ML UDCUP PO PRN (09:35)
[2017-04-14] MEDS ORDERED: ALUMINUM/MAGNES/SIMETH MAX STR 30 ML UDCUP PO PRN (09:35)
[2017-04-14] MEDS ORDERED: chlorproMAZINE 25 MG TABLET PO PRN (09:35)
[2017-04-14] MEDS ORDERED: traMADol 50 MG TABLET PO PRN (09:35)
[2017-04-14] MEDS ORDERED: LOPERAMIDE 2 MG CAPSULE PO PRN ×2 (09:35)
[2017-04-14] MEDS ORDERED: ONDANSETRON 4 MG/2 ML VIAL IV PRN (09:35)
[2017-04-14] MEDS ORDERED: guaiFENesin 200 MG/10 ML UDCUP PO PRN (09:35)
[2017-04-14] MEDS ORDERED: diphenhydrAMINE CAP 25 MG CAPSULE PO PRN (09:35)
[2017-04-14] MEDS ORDERED: ALPRAZolam 0.25 MG TABLET PO PRN (09:35)
[2017-04-14] MEDS ORDERED: chlorproMAZINE INJ 50 MG in SODIUM CHLORIDE 0.9% 100 ML IV PRN (09:35)
[2017-04-14] MEDS ORDERED: MYLANTA/LIDO VISC 2:1 300 ML BOTTLE SWISH/SPIT PRN (09:35)
[2017-04-14] MEDS ORDERED: chlorproMAZINE INJ 25 MG in SODIUM CHLORIDE 0.9% 100 ML IV PRN (09:35)
[2017-04-14] MEDS ORDERED: PROMETHAZINE INJ 25 MG in SODIUM CHLORIDE 0.9% 50 ML IV PRN (09:35)
[2017-04-14] MEDS ORDERED: TEMAZEPAM 7.5 MG CAPSULE PO PRN (09:35)
[2017-04-14] MEDS ORDERED: LACTULOSE 20 GM/30 ML UDCUP PO PRN (09:35)
[2017-04-14] MEDS ORDERED: BENZTROPINE 2 MG/2 ML AMP IV PRN (09:35)
[2017-04-14] MEDS ORDERED: tiZANidine 4 MG TABLET PO PRN (09:38)
[2017-04-14] MEDS ORDERED: ONDANSETRON 4 MG TABLET PO PRN (09:38)
[2017-04-14] MEDS ORDERED: LEUCOVORIN INJ 700 MG, LEUCOVORIN INJ 100 MG in DEXTROSE 5% 250 ML IV ONE (10:00)
[2017-04-14] MEDS ORDERED: FLUOROURACIL 800 MG in SYRINGE 1 EACH IV ONE (10:00)
[2017-04-14] MEDS ORDERED: DEXTROSE 5% IV ONE (10:00)
[2017-04-14] MEDS ORDERED: IRINOTECAN IV ONE (10:00)
[2017-04-14] MEDS: MAGNESIUM CHLORIDE 64 MG TABLET PO SCH ×2 (10:17→20:59)
[2017-04-14] MEDS: levETIRAcetam 500 MG TABLET PO SCH ×2 (10:17→20:59)
[2017-04-14] MEDS: GRANISETRON 1 MG/1 ML VIAL IV SCH (10:17)
[2017-04-14] MEDS: DEXAMETHASONE 4 MG/1 ML VIAL IV SCH (10:19)
[2017-04-14] MEDS: FLUOROURACIL 1,500 MG in SODIUM CHLORIDE 0.9% 1,000 ML IV SCH (14:14)
[2017-04-14] MEDS: POTASSIUM CHLORIDE 20 MEQ TABLET PO SCH (17:18)
[2017-04-14] MEDS: NEBIVOLOL 5 MG TABLET PO SCH (17:18)
[2017-04-14 17:42] LABS: Apearance,Urine CLEAR (Clear); Bilirubin,Urine Negative (Negative); Blood, Urine Negative (Negative); Glucose,Urine (UA) Negative (Negative); Ketones,Urine Negative (Negative); Mucus,Urine Occasional /LPF (Occasional); Nitrite,Urine Negative (Negative); Protein,Urine Negative; RBC,Urine <1 /HPF (0-4); Urine Color Yellow (Yellow); Urine Specific Gravity 1.009 (1.001-1.035); Urine Urobilinogen < 2.0 EU/DL (0.2-1.0); WBC,Urine <1 /HPF (0-6)
[2017-04-15] MEDS: LEVOTHYROXINE 75 MCG TABLET PO SCH (06:24)
[2017-04-15] MEDS: POTASSIUM CHLORIDE 20 MEQ TABLET PO SCH ×2 (08:53→17:33)
[2017-04-15] MEDS: levETIRAcetam 500 MG TABLET PO SCH ×2 (08:53→21:16)
[2017-04-15] MEDS: MAGNESIUM CHLORIDE 64 MG TABLET PO SCH ×2 (08:53→21:16)
[2017-04-15] MEDS: GRANISETRON 1 MG/1 ML VIAL IV SCH (08:54)
[2017-04-15] MEDS: DEXAMETHASONE 4 MG/1 ML VIAL IV SCH (08:55)
[2017-04-15 10:44] LABS: Carcinoembryonic Antigen 2.9 NG/ML (0.0-5.0)
[2017-04-15] MEDS: FLUOROURACIL 1,500 MG in SODIUM CHLORIDE 0.9% 1,000 ML IV SCH (11:46)
[2017-04-15] MEDS: NEBIVOLOL 5 MG TABLET PO SCH (17:31)
[2017-04-16] MEDS: LEVOTHYROXINE 75 MCG TABLET PO SCH (06:17)
[2017-04-16 08:53] VITALS: BP 144/65
[2017-04-16] MEDS: MAGNESIUM CHLORIDE 64 MG TABLET PO SCH (09:17)
[2017-04-16] MEDS: POTASSIUM CHLORIDE 20 MEQ TABLET PO SCH (09:17)
[2017-04-16] MEDS: levETIRAcetam 500 MG TABLET PO SCH (09:17)
[2017-04-16] MEDS: GRANISETRON 1 MG/1 ML VIAL IV SCH (09:17)
[2017-04-16] MEDS: DEXAMETHASONE 4 MG/1 ML VIAL IV SCH (09:18)
[2017-04-16] MEDS ORDERED: HEPARIN LOCK FLUSH 500 UNIT/5 ML SYRINGE IV ONE (10:48)
== END 2017-04-16 11:10 | disposition home or self-care, planned readmission (81) | DRG 847 ==
LOC: N.4EOUT 07:05 → N.4E 07:10
PROVIDERS: ADMIT Specialist; ATTEND Specialist

== ENCOUNTER 2017-05-05 07:00 | Inpatient (IN) ==
[2017-05-05 08:04] LABS: Basophils % 0.5 % (0.0-0.8); Eosinophils # 0.1 10*3/uL (0.0-0.87); Eosinophils % 3.4 % (0.00-10.9); Hematocrit 33.6 VOL% (35.7-47.0); Hemoglobin 10.3 GM/DL (12.0-16.0); Immature Granulocytes % 0.7 %; Immature Granulocytes Absolute 0.03 #; Lymphocytes # 1.3 10*3/uL (1.4-4.0); Lymphocytes % 30.7 % (21.3-54.2); Mean Corpuscular HGB Conc 30.7 GM/DL (32-36); Mean Corpuscular Hemoglobin 31 PG (27-34); Mean Corpuscular Volume 102.1 FL (87-102); Mean Platelet Volume 11.4 FL (9.6-12.0); Monocytes # 0.6 10*3/uL (0.11-0.8); Monocytes % 13.6 % (1.7-12.7); Neutrophils # 2.1 10*3/uL (1.4-7.4); Neutrophils % 51.1 % (38.7-73.9); Platelet Count 195 T/CUMM (130-400); Red Blood Count 3.29 MC/CUMM (3.8-5.5); Red Cell Distribution Width 16.3 % (9.3-17.3); White Blood Count 4.1 T/CUMM (4-12)
[2017-05-05] MEDS ORDERED: ONDANSETRON 4 MG/2 ML VIAL IV PRN (08:57)
[2017-05-05] MEDS ORDERED: PROMETHAZINE INJ 25 MG in SODIUM CHLORIDE 0.9% 50 ML IV PRN (08:57)
[2017-05-05] MEDS ORDERED: LACTULOSE 20 GM/30 ML UDCUP PO PRN (08:57)
[2017-05-05] MEDS ORDERED: TEMAZEPAM 7.5 MG CAPSULE PO PRN (08:57)
[2017-05-05] MEDS ORDERED: ALPRAZolam 0.25 MG TABLET PO PRN (08:57)
[2017-05-05] MEDS ORDERED: MYLANTA/LIDO VISC 2:1 300 ML BOTTLE SWISH/SWAL PRN (08:57)
[2017-05-05] MEDS ORDERED: BENZTROPINE 2 MG/2 ML AMP IV PRN (08:57)
[2017-05-05] MEDS ORDERED: chlorproMAZINE INJ 25 MG in SODIUM CHLORIDE 0.9% 100 ML IV PRN (08:57)
[2017-05-05] MEDS ORDERED: MYLANTA/LIDO VISC 2:1 300 ML BOTTLE SWISH/SPIT PRN (08:57)
[2017-05-05] MEDS ORDERED: ALUMINUM/MAGNES/SIMETH MAX STR 30 ML UDCUP PO PRN (08:57)
[2017-05-05] MEDS ORDERED: diphenhydrAMINE CAP 25 MG CAPSULE PO PRN (08:57)
[2017-05-05] MEDS ORDERED: traMADol 50 MG TABLET PO PRN (08:57)
[2017-05-05] MEDS ORDERED: chlorproMAZINE INJ 50 MG in SODIUM CHLORIDE 0.9% 100 ML IV PRN (08:57)
[2017-05-05] MEDS ORDERED: guaiFENesin 200 MG/10 ML UDCUP PO PRN (08:57)
[2017-05-05] MEDS ORDERED: LOPERAMIDE 2 MG CAPSULE PO PRN ×2 (08:57)
[2017-05-05] MEDS ORDERED: ACETAMINOPHEN 325 MG TABLET PO PRN (08:57)
[2017-05-05] MEDS ORDERED: chlorproMAZINE 25 MG TABLET PO PRN (08:57)
[2017-05-05 09:18] LABS: Albumin 3.6 G/DL (3.4-5.0); Bilirubin,Total 0.5 MG/DL (0.2-1.0); Calcium 9.6 MG/DL (8.5-10.1); Magnesium 1.9 MG/DL (1.8-2.4); Osmolality,Calculated 278.5 MOS/KG (273-304); Total Protein 7.1 G/DL (6.4-8.3)
[2017-05-05 09:22] LABS: Uric Acid 4.5 MG/DL (2.6-6.0)
[2017-05-05 10:18] LABS: Cancer Antigen 19-9 21.1 U/ML (0-37); Carcinoembryonic Antigen 3.4 NG/ML (0.0-5.0)
[2017-05-05] MEDS: DEXAMETHASONE 10 MG/1 ML VIAL IV SCH (10:53)
[2017-05-05] MEDS: GRANISETRON 1 MG/1 ML VIAL IV SCH (10:53)
[2017-05-05] MEDS ORDERED: IRINOTECAN IV ONE (11:30)
[2017-05-05] MEDS ORDERED: DEXTROSE 5% IV ONE (11:30)
[2017-05-05] MEDS ORDERED: FLUOROURACIL 800 MG in SYRINGE 1 EACH IV ONE (11:30)
[2017-05-05] MEDS ORDERED: LEUCOVORIN INJ 800 MG in DEXTROSE 5% 250 ML IV ONE (11:30)
[2017-05-05] MEDS ORDERED: ONDANSETRON 4 MG TABLET PO PRN (12:09)
[2017-05-05] MEDS ORDERED: tiZANidine 4 MG TABLET PO PRN (12:09)
[2017-05-05] MEDS: FLUOROURACIL 1,500 MG in SODIUM CHLORIDE 0.9% 1,000 ML IV SCH (13:39)
[2017-05-05] MEDS: levETIRAcetam 500 MG TABLET PO SCH ×2 (14:25→22:00)
[2017-05-05] MEDS: MAGNESIUM CHLORIDE 64 MG TABLET PO SCH ×2 (14:25→22:00)
[2017-05-05] MEDS: NEBIVOLOL 5 MG TABLET PO SCH (17:32)
[2017-05-05] MEDS: MAGNESIUM HYDROXIDE SUSP 30 ML UDCUP PO PRN (17:32)
[2017-05-05] MEDS: POTASSIUM CHLORIDE 20 MEQ TABLET PO SCH (17:32)
[2017-05-05 22:33] LABS: Apearance,Urine CLEAR (Clear); Bilirubin,Urine Negative (Negative); Blood, Urine Negative (Negative); Glucose,Urine (UA) 50 mg/dL (Negative); Ketones,Urine 5 mg/dL (Negative); Mucus,Urine Occasional /LPF (Occasional); Nitrite,Urine Negative (Negative); Protein,Urine Negative; RBC,Urine <1 /HPF (0-4); Squamous Epithelial Cell,Urine Occasional /HPF (0-10); Urine Color Yellow (Yellow); Urine Specific Gravity 1.016 (1.001-1.035); WBC,Urine <1 /HPF (0-6)
[2017-05-06] MEDS: LEVOTHYROXINE 75 MCG TABLET PO SCH (06:12)
[2017-05-06] MEDS: levETIRAcetam 500 MG TABLET PO SCH ×2 (09:11→20:58)
[2017-05-06] MEDS: MAGNESIUM CHLORIDE 64 MG TABLET PO SCH ×2 (09:11→20:58)
[2017-05-06] MEDS: POTASSIUM CHLORIDE 20 MEQ TABLET PO SCH ×2 (09:11→17:09)
[2017-05-06] MEDS: DEXAMETHASONE 10 MG/1 ML VIAL IV SCH (09:12)
[2017-05-06] MEDS: GRANISETRON 1 MG/1 ML VIAL IV SCH (09:16)
[2017-05-06] MEDS: MAGNESIUM HYDROXIDE SUSP 30 ML UDCUP PO PRN (11:38)
[2017-05-06] MEDS: FLUOROURACIL 1,500 MG in SODIUM CHLORIDE 0.9% 1,000 ML IV SCH (11:39)
[2017-05-06] MEDS: NEBIVOLOL 5 MG TABLET PO SCH (17:09)
[2017-05-07] MEDS: LEVOTHYROXINE 75 MCG TABLET PO SCH (07:07)
[2017-05-07] MEDS: MAGNESIUM CHLORIDE 64 MG TABLET PO SCH (08:07)
[2017-05-07] MEDS: POTASSIUM CHLORIDE 20 MEQ TABLET PO SCH (08:08)
[2017-05-07] MEDS: GRANISETRON 1 MG/1 ML VIAL IV SCH (08:08)
[2017-05-07] MEDS: levETIRAcetam 500 MG TABLET PO SCH (08:08)
[2017-05-07] MEDS: DEXAMETHASONE 10 MG/1 ML VIAL IV SCH (08:09)
[2017-05-07 09:08] VITALS: BP 188/77
[2017-05-07] MEDS ORDERED: HEPARIN LOCK FLUSH 500 UNIT/5 ML SYRINGE IV PRN (10:02)
== END 2017-05-07 12:25 | disposition home health service, planned readmission (86) | DRG 847 ==
LOC: N.4E 07:13
PROVIDERS: ADMIT Specialist; ATTEND Specialist

== ENCOUNTER 2017-05-19 06:48 | Inpatient (IN) ==
[2017-05-19 08:02] LABS: Basophils % 0.6 % (0.0-0.8); Eosinophils # 0.1 10*3/uL (0.0-0.87); Eosinophils % 2.7 % (0.00-10.9); Hematocrit 29.5 VOL% (35.7-47.0); Hemoglobin 9.1 GM/DL (12.0-16.0); Immature Granulocytes % 0.3 %; Immature Granulocytes Absolute 0.01 #; Lymphocytes # 0.8 10*3/uL (1.4-4.0); Lymphocytes % 24.4 % (21.3-54.2); Mean Corpuscular HGB Conc 30.8 GM/DL (32-36); Mean Corpuscular Hemoglobin 32 PG (27-34); Mean Corpuscular Volume 103.1 FL (87-102); Mean Platelet Volume 10.8 FL (9.6-12.0); Monocytes # 0.5 10*3/uL (0.11-0.8); Monocytes % 13.6 % (1.7-12.7); Neutrophils # 1.9 10*3/uL (1.4-7.4); Neutrophils % 58.4 % (38.7-73.9); Platelet Count 158 T/CUMM (130-400); Red Blood Count 2.86 MC/CUMM (3.8-5.5); Red Cell Distribution Width 15.4 % (9.3-17.3); White Blood Count 3.3 T/CUMM (4-12)
[2017-05-19 08:33] LABS: Magnesium 1.9 MG/DL (1.8-2.4)
[2017-05-19 08:42] LABS: Albumin 3.2 G/DL (3.4-5.0); Bilirubin,Total 0.5 MG/DL (0.2-1.0); Calcium 8.7 MG/DL (8.5-10.1); Osmolality,Calculated 284.3 MOS/KG (273-304); Potassium 3.8 MMOL/L (3.5-5.1); Total Protein 6.3 G/DL (6.4-8.3)
[2017-05-19] MEDS ORDERED: tiZANidine 4 MG TABLET PO PRN (09:04)
[2017-05-19] MEDS ORDERED: ONDANSETRON 4 MG TABLET PO PRN (09:04)
[2017-05-19] MEDS ORDERED: MYLANTA/LIDO VISC 2:1 300 ML BOTTLE SWISH/SPIT PRN (09:12)
[2017-05-19] MEDS ORDERED: chlorproMAZINE INJ 25 MG in SODIUM CHLORIDE 0.9% 100 ML IV PRN (09:12)
[2017-05-19] MEDS ORDERED: MYLANTA/LIDO VISC 2:1 300 ML BOTTLE SWISH/SWAL PRN (09:12)
[2017-05-19] MEDS ORDERED: BENZTROPINE 2 MG/2 ML AMP IV PRN (09:12)
[2017-05-19] MEDS ORDERED: ALPRAZolam 0.25 MG TABLET PO PRN (09:12)
[2017-05-19] MEDS ORDERED: PROMETHAZINE INJ 25 MG in SODIUM CHLORIDE 0.9% 50 ML IV PRN (09:12)
[2017-05-19] MEDS ORDERED: ALUMINUM/MAGNES/SIMETH MAX STR 30 ML UDCUP PO PRN (09:12)
[2017-05-19] MEDS ORDERED: ONDANSETRON 4 MG/2 ML VIAL IV PRN (09:12)
[2017-05-19] MEDS ORDERED: MAGNESIUM HYDROXIDE SUSP 30 ML UDCUP PO PRN (09:12)
[2017-05-19] MEDS ORDERED: LOPERAMIDE 2 MG CAPSULE PO PRN ×2 (09:12)
[2017-05-19] MEDS ORDERED: diphenhydrAMINE CAP 25 MG CAPSULE PO PRN (09:12)
[2017-05-19] MEDS ORDERED: traMADol 50 MG TABLET PO PRN (09:12)
[2017-05-19] MEDS ORDERED: guaiFENesin 200 MG/10 ML UDCUP PO PRN (09:12)
[2017-05-19] MEDS ORDERED: TEMAZEPAM 7.5 MG CAPSULE PO PRN (09:12)
[2017-05-19] MEDS ORDERED: chlorproMAZINE 25 MG TABLET PO PRN (09:12)
[2017-05-19] MEDS ORDERED: chlorproMAZINE INJ 50 MG in SODIUM CHLORIDE 0.9% 100 ML IV PRN (09:12)
[2017-05-19] MEDS ORDERED: LACTULOSE 20 GM/30 ML UDCUP PO PRN (09:12)
[2017-05-19] MEDS ORDERED: ACETAMINOPHEN 325 MG TABLET PO PRN (09:12)
[2017-05-19] MEDS ORDERED: IRINOTECAN IV ONE (10:00)
[2017-05-19] MEDS ORDERED: LEUCOVORIN INJ 800 MG in DEXTROSE 5% 250 ML IV ONE (10:00)
[2017-05-19] MEDS ORDERED: DEXTROSE 5% IV ONE (10:00)
[2017-05-19] MEDS ORDERED: FLUOROURACIL 800 MG in SYRINGE 1 EACH IV ONE (10:00)
[2017-05-19] MEDS: DEXAMETHASONE 10 MG/1 ML VIAL IV SCH (10:36)
[2017-05-19] MEDS: GRANISETRON 1 MG/1 ML VIAL IV SCH (10:36)
[2017-05-19] MEDS: levETIRAcetam 500 MG TABLET PO SCH ×2 (10:36→21:09)
[2017-05-19] MEDS: MAGNESIUM CHLORIDE 64 MG TABLET PO SCH ×2 (10:36→21:09)
[2017-05-19] MEDS: FLUOROURACIL 1,500 MG in SODIUM CHLORIDE 0.9% 1,000 ML IV SCH (13:10)
[2017-05-19] MEDS: NEBIVOLOL 5 MG TABLET PO SCH (19:14)
[2017-05-19] MEDS: POTASSIUM CHLORIDE 20 MEQ TABLET PO SCH (19:14)
[2017-05-19 21:47] LABS: Apearance,Urine CLEAR (Clear); Bilirubin,Urine Negative (Negative); Blood, Urine Negative (Negative); Glucose,Urine (UA) 50 mg/dL (Negative); Ketones,Urine Negative (Negative); Mucus,Urine Occasional /LPF (Occasional); Nitrite,Urine Negative (Negative); Protein,Urine Negative; RBC,Urine <1 /HPF (0-4); Squamous Epithelial Cell,Urine Occasional /HPF (0-10); Urine Color Yellow (Yellow); Urine Specific Gravity 1.014 (1.001-1.035); Urine Urobilinogen < 2.0 EU/DL (0.2-1.0); WBC,Urine <1 /HPF (0-6)
[2017-05-20] MEDS: LEVOTHYROXINE 75 MCG TABLET PO SCH (06:45)
[2017-05-20] MEDS: MAGNESIUM CHLORIDE 64 MG TABLET PO SCH ×2 (08:15→21:16)
[2017-05-20] MEDS: levETIRAcetam 500 MG TABLET PO SCH ×2 (08:15→21:16)
[2017-05-20] MEDS: POTASSIUM CHLORIDE 20 MEQ TABLET PO SCH ×2 (08:16→18:00)
[2017-05-20] MEDS: GRANISETRON 1 MG/1 ML VIAL IV SCH (08:16)
[2017-05-20] MEDS: DEXAMETHASONE 10 MG/1 ML VIAL IV SCH (08:18)
[2017-05-20] MEDS: FLUOROURACIL 1,500 MG in SODIUM CHLORIDE 0.9% 1,000 ML IV SCH (11:46)
[2017-05-20] MEDS: NEBIVOLOL 5 MG TABLET PO SCH (18:00)
[2017-05-21 07:46] VITALS: BP 146/66
[2017-05-21] MEDS: MAGNESIUM CHLORIDE 64 MG TABLET PO SCH (09:12)
[2017-05-21] MEDS: LEVOTHYROXINE 75 MCG TABLET PO SCH (09:12)
[2017-05-21] MEDS: levETIRAcetam 500 MG TABLET PO SCH (09:12)
[2017-05-21] MEDS: DEXAMETHASONE 10 MG/1 ML VIAL IV SCH (09:13)
[2017-05-21] MEDS: POTASSIUM CHLORIDE 20 MEQ TABLET PO SCH (09:13)
[2017-05-21] MEDS: GRANISETRON 1 MG/1 ML VIAL IV SCH (09:17)
[2017-05-21] MEDS ORDERED: HEPARIN LOCK FLUSH 500 UNIT/5 ML SYRINGE IV PRN (09:40)
== END 2017-05-21 11:50 | disposition home health service, planned readmission (86) | DRG 847 ==
LOC: N.4E 06:48
PROVIDERS: ADMIT Specialist; ATTEND Specialist

== ENCOUNTER 2017-06-02 06:58 | Inpatient (IN) ==
[2017-06-02 08:26] LABS: Basophils % 0.7 % (0.0-0.8); Eosinophils # 0.1 10*3/uL (0.0-0.87); Hematocrit 27.5 VOL% (35.7-47.0); Hemoglobin 8.6 GM/DL (12.0-16.0); Immature Granulocytes % 0.7 %; Immature Granulocytes Absolute 0.02 #; Lymphocytes # 0.7 10*3/uL (1.4-4.0); Lymphocytes % 23.9 % (21.3-54.2); Mean Corpuscular HGB Conc 31.3 GM/DL (32-36); Mean Corpuscular Hemoglobin 32 PG (27-34); Mean Corpuscular Volume 100.7 FL (87-102); Mean Platelet Volume 10.5 FL (9.6-12.0); Monocytes # 0.5 10*3/uL (0.11-0.8); Monocytes % 15.3 % (1.7-12.7); Neutrophils # 1.7 10*3/uL (1.4-7.4); Neutrophils % 57.4 % (38.7-73.9); Platelet Count 145 T/CUMM (130-400); Red Blood Count 2.73 MC/CUMM (3.8-5.5)
[2017-06-02 08:57] LABS: Bilirubin,Total 0.4 MG/DL (0.2-1.0); Calcium 8.6 MG/DL (8.5-10.1); Potassium 3.4 MMOL/L (3.5-5.1); Total Protein 6.1 G/DL (6.4-8.3)
[2017-06-02] MEDS ORDERED: MAGNESIUM HYDROXIDE SUSP 30 ML UDCUP PO PRN (12:14)
[2017-06-02] MEDS ORDERED: diphenhydrAMINE CAP 25 MG CAPSULE PO PRN (12:14)
[2017-06-02] MEDS ORDERED: LOPERAMIDE 2 MG CAPSULE PO PRN ×2 (12:14)
[2017-06-02] MEDS ORDERED: BENZTROPINE 2 MG/2 ML AMP IV PRN (12:14)
[2017-06-02] MEDS ORDERED: traMADol 50 MG TABLET PO PRN (12:14)
[2017-06-02] MEDS ORDERED: ACETAMINOPHEN 325 MG TABLET PO PRN (12:14)
[2017-06-02] MEDS ORDERED: chlorproMAZINE INJ 50 MG in SODIUM CHLORIDE 0.9% 100 ML IV PRN (12:14)
[2017-06-02] MEDS ORDERED: TEMAZEPAM 7.5 MG CAPSULE PO PRN (12:14)
[2017-06-02] MEDS ORDERED: MYLANTA/LIDO VISC 2:1 300 ML BOTTLE SWISH/SWAL PRN (12:14)
[2017-06-02] MEDS ORDERED: guaiFENesin 200 MG/10 ML UDCUP PO PRN (12:14)
[2017-06-02] MEDS ORDERED: chlorproMAZINE 25 MG TABLET PO PRN (12:14)
[2017-06-02] MEDS ORDERED: ALPRAZolam 0.25 MG TABLET PO PRN (12:14)
[2017-06-02] MEDS ORDERED: PROMETHAZINE INJ 25 MG in SODIUM CHLORIDE 0.9% 50 ML IV PRN (12:14)
[2017-06-02] MEDS ORDERED: ONDANSETRON 4 MG/2 ML VIAL IV PRN (12:14)
[2017-06-02] MEDS ORDERED: ALUMINUM/MAGNES/SIMETH MAX STR 30 ML UDCUP PO PRN (12:14)
[2017-06-02] MEDS ORDERED: chlorproMAZINE INJ 25 MG in SODIUM CHLORIDE 0.9% 100 ML IV PRN (12:14)
[2017-06-02] MEDS ORDERED: LACTULOSE 20 GM/30 ML UDCUP PO PRN (12:14)
[2017-06-02] MEDS ORDERED: MYLANTA/LIDO VISC 2:1 300 ML BOTTLE SWISH/SPIT PRN (12:14)
[2017-06-02] MEDS ORDERED: IRINOTECAN IV ONE (12:30)
[2017-06-02] MEDS ORDERED: FLUOROURACIL 800 MG in SYRINGE 1 EACH IV ONE (12:30)
[2017-06-02] MEDS ORDERED: LEUCOVORIN INJ 700 MG, LEUCOVORIN INJ 100 MG in DEXTROSE 5% 250 ML IV ONE (12:30)
[2017-06-02] MEDS ORDERED: DEXTROSE 5% IV ONE (12:30)
[2017-06-02] MEDS ORDERED: ONDANSETRON 4 MG TABLET PO PRN (12:40)
[2017-06-02] MEDS: GRANISETRON 1 MG/1 ML VIAL IV SCH (14:39)
[2017-06-02] MEDS: DEXAMETHASONE 10 MG/1 ML VIAL IV SCH (14:41)
[2017-06-02] MEDS: FLUOROURACIL 1,500 MG in SODIUM CHLORIDE 0.9% 1,000 ML IV SCH (18:09)
[2017-06-02] MEDS: MAGNESIUM CHLORIDE 64 MG TABLET PO SCH (21:16)
[2017-06-02] MEDS: levETIRAcetam 500 MG TABLET PO SCH (21:16)
[2017-06-02] MEDS: POTASSIUM CHLORIDE 20 MEQ TABLET PO SCH (21:17)
[2017-06-03 01:16] LABS: Apearance,Urine Slightly Hazy (Clear); Bilirubin,Urine Negative (Negative); Blood, Urine Negative (Negative); Calcium Oxalate Crystals,Urine Many /HPF (Few); Glucose,Urine (UA) >=500 mg/dL (Negative); Hyaline Casts,Urine 1 /LPF (0-3); Ketones,Urine Negative (Negative); Mucus,Urine Occasional /LPF (Occasional); Nitrite,Urine Negative (Negative); Protein,Urine Negative; RBC,Urine 2 /HPF (0-4); Urine Color Yellow (Yellow); Urine Specific Gravity 1.015 (1.001-1.035)
[2017-06-03] MEDS: LEVOTHYROXINE 75 MCG TABLET PO SCH (06:49)
[2017-06-03] MEDS: levETIRAcetam 500 MG TABLET PO SCH ×2 (09:03→22:32)
[2017-06-03] MEDS: GRANISETRON 1 MG/1 ML VIAL IV SCH (09:03)
[2017-06-03] MEDS: NEBIVOLOL 5 MG TABLET PO SCH (09:03)
[2017-06-03] MEDS: POTASSIUM CHLORIDE 20 MEQ TABLET PO SCH ×2 (09:03→22:34)
[2017-06-03] MEDS: DEXAMETHASONE 10 MG/1 ML VIAL IV SCH (09:08)
[2017-06-03] MEDS: MAGNESIUM CHLORIDE 64 MG TABLET PO SCH ×2 (10:49→22:33)
[2017-06-03] MEDS: FLUOROURACIL 1,500 MG in SODIUM CHLORIDE 0.9% 1,000 ML IV SCH (16:19)
[2017-06-04] MEDS: LEVOTHYROXINE 75 MCG TABLET PO SCH (06:36)
[2017-06-04] MEDS: POTASSIUM CHLORIDE 20 MEQ TABLET PO SCH (09:29)
[2017-06-04] MEDS: DEXAMETHASONE 10 MG/1 ML VIAL IV SCH (09:30)
[2017-06-04] MEDS: NEBIVOLOL 5 MG TABLET PO SCH (09:30)
[2017-06-04] MEDS: levETIRAcetam 500 MG TABLET PO SCH (09:30)
[2017-06-04] MEDS: MAGNESIUM CHLORIDE 64 MG TABLET PO SCH (09:30)
[2017-06-04] MEDS: GRANISETRON 1 MG/1 ML VIAL IV SCH (09:30)
[2017-06-04] MEDS ORDERED: HEPARIN LOCK FLUSH 500 UNIT/5 ML SYRINGE IV PRN (11:37)
[2017-06-04 11:42] VITALS: BP 149/70
== END 2017-06-04 14:35 | disposition home health service, planned readmission (86) | DRG 847 ==
LOC: N.4E 06:58
PROVIDERS: ADMIT Specialist; ATTEND Specialist

== ENCOUNTER 2017-06-22 07:00 | Inpatient (IN) ==
[2017-06-22 08:52] LABS: Basophils % 0.9 % (0.0-0.8); Eosinophils # 0.2 10*3/uL (0.0-0.87); Hematocrit 31.7 VOL% (35.7-47.0); Immature Granulocytes % 0.6 %; Immature Granulocytes Absolute 0.02 #; Lymphocytes # 0.9 10*3/uL (1.4-4.0); Lymphocytes % 27.2 % (21.3-54.2); Mean Corpuscular HGB Conc 31.5 GM/DL (32-36); Mean Corpuscular Hemoglobin 32 PG (27-34); Mean Platelet Volume 11.1 FL (9.6-12.0); Monocytes # 0.6 10*3/uL (0.11-0.8); Monocytes % 17.2 % (1.7-12.7); Neutrophils # 1.6 10*3/uL (1.4-7.4); Neutrophils % 48.1 % (38.7-73.9); Platelet Count 165 T/CUMM (130-400); Red Blood Count 3.14 MC/CUMM (3.8-5.5); Red Cell Distribution Width 15.6 % (9.3-17.3); White Blood Count 3.3 T/CUMM (4-12)
[2017-06-22] MEDS ORDERED: guaiFENesin 200 MG/10 ML UDCUP PO PRN (08:56)
[2017-06-22] MEDS ORDERED: LACTULOSE 20 GM/30 ML UDCUP PO PRN (08:56)
[2017-06-22] MEDS ORDERED: PROMETHAZINE INJ 25 MG in SODIUM CHLORIDE 0.9% 50 ML IV PRN (08:56)
[2017-06-22] MEDS ORDERED: ALUMINUM/MAGNES/SIMETH MAX STR 30 ML UDCUP PO PRN (08:56)
[2017-06-22] MEDS ORDERED: MYLANTA/LIDO VISC 2:1 300 ML BOTTLE SWISH/SWAL PRN (08:56)
[2017-06-22] MEDS ORDERED: ALPRAZolam 0.25 MG TABLET PO PRN (08:56)
[2017-06-22] MEDS ORDERED: BENZTROPINE 2 MG/2 ML AMP IV PRN (08:56)
[2017-06-22] MEDS ORDERED: chlorproMAZINE 25 MG TABLET PO PRN (08:56)
[2017-06-22] MEDS ORDERED: diphenhydrAMINE CAP 25 MG CAPSULE PO PRN (08:56)
[2017-06-22] MEDS ORDERED: ACETAMINOPHEN 325 MG TABLET PO PRN (08:56)
[2017-06-22] MEDS ORDERED: LOPERAMIDE 2 MG CAPSULE PO PRN ×2 (08:56)
[2017-06-22] MEDS ORDERED: traMADol 50 MG TABLET PO PRN (08:56)
[2017-06-22] MEDS ORDERED: chlorproMAZINE INJ 25 MG in SODIUM CHLORIDE 0.9% 100 ML IV PRN (08:56)
[2017-06-22] MEDS ORDERED: ONDANSETRON 4 MG/2 ML VIAL IV PRN (08:56)
[2017-06-22] MEDS ORDERED: MAGNESIUM HYDROXIDE SUSP 30 ML UDCUP PO PRN (08:56)
[2017-06-22] MEDS ORDERED: MYLANTA/LIDO VISC 2:1 300 ML BOTTLE SWISH/SPIT PRN (08:56)
[2017-06-22] MEDS ORDERED: chlorproMAZINE INJ 50 MG in SODIUM CHLORIDE 0.9% 100 ML IV PRN (08:56)
[2017-06-22] MEDS ORDERED: TEMAZEPAM 7.5 MG CAPSULE PO PRN (08:56)
[2017-06-22 09:14] LABS: Eosinophils 7 % (0-10); Hypochromasia 1+; Lymphocytes 31 % (20-55); Segmented Neutrophils 43 % (50-85); Total Cells Counted 100
[2017-06-22 09:15] LABS: Macrocytosis Slight; Ovalocytes Slight; Platelet Estimate Adequate
[2017-06-22] MEDS ORDERED: ONDANSETRON 4 MG TABLET PO PRN (09:42)
[2017-06-22 09:53] LABS: Albumin 3.2 G/DL (3.4-5.0); Bilirubin,Total 0.5 MG/DL (0.2-1.0); Calcium 9.2 MG/DL (8.5-10.1); Potassium 3.3 MMOL/L (3.5-5.1); Total Protein 6.5 G/DL (6.4-8.3)
[2017-06-22 09:54] LABS: Uric Acid 3.9 MG/DL (2.6-6.0)
[2017-06-22] MEDS: levETIRAcetam 500 MG TABLET PO SCH ×2 (10:44→20:26)
[2017-06-22] MEDS: MAGNESIUM CHLORIDE 64 MG TABLET PO SCH ×2 (10:44→20:26)
[2017-06-22] MEDS: GRANISETRON 1 MG/1 ML VIAL IV SCH (10:45)
[2017-06-22] MEDS: DEXAMETHASONE 10 MG/1 ML VIAL IV SCH (10:49)
[2017-06-22] MEDS ORDERED: DEXTROSE 5% IV ONE (11:00)
[2017-06-22] MEDS ORDERED: IRINOTECAN IV ONE (11:00)
[2017-06-22] MEDS ORDERED: FLUOROURACIL 800 MG in SYRINGE 1 EACH IV ONE (11:00)
[2017-06-22] MEDS ORDERED: LEUCOVORIN INJ 800 MG in DEXTROSE 5% 250 ML IV ONE (11:00)
[2017-06-22 13:10] LABS: Apearance,Urine CLEAR (Clear); Bilirubin,Urine Negative (Negative); Blood, Urine Negative (Negative); Glucose,Urine (UA) Negative (Negative); Ketones,Urine Negative (Negative); Nitrite,Urine Negative (Negative); Protein,Urine Negative; RBC,Urine 1 /HPF (0-4); Squamous Epithelial Cell,Urine Occasional /HPF (0-10); Urine Color Yellow (Yellow); Urine Specific Gravity 1.015 (1.001-1.035); WBC,Urine 5 /HPF (0-6)
[2017-06-22] MEDS: FLUOROURACIL 1,500 MG in SODIUM CHLORIDE 0.9% 1,000 ML IV SCH (14:27)
[2017-06-22] MEDS: POTASSIUM CHLORIDE 20 MEQ TABLET PO SCH (17:43)
[2017-06-22] MEDS: NEBIVOLOL 5 MG TABLET PO SCH (17:43)
[2017-06-23] MEDS: LEVOTHYROXINE 75 MCG TABLET PO SCH (07:24)
[2017-06-23] MEDS: POTASSIUM CHLORIDE 20 MEQ TABLET PO SCH ×2 (09:22→17:11)
[2017-06-23] MEDS: levETIRAcetam 500 MG TABLET PO SCH ×2 (09:24→21:11)
[2017-06-23] MEDS: MAGNESIUM CHLORIDE 64 MG TABLET PO SCH ×2 (09:24→21:11)
[2017-06-23] MEDS: DEXAMETHASONE 10 MG/1 ML VIAL IV SCH (09:29)
[2017-06-23] MEDS: GRANISETRON 1 MG/1 ML VIAL IV SCH (09:34)
[2017-06-23] MEDS: FLUOROURACIL 1,500 MG in SODIUM CHLORIDE 0.9% 1,000 ML IV SCH (13:06)
[2017-06-23] MEDS: NEBIVOLOL 5 MG TABLET PO SCH (17:11)
[2017-06-24] MEDS: LEVOTHYROXINE 75 MCG TABLET PO SCH ×2 (05:49→08:13)
[2017-06-24] MEDS: MAGNESIUM CHLORIDE 64 MG TABLET PO SCH (08:48)
[2017-06-24] MEDS: POTASSIUM CHLORIDE 20 MEQ TABLET PO SCH (08:48)
[2017-06-24] MEDS: GRANISETRON 1 MG/1 ML VIAL IV SCH (08:48)
[2017-06-24] MEDS: levETIRAcetam 500 MG TABLET PO SCH (08:48)
[2017-06-24] MEDS: DEXAMETHASONE 10 MG/1 ML VIAL IV SCH (08:49)
[2017-06-24] MEDS ORDERED: HEPARIN LOCK FLUSH 500 UNIT/5 ML SYRINGE IV ONE (11:20)
[2017-06-24 12:17] VITALS: BP 106/64
== END 2017-06-24 12:55 | disposition home health service, planned readmission (86) | DRG 847 ==
LOC: N.4E 07:27
PROVIDERS: ADMIT Specialist; ATTEND Specialist

== ENCOUNTER 2017-07-06 07:00 | Inpatient (IN) ==
[2017-07-06 08:14] LABS: Basophils % 0.6 % (0.0-0.8); Eosinophils # 0.2 10*3/uL (0.0-0.87); Eosinophils % 5.4 % (0.00-10.9); Hematocrit 30.1 VOL% (35.7-47.0); Hemoglobin 9.6 GM/DL (12.0-16.0); Immature Granulocytes % 0.3 %; Immature Granulocytes Absolute 0.01 #; Lymphocytes # 0.9 10*3/uL (1.4-4.0); Lymphocytes % 27.1 % (21.3-54.2); Mean Corpuscular HGB Conc 31.9 GM/DL (32-36); Mean Corpuscular Hemoglobin 31 PG (27-34); Mean Platelet Volume 10.7 FL (9.6-12.0); Monocytes # 0.4 10*3/uL (0.11-0.8); Neutrophils # 1.8 10*3/uL (1.4-7.4); Neutrophils % 54.6 % (38.7-73.9); Platelet Count 147 T/CUMM (130-400); Red Blood Count 3.07 MC/CUMM (3.8-5.5); Red Cell Distribution Width 15.2 % (9.3-17.3); White Blood Count 3.3 T/CUMM (4-12)
[2017-07-06 08:38] LABS: Uric Acid 4.5 MG/DL (2.6-6.0)
[2017-07-06 08:41] LABS: Albumin 3.2 G/DL (3.4-5.0); Bilirubin,Total 0.6 MG/DL (0.2-1.0); Calcium 9.1 MG/DL (8.5-10.1); Osmolality,Calculated 284.8 MOS/KG (273-304); Potassium 3.5 MMOL/L (3.5-5.1); Total Protein 6.6 G/DL (6.4-8.3)
[2017-07-06] MEDS ORDERED: diphenhydrAMINE CAP 25 MG CAPSULE PO PRN (09:10)
[2017-07-06] MEDS ORDERED: MAGNESIUM HYDROXIDE SUSP 30 ML UDCUP PO PRN (09:10)
[2017-07-06] MEDS ORDERED: ONDANSETRON 4 MG/2 ML VIAL IV PRN (09:10)
[2017-07-06] MEDS ORDERED: MYLANTA/LIDO VISC 2:1 300 ML BOTTLE SWISH/SWAL PRN (09:10)
[2017-07-06] MEDS ORDERED: guaiFENesin 200 MG/10 ML UDCUP PO PRN (09:10)
[2017-07-06] MEDS ORDERED: TEMAZEPAM 7.5 MG CAPSULE PO PRN (09:10)
[2017-07-06] MEDS ORDERED: chlorproMAZINE 25 MG TABLET PO PRN (09:10)
[2017-07-06] MEDS ORDERED: traMADol 50 MG TABLET PO PRN (09:10)
[2017-07-06] MEDS ORDERED: BENZTROPINE 2 MG/2 ML AMP IV PRN (09:10)
[2017-07-06] MEDS ORDERED: ALPRAZolam 0.25 MG TABLET PO PRN (09:10)
[2017-07-06] MEDS ORDERED: chlorproMAZINE INJ 25 MG in SODIUM CHLORIDE 0.9% 100 ML IV PRN (09:10)
[2017-07-06] MEDS ORDERED: PROMETHAZINE INJ 25 MG in SODIUM CHLORIDE 0.9% 50 ML IV PRN (09:10)
[2017-07-06] MEDS ORDERED: ALUMINUM/MAGNES/SIMETH MAX STR 30 ML UDCUP PO PRN (09:10)
[2017-07-06] MEDS ORDERED: ACETAMINOPHEN 325 MG TABLET PO PRN (09:10)
[2017-07-06] MEDS ORDERED: MYLANTA/LIDO VISC 2:1 300 ML BOTTLE SWISH/SPIT PRN (09:10)
[2017-07-06] MEDS ORDERED: LACTULOSE 20 GM/30 ML UDCUP PO PRN (09:10)
[2017-07-06] MEDS ORDERED: chlorproMAZINE INJ 50 MG in SODIUM CHLORIDE 0.9% 100 ML IV PRN (09:10)
[2017-07-06] MEDS ORDERED: LOPERAMIDE 2 MG CAPSULE PO PRN ×2 (09:10)
[2017-07-06] MEDS ORDERED: ONDANSETRON 4 MG TABLET PO PRN (09:12)
[2017-07-06 09:15] LABS: Cancer Antigen 19-9 36.8 U/ML (0-37); Carcinoembryonic Antigen 9.3 NG/ML (0.0-5.0)
[2017-07-06] MEDS ORDERED: LEUCOVORIN INJ 700 MG, LEUCOVORIN INJ 100 MG in DEXTROSE 5% 250 ML IV ONE (09:30)
[2017-07-06] MEDS ORDERED: GRANISETRON 1 MG/1 ML VIAL IV ONE (09:30)
[2017-07-06] MEDS ORDERED: IRINOTECAN IV ONE (09:30)
[2017-07-06] MEDS ORDERED: DEXTROSE 5% IV ONE (09:30)
[2017-07-06] MEDS ORDERED: FLUOROURACIL 800 MG in SYRINGE 1 EACH IV ONE (09:30)
[2017-07-06] MEDS: levETIRAcetam 500 MG TABLET PO SCH ×2 (10:09→21:40)
[2017-07-06] MEDS: MAGNESIUM CHLORIDE 64 MG TABLET PO SCH ×2 (10:09→21:40)
[2017-07-06] MEDS: DEXAMETHASONE 4 MG/1 ML VIAL IV SCH (10:12)
[2017-07-06] MEDS: FLUOROURACIL 1,500 MG in SODIUM CHLORIDE 0.9% 1,000 ML IV SCH (12:52)
[2017-07-06 15:02] LABS: Apearance,Urine CLEAR (Clear); Bilirubin,Urine Negative (Negative); Blood, Urine Negative (Negative); Glucose,Urine (UA) Negative (Negative); Ketones,Urine Negative (Negative); Nitrite,Urine Negative (Negative); Protein,Urine Negative; Squamous Epithelial Cell,Urine Occasional /HPF (0-10); Urine Color Colorless (Yellow); Urine Specific Gravity 1.001 (1.001-1.035); Urine Urobilinogen < 2.0 EU/DL (0.2-1.0); WBC,Urine <1 /HPF (0-6)
[2017-07-06] MEDS: NEBIVOLOL 5 MG TABLET PO SCH (18:04)
[2017-07-06] MEDS: POTASSIUM CHLORIDE 20 MEQ TABLET PO SCH (18:05)
[2017-07-07] MEDS: LEVOTHYROXINE 75 MCG TABLET PO SCH (07:11)
[2017-07-07] MEDS: MAGNESIUM CHLORIDE 64 MG TABLET PO SCH ×2 (09:09→21:02)
[2017-07-07] MEDS: POTASSIUM CHLORIDE 20 MEQ TABLET PO SCH ×2 (09:09→17:53)
[2017-07-07] MEDS: levETIRAcetam 500 MG TABLET PO SCH ×2 (09:09→21:01)
[2017-07-07] MEDS: DEXAMETHASONE 4 MG/1 ML VIAL IV SCH (09:10)
[2017-07-07] MEDS: FLUOROURACIL 1,500 MG in SODIUM CHLORIDE 0.9% 1,000 ML IV SCH (11:41)
[2017-07-07] MEDS: NEBIVOLOL 5 MG TABLET PO SCH (17:53)
[2017-07-08] MEDS: DEXAMETHASONE 4 MG/1 ML VIAL IV SCH (08:43)
[2017-07-08] MEDS: levETIRAcetam 500 MG TABLET PO SCH (08:44)
[2017-07-08] MEDS: MAGNESIUM CHLORIDE 64 MG TABLET PO SCH (08:44)
[2017-07-08] MEDS: POTASSIUM CHLORIDE 20 MEQ TABLET PO SCH (08:44)
[2017-07-08] MEDS: LEVOTHYROXINE 75 MCG TABLET PO SCH (08:45)
[2017-07-08] MEDS ORDERED: HEPARIN LOCK FLUSH 500 UNIT/5 ML SYRINGE IV ONE ×2 (11:53→11:54)
[2017-07-08 12:05] VITALS: BP 147/67
== END 2017-07-08 12:42 | disposition home or self-care, planned readmission (81) | DRG 847 ==
LOC: N.4E 07:16
PROVIDERS: ADMIT Specialist; ATTEND Specialist

== ENCOUNTER 2017-07-20 07:00 | Inpatient (IN) ==
[2017-07-20 08:27] LABS: Basophils % 0.3 % (0.0-0.8); Eosinophils # 0.1 10*3/uL (0.0-0.87); Eosinophils % 3.2 % (0.00-10.9); Hematocrit 31.1 VOL% (35.7-47.0); Immature Granulocytes % 0.6 %; Immature Granulocytes Absolute 0.02 #; Lymphocytes # 0.9 10*3/uL (1.4-4.0); Lymphocytes % 25.3 % (21.3-54.2); Mean Corpuscular HGB Conc 32.2 GM/DL (32-36); Mean Corpuscular Hemoglobin 31 PG (27-34); Mean Corpuscular Volume 97.2 FL (87-102); Mean Platelet Volume 10.7 FL (9.6-12.0); Monocytes # 0.5 10*3/uL (0.11-0.8); Monocytes % 13.2 % (1.7-12.7); Neutrophils % 57.4 % (38.7-73.9); Platelet Count 164 T/CUMM (130-400); White Blood Count 3.5 T/CUMM (4-12)
[2017-07-20 08:43] LABS: Albumin 3.4 G/DL (3.4-5.0); Bilirubin,Total 0.6 MG/DL (0.2-1.0); Calcium 8.9 MG/DL (8.5-10.1); Potassium 3.4 MMOL/L (3.5-5.1); Total Protein 6.5 G/DL (6.4-8.3); Uric Acid 4.5 MG/DL (2.6-6.0)
[2017-07-20] MEDS ORDERED: ONDANSETRON 4 MG/2 ML VIAL IV PRN (09:06)
[2017-07-20] MEDS ORDERED: PROMETHAZINE INJ 25 MG in SODIUM CHLORIDE 0.9% 50 ML IV PRN (09:06)
[2017-07-20] MEDS ORDERED: LOPERAMIDE 2 MG CAPSULE PO PRN ×2 (09:06)
[2017-07-20] MEDS ORDERED: BENZTROPINE 2 MG/2 ML AMP IV PRN (09:06)
[2017-07-20] MEDS ORDERED: chlorproMAZINE 25 MG TABLET PO PRN (09:06)
[2017-07-20] MEDS ORDERED: MAGNESIUM HYDROXIDE SUSP 30 ML UDCUP PO PRN (09:06)
[2017-07-20] MEDS ORDERED: ALUMINUM/MAGNES/SIMETH MAX STR 30 ML UDCUP PO PRN (09:06)
[2017-07-20] MEDS ORDERED: MYLANTA/LIDO VISC 2:1 300 ML BOTTLE SWISH/SPIT PRN (09:06)
[2017-07-20] MEDS ORDERED: guaiFENesin 200 MG/10 ML UDCUP PO PRN (09:06)
[2017-07-20] MEDS ORDERED: LACTULOSE 20 GM/30 ML UDCUP PO PRN (09:06)
[2017-07-20] MEDS ORDERED: ACETAMINOPHEN 325 MG TABLET PO PRN (09:06)
[2017-07-20] MEDS ORDERED: ALPRAZolam 0.25 MG TABLET PO PRN (09:06)
[2017-07-20] MEDS ORDERED: chlorproMAZINE INJ 50 MG in SODIUM CHLORIDE 0.9% 100 ML IV PRN (09:06)
[2017-07-20] MEDS ORDERED: traMADol 50 MG TABLET PO PRN (09:06)
[2017-07-20] MEDS ORDERED: diphenhydrAMINE CAP 25 MG CAPSULE PO PRN (09:06)
[2017-07-20] MEDS ORDERED: TEMAZEPAM 7.5 MG CAPSULE PO PRN (09:06)
[2017-07-20] MEDS ORDERED: MYLANTA/LIDO VISC 2:1 300 ML BOTTLE SWISH/SWAL PRN (09:06)
[2017-07-20] MEDS ORDERED: chlorproMAZINE INJ 25 MG in SODIUM CHLORIDE 0.9% 100 ML IV PRN (09:06)
[2017-07-20] MEDS ORDERED: ONDANSETRON 4 MG TABLET PO PRN (09:09)
[2017-07-20 09:31] LABS: PT Patient Result 10.7 SECS
[2017-07-20] MEDS ORDERED: DEXTROSE 5% IV ONE (10:00)
[2017-07-20] MEDS ORDERED: FLUOROURACIL 800 MG in SYRINGE 1 EACH IV ONE (10:00)
[2017-07-20] MEDS ORDERED: IRINOTECAN IV ONE (10:00)
[2017-07-20] MEDS ORDERED: LEUCOVORIN INJ 700 MG, LEUCOVORIN INJ 100 MG in DEXTROSE 5% 250 ML IV ONE (10:00)
[2017-07-20] MEDS ORDERED: DIAZEPAM 5 MG TABLET PO ONE (11:28)
[2017-07-20 11:52] LABS: Apearance,Urine CLEAR (Clear); Bilirubin,Urine Negative (Negative); Blood, Urine Negative (Negative); Glucose,Urine (UA) Negative (Negative); Hyaline Casts,Urine 1 /LPF (0-3); Ketones,Urine Negative (Negative); Nitrite,Urine Negative (Negative); Protein,Urine Negative; RBC,Urine 1 /HPF (0-4); Urine Color Yellow (Yellow); Urine Specific Gravity 1.015 (1.001-1.035); Urine Urobilinogen < 2.0 EU/DL (0.2-1.0); WBC,Urine 4 /HPF (0-6)
[2017-07-20] MEDS: levETIRAcetam 500 MG TABLET PO SCH ×2 (15:01→21:14)
[2017-07-20] MEDS: MAGNESIUM CHLORIDE 64 MG TABLET PO SCH ×2 (15:02→21:14)
[2017-07-20] MEDS: DEXAMETHASONE 4 MG/1 ML VIAL IV SCH (15:02)
[2017-07-20] MEDS: GRANISETRON 1 MG/1 ML VIAL IV SCH (15:02)
[2017-07-20] MEDS: NEBIVOLOL 5 MG TABLET PO SCH (17:21)
[2017-07-20] MEDS: POTASSIUM CHLORIDE 20 MEQ TABLET PO SCH (17:21)
[2017-07-20] MEDS: FLUOROURACIL 1,500 MG in SODIUM CHLORIDE 0.9% 1,000 ML IV SCH (17:27)
[2017-07-21] MEDS: LEVOTHYROXINE 75 MCG TABLET PO SCH (06:08)
[2017-07-21] MEDS: POTASSIUM CHLORIDE 20 MEQ TABLET PO SCH ×2 (09:17→17:16)
[2017-07-21] MEDS: DEXAMETHASONE 4 MG/1 ML VIAL IV SCH (09:17)
[2017-07-21] MEDS: GRANISETRON 1 MG/1 ML VIAL IV SCH (09:17)
[2017-07-21] MEDS: MAGNESIUM CHLORIDE 64 MG TABLET PO SCH ×2 (09:17→20:27)
[2017-07-21] MEDS: levETIRAcetam 500 MG TABLET PO SCH ×2 (09:17→20:27)
[2017-07-21] MEDS: FLUOROURACIL 1,500 MG in SODIUM CHLORIDE 0.9% 1,000 ML IV SCH (15:32)
[2017-07-21] MEDS: NEBIVOLOL 5 MG TABLET PO SCH (17:16)
[2017-07-22] MEDS: LEVOTHYROXINE 75 MCG TABLET PO SCH (06:40)
[2017-07-22] MEDS: MAGNESIUM CHLORIDE 64 MG TABLET PO SCH (09:30)
[2017-07-22] MEDS: levETIRAcetam 500 MG TABLET PO SCH (09:30)
[2017-07-22] MEDS: GRANISETRON 1 MG/1 ML VIAL IV SCH (09:30)
[2017-07-22] MEDS: POTASSIUM CHLORIDE 20 MEQ TABLET PO SCH (09:30)
[2017-07-22] MEDS: DEXAMETHASONE 4 MG/1 ML VIAL IV SCH (09:30)
[2017-07-22 13:52] VITALS: BP 189/85
[2017-07-22] MEDS ORDERED: HEPARIN LOCK FLUSH 500 UNIT/5 ML SYRINGE IV ONE (15:04)
== END 2017-07-22 16:10 | disposition home or self-care, planned readmission (81) | DRG 847 ==
LOC: N.4E 07:10
PROVIDERS: ADMIT Specialist; ATTEND Specialist

== ENCOUNTER 2017-08-03 06:56 | Observation (INO) ==
[2017-08-03 07:45] LABS: Basophils % 0.7 % (0.0-0.8); Eosinophils # 0.1 10*3/uL (0.0-0.87); Eosinophils % 3.3 % (0.00-10.9); Hemoglobin 8.8 GM/DL (12.0-16.0); Immature Granulocytes % 0.4 %; Immature Granulocytes Absolute 0.01 #; Lymphocytes # 0.8 10*3/uL (1.4-4.0); Lymphocytes % 29.1 % (21.3-54.2); Mean Corpuscular HGB Conc 31.4 GM/DL (32-36); Mean Corpuscular Hemoglobin 32 PG (27-34); Mean Corpuscular Volume 101.1 FL (87-102); Mean Platelet Volume 10.3 FL (9.6-12.0); Monocytes # 0.5 10*3/uL (0.11-0.8); Monocytes % 18.9 % (1.7-12.7); Neutrophils # 1.3 10*3/uL (1.4-7.4); Neutrophils % 47.6 % (38.7-73.9); Platelet Count 138 T/CUMM (130-400); Red Blood Count 2.77 MC/CUMM (3.8-5.5); Red Cell Distribution Width 15.5 % (9.3-17.3); White Blood Count 2.8 T/CUMM (4-12)
[2017-08-03 08:08] LABS: Band Neutrophils 3 % (0-10); Eosinophils 3 % (0-10); Hypochromasia 1+; Lymphocytes 31 % (20-55); Macrocytosis Slight; Nucleated Red Blood Cells 1 (0-5); Segmented Neutrophils 50 % (50-85); Total Cells Counted 100
[2017-08-03 08:10] LABS: Platelet Estimate Adequate
[2017-08-03] MEDS ORDERED: PANITUMUMAB 400 MG in SODIUM CHLORIDE 0.9% 100 ML IV ONE (09:03)
[2017-08-03] MEDS ORDERED: LEUCOVORIN INJ 700 MG, LEUCOVORIN INJ 100 MG in DEXTROSE 5% 250 ML IV ONE (09:04)
[2017-08-03] MEDS ORDERED: IRINOTECAN IV ONE (09:04)
[2017-08-03] MEDS ORDERED: FLUOROURACIL 800 MG in SYRINGE 1 EACH IV ONE (09:04)
[2017-08-03] MEDS ORDERED: DEXTROSE 5% IV ONE (09:04)
[2017-08-03 09:06] LABS: Cancer Antigen 19-9 78.7 U/ML (0-37); Carcinoembryonic Antigen 17.8 NG/ML (0.0-5.0)
[2017-08-03] MEDS ORDERED: DEXAMETHASONE INJ 10 MG in SODIUM CHLORIDE 0.9% 50 ML IV ONE (10:37)
[2017-08-03] MEDS: GRANISETRON 1 MG/1 ML VIAL IV SCH (11:00)
[2017-08-03 11:17] LABS: Uric Acid 4.4 MG/DL (2.6-6.0)
[2017-08-03 11:20] LABS: Albumin 3.3 G/DL (3.4-5.0); Bilirubin,Total 0.9 MG/DL (0.2-1.0); Calcium 8.3 MG/DL (8.5-10.1); Osmolality,Calculated 286.7 MOS/KG (273-304); Potassium 3.2 MMOL/L (3.5-5.1); Total Protein 5.9 G/DL (6.4-8.3)
[2017-08-03] MEDS ORDERED: ONDANSETRON 4 MG TABLET PO PRN (12:54)
[2017-08-03] MEDS: NEBIVOLOL 5 MG TABLET PO SCH (16:46)
[2017-08-03] MEDS: FLUOROURACIL 1,500 MG in SODIUM CHLORIDE 0.9% 1,000 ML IV SCH (17:08)
[2017-08-03 17:26] LABS: Apearance,Urine CLEAR (Clear); Bilirubin,Urine Negative (Negative); Blood, Urine Negative (Negative); Glucose,Urine (UA) >=500 mg/dL (Negative); Ketones,Urine Negative (Negative); Mucus,Urine Occasional /LPF (Occasional); Nitrite,Urine Negative (Negative); Protein,Urine Negative; RBC,Urine 1 /HPF (0-4); Squamous Epithelial Cell,Urine Occasional /HPF (0-10); Urine Color Straw (Yellow); Urine Specific Gravity 1.007 (1.001-1.035); WBC,Urine 1 /HPF (0-6)
[2017-08-03] MEDS: POTASSIUM CHLORIDE 20 MEQ TABLET PO SCH (21:00)
[2017-08-03] MEDS: MAGNESIUM CHLORIDE 64 MG TABLET PO SCH (21:00)
[2017-08-03] MEDS: levETIRAcetam 500 MG TABLET PO SCH (21:00)
[2017-08-04] MEDS: LEVOTHYROXINE 75 MCG TABLET PO SCH (06:17)
[2017-08-04] MEDS: GRANISETRON 1 MG/1 ML VIAL IV SCH (08:21)
[2017-08-04] MEDS: POTASSIUM CHLORIDE 20 MEQ TABLET PO SCH ×2 (08:22→21:41)
[2017-08-04] MEDS: MAGNESIUM CHLORIDE 64 MG TABLET PO SCH ×2 (08:22→21:41)
[2017-08-04] MEDS: levETIRAcetam 500 MG TABLET PO SCH ×2 (08:22→21:41)
[2017-08-04] MEDS: FLUOROURACIL 1,500 MG in SODIUM CHLORIDE 0.9% 1,000 ML IV SCH (15:54)
[2017-08-04] MEDS: NEBIVOLOL 5 MG TABLET PO SCH (17:11)
[2017-08-05] MEDS: LEVOTHYROXINE 75 MCG TABLET PO SCH (06:17)
[2017-08-05] MEDS: POTASSIUM CHLORIDE 20 MEQ TABLET PO SCH (09:53)
[2017-08-05] MEDS: MAGNESIUM CHLORIDE 64 MG TABLET PO SCH (09:53)
[2017-08-05] MEDS: levETIRAcetam 500 MG TABLET PO SCH (09:53)
[2017-08-05] MEDS: GRANISETRON 1 MG/1 ML VIAL IV SCH (09:53)
[2017-08-05 14:03] VITALS: BP 136/65
[2017-08-05] MEDS ORDERED: HEPARIN LOCK FLUSH 500 UNIT/5 ML SYRINGE IV ONE (15:40)
== END 2017-08-05 15:56 | disposition home or self-care (01) ==
LOC: N.4E 06:56 → INTOOBSV 06:56
PROVIDERS: ADMIT Specialist; ATTEND Specialist

== ENCOUNTER 2017-08-24 06:58 | Inpatient (IN) ==
[2017-08-24 08:35] LABS: Basophils # 0.1 10*3/uL (0.0-0.2); Basophils % 1.9 % (0.0-0.8); Eosinophils # 0.5 10*3/uL (0.0-0.87); Eosinophils % 12.7 % (0.00-10.9); Hematocrit 30.3 VOL% (35.7-47.0); Hemoglobin 9.7 GM/DL (12.0-16.0); Immature Granulocytes % 1.7 %; Immature Granulocytes Absolute 0.07 #; Lymphocytes # 1.2 10*3/uL (1.4-4.0); Lymphocytes % 27.8 % (21.3-54.2); Mean Corpuscular Hemoglobin 33 PG (27-34); Mean Corpuscular Volume 101.7 FL (87-102); Mean Platelet Volume 11.2 FL (9.6-12.0); Monocytes # 0.7 10*3/uL (0.11-0.8); Monocytes % 16.3 % (1.7-12.7); Neutrophils # 1.7 10*3/uL (1.4-7.4); Neutrophils % 39.6 % (38.7-73.9); Platelet Count 161 T/CUMM (130-400); Red Blood Count 2.98 MC/CUMM (3.8-5.5); Red Cell Distribution Width 16.3 % (9.3-17.3); White Blood Count 4.2 T/CUMM (4-12)
[2017-08-24] MEDS ORDERED: CARBOXYMETHYLCELLULOSE 1% OPH SOLN BOTH EYES PRN (08:44)
[2017-08-24 09:06] LABS: Eosinophils 10 % (0-10); Hypochromasia 1+; Lymphocytes 26 % (20-55); Macrocytosis 1+; Segmented Neutrophils 45 % (50-85); Total Cells Counted 100
[2017-08-24 09:07] LABS: Ovalocytes Slight
[2017-08-24 09:08] LABS: Platelet Estimate Adequate
[2017-08-24 09:43] LABS: Albumin 3.4 G/DL (3.4-5.0); Bilirubin,Total 0.5 MG/DL (0.2-1.0); Osmolality,Calculated 290.7 MOS/KG (273-304); Potassium 3.4 MMOL/L (3.5-5.1); Total Protein 6.6 G/DL (6.4-8.3)
[2017-08-24] MEDS ORDERED: ONDANSETRON 4 MG TABLET PO PRN (09:44)
[2017-08-24 10:15] LABS: Cancer Antigen 19-9 118.5 U/ML (0-37); Carcinoembryonic Antigen 22.9 NG/ML (0.0-5.0)
[2017-08-24] MEDS: levETIRAcetam 500 MG TABLET PO SCH ×2 (10:20→20:28)
[2017-08-24] MEDS: MAGNESIUM CHLORIDE 64 MG TABLET PO SCH ×2 (10:20→20:28)
[2017-08-24] MEDS: POTASSIUM CHLORIDE 20 MEQ TABLET PO SCH ×2 (10:20→18:59)
[2017-08-24] MEDS: GRANISETRON 1 MG/1 ML VIAL IV SCH (10:27)
[2017-08-24] MEDS ORDERED: DEXAMETHASONE 10 MG/1 ML VIAL IV ONE (10:30)
[2017-08-24] MEDS ORDERED: DEXTROSE 5% IV ONE (11:30)
[2017-08-24] MEDS ORDERED: FLUOROURACIL 800 MG in SYRINGE 1 EACH IV ONE (11:30)
[2017-08-24] MEDS ORDERED: IRINOTECAN IV ONE (11:30)
[2017-08-24] MEDS ORDERED: LEUCOVORIN INJ 700 MG, LEUCOVORIN INJ 100 MG in DEXTROSE 5% 250 ML IV ONE (11:30)
[2017-08-24] MEDS: FLUOROURACIL IV SCH (14:10)
[2017-08-24] MEDS: SODIUM CHLORIDE 0.9% IV SCH (14:10)
[2017-08-24] MEDS: NEBIVOLOL 5 MG TABLET PO SCH (17:30)
[2017-08-24 23:32] LABS: Apearance,Urine CLEAR (Clear); Bilirubin,Urine Negative (Negative); Blood, Urine Negative (Negative); Glucose,Urine (UA) 50 mg/dL (Negative); Ketones,Urine Negative (Negative); Mucus,Urine Occasional /LPF (Occasional); Nitrite,Urine Negative (Negative); Protein,Urine Negative; RBC,Urine 2 /HPF (0-4); Urine Color Yellow (Yellow); Urine Specific Gravity 1.019 (1.001-1.035); WBC,Urine 1 /HPF (0-6)
[2017-08-25] MEDS: LEVOTHYROXINE 75 MCG TABLET PO SCH (06:29)
[2017-08-25] MEDS: GRANISETRON 1 MG/1 ML VIAL IV SCH (10:31)
[2017-08-25] MEDS: POTASSIUM CHLORIDE 20 MEQ TABLET PO SCH ×2 (10:33→21:01)
[2017-08-25] MEDS: FLUOROURACIL IV SCH (10:33)
[2017-08-25] MEDS: levETIRAcetam 500 MG TABLET PO SCH ×2 (10:33→21:01)
[2017-08-25] MEDS: MAGNESIUM CHLORIDE 64 MG TABLET PO SCH ×2 (10:33→21:01)
[2017-08-25] MEDS: SODIUM CHLORIDE 0.9% IV SCH (10:33)
[2017-08-25] MEDS: NEBIVOLOL 5 MG TABLET PO SCH (21:01)
[2017-08-26] MEDS: LEVOTHYROXINE 75 MCG TABLET PO SCH (06:36)
[2017-08-26] MEDS: POTASSIUM CHLORIDE 20 MEQ TABLET PO SCH (08:15)
[2017-08-26] MEDS: MAGNESIUM CHLORIDE 64 MG TABLET PO SCH (08:16)
[2017-08-26] MEDS: GRANISETRON 1 MG/1 ML VIAL IV SCH (08:16)
[2017-08-26] MEDS: levETIRAcetam 500 MG TABLET PO SCH (08:16)
[2017-08-26 09:00] VITALS: BP 172/74
[2017-08-26] MEDS ORDERED: HEPARIN LOCK FLUSH 500 UNIT/5 ML SYRINGE IV PRN (09:02)
== END 2017-08-26 10:25 | disposition home or self-care, planned readmission (81) | DRG 847 ==
LOC: N.4E 06:58
PROVIDERS: ADMIT Specialist; ATTEND Specialist

== ENCOUNTER 2017-09-14 06:44 | Observation (INO) ==
[2017-09-14 07:50] LABS: Basophils % 1.2 % (0.0-0.8); Eosinophils # 0.4 10*3/uL (0.0-0.87); Eosinophils % 11.9 % (0.00-10.9); Hematocrit 31.6 VOL% (35.7-47.0); Hemoglobin 9.9 GM/DL (12.0-16.0); Immature Granulocytes % 0.3 %; Immature Granulocytes Absolute 0.01 #; Lymphocytes % 29.9 % (21.3-54.2); Mean Corpuscular HGB Conc 31.3 GM/DL (32-36); Mean Corpuscular Hemoglobin 31 PG (27-34); Mean Corpuscular Volume 97.5 FL (87-102); Monocytes # 0.6 10*3/uL (0.11-0.8); Monocytes % 17.9 % (1.7-12.7); Neutrophils # 1.3 10*3/uL (1.4-7.4); Neutrophils % 38.8 % (38.7-73.9); Platelet Count 200 T/CUMM (130-400); Red Blood Count 3.24 MC/CUMM (3.8-5.5); Red Cell Distribution Width 15.1 % (9.3-17.3); White Blood Count 3.4 T/CUMM (4-12)
[2017-09-14 08:27] LABS: Eosinophils 3 % (0-10); Lymphocytes 31 % (20-55); Platelet Estimate Adequate; Segmented Neutrophils 49 % (50-85); Total Cells Counted 100
[2017-09-14 08:28] LABS: Atypical Lymphocytes Few; Giant Platelets Few; Hypochromasia 1+; Macrocytosis Slight
[2017-09-14 08:58] LABS: Albumin 3.3 G/DL (3.4-5.0); Bilirubin,Total 0.4 MG/DL (0.2-1.0); Osmolality,Calculated 290.8 MOS/KG (273-304); Potassium 3.4 MMOL/L (3.5-5.1); Total Protein 6.6 G/DL (6.4-8.3)
[2017-09-14] MEDS ORDERED: ONDANSETRON 4 MG TABLET PO PRN (09:11)
[2017-09-14] MEDS ORDERED: PROMETHAZINE INJ 25 MG in SODIUM CHLORIDE 0.9% 50 ML IV PRN (09:12)
[2017-09-14] MEDS ORDERED: LOPERAMIDE 2 MG CAPSULE PO PRN ×2 (09:12)
[2017-09-14] MEDS ORDERED: diphenhydrAMINE CAP 25 MG CAPSULE PO PRN (09:12)
[2017-09-14] MEDS ORDERED: chlorproMAZINE INJ 50 MG in SODIUM CHLORIDE 0.9% 100 ML IV PRN (09:12)
[2017-09-14] MEDS ORDERED: chlorproMAZINE 25 MG TABLET PO PRN (09:12)
[2017-09-14] MEDS ORDERED: guaiFENesin 200 MG/10 ML UDCUP PO PRN (09:12)
[2017-09-14] MEDS ORDERED: TEMAZEPAM 7.5 MG CAPSULE PO PRN (09:12)
[2017-09-14] MEDS ORDERED: ALPRAZolam 0.25 MG TABLET PO PRN (09:12)
[2017-09-14] MEDS ORDERED: chlorproMAZINE INJ 25 MG in SODIUM CHLORIDE 0.9% 100 ML IV PRN (09:12)
[2017-09-14] MEDS ORDERED: MYLANTA/LIDO VISC 2:1 300 ML BOTTLE SWISH/SPIT PRN (09:12)
[2017-09-14] MEDS ORDERED: traMADol 50 MG TABLET PO PRN (09:12)
[2017-09-14] MEDS ORDERED: ALUMINUM/MAGNES/SIMETH MAX STR 30 ML UDCUP PO PRN (09:12)
[2017-09-14] MEDS ORDERED: ACETAMINOPHEN 325 MG TABLET PO PRN (09:12)
[2017-09-14] MEDS ORDERED: LACTULOSE 20 GM/30 ML UDCUP PO PRN (09:12)
[2017-09-14] MEDS ORDERED: MAGNESIUM HYDROXIDE SUSP 30 ML UDCUP PO PRN (09:12)
[2017-09-14] MEDS ORDERED: ONDANSETRON 4 MG/2 ML VIAL IV PRN (09:12)
[2017-09-14] MEDS ORDERED: BENZTROPINE 2 MG/2 ML AMP IV PRN (09:12)
[2017-09-14] MEDS ORDERED: MYLANTA/LIDO VISC 2:1 300 ML BOTTLE SWISH/SWAL PRN (09:12)
[2017-09-14] MEDS ORDERED: LEUCOVORIN INJ 700 MG, LEUCOVORIN INJ 100 MG in DEXTROSE 5% 250 ML IV ONE (09:30)
[2017-09-14] MEDS ORDERED: FLUOROURACIL IV ONE (09:30)
[2017-09-14] MEDS ORDERED: IRINOTECAN IV ONE (09:30)
[2017-09-14] MEDS ORDERED: DEXTROSE 5% IV ONE (09:30)
[2017-09-14] MEDS ORDERED: FLUOROURACIL 800 MG in SYRINGE 1 EACH IV ONE (09:30)
[2017-09-14] MEDS ORDERED: DEXAMETHASONE 10 MG/1 ML VIAL IV ONE (09:30)
[2017-09-14] MEDS ORDERED: SODIUM CHLORIDE 0.9% IV ONE ×2 (09:30)
[2017-09-14] MEDS ORDERED: PANITUMUMAB IV ONE (09:30)
[2017-09-14] MEDS: GRANISETRON 1 MG/1 ML VIAL IV SCH (09:58)
[2017-09-14] MEDS: MAGNESIUM CHLORIDE 64 MG TABLET PO SCH ×2 (09:58→20:12)
[2017-09-14] MEDS: levETIRAcetam 500 MG TABLET PO SCH ×2 (10:18→20:12)
[2017-09-14] MEDS ORDERED: NEBIVOLOL 5 MG TABLET PO SCH (17:00)
[2017-09-14] MEDS: POTASSIUM CHLORIDE 20 MEQ TABLET PO SCH (17:25)
[2017-09-14 21:30] LABS: Apearance,Urine CLEAR (Clear); Bilirubin,Urine Negative (Negative); Blood, Urine Negative (Negative); Glucose,Urine (UA) >=500 mg/dL (Negative); Ketones,Urine Negative (Negative); Nitrite,Urine Negative (Negative); Protein,Urine Negative; RBC,Urine 1 /HPF (0-4); Squamous Epithelial Cell,Urine Occasional /HPF (0-10); Urine Color Yellow (Yellow); Urine Urobilinogen < 2.0 EU/DL (0.2-1.0); WBC,Urine 1 /HPF (0-6)
[2017-09-15] MEDS ORDERED: LEVOTHYROXINE 75 MCG TABLET PO SCH (07:00)
[2017-09-15] MEDS: POTASSIUM CHLORIDE 20 MEQ TABLET PO SCH (09:02)
[2017-09-15] MEDS: MAGNESIUM CHLORIDE 64 MG TABLET PO SCH (09:02)
[2017-09-15] MEDS: levETIRAcetam 500 MG TABLET PO SCH (09:03)
[2017-09-15] MEDS: GRANISETRON 1 MG/1 ML VIAL IV SCH (09:03)
[2017-09-15 11:55] VITALS: BP 157/61
[2017-09-15] MEDS ORDERED: HEPARIN LOCK FLUSH 500 UNIT/5 ML SYRINGE IV PRN (12:16)
== END 2017-09-15 13:50 | disposition home or self-care (01) ==
LOC: INTOOBSV 06:44 → N.4E 06:44
PROVIDERS: ADMIT Specialist; ATTEND Specialist

== ENCOUNTER 2017-10-05 06:26 | Observation (INO) ==
[2017-10-05 08:38] LABS: Basophils % 0.6 % (0.0-0.8); Eosinophils # 0.3 10*3/uL (0.0-0.87); Eosinophils % 7.7 % (0.00-10.9); Hematocrit 28.7 VOL% (35.7-47.0); Hemoglobin 9.2 GM/DL (12.0-16.0); Immature Granulocytes % 0.6 %; Immature Granulocytes Absolute 0.02 #; Lymphocytes # 0.8 10*3/uL (1.4-4.0); Lymphocytes % 23.6 % (21.3-54.2); Mean Corpuscular HGB Conc 32.1 GM/DL (32-36); Mean Corpuscular Hemoglobin 31 PG (27-34); Monocytes # 0.5 10*3/uL (0.11-0.8); Monocytes % 14.8 % (1.7-12.7); Neutrophils # 1.9 10*3/uL (1.4-7.4); Neutrophils % 52.7 % (38.7-73.9); Platelet Count 157 T/CUMM (130-400); Red Blood Count 2.96 MC/CUMM (3.8-5.5); Red Cell Distribution Width 14.6 % (9.3-17.3); White Blood Count 3.5 T/CUMM (4-12)
[2017-10-05] MEDS ORDERED: SODIUM CHLORIDE 0.9% IV ONE ×2 (09:00→10:30)
[2017-10-05] MEDS ORDERED: PANITUMUMAB IV ONE ×2 (09:00→10:30)
[2017-10-05 09:17] LABS: Alanine Aminotransferase 21 U/L (13-56); Alkaline Phosphatase 142 U/L (45-117); Aspartate Amino Transferase 43 U/L (0-37); Bilirubin,Total < 0.39 MG/DL (0.2-1.0); Blood Urea Nitrogen 29 MG/DL (7-18); Glucose 93 MG/DL (74-106); Sodium 143 MMOL/L (136-145); Total Protein 6.4 G/DL (6.4-8.3)
[2017-10-05] MEDS ORDERED: ONDANSETRON 4 MG TABLET PO PRN (09:57)
[2017-10-05] MEDS ORDERED: LEUCOVORIN INJ 700 MG, LEUCOVORIN INJ 100 MG in DEXTROSE 5% 250 ML IV ONE (10:30)
[2017-10-05] MEDS ORDERED: DEXTROSE 5% IV ONE (10:30)
[2017-10-05] MEDS ORDERED: SODIUM CHLORIDE 0.9% IV SCH (10:30)
[2017-10-05] MEDS ORDERED: FLUOROURACIL IV SCH (10:30)
[2017-10-05] MEDS ORDERED: FLUOROURACIL 800 MG in SYRINGE 1 EACH IV ONE (10:30)
[2017-10-05] MEDS ORDERED: IRINOTECAN IV ONE (10:30)
[2017-10-05] MEDS ORDERED: DEXAMETHASONE 10 MG/1 ML VIAL IV ONE (10:30)
[2017-10-05] MEDS: levETIRAcetam 500 MG TABLET PO SCH ×2 (10:52→20:47)
[2017-10-05] MEDS: POTASSIUM CHLORIDE 20 MEQ TABLET PO SCH ×2 (10:52→16:23)
[2017-10-05] MEDS: MAGNESIUM CHLORIDE 64 MG TABLET PO SCH ×2 (10:52→20:47)
[2017-10-05] MEDS: GRANISETRON 1 MG/1 ML VIAL IV SCH (10:52)
[2017-10-05 11:10] LABS: Cancer Antigen 19-9 418.4 U/ML (0-37); Carcinoembryonic Antigen 51.6 NG/ML (0.0-5.0)
[2017-10-05] MEDS ORDERED: ALPRAZolam 0.25 MG TABLET PO PRN (15:18)
[2017-10-05] MEDS ORDERED: traMADol 50 MG TABLET PO PRN (15:18)
[2017-10-05] MEDS ORDERED: TEMAZEPAM 7.5 MG CAPSULE PO PRN (15:18)
[2017-10-05] MEDS ORDERED: chlorproMAZINE INJ 50 MG in SODIUM CHLORIDE 0.9% 100 ML IV PRN (15:18)
[2017-10-05] MEDS ORDERED: chlorproMAZINE 25 MG TABLET PO PRN (15:18)
[2017-10-05] MEDS ORDERED: PROMETHAZINE INJ 25 MG in SODIUM CHLORIDE 0.9% 50 ML IV PRN (15:18)
[2017-10-05] MEDS ORDERED: MYLANTA/LIDO VISC 2:1 300 ML BOTTLE SWISH/SWAL PRN (15:18)
[2017-10-05] MEDS ORDERED: guaiFENesin 200 MG/10 ML UDCUP PO PRN (15:18)
[2017-10-05] MEDS ORDERED: diphenhydrAMINE CAP 25 MG CAPSULE PO PRN (15:18)
[2017-10-05] MEDS ORDERED: LACTULOSE 20 GM/30 ML UDCUP PO PRN (15:18)
[2017-10-05] MEDS ORDERED: MAGNESIUM HYDROXIDE SUSP 30 ML UDCUP PO PRN (15:18)
[2017-10-05] MEDS ORDERED: ALUMINUM/MAGNES/SIMETH MAX STR 30 ML UDCUP PO PRN (15:18)
[2017-10-05] MEDS ORDERED: LOPERAMIDE 2 MG CAPSULE PO PRN ×2 (15:18)
[2017-10-05] MEDS ORDERED: ONDANSETRON 4 MG/2 ML VIAL IV PRN (15:18)
[2017-10-05] MEDS ORDERED: chlorproMAZINE INJ 25 MG in SODIUM CHLORIDE 0.9% 100 ML IV PRN (15:18)
[2017-10-05] MEDS ORDERED: BENZTROPINE 2 MG/2 ML AMP IV PRN (15:18)
[2017-10-05] MEDS ORDERED: ACETAMINOPHEN 325 MG TABLET PO PRN (15:18)
[2017-10-05] MEDS ORDERED: MYLANTA/LIDO VISC 2:1 300 ML BOTTLE SWISH/SPIT PRN (15:18)
[2017-10-05 15:22] LABS: Apearance,Urine CLEAR (Clear); Bilirubin,Urine Negative (Negative); Blood, Urine Negative (Negative); Glucose,Urine (UA) Negative (Negative); Ketones,Urine Negative (Negative); Mucus,Urine Occasional /LPF (Occasional); Nitrite,Urine Negative (Negative); Protein,Urine Negative; RBC,Urine <1 /HPF (0-4); Squamous Epithelial Cell,Urine Occasional /HPF (0-10); Urine Color Straw (Yellow); Urine Specific Gravity 1.011 (1.001-1.035); Urine Urobilinogen < 2.0 EU/DL (0.2-1.0)
[2017-10-05] MEDS ORDERED: NEBIVOLOL 5 MG TABLET PO SCH (17:00)
[2017-10-06] MEDS ORDERED: LEVOTHYROXINE 75 MCG TABLET PO SCH (07:00)
[2017-10-06] MEDS: POTASSIUM CHLORIDE 20 MEQ TABLET PO SCH (09:11)
[2017-10-06] MEDS: levETIRAcetam 500 MG TABLET PO SCH (09:11)
[2017-10-06] MEDS: MAGNESIUM CHLORIDE 64 MG TABLET PO SCH (09:11)
[2017-10-06] MEDS: GRANISETRON 1 MG/1 ML VIAL IV SCH (09:12)
[2017-10-06 09:21] VITALS: BP 152/69
[2017-10-06] MEDS ORDERED: HEPARIN LOCK FLUSH 500 UNIT/5 ML SYRINGE IV ONE (11:37)
[2017-10-06] MEDS ORDERED: HEPARIN LOCK FLUSH 500 UNIT/5 ML SYRINGE IV PRN (11:46)
[2017-10-06] MEDS ORDERED: PANITUMUMAB IV ONE (13:20)
[2017-10-06] MEDS ORDERED: SODIUM CHLORIDE 0.9% IV ONE (13:20)
== END 2017-10-06 13:21 | disposition home or self-care (01) ==
LOC: N.4E
PROVIDERS: ADMIT Specialist; ATTEND Specialist

== ENCOUNTER 2017-10-26 06:45 | Observation (INO) ==
[2017-10-26 08:07] LABS: Basophils % 0.5 % (0.0-0.8); Eosinophils # 0.3 10*3/uL (0.0-0.87); Eosinophils % 7.5 % (0.00-10.9); Hematocrit 31.3 VOL% (35.7-47.0); Immature Granulocytes % 0.5 %; Immature Granulocytes Absolute 0.02 #; Lymphocytes % 25.4 % (21.3-54.2); Mean Corpuscular HGB Conc 31.9 GM/DL (32-36); Mean Corpuscular Hemoglobin 31 PG (27-34); Mean Corpuscular Volume 98.1 FL (87-102); Monocytes # 0.6 10*3/uL (0.11-0.8); Monocytes % 15.5 % (1.7-12.7); Neutrophils % 50.6 % (38.7-73.9); Platelet Count 184 T/CUMM (130-400); Red Blood Count 3.19 MC/CUMM (3.8-5.5); Red Cell Distribution Width 14.5 % (9.3-17.3); White Blood Count 3.9 T/CUMM (4-12)
[2017-10-26] MEDS ORDERED: guaiFENesin 200 MG/10 ML UDCUP PO PRN (09:02)
[2017-10-26] MEDS ORDERED: ACETAMINOPHEN 325 MG TABLET PO PRN (09:02)
[2017-10-26] MEDS ORDERED: LOPERAMIDE 2 MG CAPSULE PO PRN ×2 (09:02)
[2017-10-26] MEDS ORDERED: MYLANTA/LIDO VISC 2:1 300 ML BOTTLE SWISH/SPIT PRN (09:02)
[2017-10-26] MEDS ORDERED: TEMAZEPAM 7.5 MG CAPSULE PO PRN (09:02)
[2017-10-26] MEDS ORDERED: traMADol 50 MG TABLET PO PRN (09:02)
[2017-10-26] MEDS ORDERED: chlorproMAZINE INJ 50 MG in SODIUM CHLORIDE 0.9% 100 ML IV PRN (09:02)
[2017-10-26] MEDS ORDERED: LACTULOSE 20 GM/30 ML UDCUP PO PRN (09:02)
[2017-10-26] MEDS ORDERED: BENZTROPINE 2 MG/2 ML AMP IV PRN (09:02)
[2017-10-26] MEDS ORDERED: ONDANSETRON 4 MG/2 ML VIAL IV PRN (09:02)
[2017-10-26] MEDS ORDERED: chlorproMAZINE INJ 25 MG in SODIUM CHLORIDE 0.9% 100 ML IV PRN (09:02)
[2017-10-26] MEDS ORDERED: diphenhydrAMINE CAP 25 MG CAPSULE PO PRN (09:02)
[2017-10-26] MEDS ORDERED: ALPRAZolam 0.25 MG TABLET PO PRN (09:02)
[2017-10-26] MEDS ORDERED: MAGNESIUM HYDROXIDE SUSP 30 ML UDCUP PO PRN (09:02)
[2017-10-26] MEDS ORDERED: ALUMINUM/MAGNES/SIMETH MAX STR 30 ML UDCUP PO PRN (09:02)
[2017-10-26] MEDS ORDERED: chlorproMAZINE 25 MG TABLET PO PRN (09:02)
[2017-10-26] MEDS ORDERED: MYLANTA/LIDO VISC 2:1 300 ML BOTTLE SWISH/SWAL PRN (09:02)
[2017-10-26] MEDS ORDERED: PROMETHAZINE INJ 25 MG in SODIUM CHLORIDE 0.9% 50 ML IV PRN (09:02)
[2017-10-26] MEDS ORDERED: ONDANSETRON 4 MG TABLET PO PRN (09:04)
[2017-10-26 09:13] LABS: Albumin 3.3 G/DL (3.4-5.0); Bilirubin,Total 0.5 MG/DL (0.2-1.0); Calcium 9.1 MG/DL (8.5-10.1); Osmolality,Calculated 284.4 MOS/KG (273-304); Potassium 3.9 MMOL/L (3.5-5.1); Total Protein 6.7 G/DL (6.4-8.3); Uric Acid 4.8 MG/DL (2.6-6.0)
[2017-10-26] MEDS: MAGNESIUM CHLORIDE 64 MG TABLET PO SCH ×2 (13:18→20:35)
[2017-10-26] MEDS: levETIRAcetam 500 MG TABLET PO SCH ×2 (13:19→20:35)
[2017-10-26] MEDS: HEPARIN LOCK FLUSH 500 UNIT/5 ML SYRINGE IV PRN (13:19)
[2017-10-26] MEDS ORDERED: IRINOTECAN IV ONE (16:00)
[2017-10-26] MEDS ORDERED: DEXAMETHASONE 10 MG/1 ML VIAL IV ONE (16:00)
[2017-10-26] MEDS ORDERED: SODIUM CHLORIDE 0.9% IV SCH (16:00)
[2017-10-26] MEDS ORDERED: PANITUMUMAB IV ONE (16:00)
[2017-10-26] MEDS ORDERED: FLUOROURACIL 800 MG in SYRINGE 1 EACH IV ONE (16:00)
[2017-10-26] MEDS ORDERED: LEUCOVORIN IV ONE (16:00)
[2017-10-26] MEDS ORDERED: FLUOROURACIL IV SCH (16:00)
[2017-10-26] MEDS ORDERED: SODIUM CHLORIDE 0.9% IV ONE ×3 (16:00)
[2017-10-26 16:02] LABS: Apearance,Urine CLEAR (Clear); Bilirubin,Urine Negative (Negative); Blood, Urine Negative (Negative); Glucose,Urine (UA) Negative (Negative); Ketones,Urine Negative (Negative); Nitrite,Urine Negative (Negative); Protein,Urine Negative; Renal Epithelial Cells,Urine Occasional /HPF (<1); Urine Color Straw (Yellow); Urine Specific Gravity 1.054 (1.001-1.035); Urine Urobilinogen < 2.0 EU/DL (0.2-1.0); WBC,Urine <1 /HPF (0-6)
[2017-10-26] MEDS ORDERED: NEBIVOLOL 5 MG TABLET PO SCH (17:00)
[2017-10-26] MEDS: POTASSIUM CHLORIDE 20 MEQ TABLET PO SCH (17:04)
[2017-10-26] MEDS: GRANISETRON 1 MG/1 ML VIAL IV SCH (17:05)
[2017-10-27] MEDS ORDERED: LEVOTHYROXINE 75 MCG TABLET PO SCH (07:00)
[2017-10-27 07:17] LABS: Carcinoembryonic Antigen 78.6 NG/ML (0.0-5.0)
[2017-10-27 08:14] LABS: Cancer Antigen 19-9 1679.3 U/ML (0-37)
[2017-10-27] MEDS: levETIRAcetam 500 MG TABLET PO SCH (08:37)
[2017-10-27] MEDS: POTASSIUM CHLORIDE 20 MEQ TABLET PO SCH (08:37)
[2017-10-27] MEDS: MAGNESIUM CHLORIDE 64 MG TABLET PO SCH (08:37)
[2017-10-27] MEDS: GRANISETRON 1 MG/1 ML VIAL IV SCH (08:38)
[2017-10-27] MEDS: HEPARIN LOCK FLUSH 500 UNIT/5 ML SYRINGE IV PRN (16:06)
[2017-10-27 16:43] VITALS: BP 157/68
== END 2017-10-27 17:15 | disposition home or self-care (01) ==
LOC: N.4E
PROVIDERS: ADMIT Specialist; ATTEND Specialist

== ENCOUNTER 2017-11-23 07:04 | Inpatient (IN) ==
[2017-11-23 09:20] LABS: Basophils % 0.4 % (0.0-0.8); Eosinophils # 0.2 10*3/uL (0.0-0.87); Eosinophils % 3.2 % (0.00-10.9); Hematocrit 28.8 VOL% (35.7-47.0); Hemoglobin 9.2 GM/DL (12.0-16.0); Immature Granulocytes % 0.4 %; Immature Granulocytes Absolute 0.02 #; Lymphocytes # 0.8 10*3/uL (1.4-4.0); Lymphocytes % 17.6 % (21.3-54.2); Mean Corpuscular HGB Conc 31.9 GM/DL (32-36); Mean Corpuscular Hemoglobin 30 PG (27-34); Mean Corpuscular Volume 94.1 FL (87-102); Mean Platelet Volume 12.4 FL (9.6-12.0); Monocytes # 0.6 10*3/uL (0.11-0.8); Monocytes % 11.6 % (1.7-12.7); Neutrophils # 3.2 10*3/uL (1.4-7.4); Neutrophils % 66.8 % (38.7-73.9); Platelet Count 107 T/CUMM (130-400); Red Blood Count 3.06 MC/CUMM (3.8-5.5); Red Cell Distribution Width 15.1 % (9.3-17.3); White Blood Count 4.8 T/CUMM (4-12)
[2017-11-23 10:24] LABS: Albumin 3.2 G/DL (3.4-5.0); Bilirubin,Total 0.6 MG/DL (0.2-1.0); Calcium 8.8 MG/DL (8.5-10.1); Osmolality,Calculated 280.4 MOS/KG (273-304); Potassium 3.7 MMOL/L (3.5-5.1); Total Protein 7.9 G/DL (6.4-8.3)
[2017-11-23 12:06] LABS: Cancer Antigen 19-9 4702.7 U/ML (0-37); Carcinoembryonic Antigen 214.7 NG/ML (0.0-5.0)
[2017-11-23 13:54] LABS: Apearance,Urine CLEAR (Clear); Bilirubin,Urine Negative (Negative); Blood, Urine Negative (Negative); Glucose,Urine (UA) Negative (Negative); Ketones,Urine Negative (Negative); Mucus,Urine Occasional /LPF (Occasional); Nitrite,Urine Negative (Negative); Protein,Urine Negative; RBC,Urine 2 /HPF (0-4); Urine Color Yellow (Yellow); Urine Specific Gravity 1.018 (1.001-1.035); WBC,Urine <1 /HPF (0-6)
[2017-11-25 17:18] VITALS: BP 129/56
== END 2017-11-25 20:21 | disposition home or self-care, planned readmission (81) | DRG 847 ==
LOC: N.4E 07:04
PROVIDERS: ADMIT Specialist; ATTEND Specialist

== ENCOUNTER 2017-12-14 07:30 | Inpatient (IN) ==
[2017-12-14 09:37] LABS: Basophils % 0.7 % (0.0-0.8); Eosinophils # 0.1 10*3/uL (0.0-0.87); Eosinophils % 2.2 % (0.00-10.9); Hematocrit 30.3 VOL% (35.7-47.0); Hemoglobin 9.4 GM/DL (12.0-16.0); Immature Granulocytes % 0.7 %; Immature Granulocytes Absolute 0.03 #; Lymphocytes % 23.6 % (21.3-54.2); Mean Corpuscular Hemoglobin 29 PG (27-34); Mean Corpuscular Volume 94.4 FL (87-102); Mean Platelet Volume 10.1 FL (9.6-12.0); Monocytes # 0.7 10*3/uL (0.11-0.8); Monocytes % 17.3 % (1.7-12.7); Neutrophils # 2.3 10*3/uL (1.4-7.4); Neutrophils % 55.5 % (38.7-73.9); Platelet Count 226 T/CUMM (130-400); Red Blood Count 3.21 MC/CUMM (3.8-5.5); Red Cell Distribution Width 15.7 % (9.3-17.3); White Blood Count 4.2 T/CUMM (4-12)
[2017-12-14] MEDS ORDERED: ONDANSETRON 4 MG TABLET PO PRN (10:00)
[2017-12-14 10:36] LABS: Bilirubin,Total 0.4 MG/DL (0.2-1.0); Calcium 9.1 MG/DL (8.5-10.1); Osmolality,Calculated 280.4 MOS/KG (273-304); Potassium 3.9 MMOL/L (3.5-5.1); Total Protein 6.8 G/DL (6.4-8.3)
[2017-12-14 10:58] LABS: Eosinophils 9 % (0-10); Hypochromasia 1+; Lymphocytes 24 % (20-55); Microcytosis 1+; Segmented Neutrophils 53 % (50-85); Total Cells Counted 100
[2017-12-14 10:59] LABS: Ovalocytes Slight; Platelet Estimate Normal
[2017-12-14] MEDS ORDERED: OXALIPLATIN 150 MG in DEXTROSE 5% 250 ML IV ONE (11:30)
[2017-12-14] MEDS ORDERED: LEUCOVORIN INJ 700 MG, LEUCOVORIN INJ 100 MG in DEXTROSE 5% 250 ML IV ONE (11:30)
[2017-12-14] MEDS ORDERED: FLUOROURACIL 800 MG in SYRINGE 1 EACH IV ONE ×2 (11:30→12:45)
[2017-12-14] MEDS: DEXAMETHASONE INJ 20 MG in SODIUM CHLORIDE 0.9% 50 ML IV SCH (12:22)
[2017-12-14] MEDS: levETIRAcetam 500 MG TABLET PO SCH ×2 (12:23→20:09)
[2017-12-14] MEDS: MAGNESIUM CHLORIDE 64 MG TABLET PO SCH ×2 (12:23→20:09)
[2017-12-14] MEDS: diphenhydrAMINE 50 MG/1 ML VIAL IV SCH ×2 (12:23→18:48)
[2017-12-14] MEDS: FAMOTIDINE INJ 40 MG in SODIUM CHLORIDE 0.9% 100 ML IV SCH (12:23)
[2017-12-14] MEDS: NEBIVOLOL 5 MG TABLET PO SCH (12:23)
[2017-12-14] MEDS: POTASSIUM CHLORIDE 20 MEQ TABLET PO SCH ×2 (12:23→20:09)
[2017-12-14 12:46] LABS: Apearance,Urine CLEAR (Clear); Bilirubin,Urine Negative (Negative); Blood, Urine Negative (Negative); Glucose,Urine (UA) Negative (Negative); Ketones,Urine Negative (Negative); Mucus,Urine Occasional /LPF (Occasional); Nitrite,Urine Negative (Negative); Protein,Urine Negative; RBC,Urine 1 /HPF (0-4); Squamous Epithelial Cell,Urine Occasional /HPF (0-10); Transitional Epi Cells,Urine Occasional /HPF (<1); Urine Color Yellow (Yellow); Urine Specific Gravity 1.017 (1.001-1.035); Urine Urobilinogen < 2.0 EU/DL (0.2-1.0); WBC,Urine 8 /HPF (0-6)
[2017-12-14] MEDS: FLUOROURACIL 1,200 MG in SODIUM CHLORIDE 0.9% 1,000 ML IV SCH (17:02)
[2017-12-14] MEDS ORDERED: ONDANSETRON 4 MG/2 ML VIAL ONE (18:45)
[2017-12-14] MEDS ORDERED: ONDANSETRON 4 MG/2 ML VIAL IV PRN (18:48)
[2017-12-15] MEDS: diphenhydrAMINE 50 MG/1 ML VIAL IV SCH ×2 (00:32→06:16)
[2017-12-15] MEDS: LEVOTHYROXINE 75 MCG TABLET PO SCH (06:15)
[2017-12-15] MEDS: MAGNESIUM CHLORIDE 64 MG TABLET PO SCH ×2 (10:01→20:42)
[2017-12-15] MEDS: NEBIVOLOL 5 MG TABLET PO SCH (10:01)
[2017-12-15] MEDS: POTASSIUM CHLORIDE 20 MEQ TABLET PO SCH ×2 (10:01→20:42)
[2017-12-15] MEDS: levETIRAcetam 500 MG TABLET PO SCH ×2 (10:01→20:42)
[2017-12-15] MEDS: FAMOTIDINE INJ 40 MG in SODIUM CHLORIDE 0.9% 100 ML IV SCH (15:52)
[2017-12-15] MEDS: DEXAMETHASONE INJ 20 MG in SODIUM CHLORIDE 0.9% 50 ML IV SCH (15:53)
[2017-12-15] MEDS: FLUOROURACIL 1,200 MG in SODIUM CHLORIDE 0.9% 1,000 ML IV SCH (16:37)
[2017-12-16] MEDS: LEVOTHYROXINE 75 MCG TABLET PO SCH (06:12)
[2017-12-16] MEDS: levETIRAcetam 500 MG TABLET PO SCH (09:13)
[2017-12-16] MEDS: MAGNESIUM CHLORIDE 64 MG TABLET PO SCH (09:13)
[2017-12-16] MEDS: NEBIVOLOL 5 MG TABLET PO SCH (09:13)
[2017-12-16] MEDS: POTASSIUM CHLORIDE 20 MEQ TABLET PO SCH (09:14)
[2017-12-16] MEDS ORDERED: BEVACIZUMAB IV ONE ×2 (11:30→14:00)
[2017-12-16] MEDS ORDERED: SODIUM CHLORIDE 0.9% IV ONE ×2 (11:30→14:00)
[2017-12-16 15:48] VITALS: BP 175/61
[2017-12-16] MEDS ORDERED: HEPARIN LOCK FLUSH 500 UNIT/5 ML SYRINGE IV ONE ×2 (17:53→18:18)
== END 2017-12-16 18:55 | disposition home or self-care, planned readmission (81) | DRG 847 ==
LOC: N.4E 07:30
PROVIDERS: ADMIT Specialist; ATTEND Specialist

== ENCOUNTER 2018-01-05 06:30 | Observation (INO) ==
[2018-01-05 07:28] LABS: Basophils % 0.5 % (0.0-0.8); Eosinophils # 0.1 10*3/uL (0.0-0.87); Eosinophils % 1.2 % (0.00-10.9); Hematocrit 30.2 VOL% (35.7-47.0); Hemoglobin 9.5 GM/DL (12.0-16.0); Immature Granulocytes % 0.5 %; Immature Granulocytes Absolute 0.03 #; Lymphocytes % 17.6 % (21.3-54.2); Mean Corpuscular HGB Conc 31.5 GM/DL (32-36); Mean Corpuscular Hemoglobin 29 PG (27-34); Mean Corpuscular Volume 91.8 FL (87-102); Mean Platelet Volume 10.3 FL (9.6-12.0); Monocytes # 0.9 10*3/uL (0.11-0.8); Monocytes % 16.8 % (1.7-12.7); Neutrophils # 3.6 10*3/uL (1.4-7.4); Neutrophils % 63.4 % (38.7-73.9); Platelet Count 243 T/CUMM (130-400); Red Blood Count 3.29 MC/CUMM (3.8-5.5); Red Cell Distribution Width 16.1 % (9.3-17.3); White Blood Count 5.6 T/CUMM (4-12)
[2018-01-05 07:51] LABS: Hypochromasia 1+; Lymphocytes 18 % (20-55); Microcytosis Slight; Platelet Estimate Adequate; Segmented Neutrophils 69 % (50-85); Total Cells Counted 100
[2018-01-05 08:01] LABS: Albumin 2.8 G/DL (3.4-5.0); Bilirubin,Total 0.9 MG/DL (0.2-1.0); Calcium 8.7 MG/DL (8.5-10.1); Osmolality,Calculated 278.7 MOS/KG (273-304); Potassium 3.5 MMOL/L (3.5-5.1)
[2018-01-05 08:47] LABS: Carcinoembryonic Antigen 80.6 NG/ML (0.0-5.0)
[2018-01-05 10:04] LABS: Cancer Antigen 19-9 2425.3 U/ML (0-37)
[2018-01-05] MEDS ORDERED: HEPARIN LOCK FLUSH 500 UNIT/5 ML SYRINGE IV PRN (12:01)
[2018-01-05] MEDS ORDERED: ONDANSETRON 4 MG TABLET PO PRN (17:05)
[2018-01-05] MEDS ORDERED: NEBIVOLOL 5 MG TABLET PO SCH (17:30)
[2018-01-05] MEDS: POTASSIUM CHLORIDE 20 MEQ TABLET PO SCH (17:40)
[2018-01-05] MEDS: levETIRAcetam 500 MG TABLET PO SCH (20:54)
[2018-01-05] MEDS: MAGNESIUM CHLORIDE 64 MG TABLET PO SCH (20:54)
[2018-01-06 04:20] LABS: Basophils % 0.6 % (0.0-0.8); Eosinophils # 0.1 10*3/uL (0.0-0.87); Eosinophils % 3.6 % (0.00-10.9); Hematocrit 26.1 VOL% (35.7-47.0); Hemoglobin 8.3 GM/DL (12.0-16.0); Immature Granulocytes % 0.6 %; Immature Granulocytes Absolute 0.02 #; Lymphocytes # 0.9 10*3/uL (1.4-4.0); Lymphocytes % 24.6 % (21.3-54.2); Mean Corpuscular HGB Conc 31.8 GM/DL (32-36); Mean Corpuscular Hemoglobin 29 PG (27-34); Mean Corpuscular Volume 90.9 FL (87-102); Mean Platelet Volume 10.7 FL (9.6-12.0); Monocytes # 0.6 10*3/uL (0.11-0.8); Monocytes % 16.2 % (1.7-12.7); Neutrophils # 1.9 10*3/uL (1.4-7.4); Neutrophils % 54.4 % (38.7-73.9); Platelet Count 196 T/CUMM (130-400); Red Blood Count 2.87 MC/CUMM (3.8-5.5); Red Cell Distribution Width 16.1 % (9.3-17.3); White Blood Count 3.6 T/CUMM (4-12)
[2018-01-06 04:35] LABS: Albumin 2.2 G/DL (3.4-5.0); Bilirubin,Total 0.9 MG/DL (0.2-1.0); Osmolality,Calculated 276.5 MOS/KG (273-304); Potassium 3.8 MMOL/L (3.5-5.1); Total Protein 6.7 G/DL (6.4-8.3)
[2018-01-06 05:08] LABS: Band Neutrophils 7 % (0-10); Eosinophils 3 % (0-10); Lymphocytes 29 % (20-55); Segmented Neutrophils 54 % (50-85); Total Cells Counted 100
[2018-01-06 05:14] LABS: Anisocytosis 1+; Platelet Estimate Adequate
[2018-01-06] MEDS ORDERED: LEVOTHYROXINE 75 MCG TABLET PO SCH (07:00)
[2018-01-06] MEDS: MAGNESIUM CHLORIDE 64 MG TABLET PO SCH (08:44)
[2018-01-06] MEDS: levETIRAcetam 500 MG TABLET PO SCH (08:45)
[2018-01-06] MEDS: POTASSIUM CHLORIDE 20 MEQ TABLET PO SCH (08:45)
[2018-01-06] MEDS ORDERED: BENZTROPINE 2 MG/2 ML AMP IV PRN (11:24)
[2018-01-06 12:05] VITALS: BP 160/55
== END 2018-01-06 14:28 | disposition home or self-care (01) ==
LOC: INTOOBSV 06:30 → N.ADMINP 06:30 → N.4E 07:18
PROVIDERS: ADMIT Specialist; ATTEND Specialist